=== PATIENT | male | born 1950 | race Caucasian/White ===

== ENCOUNTER 2021-02-13 00:28 | Day surgery (SDC) | payer MEDICARE, SELFPAY ==
[2021-02-02 14:05] VITALS: BMI 37.5
[2021-02-13 06:23] VITALS: BP 136/86; PULSE 76; RESP 18; TEMP 35.9; O2SAT 100; BMI 37.7
[2021-02-13] MEDS: LACTATED RINGERS 1,000 ML 150 ML IV CONT (06:55)
--- NOTE | 2021-02-13 07:14 | WPDANESEPPF ---
Anes - Initial Pre Proc Eval Procedure: Operation Date: 02/13/21 07:30 Proposed Procedures p Colonoscopy - Ramiro Tobias MD Date/Time: 02/13/21 07:14 Surgeon: Ramiro Tobias MD Pre Op Diagnosis: diarrhea, hx of colon polyps Patient Data Age: 70 Gender: M Height: 1.85 m Weight: 129.6 kg Last Vital Signs Temp 96.7 F L 02/13/21 06:23 Pulse 76 02/13/21 06:23 Resp 18 02/13/21 06:23 BP 136/86 02/13/21 06:23 Pulse Ox 100 02/13/21 06:23 Allergies Allergy/AdvReac Type Severity Reaction Status Date / Time atropine AdvReac Mild NAUSEA AND Verified 02/13/21 06:20 VOMITING diphenoxylate AdvReac Mild Fever Verified 02/13/21 06:20 meperidine AdvReac Mild SEVERE Verified 02/13/21 06:20 NAUSEA AND VOMITING Home Medications Medication Instructions Recorded Confirmed Type losartan 50 mg tablet 50 mg PO DAILY #90 tablet 05/31/20 02/02/21 Rx sertraline 100 mg tablet 100 mg PO DAILY #90 tablet 10/13/20 02/02/21 Rx cholestyramine (with sugar) 4 gram 4 g PO BID #378 g 01/18/21 02/02/21 Rx oral powder sodium,potassium,mag sulfates 17.5 See Rx Instructions PO .COMPLEX 01/19/21 02/13/21 Rx gram-3.13 gram-1.6 gram oral soln #354 ml aspirin [Adult Low Dose Aspirin] 81 mg PO DAILY 02/02/21 02/02/21 History Patient hx anesthesia problems: none Family hx anesthesia problems: none PMFSH Past Medical History Medical History DNR no code (do not resuscitate) Dysesthesia Mixed hyperlipidemia Obesity (BMI 30-39.9) Prediabetes Psychomotor agitation Surgical History Surgical History History of total bilateral knee replacement Family History Family History Father Hypertension Family history of cardiovascular disease Carcinoma of colon Mother Hypertension Family history of cardiovascular disease Carcinoma of colon Sibling Hypertension Family history of cardiovascular disease Social History Social History Smoking status: Never smoker Alcohol intake: never Substance use: never Substance use type: does not use Living arrangements: with family Spiritual care concerns: No Anes - Eval Final PreProcedure Day of Procedure 02/13/21 07:14 Patient weight: obese Heart: regular rate and rhythm Lungs: clear to auscultation Airway: Mallampati scale class III Neurological: alert and oriented Last oral intake: >/= 8 hours ASA classification: III Emergent: no Anesthetic plan: proceed Anesthesia type and monitoring: general GIVS and standard monitoring Informed Consent: The patient's anesthetic plan and its attendant risks and benefits were discussed with the patient/family/POA. Questions were solicited and answers provided to the satisfaction of the patient/family/POA.
--- NOTE | 2021-02-13 07:44 | WPDHPUPDATE1 ---
History and Physical Update Update Date/Time: 02/13/21 07:44 History and Physical has been reviewed, including an updated exam of the patient. There are NO changes in the patient's condition. Risks, benefits, and alternatives have been discussed and questions answered. Patient agrees to proceed with procedure.
[2021-02-13] MEDS: SIMETHICONE ORAL SUSPENSION 20 MG/0.3 ML 30 ML BOTTLE 0.6 ML IRRIGATION (07:55)
[2021-02-13 08:05] VITALS: BP 99/68; PULSE 68; RESP 25; O2SAT 97
[2021-02-13 08:15] VITALS: BP 104/73; PULSE 66; RESP 17; O2SAT 98
[2021-02-13 08:25] VITALS: BP 126/81; PULSE 64; RESP 20; O2SAT 99
== END 2021-02-13 08:31 | disposition home or self-care (01) ==
PROVIDERS: PCP Family Medicine; Visit Provider Internal Medicine Gastroenterology
PROC: 0DJD8ZZ Inspection of Lower Intestinal Tract, Via Natural or Artificial Opening Endoscopic (ICD-10-PCS; CPT 45378; principal; 2021-02-13 07:30)
DX: Z12.11 Encounter for screening for malignant neoplasm of colon (principal); Z80.0 Family history of malignant neoplasm of digestive organs; K64.8 Other hemorrhoids; R19.7 Diarrhea, unspecified; K52.832 Lymphocytic colitis; Z90.49 Acquired absence of other specified parts of digestive tract; E78.2 Mixed hyperlipidemia; R73.03 Prediabetes; M17.10 Unilateral primary osteoarthritis, unspecified knee; Z86.010 Personal history of colon polyps; K21.9 Gastro-esophageal reflux disease without esophagitis; R20.8 Other disturbances of skin sensation; E66.9 Obesity, unspecified; Z68.37 Body mass index [BMI] 37.0-37.9, adult
CPT/HCPCS: 45380; 88305; J2704; J7120

== ENCOUNTER 2021-05-03 11:51 | Outpatient (CLI) | payer MEDICARE, SELFPAY ==
[2021-05-03 13:35] LABS: Urine Cotinine NEGATIVE
== END 2021-05-03 11:52 | disposition home or self-care (01) ==
LOC: ANHSURGERY 11:58
PROVIDERS: PCP Family Medicine; Visit Provider Orthopaedic Surgery
DX: Z01.818 Encounter for other preprocedural examination (principal); M17.10 Unilateral primary osteoarthritis, unspecified knee
CPT/HCPCS: 80307; 87070

== ENCOUNTER 2021-05-24 16:29 | Observation (INO) | payer MEDICARE, SELFPAY ==
--- NOTE | 2021-05-03 12:03 | PC.NURSE ---
Report to the Outpatient Waiting Room, entrance under the green pavilion located off [facility], at time _1000_ on date _05/17/21__. OR Time: ___1200___. - You and your visitor will be asked a series of questions to screen for COVID 19 for your protection. - A mask is required within the hospital. - Only one visitor is allowed at this time. Patient visitors will be guided where to wait when not with patient. Preoperative COVID Testing Requirements: No COVID Test needed if: (proof is required; if not received patient will have Rapid Test prior to entry) - Patient has received COVID Vaccine at least 14 days prior to procedure date or - Patient has positive COVID test result within last 90 days of surgery date. COVID Test needed if above criteria is not met If not COVID vaccinated a COVID test must be conducted within 72 hours of surgery and patient is asked to isolate self from time of testing until procedure. You will go to the [facility] for your COVID testing. The [facility] is located at the corner of [address] [facility]. You will only be called if COVID results are positive and your surgeon may reschedule your elective surgery date. Patients may have clear liquids (water, carbonated beverages, clear teas, apple juice) until 3 hours prior to surgery (0900 AM) with a maximum of 20 ounces. - No food from midnight until time of surgery - Infants may have breast milk until 4 hours before surgery, formula 6 hours prior to surgery. - Children will be allowed to drink immediately following surgery. If applicable, please bring a bottle or sippy cup to assist with drinking. Juice, water, soda, and popsicles are readily available. For infants on formula, please bring formula the day of surgery. Pacifiers are allowed. Take the following medications with a SIP of water the morning of surgery: _DICYCLOMINE, SERTRALINE, SULFASALAZINE___ Medications to discontinue per physician ___ALEVE Date to take last dose___05/15/21 Please no make-up, nail [place], hairspray, perfume, deodorant, or body powder the day of surgery. No jewelry (including any body piercings) or valuables the day of surgery, leave them at home. Please take a shower or bath the night before, or the morning of, surgery with an antibacterial soap. Wear comfortable, loose fitting clothing. Children are encouraged to wear pajamas. - Jewelry must be removed prior to entering the operating room. Rings and piercings that are not removed may be cut off. - The hospital will not accept responsibility for valuables. - Please leave all valuables, including medications, at home the day of surgery. If you are going home after surgery, a licensed regional dedicated truck driver must drive you home. - NO public transportation without another adult. - We recommend that an adult stay with you for 24 hours following discharge. - We also recommend that you do not drive, make important decision, drink alcoholic beverages, or take any drugs that were not prescribed by your health care provider for at least 24 hours after your discharge time. For Pediatric surgeries, we recommend two adults accompany the child home (only one inside the building at this time). Follow any additional instructions given to you from your surgeon. TOTAL JOINT CLASS 05/16/21 @ 1000 AM, [facility] MAIN ENTRANCE, LOWER LEVEL Telephone instructions given to ____PT and asked if any additional questions and then verbalized understanding. Patient advised to call surgeon office or pre surgery nurse liaison [phone] if any additional questions.
[2021-05-03 12:05] VITALS: BP 130/82; PULSE 58; RESP 20; TEMP 36.3; O2SAT 97; BMI 37.0
[2021-05-23] VITALS (13 sets, daily range): BP systolic 117–145; BP diastolic 71–85; PULSE 72–92; RESP 12–20; TEMP 36.1–36.6; O2SAT 93–99
--- NOTE | 2021-05-23 08:42 | PM.IMHP ---
H&P: HPI History of Present Illness Date/Time: 05/23/21 [id number] male patient of Dr. Humphries who presents today for a right total knee arthroplasty. He is having progressively worsening symptoms in the right knee. He has undergone cortisone injection as well as Visco supplementation injections in the knee without improvement of symptoms. The last injection was over 3 months ago. He has been taking [id number] Aleve. He has moderately severe arthritis in medial compartment. Patient did have an arthroscopy done in August of this year for a flap tear of the medial meniscus. 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 Patient has reached a point where he is having significant symptoms on a daily basis. He feels he would rather proceed with total knee arthroplasty rather continue nonsurgical treatment at this point. Chief Complaint: Right knee DJD Review of Systems Review of Systems: All systems reviewed & are unremarkable except as noted in HPI and below PMFSH Past Medical History Medical History Burroughs palsy DNR no code (do not resuscitate) Dysesthesia Mixed hyperlipidemia Obesity (BMI 30-39.9) Prediabetes Psychomotor agitation Surgical History Surgical History History of total bilateral knee replacement Family History Family History Father Hypertension Family history of cardiovascular disease Carcinoma of colon Mother Hypertension Family history of cardiovascular disease Carcinoma of colon Sibling Hypertension Family history of cardiovascular disease Social History Social History Smoking status: Never smoker Second hand tobacco smoke exposure: No Additional smoking assessment comments: PT DENIES ALL FORMS OF TOBACCO USE Alcohol intake: never Substance use: never Substance use type: does not use Living arrangements: with family Gender identity (if verbalized by the patient): Male Sexual Orientation (if Verbalized by the Patient): Lesbian, Singleton, or Homosexual Spiritual care concerns: No Meds Home Medications and Allergies Home Medications Medication Instructions Recorded Confirmed Type dicyclomine 10 mg QAM 05/03/21 05/03/21 History losartan 50 mg PO QAM 05/03/21 05/03/21 History melatonin 10 mg PO HS 05/03/21 05/03/21 History naproxen sodium [Aleve] 220 mg PO BID 05/03/21 05/03/21 History potassium chloride 20 meq PO QAM 05/03/21 05/03/21 History psyllium husk [Metamucil] 1.6 g PO BID 05/03/21 05/03/21 History sertraline 50 mg PO QAM 05/03/21 05/03/21 History sulfasalazine 0.15 g PO BID 05/03/21 05/03/21 History Allergies Allergy/AdvReac Type Severity Reaction Status Date / Time atropine AdvReac Mild NAUSEA AND Verified 05/03/21 12:19 VOMITING diphenoxylate AdvReac Mild Fever & Verified 05/03/21 12:19 VOMITING meperidine AdvReac Mild SEVERE Verified 05/03/21 12:19 NAUSEA AND VOMITING Exam Narrative: 71-year-old male he is 6 ft 1 and 281 lb. Right knee he has no definite effusion. Range of motion is from 2-140 degrees. He has some mild patellofemoral crepitus with range motion. Hip range of motion is full without discomfort negative Stinchfield maneuver. Normal quad strength. 2+ dorsalis pedis and posterior tibial artery pulse palpable. No numbness to light touch in the right lower extremity. There is no edema in lower extremity. He walks with a slight limp. Resp: Auscultation: clear to auscultation bilaterally Cardio: Rate: regular rate Rhythm: regular rhythm Assessment and Plan Additional Plan 71-year-old male who has moderately severe medial compartment arthritis with continued significant symptoms. He has maximized nonsurgical treatment
[2021-05-23] MEDS: ACETAMINOPHEN 500 MG TABLET 1000 MG PO ×3 (10:04→23:36)
[2021-05-23] MEDS: LACTATED RINGERS 1,000 ML 30 ML IV CONT ×2 (10:25→16:07)
--- NOTE | 2021-05-23 10:59 | WPDANESEPPF ---
Anes - Initial Pre Proc Eval Procedure: Operation Date: 05/23/21 12:00 Proposed Procedures p Right Total Knee Arthroplasty - Nimesh Bernal MD Date/Time: 05/23/21 10:59 Surgeon: Nimesh Bernal MD Pre Op Diagnosis: OA right knee Patient Data Age: 71 Gender: M Height: 1.85 m Weight: 127.3 kg Last Vital Signs Temp 36.3 C L 05/03/21 12:05 Pulse 58 L 05/03/21 12:05 Resp 20 05/03/21 12:05 BP 130/82 05/03/21 12:05 Pulse Ox 97 05/03/21 12:05 Allergies Allergy/AdvReac Type Severity Reaction Status Date / Time atropine AdvReac Mild NAUSEA AND Verified 05/23/21 09:59 VOMITING diphenoxylate AdvReac Mild Fever & Verified 05/23/21 09:59 VOMITING meperidine AdvReac Mild SEVERE Verified 05/23/21 09:59 NAUSEA AND VOMITING Home Medications Medication Instructions Recorded Confirmed Type dicyclomine 10 mg QAM 05/03/21 05/23/21 History losartan 50 mg PO QAM 05/03/21 05/23/21 History melatonin 10 mg PO HS 05/03/21 05/23/21 History naproxen sodium [Aleve] 220 mg PO BID 05/03/21 05/23/21 History potassium chloride 20 meq PO QAM 05/03/21 05/23/21 History psyllium husk [Metamucil] 1.6 g PO BID 05/03/21 05/23/21 History sertraline 50 mg PO QAM 05/03/21 05/23/21 History sulfasalazine 0.15 g PO BID 05/03/21 05/23/21 History Patient hx anesthesia problems: other (slow to awaken) Family hx anesthesia problems: none and other (slow to awaken) Results Review: All pre-operative results and documents have been reviewed as part of the pre-operative evaluation. [facility] Past Medical History Medical History Burroughs palsy DNR no code (do not resuscitate) Dysesthesia Mixed hyperlipidemia Obesity (BMI 30-39.9) Prediabetes Psychomotor agitation Surgical History Surgical History History of total bilateral knee replacement Family History Family History Father Hypertension Family history of cardiovascular disease Carcinoma of colon Mother Hypertension Family history of cardiovascular disease Carcinoma of colon Sibling Hypertension Family history of cardiovascular disease Social History Social History Smoking status: Never smoker Second hand tobacco smoke exposure: No Additional smoking assessment comments: PT DENIES ALL FORMS OF TOBACCO USE Alcohol intake: never Substance use: never Substance use type: does not use Living arrangements: with family Gender identity (if verbalized by the patient): Male Sexual Orientation (if Verbalized by the Patient): Lesbian, Singleton, or Homosexual Spiritual care concerns: No Anes - Eval Final PreProcedure Day of Procedure 05/23/21 10:59 Patient weight: obese Heart: regular rate and rhythm Lungs: clear to auscultation Airway: Mallampati scale class II Neurological: alert and oriented Last oral intake: >/= 8 hours ASA classification: III Emergent: no Anesthetic plan: proceed Anesthesia type and monitoring: general LMA and standard monitoring Results Review: All pre-operative results and documents have been reviewed as part of the pre-operative evaluation. Informed Consent: The patient's anesthetic plan and its attendant risks and benefits were discussed with the patient/family/POA. Questions were solicited and answers provided to the satisfaction of the patient/family/POA.
[2021-05-23] MEDS: TRANEXAMIC ACID 1,000MG/ISO100 1,000 MG/100 ML BAG 200 MG IVPB (11:29)
--- NOTE | 2021-05-23 11:52 | WPDHPUPDATE1 ---
History and Physical Update Update Date/Time: 05/23/21 11:52 History and Physical has been reviewed, including an updated exam of the patient. There are NO changes in the patient's condition. Risks, benefits, and alternatives have been discussed and questions answered. Patient agrees to proceed with procedure.
--- NOTE | 2021-05-23 12:01 | WPDHPUPDATE1 ---
History and Physical Update Update Date/Time: 05/23/21 12:01 History and Physical has been reviewed, including an updated exam of the patient. There are NO changes in the patient's condition. Risks, benefits, and alternatives have been discussed and questions answered. Patient agrees to proceed with procedure.Pt has OA left knee also and would a cortisone shot left knee during surgery.
[2021-05-23] MEDS: ceFAZolin 3 GM/D5W 100 ML 100 ML IVPB (12:11)
[2021-05-23] MEDS: methylPREDNISolone ACETATE 80 MG/ML VIAL IM (12:30)
[2021-05-23] MEDS: ceFAZolin SODIUM 1 GM VIAL 3 GM IRRIGATION (12:51)
[2021-05-23] MEDS: LIDOCAINE HCL 1% PF 30 ML VIAL INFILTRATE (12:53)
[2021-05-23] MEDS: TRANEXAMIC ACID 1,000 MG/10 ML AMPUL 1000 MG IV PUSH (14:52)
[2021-05-23] MEDS: ceFAZolin SODIUM 1 GM VIAL 2 GM IV PUSH (14:53)
--- NOTE | 2021-05-23 15:47 | W.PM.PROC2 ---
Procedure Note - Detailed Date of Procedure 05/23/21 Pre-op Diagnosis OA right knee, OA left knee Post-op Diagnosis same Procedure Performed Cortisone injection left knee, right total knee arthroplasty Surgeon Nimesh Bernal MD Senior [employer] Developer Humberto Anesthesia general Description of Procedure Patient was brought to the operating room and general anesthesia was administered. He received 3 ends of Ancef weight based vancomycin 1 g tranexamic acid preoperatively. The left knee was prepped with ChloraPrep and 80 mg of Depo-Medrol and 3 cc 1% lidocaine were injected into left knee joint without difficulty. The right knee was prepped draped in a sterile fashion. Limb was exsanguinated tourniquet elevated to 275 mmHg. A 7 in longitudinal midline incision was used and a standard parapatellar arthrotomy was utilized. Infrapatellar and suprapatellar fat pads were excised and quadriceps synovectomy carried out. The minimal marginal osteophytes the patella with central chondromalacia that resulted in no the deformity and I felt that this patella would be treated optimally with non resurfacing. A very minimal lateral facetectomy was performed. A guide katey was inserted on femoral canal after aspiration of canal contents using the 5 degree valgus cutting bushing 10 mm of bone removed the distal femur. Next the tibia was hip making a skim cut off the low point of the posterior aspect of the medial tibial plateau this removed about 10 mm laterally. This was made perpendicular to the axis of the tibia meniscal remnants were excised and the PCL recessed. At 90? of flexion the medial flexion gap was 8 mm the lateral side 12 mm. He did not have a varus deformity and therefore no medial capsular release was performed. The the femoral sizing guide was applied to the distal femur at 5? of external rotation which matched Whitesides line nicely. Posterior referencing pinholes were placed. The 72.5 cutting block was applied which was the proper size medial to lateral. However, it was going to notch. Approximately 2? of flexion just a minimal amount was applied the distal femur. We applied the 75 cutting block in the anterior cut was made. I could see that with the 72.5 cut we would still notch and therefore an additional 2 or 3 ? of slope were applied the distal femoral cut and the 72.5 cutting block impacted into place and the threaded pins used for additional stabilization of a block in the AP and chamfer cuts were made. The 72.5 component fit nicely. Bone quality was excellent. The tibia was sized to a 75. The 79 was going to overhang posteriorly by 3 mm at the proper rotation. A 75 fit line to line posterolaterally to anteromedial at proper rotation. This was punched and we trialed. The 10 insert and appropriate stability at 90? with 1 mm medial and lateral opening at 90? and gravity flexion all the way back. There was it lacked approximately 3 or 4? of extension were. It posterior capsule release was performed initially just centrally and a little bit of the posteromedial osteophyte from the tibia was removed taking care not to release any of the capsule attachments in that location since he did not have a varus deformity. We trialed again and had a positive bounce lacking about 2? of extension. We had 2 mm of mediolateral play in this position with a 10 insert therefore the more thorough posterior capsule release was performed from the distal femur from insertions of medial head of the gastrocs to lateral head of gastroc and we trialed again and this time the knee came out to full extension with a negative bounce. We had appropriate stability throughout range of motion at this time. Step drill was used to make lug holes in the distal femur the bony surfaces were prepared with the step drill in the dense bone of the tibial plateau and distal femur and 2 batches of methylmethacrylate 1 with gentamicin powder mixed was applied the tibial component 75 and the 72.5 femo
[2021-05-23] MEDS: fentaNYL CITRATE INJ (*CRX) 100 MCG/2 ML VIAL 25 MCG IV PUSH ×6 (16:30→17:09)
--- NOTE | 2021-05-23 17:50 | ADMGEN ---
This patient, Jesse Crook, was admitted to Medical Room 244-. Patient/family oriented to hospital policies and general routines including ID bracelet, bed and alarms, visiting hours, pain management, procedures, bathroom and other care routines, personal items, smoking policy, room service/diet, and visiting hours. Information on how to activate the Rapid Response Team has been discussed. Patient/Family are encouraged to report perceived risks to care and to ask questions if they do not understand what they are told or what they should do.
[2021-05-23] MEDS: SODIUM CHLORIDE 0.9% IV 1,000 ML 125 ML IV CONT (18:18)
[2021-05-23] MEDS: ONDANSETRON INJ 4 MG/2 ML VIAL IV PUSH (18:53)
[2021-05-23] MEDS: oxyCODONE HCL (*CRX) 5 MG TAB IR PO ×2 (20:56)
[2021-05-23] MEDS: ARTIFICIAL TEARS OPHTH SOLN 15 ML BOTTLE 1 DROP EACH EYE (20:57)
[2021-05-23] MEDS: MELATONIN 5 MG TABLET 10 MG PO (20:59)
[2021-05-23] MEDS: DOCUSATE SODIUM 100 MG CAPSULE PO (21:05)
[2021-05-23] MEDS: PROPARACAINE HCL 0.5% 15 ML OPHTH SOLN 1 DROP EACH EYE (21:42)
[2021-05-23] MEDS: MORPHINE SULFATE (*CRX) 2 MG/ML INJ IV PUSH (23:31)
[2021-05-23] MEDS: DICLOFENAC SODIUM 0.1% OPHTH SOLN 2.5 ML BOTTLE 1 DROP EACH EYE (23:36)
--- NOTE | ~2021-05-24 | XR_ITS ---
EXAMINATION: XR femur RT min 2V, XR knee RT 2V DATE: 05/25/2021 13:36 INDICATION: Severe right thigh pain post right total knee arthroplasty 2 days prior. TECHNIQUE: AP and lateral views of the right femur were obtained on separate overlapping proximal and distal kavya ges. 2. AP and crosstable lateral views of the right knee were obtained. COMPARISON: 05/23/2021 FINDINGS: Again seen is a cemented right total knee arthroplasty without patellar resurfacing which remains in near-anatomic alignment with no periprosthetic lucency to suggest loosening. No fracture. Small right knee joint effusion with resolution of the majority of the prior postoperative intra-articular gas. Persistent soft tissue gas in the soft tissues into the patella where there is increasing soft tissue swelling as well as extending proximally within the quadriceps musculature of the mid to distal thig h. The gas in the quadriceps musculature appears more diffuse in distribution to smaller foci that on the prior study at which time there were a few are larger collections of gas. IMPRESSION: 1. Expected postoperative changes of recent right total knee arthroplasty with small right knee joint effusion and expected small foci of postoperative gas in the soft tissues at the anterior knee and m id to distal thigh. Reviewed, dictated and finalized at location A. LINING PASTER IMPRESSION: 1. Expected postoperative changes of recent right total knee arthroplasty with small right knee joint effusion and expected small foci of postoperative gas in the soft tissues at the anterior knee and mid to distal thigh.
--- NOTE | ~2021-05-24 | XR_ITS ---
EXAMINATION: XR knee RT 2V DATE: 05/23/2021 16:18 INDICATION: Postoperative evaluation following right total knee arthroplasty. TECHNIQUE: Anteroposterior and lateral views of the right knee were obtained. COMPARISON: None. FINDINGS: Right total knee arthroplasty without patellar resurfacing appears well seated and in near anatomic a lignment. No fractures identified. Expected postoperative subcutaneous and intra-articular gas. IMPRESSION: 1. Right total knee arthroplasty, negative for postoperative purposes. Reviewed, dictated and finalized at location B. ER [employer]TER [employer]
--- NOTE | ~2021-05-24 | US_ITS ---
EXAMINATION: US venous doppler LE RT DATE: 05/25/2021 13:54 INDICATION: Right lower limb pain TECHNIQUE: Robles scale images without and with compression and Doppler images of the right lower extre mity veins were obtained. COMPARISON: None FINDINGS: The right common femoral vein, profunda femoral vein, femoral vein, popliteal vein, peronea l trunk, posterior tibial veins, and greater saphenous vein are patent. The peroneal and posterior ti bial veins are not well demonstrated but appear patent. A Nava's cyst is noted. IMPRESSION: 1. Patent right lower extremity veins. No evidence of deep venous thrombosis. Reviewed, dictated and finalized at location A. [employer] TEACHER
[2021-05-24] MEDS: oxyCODONE HCL (*CRX) 5 MG TAB IR PO ×4 (01:24→05:40)
[2021-05-24 03:45] VITALS: BP 101/70; PULSE 79; RESP 18; TEMP 36.9; O2SAT 97
[2021-05-24] MEDS: MORPHINE SULFATE (*CRX) 2 MG/ML INJ IV PUSH ×2 (04:10→06:58)
[2021-05-24] MEDS: DICLOFENAC SODIUM 0.1% OPHTH SOLN 2.5 ML BOTTLE 1 DROP EACH EYE ×3 (05:39→22:24)
[2021-05-24] MEDS: ACETAMINOPHEN 500 MG TABLET 1000 MG PO ×3 (05:40→18:06)
[2021-05-24 05:59] LABS: Basophils Percent Auto 0.2 % (0.2-1.2); Hematocrit 34.1 % (42.0-52.0); Hemoglobin 11.7 g/dL (14.0-18.0); Immature Granulocyte Absolute 0.02 K/mm3 (0.00-0.031); Immature Granulocyte Percent A 0.2 % (0-0.5); Immature Platelet Fraction Pct 4.1 % (0.9-11.2); Lymphocytes Absolute Auto 1.52 K/mm3 (0.9-3.2); Lymphocytes Percent Auto 16.1 % (18.3-44.2); Mean Corpuscular HGB Conc 34.3 g/dl (32-36); Mean Corpuscular Hemoglobin 29.3 pg (26-34); Mean Corpuscular Volume 85.3 fl (80-100); Mean Platelet Volume 10.3 fl (7.4-10.4); Monocytes Percent Auto 10.9 % (2.6-8.5); Neutrophils Absolute Auto 6.9 K/mm3 (1.3-6.7); Neutrophils Percent Auto 72.6 % (45.5-73.1); Platelet Count Result 136 k/mm3 (150-375); Red Cell Distribution Width 16.2 % (11.5-14.5); White Blood Count 9.5 K/mm3 (4.5-10.0)
[2021-05-24 06:13] LABS: Anion Gap 10 mmol/L (8-16); Blood Urea Nitrogen 12 mg/dL (9-20); Calcium 7.7 mg/dL (8.4-10.2); Carbon Dioxide 24 mmol/L (22-30); Chloride 105 mmol/L (98-107); Estimated CRCL calculation 103 ml/min; Estimated Glomerular Filt Rate > 60; Glucose 132 mg/dL (65-110); Potassium 2.9 mmol/L (3.4-5.0); Sodium 139 mmol/L (137-145)
--- NOTE | 2021-05-24 07:07 | PCRCNOTE ---
pt stated that he would be going home soon and does not want to wear CPAP
[2021-05-24 07:45] VITALS: BP 136/93; PULSE 80; RESP 20; TEMP 36.3; O2SAT 98
--- NOTE | 2021-05-24 07:54 | PM.PNORT ---
Progress Note: A&P Additional Plan patient is postop day 1 after right total knee arthroplasty. He has done well overnight except for having significant pain. I will make sure that the nurses are giving him the 2 oxycodone tablets every 4 hours on the scheduled basis and this is what he should do home. His wound is dry there is no significant swelling in the knee. He is neurologically intact in the right lower extremity. His hemoglobin is 11 consistent with acute blood loss anemia. His potassium is 2.9. He normally takes 20 mEq of potassium at 8:00 a.m. every morning he will receive this and in addition I will ask the hospitalist if anything extra needs to be done. He may be discharged this afternoon after his therapy. Subjective Subjective Date/Time Seen: 05/24/21 07:54 Objective Data Vital Signs Vital Signs: Vital Signs - 24 hr 05/23/21 09:55 05/23/21 16:07 05/23/21 16:20 Temperature 36.6 C 36.3 C L Pulse Rate 72 92 83 Respiratory Rate 20 18 14 Blood Pressure 127/85 132/79 123/77 Pulse Oximetry 99 98 97 05/23/21 16:35 05/23/21 16:50 05/23/21 17:05 Temperature Pulse Rate 81 75 76 Respiratory Rate 14 12 12 Blood Pressure 117/74 122/72 125/71 Pulse Oximetry 93 95 97 05/23/21 17:20 05/23/21 17:35 05/23/21 18:00 Temperature 36.2 C L Pulse Rate 80 80 83 Respiratory Rate 12 12 18 Blood Pressure 122/75 121/79 145/80 H Pulse Oximetry 97 96 96 05/23/21 18:15 05/23/21 18:45 05/23/21 19:45 Temperature 36.3 C L 36.6 C 36.1 C L Pulse Rate 83 77 78 Respiratory Rate 18 18 18 Blood Pressure 128/74 124/78 121/76 Pulse Oximetry 99 99 96 05/23/21 23:45 05/24/21 03:45 Temperature 36.1 C L 36.9 C Pulse Rate 78 79 Respiratory Rate 18 18 Blood Pressure 121/76 101/70 Pulse Oximetry 96 97 Intake/Output Intake/Output: Intake & Output 05/21/21 05/22/21 05/23/21 05/24/21 23:59 23:59 23:59 23:59 Intake Total 710 Balance 710 Meds/Results Medications: Active Medications Generic Name Dose Route Start Last Admin Trade Name Freq PRN Reason Stop Dose Admin Acetaminophen 1,000 mg 05/23/21 18:00 05/24/21 05:40 Acetaminophen 500 Mg Tablet PO 1,000 mg Q6H GINA Administration Apixaban 2.5 mg 05/24/21 09:00 Apixaban 2.5 Mg Tablet PO Q12HR GINA Artificial Tears 1 drop 05/23/21 17:39 05/23/21 20:57 Artificial Tears Ophth Soln 15 Ml Bottle EACH EYE 1 drop Q2H PRN Administration Dry Eye(s) Artificial Tears 1 drop 05/23/21 17:44 Artificial Tears Ophth Soln 15 Ml Bottle EACH EYE Q2H PRN Dry Eye(s) Celecoxib 200 mg 05/24/21 08:00 Celecoxib 200 Mg Capsule PO DAILY@0800 GINA Cephalexin HCl 500 mg 05/24/21 18:00 Cephalexin 500 Mg Capsule PO Q6HR GINA Diclofenac Sodium 1 drop 05/23/21 22:00 05/24/21 05:39 Diclofenac Sodium 0.1% Ophth Soln 2.5 Ml Bottle EACH EYE 05/27/21 21:59 1 drop Q8HR GINA Administration Dicyclomine HCl 10 mg 05/24/21 09:00 Dicyclomine Hcl 10 Mg Capsule PO QAM GINA Docusate Sodium 100 mg 05/23/21 21:00 05/23/21 21:05 Docusate Sodium 100 Mg Capsule PO 100 mg Q12HR GINA Administration Vancomycin HCl 1,000 mg in 250 mls @ 250 mls/hr 05/23/21 23:00 05/23/21 23:31 Vancomycin 1,000 Mg/D5w 250 Ml IVPB 05/24/21 11:59 250 mls/hr Q12H GINA Administration Cefazolin Sodium 1 gm in 50 mls @ 100 mls/hr 05/23/21 20:00 05/24/21 04:23 Ancef 1 Gm/D5w 50 Ml Pm IVPB 05/24/21 12:29 100 mls/hr Q8H GINA Administration Losartan Potassium 50 mg 05/24/21 09:00 Losartan Potassium 50 Mg Tablet PO QAM GINA Melatonin 10 mg 05/23/21 21:00 05/23/21 20:59 Melatonin 5 Mg Tablet PO 10 mg HS GINA Administration Miscellaneous Information 1 each 05/23/21 00:01 Metamucil 1.6gm Order. Significant Other To Bring Tomorrow Morning, Ok Per Dr. Bernal For XX 06/22/21 00:00 CLARIFY GINA Miscellaneous Information 1 each 05/23/21 00:01 Sulfasalazine 150mg Significa
--- NOTE | 2021-05-24 08:52 | PM.IMCN ---
Assessment and Plan Assessment and plan (1) Total knee replacement status: Code(s): Z96.659 - Presence of unspecified artificial knee joint Status: Acute Assessment and Plan: Status post right knee arthroplasty postop day 1 -patient has received vancomycin, Keflex and cefazolin for perioperative antibiotics -continue Celebrex and oxycodone for pain. Would recommend trying to maybe schedule Tylenol and do narcotics PRN for pain -PT/OT per ortho -continue eliquis 2.5 daily (2) Hypokalemia: Code(s): E87.6 - Hypokalemia Status: Acute Assessment and Plan: Potassium was 2.9 today and he has a hx of hypokalemia in the past -continue 20meq home dose and give 40meg IV x 1 -mag normal 1.7 -will need to repeat before discharge to ensure this has improved (3) Essential hypertension: Code(s): I10 - Essential (primary) hypertension Status: Acute Assessment and Plan: Last bp 136/93 -continue lostartan (4) Postoperative anemia: Code(s): D64.9 - Anemia, unspecified Status: Acute Assessment and Plan: Mild at 11.7/34.1 -outpt labs 03/2021 show hgb was 13.5 -no evidence of bleeding on exam, suspect this will improve with time Additional Plan Supervising physician for this consult H&P is Dr. Bo. Thank you for allowing us to consult in this patient's care. If you have any questions please feel free to reach out. HPI Data of Consult Consult date: 05/24/21 Requesting Physician: Nimesh Bernal MD Primary Care Provider: Jesse Humphries MD Consult Narrative Narrative: Jesse Crook is a 71 year old male with a past medical history of hypertension, chronic diarrhea, and arthritis who underwent a right total knee arthroplasty 05/23/21. Patient was having progressively worsening symptoms to the right knee over the last few years and underwent cortisone injections without improvement of his symptoms. He has been taking ikiz-nro-vhnqzal medications but continued to have pain. He has not had any recent CP, SOB, fevers, chills, nausea or vomiting. He has his normal chronic diarrhea that he sees Dr. Tobias for. [facility], [facility] Past Medical History Medical History (Updated 12/09/21 @ 09:55 by Inez Figueredo PA-C) Burroughs palsy Many years ago Dysesthesia Mixed hyperlipidemia Obesity (BMI 30-39.9) Prediabetes Psychomotor agitation Surgical History Surgical History (Updated 05/24/21 @ 09:55 by Inez Figueredo PA-C) History of bilateral mastectomy Benign History of cataract surgery History of cholecystectomy History of total bilateral knee replacement Family History Family History Father Hypertension Family history of cardiovascular disease Carcinoma of colon Mother Hypertension Family history of cardiovascular disease Carcinoma of colon Sibling Hypertension Family history of cardiovascular disease Social History Social History (Updated 05/24/21 @ 09:56 by Inez Figueredo PA-C) Social History: Patient does not drink, smoke or do drugs. 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 He would like to be a full code. His power of finance attorney is his partner, Bryan. Smoking status: Never smoker Second hand tobacco smoke exposure: No Alcohol intake: never Substance use: never Substance use type: does not use Living arrangements: with family Gender identity (if verbalized by the patient): Male Sexual Orientation (if Verbalized by the Patient): Lesbian, Singleton, or Homosexual Spiritual care concerns: No Meds Home Medications and Allergies Home Medications Medication Instructions Recorded Confirmed Type dicyclomine 10 mg QAM 05/03/21 05/23/21 History losartan 50 mg PO QAM 05/03/21 05/23/21 History melatonin 10 mg PO HS 05/03/21 05/23/21 History potassium chloride 20 meq PO QAM 05/03/21 05/23/21 History psyllium husk [Metamucil] 1.6 g PO BID 05/03/21
[2021-05-24 09:08] LABS: Magnesium 1.7 mg/dL (1.6-2.3)
[2021-05-24] MEDS: KCL 40 MEQ/WATER 100 ML 100 ML 25 ML IVPB (09:39)
[2021-05-24] MEDS: SERTRALINE HCL 50 MG TABLET PO (09:43)
[2021-05-24] MEDS: DOCUSATE SODIUM 100 MG CAPSULE PO ×2 (09:43→22:22)
[2021-05-24] MEDS: POTASSIUM CHLORIDE 20 MEQ TABLET.ER PO (09:44)
[2021-05-24] MEDS: CELECOXIB 200 MG CAPSULE PO (09:44)
[2021-05-24] MEDS: DICYCLOMINE HCL 10 MG CAPSULE PO (09:44)
[2021-05-24] MEDS: oxyCODONE HCL (*CRX) 5 MG TAB IR 10 MG PO ×4 (09:44→22:22)
[2021-05-24] MEDS: APIXABAN 2.5 MG TABLET PO ×2 (09:44→22:24)
[2021-05-24] MEDS: LOSARTAN POTASSIUM 50 MG TABLET PO (09:44)
[2021-05-24] MEDS: SODIUM CHLORIDE 0.9% IV 1,000 ML 100 ML IV CONT (10:24)
[2021-05-24 11:00] VITALS: BP 110/67; PULSE 77; RESP 16; TEMP 36.6; O2SAT 97
--- NOTE | 2021-05-24 11:02 | P.PNAN_ITS ---
Anes - Prog Note Post-Op Date/Time: 05/24/21 11:02 Cardiovascular status: normal Respiratory status: normal Airway patency: baseline Mental status: baseline Post-Op hydration status: normal Vital Signs: Last Vital Signs Temp 36.3 C L 05/24/21 07:45 Pulse 80 05/24/21 07:45 Resp 20 05/24/21 07:45 BP 136/93 H 05/24/21 07:45 Pulse Ox 98 05/24/21 07:45 Pain Score (VAS): 0 I/O: Intake & Output 05/23/21 05/24/21 05/24/21 23:59 07:59 15:59 Intake Total 50 1050 160 Output Total 1100 Balance 50 -50 160 Laboratory Tests 05/24/21 05:22 05/24/21 05:22 05/23/21 05/24/21 05/24/21 10:30 05:21 05:22 WBC 9.5 RBC 4.00 L Hgb 11.7 L Hct 34.1 L MCV 85.3 MCH 29.3 MCHC 34.3 RDW 16.2 H Plt Count 136 L MPV 10.3 Immature Gran % (Auto) 0.2 Neut % (Auto) 72.6 Lymph % (Auto) 16.[address] % (Auto) 10.9 H Eos % (Auto) 0.0 Baso % (Auto) 0.2 Lymph # (Auto) 1.52 [place] # (Auto) 1.0 H Eos # (Auto) 0.0 Baso # (Auto) 0.0 Abs Immat Gran (auto) 0.02 Absolute Neuts (auto) 6.9 H Absolute Nucleated RBC 0.0 Nucleated RBC % 0.0 % Immature Plt Fraction 4.1 Sodium Potassium Chloride Carbon Dioxide Anion Gap BUN Creatinine Estim Creat Clear Calc Estimated GFR Glucose Calcium Magnesium 1.7 Blood Type O Positive Antibody Screen Negative 05/24/21 05:22 WBC RBC Hgb Hct MCV MCH MCHC RDW Plt Count MPV Immature Gran % (Auto) Neut % (Auto) Lymph % (Auto) [place] % (Auto) Eos % (Auto) Baso % (Auto) Lymph # (Auto) [place] # (Auto) Eos # (Auto) Baso # (Auto) Abs Immat Gran (auto) Absolute Neuts (auto) Absolute Nucleated RBC Nucleated RBC % % Immature Plt Fraction Sodium 139 Potassium 2.9 L Chloride 105 Carbon Dioxide 24 Anion Gap 10 BUN 12 Creatinine 0.80 Estim Creat Clear Calc 103 Estimated GFR > 60 Glucose 132 H Calcium 7.7 L Magnesium Blood Type Antibody Screen Post-procedural complaints: none Patient Feedback: Patient satisfied with anesthetic care.
[2021-05-24] MEDS: POTASSIUM CHLORIDE 20 MEQ PACKET (FOR LIQUID) 40 MEQ PO (12:07)
[2021-05-24] MEDS: sulfaSALAzine 500 MG TABLET 1500 MG PO ×2 (12:53→18:07)
[2021-05-24 14:30] VITALS: BP 118/66; PULSE 82; RESP 16; TEMP 36.6; O2SAT 94
[2021-05-24 15:26] LABS: Anion Gap 9 mmol/L (8-16); Blood Urea Nitrogen 15 mg/dL (9-20); Calcium 7.9 mg/dL (8.4-10.2); Carbon Dioxide 23 mmol/L (22-30); Chloride 101 mmol/L (98-107); Estimated CRCL calculation 92 ml/min; Estimated Glomerular Filt Rate > 60; Glucose 138 mg/dL (65-110); Potassium 3.1 mmol/L (3.4-5.0); Sodium 133 mmol/L (137-145)
[2021-05-24] MEDS: PSYLLIUM POWDER PACKET 1 PACKET PO (18:07)
[2021-05-24] MEDS: CEPHALEXIN 500 MG CAPSULE PO (18:07)
[2021-05-24 19:37] VITALS: BP 116/63; PULSE 77; RESP 18; TEMP 36.6; O2SAT 99
[2021-05-24 21:00] VITALS: O2SAT 96
[2021-05-24] MEDS: oxyCODONE HCL (*CRX) 10 MG TAB SR 12HR PO (22:22)
[2021-05-24] MEDS: MELATONIN 5 MG TABLET 10 MG PO (22:24)
[2021-05-25] MEDS: ACETAMINOPHEN 500 MG TABLET 1000 MG PO ×5 (00:39→23:36)
[2021-05-25] MEDS: CEPHALEXIN 500 MG CAPSULE PO ×5 (00:39→23:36)
[2021-05-25] MEDS: oxyCODONE HCL (*CRX) 5 MG TAB IR 10 MG PO ×5 (02:08→20:42)
[2021-05-25 03:06] VITALS: BP 105/65; PULSE 78; RESP 16; TEMP 36.4; O2SAT 97
[2021-05-25 06:32] LABS: Anion Gap 8 mmol/L (8-16); Blood Urea Nitrogen 15 mg/dL (9-20); Calcium 7.7 mg/dL (8.4-10.2); Carbon Dioxide 25 mmol/L (22-30); Chloride 102 mmol/L (98-107); Estimated CRCL calculation 116 ml/min; Estimated Glomerular Filt Rate > 60; Glucose 111 mg/dL (65-110); Sodium 135 mmol/L (137-145)
[2021-05-25] MEDS: DICYCLOMINE HCL 10 MG CAPSULE PO (08:08)
[2021-05-25] MEDS: CELECOXIB 200 MG CAPSULE PO (08:08)
[2021-05-25] MEDS: DOCUSATE SODIUM 100 MG CAPSULE PO ×2 (08:08→20:38)
[2021-05-25] MEDS: oxyCODONE HCL (*CRX) 10 MG TAB SR 12HR PO ×2 (08:08→20:39)
[2021-05-25] MEDS: LOSARTAN POTASSIUM 50 MG TABLET PO (08:08)
[2021-05-25] MEDS: SERTRALINE HCL 50 MG TABLET PO (08:08)
[2021-05-25] MEDS: POTASSIUM CHLORIDE 20 MEQ TABLET.ER PO (08:08)
[2021-05-25] MEDS: sulfaSALAzine 500 MG TABLET 1500 MG PO ×2 (08:08→18:14)
[2021-05-25] MEDS: PSYLLIUM POWDER PACKET 1 PACKET PO ×2 (08:09→18:14)
[2021-05-25] MEDS: APIXABAN 2.5 MG TABLET PO ×2 (08:09→20:38)
[2021-05-25] MEDS: POTASSIUM CHLORIDE 20 MEQ PACKET (FOR LIQUID) 40 MEQ PO (09:20)
--- NOTE | 2021-05-25 10:25 | PM.IMPN ---
Progress Note: A&P Assessment and Plan (1) Total knee replacement status: Code(s): Z96.659 - Presence of unspecified artificial knee joint Status: Acute Assessment and Plan: Status post right knee arthroplasty postop day 2 -patient has received vancomycin, Keflex and cefazolin for perioperative antibiotics -continue Celebrex and oxycodone for pain. Would recommend trying to maybe schedule Tylenol and do narcotics PRN for pain -PT/OT per ortho -continue eliquis 2.5 daily -Pt has pain out of proportion to exam. Will check xray and doppler of the right leg. -may need SNF or acute rehab placement. (2) Hypokalemia: Code(s): E87.6 - Hypokalemia Status: Acute Assessment and Plan: Potassium was 2.9 yesterday and only 3.0 today -continue 20meq home dose and give an extra 40meq -pt unable to tolerate IV K -mag normal 1.7 yesterday but will add to daily regimen to help absorb potassium -will need a few days of potassium oupt and repeat labs outpt (3) Essential hypertension: Code(s): I10 - Essential (primary) hypertension Status: Acute Assessment and Plan: Last bp 105/65 -continue lostartan (4) Postoperative anemia: Code(s): D64.9 - Anemia, unspecified Status: Acute Assessment and Plan: Mild at 11.7/34.1 yesterday -outpt labs 03/2021 show hgb was 13.5 -no evidence of bleeding on exam, suspect this will improve with time Time Spent With Patient Time with patient: 25 - 35 minutes Subjective Date/time seen: 05/25/21 10:25 Interval history: Pt is a 71 y/o male here for elective right knee arthroplasty. Pt has significant pain in his right knee and thigh he cannot even lift it off the stool. He says he could barely stand and the pain is terrible. He says PT does help some but he still cannot do much. He denies CP or SOB. Review of Systems Review of Systems: All systems reviewed & are unremarkable except as noted in HPI and below Exam Narrative: General:Well developed well nourished patient HEENT: Normocephalic, atraumatic, PERRL, Sclerae anicteric, oral mucosa moist. Neck: Supple Resp: CTA Heart: RRR with no murmurs Abd: Soft, nontender. No pain to palpation. Positive bowel sounds Skin: Warm and dry Extremities: Right knee with bandage without bleeding or erythema. pulses and sensation intact Neuro: Alert and Oriented x4 . CN 2-12 intact. No focal neurological deficits. Objective Data Vital Signs Vital Signs: Vital Signs - 24 hr 05/24/21 11:00 05/24/21 14:30 05/24/21 19:37 Temperature 97.9 F 98 F 97.8 F Pulse Rate 77 82 77 Respiratory Rate 16 16 18 Blood Pressure 110/67 118/66 116/63 Pulse Oximetry 97 94 99 05/24/21 21:00 05/25/21 03:06 Temperature 97.6 F Pulse Rate 78 Respiratory Rate 16 Blood Pressure 105/65 Pulse Oximetry 96 97 Intake/Output Intake/Output: Intake & Output 05/22/21 05/23/21 05/24/21 05/25/21 23:59 23:59 23:59 23:59 Intake Total 710 3550 1440 Output Total 2800 400 Balance 648 268 7979 Meds/Results Medications: Active Medications Generic Name Dose Route Start Last Admin Trade Name Freq PRN Reason Stop Dose Admin Acetaminophen 1,000 mg 05/23/21 18:00 05/25/21 06:05 Acetaminophen 500 Mg Tablet PO 1,000 mg Q6H GINA Administration Apixaban 2.5 mg 05/24/21 09:00 05/25/21 08:09 Apixaban 2.5 Mg Tablet PO 2.5 mg Q12HR GINA Administration Artificial Tears 1 drop 05/23/21 17:39 05/23/21 20:57 Artificial Tears Ophth Soln 15 Ml Bottle EACH EYE 1 drop Q2H PRN Administration Dry Eye(s) Artificial Tears 1 drop 05/23/21 17:44 Artificial Tears Ophth Soln 15 Ml Bottle EACH EYE Q2H PRN Dry Eye(s) Celecoxib 200 mg 05/24/21 08:00 05/25/21 08:08 Celecoxib 200 Mg Capsule PO 200 mg DAILY@0800 GINA Administration Cephalexin HCl 500 mg 05/24/21 18:00 05/25/21 06:05 Cephalexin 500 Mg Capsule PO 500 mg Q6HR GINA Admi
[2021-05-25] MEDS: MAGNESIUM OXIDE 400 MG TABLET PO (11:00)
[2021-05-25] MEDS: DICLOFENAC SODIUM 0.1% OPHTH SOLN 2.5 ML BOTTLE 1 DROP EACH EYE ×2 (14:13→20:39)
--- NOTE | 2021-05-25 15:32 | PM.PNORT ---
Progress Note: A&P Time Spent With Patient Time: . Patient is postoperative day 2 after right total knee arthroplasty and injection right knee. I saw him yesterday morning at 7:00 a.m. and it had very little sleep all night but when he tried to get up he had severe pain in the anterior mid thigh and complained that he could not lift his leg due to pain in that area or bear weight because of anterior thigh pain I think this is related to the arthrotomy incision through the quadriceps tendon. He was also found to have low potassium 2.9. He thinks that he held his potassium the morning of surgery he normally takes 20 mEq daily. His potassium was 3.0 this morning up from 2.9 yesterday. He had severe pain in his arm with IV potassium supplementation so we are using oral medius tolerating that well. At 8:00 a.m. this morning he was still complaining of severe pain in the anterior thigh and 10 mg of Decadron IV was ordered. at 1:00 a.m. this afternoon when I saw him, he was sitting in the chair his partner in the room smiling in good spirits. His severe pain has subsided any just has mild pain now and earlier when he was having severe pain the hospitalist ordered x-ray of the knee and a venous duplex ultrasound which I thought was a very appropriate as his pain was quite out of the ordinary in severity. I also ordered an x-ray of the femur and the x-rays show total knee arthroplasty with no unexpected findings. Venous duplex ultrasound was negative for DVT. I then watched him independently get up from the chair and walk partial weight-bearing with a walker over to the [facility] and he was able to get on but did need assistance lifting his foot as he cannot do a straight leg raise yet. He tolerated this well. It would appear that yesterday and early this morning his pain was simply intolerable and severe and it seems that he has responded quite well to the Decadron. I plan to give him 1 more dose tomorrow morning and make sure that he is safe to be discharged tomorrow he does have a few steps at home he will have to negotiate. His left knee feels better since the cortisone shot 2 days ago. We will check a BMP tomorrow to make sure that his potassium has come up normally and if he is doing well we will plan discharge him home tomorrow. I am going to add a 5 mg daily prednisone to his regimen as well for the next 10 days to help with pain control. Subjective Subjective Date/Time Seen: 05/25/21 15:33 Objective Data Vital Signs Vital Signs: Vital Signs - 24 hr 05/24/21 19:37 05/24/21 21:00 05/25/21 03:06 Temperature 36.6 C 36.4 C Pulse Rate 77 78 Respiratory Rate 18 16 Blood Pressure 116/63 105/65 Pulse Oximetry 99 96 97 Intake/Output Intake/Output: Intake & Output 05/22/21 05/23/21 05/24/21 05/25/21 23:59 23:59 23:59 23:59 Intake Total 710 3550 1680 Output Total 2800 400 Balance 400 813 7708 Meds/Results Medications: Active Medications Generic Name Dose Route Start Last Admin Trade Name Freq PRN Reason Stop Dose Admin Acetaminophen 1,000 mg 05/23/21 18:00 05/25/21 11:00 Acetaminophen 500 Mg Tablet PO 1,000 mg Q6H GINA Administration Apixaban 2.5 mg 05/24/21 09:00 05/25/21 08:09 Apixaban 2.5 Mg Tablet PO 2.5 mg Q12HR GINA Administration Artificial Tears 1 drop 05/23/21 17:39 05/23/21 20:57 Artificial Tears Ophth Soln 15 Ml Bottle EACH EYE 1 drop Q2H PRN Administration Dry Eye(s) Artificial Tears 1 drop 05/23/21 17:44 Artificial Tears Ophth Soln 15 Ml Bottle EACH EYE Q2H PRN Dry Eye(s) Celecoxib 200 mg 05/24/21 08:00 05/25/21 08:08 Celecoxib 200 Mg Capsule PO 200 mg DAILY@0800 GINA Administration Cephalexin HCl 500 mg 05/24/21 18:00 05/25/21 11:00 Cephalexin 500 Mg Capsule PO 500 mg Q6HR GINA Administration Cyclobenzaprine HCl 10 mg 05/24/21 15:14 Cyclobenzaprine Hcl 10 Mg Tablet PO Q8H PRN Muscle Spasm Diclofenac Sodium 1
--- NOTE | 2021-05-25 16:17 | PCOTNOTE ---
On 05/25/21, the student, Kathi VÁZQUEZ, provided care and completed [facility] documentation on this patient. I have reviewed the student's documentation and agree with the findings.
[2021-05-25 17:05] LABS: Anion Gap 10 mmol/L (8-16); Blood Urea Nitrogen 17 mg/dL (9-20); Calcium 7.9 mg/dL (8.4-10.2); Carbon Dioxide 26 mmol/L (22-30); Chloride 103 mmol/L (98-107); Estimated CRCL calculation 92 ml/min; Estimated Glomerular Filt Rate > 60; Glucose 135 mg/dL (65-110); Potassium 3.4 mmol/L (3.4-5.0); Sodium 139 mmol/L (137-145)
[2021-05-25] MEDS: POTASSIUM CHLORIDE 20 MEQ PACKET (FOR LIQUID) PO (18:15)
[2021-05-25 19:25] VITALS: BP 105/64; PULSE 79; RESP 18; TEMP 36.6; O2SAT 99
[2021-05-25] MEDS: MELATONIN 5 MG TABLET 10 MG PO (20:38)
[2021-05-25] MEDS: CYCLOBENZAPRINE HCL 10 MG TABLET PO (20:42)
[2021-05-26] MEDS: oxyCODONE HCL (*CRX) 5 MG TAB IR 10 MG PO ×3 (02:05→09:42)
[2021-05-26 03:24] VITALS: BP 104/65; PULSE 72; RESP 16; TEMP 36.6; O2SAT 99
[2021-05-26] MEDS: DICLOFENAC SODIUM 0.1% OPHTH SOLN 2.5 ML BOTTLE 1 DROP EACH EYE (05:31)
[2021-05-26] MEDS: CEPHALEXIN 500 MG CAPSULE PO ×2 (05:31→12:20)
[2021-05-26] MEDS: ACETAMINOPHEN 500 MG TABLET 1000 MG PO ×2 (05:31→12:20)
[2021-05-26 05:50] LABS: Hematocrit 29.4 % (42.0-52.0); Hemoglobin 9.8 g/dL (14.0-18.0); Mean Corpuscular HGB Conc 33.3 g/dl (32-36); Mean Corpuscular Hemoglobin 28.2 pg (26-34); Mean Corpuscular Volume 84.5 fl (80-100); Mean Platelet Volume 10.6 fl (7.4-10.4); Platelet Count Result 115 k/mm3 (150-375); Red Blood Count 3.48 M/mm3 (4.6-6.20); Red Cell Distribution Width 17.1 % (11.5-14.5); White Blood Count 6.7 K/mm3 (4.5-10.0)
[2021-05-26 06:01] LABS: Alanine Aminotransferase 11 U/L (4-50); Albumin Level 3.5 g/dL (3.5-5.1); Alkaline Phosphatase 47 U/L (38-126); Anion Gap 8 mmol/L (8-16); Aspartate Amino Transferase 21 U/L (17-59); Bilirubin Direct 0.3 mg/dL (0-0.3); Bilirubin,Total 0.6 mg/dL (0.2-1.3); Blood Urea Nitrogen 15 mg/dL (9-20); Carbon Dioxide 25 mmol/L (22-30); Chloride 105 mmol/L (98-107); Estimated CRCL calculation 103 ml/min; Estimated Glomerular Filt Rate > 60; Glucose 107 mg/dL (65-110); Potassium 3.2 mmol/L (3.4-5.0); Sodium 138 mmol/L (137-145)
--- NOTE | 2021-05-26 08:48 | PM.IMPN ---
Progress Note: A&P Assessment and Plan (1) Total knee replacement status: Code(s): Z96.659 - Presence of unspecified artificial knee joint Status: Acute Assessment and Plan: Status post right knee arthroplasty postop day 3 -patient has received vancomycin, Keflex and cefazolin for perioperative antibiotics -continue Celebrex and oxycodone for pain. -PT/OT per ortho -continue eliquis 2.5 daily - no signs of pathology on x-ray or ultrasound. pain improved with steroids. - will likely go home later today (2) Hypokalemia: Code(s): E87.6 - Hypokalemia Status: Acute Assessment and Plan: improving, 3.2 today -continue 20meq home dose and give an extra 20meq x3 days outpt - recheck potassium outpatient and follow-up with primary for additional adjustments - magnesium normal - likely due to chronic diarrhea (3) Essential hypertension: Code(s): I10 - Essential (primary) hypertension Status: Acute Assessment and Plan: Last bp 104/65 and patient doing fine with no symptoms -continue lostartan (4) Postoperative anemia: Code(s): D64.9 - Anemia, unspecified Status: Acute Assessment and Plan: Mild at 9.8 -outpt labs 03/2021 show hgb was 13.5 -no evidence of bleeding on exam, suspect this will improve with time Additional Plan okay to discharge from medical standpoint Subjective Date/time seen: 05/26/21 08:48 Interval history: Pt is a 71 y/o male here for elective right knee arthroplasty. patient was seen today and states he feels a million times better . he still has some pain but it is not debilitating as it was. He has not worked with physical therapy. His diarrhea has lessened. No chest pain or shortness of breath. I spoke to him about his low potassium and that he needs a repeat blood draw in follow-up with his primary care physician. He agreed Exam Narrative: General:Well developed well nourished patient HEENT: Normocephalic, atraumatic, PERRL, Sclerae anicteric, oral mucosa moist. Neck: Supple Resp: CTA Heart: RRR with no murmurs Abd: Soft, nontender. No pain to palpation. Positive bowel sounds Skin: Warm and dry Extremities: Right knee with bandage without bleeding or erythema. pulses and sensation intact Neuro: Alert and Oriented x4 . CN 2-12 intact. No focal neurological deficits. Objective Data Vital Signs Vital Signs: Vital Signs - 24 hr 05/25/21 19:25 05/26/21 03:24 Temperature 97.8 F 97.8 F Pulse Rate 79 72 Respiratory Rate 18 16 Blood Pressure 105/64 104/65 Pulse Oximetry 99 99 Intake/Output Intake/Output: Intake & Output 05/23/21 05/24/21 05/25/21 05/26/21 23:59 23:59 23:59 23:59 Intake Total 710 3550 2250 800 Output Total 2800 700 1300 Balance 027 971 9911 -500 Meds/Results Medications: Active Medications Generic Name Dose Route Start Last Admin Trade Name Freq PRN Reason Stop Dose Admin Acetaminophen 1,000 mg 05/23/21 18:00 05/26/21 05:31 Acetaminophen 500 Mg Tablet PO 1,000 mg Q6H GINA Administration Apixaban 2.5 mg 05/24/21 09:00 05/25/21 20:38 Apixaban 2.5 Mg Tablet PO 2.5 mg Q12HR GINA Administration Artificial Tears 1 drop 05/23/21 17:39 05/23/21 20:57 Artificial Tears Ophth Soln 15 Ml Bottle EACH EYE 1 drop Q2H PRN Administration Dry Eye(s) Artificial Tears 1 drop 05/23/21 17:44 Artificial Tears Ophth Soln 15 Ml Bottle EACH EYE Q2H PRN Dry Eye(s) Celecoxib 200 mg 05/24/21 08:00 05/25/21 08:08 Celecoxib 200 Mg Capsule PO 200 mg DAILY@0800 GINA Administration Cephalexin HCl 500 mg 05/24/21 18:00 05/26/21 05:31 Cephalexin 500 Mg Capsule PO 500 mg Q6HR GINA Administration Cyclobenzaprine HCl 10 mg 05/24/21 15:14 05/25/21 20:42 Cyclobenzaprine Hcl 10 Mg Tablet PO 10 mg Q8H PRN Administration Muscle Spasm Diclofenac Sodium 1 drop 05/23/21 22:00 05/26/21 05:31 Diclofenac Sodi
[2021-05-26] MEDS: oxyCODONE HCL (*CRX) 10 MG TAB SR 12HR PO (09:42)
[2021-05-26] MEDS: APIXABAN 2.5 MG TABLET PO (09:43)
[2021-05-26] MEDS: CELECOXIB 200 MG CAPSULE PO (09:43)
[2021-05-26] MEDS: DICYCLOMINE HCL 10 MG CAPSULE PO (09:43)
[2021-05-26] MEDS: SERTRALINE HCL 50 MG TABLET PO (09:43)
[2021-05-26] MEDS: MAGNESIUM OXIDE 400 MG TABLET PO (09:43)
[2021-05-26] MEDS: LOSARTAN POTASSIUM 50 MG TABLET PO (09:44)
[2021-05-26] MEDS: PSYLLIUM POWDER PACKET 1 PACKET PO (09:44)
[2021-05-26] MEDS: POTASSIUM CHLORIDE 20 MEQ TABLET.ER PO (09:44)
[2021-05-26] MEDS: sulfaSALAzine 500 MG TABLET 1500 MG PO (09:44)
[2021-05-26] MEDS: POTASSIUM CHLORIDE 20 MEQ PACKET (FOR LIQUID) PO (09:45)
[2021-05-26] MEDS: DOCUSATE SODIUM 100 MG CAPSULE PO (09:55)
[2021-05-26 10:00] VITALS: BP 111/68; PULSE 81; RESP 18; TEMP 36.3; O2SAT 97
--- NOTE | 2021-05-26 12:31 | PM.PNORT ---
Progress Note: A&P Additional Plan Patient is postop day number 3 after total knee arthroplasty on the right cortisone shot left knee. Is doing much better today. Is able to get up without assistance and he feels confident that he will do well at home would like to be discharged this afternoon and his partner will pick him up at about 3:00 p.m. to bring him home. His x-rays right knee and femur yesterday showed no abnormality except for recent total knee arthroplasty. Venous duplex ultrasound the right leg was negative for DVT. He is in good spirits today. He is able to stand up for me move around without much difficulty. Hemoglobin is 9.8 acute blood loss anemia. He is not symptomatic from that. His potassium was up to 3.2 an additional potassium oral supplementation has been ordered for him for home. Patient would like to be discharged today and we will discharge him and will see me in the office in approximately 10 days Subjective Subjective Date/Time Seen: 05/26/21 12:31 Objective Data Vital Signs Vital Signs: Vital Signs - 24 hr 05/25/21 19:25 05/26/21 03:24 05/26/21 10:00 Temperature 36.6 C 36.6 C 36.3 C L Pulse Rate 79 72 81 Respiratory Rate 18 16 18 Blood Pressure 105/64 104/65 111/68 Pulse Oximetry 99 99 97 Intake/Output Intake/Output: Intake & Output 05/23/21 05/24/21 05/25/21 05/26/21 23:59 23:59 23:59 23:59 Intake Total 710 3550 2250 920 Output Total 2800 700 1300 Balance 474 223 7903 -380 Meds/Results Medications: Active Medications Generic Name Dose Route Start Last Admin Trade Name Freq PRN Reason Stop Dose Admin Acetaminophen 1,000 mg 05/23/21 18:00 05/26/21 12:20 Acetaminophen 500 Mg Tablet PO 1,000 mg Q6H GINA Administration Apixaban 2.5 mg 05/24/21 09:00 05/26/21 09:43 Apixaban 2.5 Mg Tablet PO 2.5 mg Q12HR GINA Administration Artificial Tears 1 drop 05/23/21 17:39 05/23/21 20:57 Artificial Tears Ophth Soln 15 Ml Bottle EACH EYE 1 drop Q2H PRN Administration Dry Eye(s) Artificial Tears 1 drop 05/23/21 17:44 Artificial Tears Ophth Soln 15 Ml Bottle EACH EYE Q2H PRN Dry Eye(s) Celecoxib 200 mg 05/24/21 08:00 05/26/21 09:43 Celecoxib 200 Mg Capsule PO 200 mg DAILY@0800 GINA Administration Cephalexin HCl 500 mg 05/24/21 18:00 05/26/21 12:20 Cephalexin 500 Mg Capsule PO 500 mg Q6HR GINA Administration Cyclobenzaprine HCl 10 mg 05/24/21 15:14 05/25/21 20:42 Cyclobenzaprine Hcl 10 Mg Tablet PO 10 mg Q8H PRN Administration Muscle Spasm Diclofenac Sodium 1 drop 05/23/21 22:00 05/26/21 05:31 Diclofenac Sodium 0.1% Ophth Soln 2.5 Ml Bottle EACH EYE 05/27/21 21:59 1 drop Q8HR GINA Administration Dicyclomine HCl 10 mg 05/24/21 09:00 05/26/21 09:43 Dicyclomine Hcl 10 Mg Capsule PO 10 mg QAM GINA Administration Docusate Sodium 100 mg 05/23/21 21:00 05/26/21 09:55 Docusate Sodium 100 Mg Capsule PO 100 mg Q12HR GINA Administration Losartan Potassium 50 mg 05/24/21 09:00 05/26/21 09:44 Losartan Potassium 50 Mg Tablet PO 50 mg QAM GINA Administration Magnesium Oxide 400 mg 05/25/21 09:00 05/26/21 09:43 Magnesium Oxide 400 Mg Tablet PO 400 mg DAILY GINA Administration Melatonin 10 mg 05/23/21 21:00 05/25/21 20:38 Melatonin 5 Mg Tablet PO 10 mg HS GINA Administration Morphine Sulfate 2 mg 05/23/21 17:42 05/24/21 06:58 Morphine Sulfate (*Crx) 2 Mg/Ml Inj IV PUSH 2 mg Q1H PRN Administration Pain Rated 7-10 Naloxone HCl 0.1 mg 05/23/21 17:42 Naloxone Hcl 0.4 Mg/Ml Vial IV PUSH Q2M PRN Opiate Reversal Ondansetron HCl 4 mg 05/23/21 18:30 05/23/21 18:53 Ondansetron Inj 4 Mg/2 Ml Vial IV PUSH 4 mg Q6H PRN Administration Nausea And Vomiting Oxycodone HCl 5 mg 05/23/21 17:42 05/24/21 05:40 Oxycodone Hcl (*Crx) 5 Mg Tab Ir PO 5 mg Q4H PRN Administration Pain Rated 4-10 Oxycodone HCl
--- NOTE | 2021-05-26 12:34 | PM.DS ---
DS: Admitting Diagnosis Discharge Date 05/26/2021 Admitting Diagnosis osteoarthritis both knees DS: Discharge Diagnosis Discharge Diagnosis (1) Postoperative anemia: Code(s): D64.9 - Anemia, unspecified Status: Acute Assessment and Plan: acute blood-loss anemia typical after knee replacement plan is observation (2) Hypokalemia: Code(s): E87.6 - Hypokalemia Status: Acute Assessment and Plan: oral supplementation at discharge and follow-up with primary care physician (3) Osteoarthritis of knees, bilateral: Code(s): M17.0 - Bilateral primary osteoarthritis of knee Status: Acute Assessment and Plan: patient underwent total knee replacement right knee and cortisone injection left knee and his pain is now well controlled. DS: Summary Hospital Course Hospital Course: Patient had intolerable pain the morning after surgery when he was mobilized. He could not tolerate putting any weight on the right leg or any active contraction of the quadriceps and could not be discharged. The following day his pain started improving. We did do additional x-rays of right knee and femur and did a venous duplex ultrasound to make sure there is no other more sinister cause for his uncontrolled pain and these were negative. He was maintained on oxycodone Celebrex and Tylenol on a scheduled basis and adding a dose of Decadron seemed to help quite a bit with respect to his pain. His wound is been fine he is neurologically intact to the right foot. He is able to bear weight and is safe using the walker and transferring independently now. The day after surgery his potassium dropped to 2.9. He did hold his oral potassium the morning of surgery which might have contributed to his drop of potassium. He does require chronic oral potassium utilization. Time Spent with Patient Time attestation: Total time spent providing and/or coordinating discharge services: DS: Data Data Completed and Pending Labs on day of discharge: Labs from last 24 hours 05/26/21 05/26/21 05/25/21 05:11 05:11 16:37 WBC 6.7 RBC 3.48 L Hgb 9.8 L Hct 29.4 L MCV 84.5 MCH 28.2 MCHC 33.3 RDW 17.1 H Plt Count 115 L MPV 10.6 H Sodium 138 139 Potassium 3.2 L 3.4 Chloride 105 103 Carbon Dioxide 25 26 Anion Gap 8 10 BUN 15 17 Creatinine 0.80 0.90 Estim Creat Clear Calc 103 92 Estimated GFR > 60 > 60 Glucose 107 135 H Calcium 8.0 L 7.9 L Magnesium 2.0 Total Bilirubin 0.6 Direct Bilirubin 0.3 AST 21 ALT 11 Alkaline Phosphatase 47 Total Protein 5.0 L Albumin 3.5 Discharge Plan Discharge Attending physician on discharge: Nimesh Bernal Consulting providers: Inez Figueredo ; Lona Bo Discharging Clinician: Nimesh Bernal Anticipated Discharge Date/Time: 05/26/21 15:00 Patient Disposition: Home, Self-Care Activity: may shower Diet: as tolerated Wound Care Instructions: other - see discharge instructions Discharge Instructions: NIMESH BERNAL M.D [facility], [address] [address] POST-OPERATIVE DISCHARGE INSTRUCTIONS TOTAL KNEE ARTHROPLASTY 1. When resting, lie on back with leg elevated above heart to minimize swelling. Significant swelling could indicate a blood clot and if this occurs call the office (or go to the ER) to have a venous ultrasound. Avoid sitting in the chair except for eating and using the restroom. 2. Do exercise 5 times a day. Emphasize stretching into full flexion and full extension. Start doing the flexion chair stretch with her 1st therapy appointment and work with physical therapy on that. 3. Do not sit with leg down except for meals And using the toilet. 4. Wound Care: change the Mepilex dressing next Friday. Make sure the nurse give shoe a replacement 12 in Mepilex dressing to ta
== END 2021-05-26 15:35 | disposition home or self-care (01) ==
LOC: ANHSURGERY 17:05 → ANH2MED 17:05
PROVIDERS: Physician Assistant; Admitting Provider Orthopaedic Surgery; PCP Family Medicine; Visit Provider Orthopaedic Surgery
PROC: (CPT 27447; principal; 2021-05-23 12:00)
DX: M17.0 Bilateral primary osteoarthritis of knee (principal); D62 Acute posthemorrhagic anemia; M79.661 Pain in right lower leg; E87.6 Hypokalemia; E78.5 Hyperlipidemia, unspecified; E66.9 Obesity, unspecified; G51.0 Bell's palsy; I10 Essential (primary) hypertension; R73.03 Prediabetes; Z66 Do not resuscitate; Z68.36 Body mass index [BMI] 36.0-36.9, adult
CPT/HCPCS: 27447; 36415; 73552; 73560; 80048; 80076; 83735; 85025; 85027; 85055; 86850; 86900; 86901; 93971; 97110; 97116; 97161; 97165; 97530; 97535; A9270; C1713; C1776; G0378; J0171; J0330; J0690; J1040; J1100; J1170; J2250; J2270; J2405; J2704; J2710; J2795; J3010; J3370; J3480; J7030; J7120

== ENCOUNTER 2021-06-04 15:48 | Outpatient (CLI) | payer MEDICARE, SELFPAY ==
--- NOTE | ~2021-06-04 | US_ITS ---
EXAMINATION: US venous doppler LE RT DATE: 06/04/2021 16:24 INDICATION: Right lower limb swelling TECHNIQUE: Grayscale ultrasound images without and with compression and Doppler ultrasound images of the right lower extremity veins were obtained. COMPARISON: 05/25/2021 FINDINGS: The visualized portions of right common femoral vein, profunda (deep) femoral vein, femoral vein, pop liteal vein, peroneal trunk, posterior tibial veins, peroneal veins, gastrocnemius vein and greater s aphenous vein outflow remain patent. IMPRESSION: 1. No deep venous thrombosis in the right lower limb. Reviewed, dictated and finalized at location H. ET MAKER
== END 2021-06-04 15:49 | disposition home or self-care (01) ==
LOC: ANHIMG 15:49
PROVIDERS: PCP Family Medicine; Visit Provider Orthopaedic Surgery
DX: R60.0 Localized edema (principal)
CPT/HCPCS: 93971

== ENCOUNTER 2022-10-16 00:35 | Day surgery (SDC) | payer MEDICARE, SELFPAY ==
[2022-10-08 09:10] VITALS: BMI 40.3
--- NOTE | 2022-10-08 09:18 | PC.NURSE ---
Report to the Outpatient Waiting Room, entrance under the green pavilion located off [facility], at time _0600 on date __10/16/22 . Planned Procedure Time: ___729 . Time changes happen often and if your time is changed the preop area will call you the afternoon before. - You and your visitor will be asked to self-screen and do not enter if you have any COVID symptoms. - A mask is optional within the hospital at this time. Patients may have clear liquids (water, carbonated beverages, clear teas, apple juice) until 3 hours prior to surgery (0430 AM) with a maximum of 20 ounces. - No food from midnight until time of surgery - Infants may have breast milk until 4 hours before surgery, infant formula 6 hours prior to surgery. - Children will be allowed to drink immediately following surgery. If applicable, please bring a bottle or sippy cup to assist with drinking. Juice, water, soda, and popsicles are readily available. For infants on formula, please bring formula the day of surgery. Pacifiers are allowed. Take the following medications with a SIP of water the morning of surgery: SERTRALINE DO NOT STOP ANY OF YOUR OTHER PRESCRIPTION MEDICATIONS PRIOR TO SURGERY ?EXCEPT THE FOLLOWING Medications to discontinue per physician Date to take last dose Please no make-up, nail kyrgyz, hairspray, perfume, deodorant, or body powder the day of surgery. No jewelry (including any body piercings) or valuables the day of surgery, leave them at home. Please take a shower or bath the night before, or the morning of, surgery with an antibacterial soap. Wear comfortable, loose fitting clothing. Children are encouraged to wear pajamas. - Jewelry must be removed prior to entering the operating room. Rings and piercings that are not removed may be cut off. - The hospital will not accept responsibility for valuables. - Please leave all valuables, including medications, at home the day of surgery. If you are going home after surgery, a licensed public transit bus driver must drive you home. - NO public transportation without another adult if you receive anesthesia. - We recommend that an adult stay with you for 24 hours following discharge. - We also recommend that you do not drive, make important decision, drink alcoholic beverages, or take any drugs that were not prescribed by your health care provider for at least 24 hours after your discharge time. For Pediatric surgeries, we recommend two adults accompany the child home. Follow any additional instructions given to you from your surgeon. If you or anyone in your household have experienced Covid symptoms in the past week, please notify your surgeon or the nurse liaison at the phone number below for possible testing. Telephone instructions given to _PT_and asked if any additional questions and then verbalized understanding. Patient advised to call surgeon office or pre surgery nurse liaison [phone] if any additional questions.
[2022-10-16 06:40] VITALS: BMI 40.1
--- NOTE | 2022-10-16 07:20 | WPDHPUPDATE1 ---
History and Physical Update Update Date/Time: 10/16/22 07:20 History and Physical has been reviewed, including an updated exam of the patient. There are NO changes in the patient's condition. Risks, benefits, and alternatives have been discussed and questions answered. Patient agrees to proceed with procedure.
[2022-10-16 07:35] VITALS: BP 133/74; PULSE 70; RESP 18; TEMP 36.3; O2SAT 100
[2022-10-16] MEDS: LACTATED RINGERS 1,000 ML 30 ML IV CONT ×2 (07:35→11:15)
--- NOTE | 2022-10-16 08:04 | WPDANESEPPF ---
Anes - Initial Pre Proc Eval Procedure: Operation Date: 10/16/22 09:00 Proposed Procedures p Excision Melanoma In Situ Right Posterior Ear with Possible Full Thickness Skin Graft - Jamarcus Miranda MD Date/Time: 10/16/22 08:04 Surgeon: Jamarcus Miranda MD Pre Op Diagnosis: Melanoma In Situ Right Posterior Ear Patient Data Age: 72 Gender: M Height: 1.85 m Weight: 138.63 kg Allergies Allergy/AdvReac Type Severity Reaction Status Date / Time atropine AdvReac Mild NAUSEA AND Verified 10/08/22 09:07 VOMITING diphenoxylate AdvReac Mild Fever & Verified 10/08/22 09:07 VOMITING meperidine AdvReac Mild SEVERE Verified 10/08/22 09:07 NAUSEA AND VOMITING Home Medications Medication Instructions Recorded Confirmed Type mecobalamin (vitamin B12) 1,000 1,000 mcg sublingual DAILY 10/01/21 10/08/22 History mcg disintegrating tablet,sublingual sulfasalazine 500 mg 1.5 g PO BID #180 tabs 01/16/22 10/08/22 Rx tablet,delayed release melatonin 10 mg capsule 10 mg PO QHS 02/06/22 10/08/22 History potassium chloride 20 mEq See Rx Instructions .Route 05/20/22 10/08/22 Rx tablet,extended release .COMPLEX #90 tabs calcium polycarbophil 625 mg 1,250 mg PO TID 10/08/22 10/08/22 History tablet (FiberCon) losartan 50 mg tablet 50 mg PO QAM #90 tabs 10/11/22 Rx sertraline 100 mg tablet See Rx Instructions .Route 10/11/22 Rx .COMPLEX #90 tabs Patient hx anesthesia problems: none Family hx anesthesia problems: none Results Review: All pre-operative results and documents have been reviewed as part of the pre-operative evaluation. [facility] Past Medical History Medical History Burroughs palsy Many years ago Dysesthesia Microscopic colitis Mixed hyperlipidemia Obesity (BMI 30-39.9) Prediabetes Psychomotor agitation Surgical History Surgical History History of bilateral mastectomy Benign History of cataract surgery History of cholecystectomy History of total bilateral knee replacement Family History Family History Father Hypertension Family history of cardiovascular disease Carcinoma of colon Mother Hypertension Family history of cardiovascular disease Carcinoma of colon Sibling Hypertension Family history of cardiovascular disease Social History Social History Social History: Patient does not drink, smoke or do drugs. 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 He would like to be a full code. His power of civil attorney is his partner, Bryan. Smoking status: Never smoker Second hand tobacco smoke exposure: No Alcohol intake: never Substance use: never Substance use type: does not use Current Housing: Decline to Answer Concerned About Future Housing: Decline to Answer Difficulty Paying Gas/Electric Bills: Decline to Answer Difficulty Paying for Meds: Decline to Answer Currently Unemployed: Decline to Answer Education: Decline to Answer Difficulty w/ Childcare or Family Care: Decline to Answer Living arrangements: with family Gender identity (if verbalized by the patient): Male Sexual Orientation (if Verbalized by the Patient): Lesbian, Singleton, or Homosexual Spiritual care concerns: No Anes - Eval Final PreProcedure Day of Procedure 10/16/22 08:04 Patient weight: morbidly obese Heart: regular rate and rhythm Lungs: clear to auscultation Neurological: alert and oriented Last oral intake: >/= 8 hours ASA classification: III Emergent: no Anesthetic plan: proceed Anesthesia type and monitoring: general (givs vs lma) GIVS and standard monitoring Results Review: All pre-operative results and documents have been reviewed as part of the pre-operative evaluation. Informed Consent: The patient's anesthetic plan and it
[2022-10-16] MEDS: LIDO 1%/EPINEPHRINE 1:100,000 50 ML VIAL 20 ML INFILTRATE (11:02)
[2022-10-16] MEDS: BACITRACIN OINTMENT 15 GM TUBE 1 APPLIC TOPICAL (11:03)
[2022-10-16] MEDS: ceFAZolin SODIUM 1 GM VIAL 3 GM IV PUSH (11:08)
[2022-10-16 11:15] VITALS: BP 114/66; PULSE 62; RESP 12; TEMP 36.3; O2SAT 95
--- NOTE | 2022-10-16 11:26 | W.PM.PROC2 ---
Procedure Note - Detailed Date of Procedure 10/16/22 Pre-op Diagnosis Melanoma In Situ Right Posterior Ear Post-op Diagnosis Same Procedure Performed Reexcision of melanoma in Situ of the right posterior ear for positive margins with 15 sq cm full-thickness skin graft reconstruction Surgeon Jamarcus Miranda MD Anesthesia MAC Description of Procedure The previously operated site behind the right ear was marked with the patient's consent in the holding area. He was taken to the operating room where he was placed supine on the operating table. He was given sedation anesthesia with an LMA. The face and right upper neck were prepped and draped in usual fashion. Approximately 1 cm margin was marked all the way around the existing scar. The area was widely infiltrated with 1% lidocaine with epinephrine. The skin excision was carried out to a depth of perichondrium. The specimen was marked at the superior and with a double tail suture and on its lateral aspect ( 3:00 O'clock) with the single tail suture. Specimen sent for permanent section. A full-thickness graft was harvested from the mid right lateral neck. The graft was extensively defatted. The donor site was undermined and closed with a running intradermal 3-0 Vicryl suture. The graft was tailored and inset with medium juliana and 5-0 and 3-0 chromic quilting sutures to compress the space. Glue was applied to the donor site. A Maria Esther ear cup was applied over the right ear. The patient was given 3 g of Ancef near the end of the case. Discharge prescriptions for him include hydrocodone 5/325 2 Limbrel 5 and cephalexin 500 mg t.i.d. 15. Estimated Blood Loss -15.0 Drains No Packing No Pathology Yes Complications No immediate complications Condition Stable Disposition Same day
[2022-10-16 11:45] VITALS: BP 110/64; PULSE 57
[2022-10-16 12:15] VITALS: BP 109/68; PULSE 56
== END 2022-10-16 12:38 | disposition home or self-care (01) ==
PROVIDERS: PCP Family Medicine; Visit Provider Plastic Surgery
PROC: (CPT 11646; principal; 2022-10-16 09:00)
DX: L98.9 Disorder of the skin and subcutaneous tissue, unspecified (principal); R73.03 Prediabetes; E78.2 Mixed hyperlipidemia; E66.01 Morbid (severe) obesity due to excess calories; Z68.41 Body mass index [BMI] 40.0-44.9, adult
CPT/HCPCS: 11646; 15260; 88305; 88342; A9270; J0690; J2405; J2704; J3010; J7120

== ENCOUNTER → 2022-11-01 07:54 | Outpatient (CLI) | payer MEDICARE, SELFPAY ==
--- NOTE | ~2022-11-01 | MR_ITS ---
EXAMINATION: MR lumbar spine wo con DATE: 11/01/2022 08:37 INDICATION: Low back pain. Numbness and pain in right lateral calf. TECHNIQUE: Magnetic resonance imaging (MRI) of the lumbar spine was performed without intravenous con trast. Sequences included sagittal T2-weighted FSE, sagittal T2-weighted FS FSE, sagittal T1-weighted FSE, and axial T2-weighted FSE. COMPARISON: Lumbar spine MRI 06/20/2004 FINDINGS: There are cysts in the kidneys measuring up to 5.5 cm on the left. There is 4 mm retrolisth esis of L5 on S1. Vertebral body heights are normal. There is moderately decreased disc height at L5- S1. The distal spinal cord signal intensity is normal. The conus medullaris is at L1-L2. The followin g disc levels are specifically discussed: L1-L2: There is a small central extrusion. There is mild bilateral facet joint osteoarthritis. There is no neural foraminal stenosis. There is mild central canal stenosis. L2-L3: The disc is mildly bulging. There is mild bilateral facet joint osteoarthritis. There is mild bilateral neural foraminal stenosis. There is mild central canal stenosis. L3-L4: The disc is mildly bulging. There is mild bilateral facet joint osteoarthritis. There is mild bilateral neural foraminal stenosis. There is no central canal stenosis. L4-L5: The disc is bulging and has an annular fissure. There is moderate bilateral facet joint osteoa rthritis. There is mild bilateral neural foraminal stenosis. There is mild central canal stenosis. L5-S1: The disc is bulging. There is severe bilateral facet joint osteoarthritis. There is mild bilat eral neural foraminal stenosis. There is mild central canal stenosis. IMPRESSION: 1. Moderate lower lumbar spondylosis. Reviewed, dictated and finalized at location A.
== END ==
PROVIDERS: PCP Family Medicine; Visit Provider Orthopaedic Surgery
DX: M79.661 Pain in right lower leg (principal); M47.896 Other spondylosis, lumbar region
CPT/HCPCS: 72148

== ENCOUNTER 2023-04-10 00:09 | Day surgery (SDC) | payer MEDICARE, SELFPAY ==
[2023-04-04 14:57] VITALS: BMI 39.7
--- NOTE | 2023-04-04 15:04 | PC.NURSE ---
Report to the Outpatient Waiting Room, entrance under the green pavilion located off [facility], at time ___0600____ on date __04/10/23 . Planned Procedure Time: __729 . Time changes happen often and if your time is changed the preop area will call you the afternoon before. - You and your visitor will be asked to self-screen and do not enter if you have any COVID symptoms. - A mask is optional within the hospital at this time. Patients may have clear liquids (water, carbonated beverages, clear teas, apple juice) until 3 hours prior to surgery with a maximum of 20 ounces. - No food from midnight until time of surgery - Infants may have breast milk until 4 hours before surgery, formula 6 hours prior to surgery. - Children will be allowed to drink immediately following surgery. If applicable, please bring a bottle or sippy cup to assist with drinking. Juice, water, soda, and popsicles are readily available. For infants on formula, please bring formula the day of surgery. Pacifiers are allowed. Take the following medications with a SIP of water the morning of surgery: ____SERTRALINE DO NOT STOP ANY OF YOUR OTHER PRESCRIPTION MEDICATIONS PRIOR TO SURGERY ?EXCEPT THE FOLLOWING Medications to discontinue per physician MELOXICAM PER DR. DOANHUE INSTRUCTIONS Date to take last dose Please no make-up, nail tamazight, hairspray, perfume, deodorant, or body powder the day of surgery. No jewelry (including any body piercings) or valuables the day of surgery, leave them at home. Please take a shower or bath the night before, or the morning of, surgery with an antibacterial soap. Wear comfortable, loose fitting clothing. Children are encouraged to wear pajamas. - Jewelry must be removed prior to entering the operating room. Rings and piercings that are not removed may be cut off. - The hospital will not accept responsibility for valuables. - Please leave all valuables, including medications, at home the day of surgery. If you are going home after surgery, a licensed milk wagon driver must drive you home. - NO public transportation without another adult if you receive anesthesia. - We recommend that an adult stay with you for 24 hours following discharge. - We also recommend that you do not drive, make important decision, drink alcoholic beverages, or take any drugs that were not prescribed by your health care provider for at least 24 hours after your discharge time. For Pediatric surgeries, we recommend two adults accompany the child home. Follow any additional instructions given to you from your surgeon. If you or anyone in your household have experienced Covid symptoms in the past week, please notify your surgeon or the nurse liaison at the phone number below for possible testing. Telephone instructions given to ___PT and asked if any additional questions and then verbalized understanding. Patient advised to call surgeon office or pre surgery nurse liaison [phone] if any additional questions.
--- NOTE | 2023-04-09 13:13 | WPDANESEPPF ---
Anes - Initial Pre Proc Eval Procedure: Operation Date: 04/10/23 07:30 Proposed Procedures p Excision Right Volar Wrist Ganglion Cyst - Jamarcus Miranda MD s Excision Ulcerated Nodule Left Nasal Sidewall with Frozen Section, Possible Local Tissue Transfer, Excision Neoplasm Right Upper Posterior Shoulder - Jamarcus Miranda MD Date/Time: 04/09/23 13:13 Surgeon: Jamarcus Miranda MD Pre Op Diagnosis: right volar wrist ganglion cyst,ulc nod left nasal Patient Data Age: 73 Gender: M Height: 1.85 m Weight: 136.81 kg Allergies Allergy/AdvReac Type Severity Reaction Status Date / Time atropine AdvReac Mild NAUSEA AND Verified 04/10/23 06:10 VOMITING diphenoxylate AdvReac Mild Fever & Verified 04/10/23 06:10 VOMITING meperidine AdvReac Mild SEVERE Verified 04/10/23 06:10 NAUSEA AND VOMITING Home Medications Medication Instructions Recorded Confirmed Type mecobalamin (vitamin B12) 1,000 1,000 mcg sublingual DAILY 10/01/21 04/04/23 History mcg disintegrating tablet,sublingual melatonin 10 mg capsule 10 mg PO QHS 02/06/22 04/04/23 History calcium polycarbophil 625 mg 1,250 mg PO TID 10/08/22 04/04/23 History tablet (FiberCon) losartan 50 mg tablet 50 mg PO QAM #90 tabs 10/11/22 04/04/23 Rx sertraline 100 mg tablet See Rx Instructions .Route 10/11/22 04/04/23 Rx .COMPLEX #90 tabs CPAP #1 ea 12/19/22 04/04/23 Rx CPAP #1 ea 12/19/22 04/04/23 Rx sulfasalazine 500 mg See Rx Instructions .Route 02/10/23 04/04/23 Rx tablet,delayed release .COMPLEX #180 tabs meloxicam 15 mg tablet 15 mg PO DAILY 02/13/23 04/04/23 History potassium chloride 20 mEq See Rx Instructions .Route 03/28/23 04/04/23 Rx tablet,extended release .COMPLEX #90 tabs tirzepatide 2.5 mg/0.5 mL 2.5 mg subcut WEEKLY 04/10/23 04/10/23 History subcutaneous pen injector Patient hx anesthesia problems: none Family hx anesthesia problems: none Results Review: All pre-operative results and documents have been reviewed as part of the pre-operative evaluation. [facility] Past Medical History Medical History (Updated 04/09/23 @ 13:14 by [place] DO) Burroughs palsy Many years ago Dysesthesia Essential hypertension Microscopic colitis Mixed hyperlipidemia Obesity (BMI 30-39.9) MARYANN (obstructive sleep apnea) Prediabetes Psychomotor agitation Surgical History Surgical History History of bilateral mastectomy Benign History of cataract surgery History of cholecystectomy History of total bilateral knee replacement Family History Family History Father Hypertension Family history of cardiovascular disease Carcinoma of colon Mother Hypertension Family history of cardiovascular disease Carcinoma of colon Sibling Hypertension Family history of cardiovascular disease Social History Social History Social History: Patient does not drink, smoke or do drugs. 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 He would like to be a full code. His power of claim attorney is his partner, Bryan. Smoking status: Never smoker Second hand tobacco smoke exposure: No Alcohol intake: never Substance use: never Substance use type: does not use Current Housing: Decline to Answer Concerned About Future Housing: Decline to Answer Difficulty Paying Gas/Electric Bills: Decline to Answer Difficulty Paying for Meds: Decline to Answer Currently Unemployed: Decline to Answer Education: Decline to Answer Difficulty w/ Childcare or Family Care: Decline to Answer Living arrangements: with family Gender identity (if verbalized by the patient): Male Sexual Orientation (if Verbalized by the Patient): Lesbian, Singleton, or Homosexual Spiritual care concerns: No Anes - Eval Final PreProcedure Day of Procedure 04/09/23 13:13 Patient weight: obese He
[2023-04-10 06:00] VITALS: BP 121/76; PULSE 70; RESP 18; TEMP 36.1; O2SAT 98
[2023-04-10] MEDS: LACTATED RINGERS 1,000 ML 30 ML IV CONT (06:22)
--- NOTE | 2023-04-10 07:12 | WPDHPUPDATE1 ---
History and Physical Update Update Date/Time: 04/10/23 07:12 History and Physical has been reviewed, including an updated exam of the patient. There are NO changes in the patient's condition. Risks, benefits, and alternatives have been discussed and questions answered. Patient agrees to proceed with procedure.
[2023-04-10] MEDS: LIDO 1%/EPINEPHRINE 1:100,000 50 ML VIAL 14 ML INFILTRATE (07:27)
[2023-04-10] MEDS: BACITRACIN OINTMENT 15 GM TUBE 1 APPLIC TOPICAL (08:09)
[2023-04-10 09:02] VITALS: BP 137/66; PULSE 66; RESP 16; O2SAT 100
--- NOTE | 2023-04-10 09:02 | W.PM.PROC2 ---
Procedure Note - Detailed Date of Procedure 04/10/23 Pre-op Diagnosis right volar wrist ganglion cyst,ulc nod left nasal Post-op Diagnosis Other (Right volar wrist ganglion cyst. 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 Prurigo nodularis left nasal sidewall) Procedure Performed 1. 1 cm excision of prurigo nodularis left nasal sidewall with intermediate repair 2 cm. 2. Excision of right volar wrist ganglion cyst. 3. 1 cm excision pigmented neoplasm right posterior shoulder intermediate repair 2 cm Surgeon Jamarcus Miranda MD Aircraft Instrument Repairer elisa Anesthesia General Description of Procedure Three 3 sites at the right posterior shoulder the right volar wrist and the left nasal sidewall were marked the patient is agreement in the holding area. Was then taken to the operating room where he was placed supine on the operating table. We elected to do the nose 1st as it required frozen section. The 2nd lesion to be removed was the right volar wrist ganglion cyst. When these were finished we would approach the right posterior shoulder that would require slight repositioning. The patient was given general anesthesia the face and right upper extremity was prepped and draped usual fashion. The nasal lesion was carefully marked for excision as was the right volar wrist site. Both were infiltrated with 1% lidocaine with epinephrine. Attention was turned to the nose for the site was marked for excision. It was excised into the subcutaneous tissue the most superior aspect of the marked with suture for 12:00 p.m. and the specimen sent for frozen section. While the tissue was in pathology we approached the right wrist were a dog leg incision was made after elevating the tourniquet to 250 mmHg. Dissection quickly revealed a large ganglion cyst plastered to the ulnar artery and venae comitantes. These were carefully . The ganglion was removed in its entirety near the radiocarpal joint. The site was irrigated and the tourniquet was released. Hemostasis was obtained. The wound was closed with intradermal 4-0 Monocryl suture. The pathologist reported a benign tumor from the nose this was Prurigo nodularis. The site was tailored with dog ear resection superiorly and inferiorly and closed with intradermal 4-0 Vicryl and a running 5 0 nylon. No undermining was required The patient was then repositioned slightly allowing access to the upper posterior right shoulder. Two pigmented lesions are noted there, both with slight by coloration. These were marked for excision as a single specimen. The area was infiltrated with 1% lidocaine with epinephrine. The full-thickness skin ellipse was taken on the specimen sent for permanent section. The wound was closed with intradermal 4-0 Vicryl suture and running 5 0 nylon tolerated well and was discharged from the operating room stable condition ointment was applied to the nose a volar wrist wrap applied to the wrist over Xeroform gauze and a small Tegaderm was applied to the right posterior shoulder. He is discharged with a prescription for hydrocodone 5/325 number 6. Estimated Blood Loss 5 Drains No Packing No Pathology Yes Complications No immediate complications Condition Stable Disposition PACU
[2023-04-10 09:30] VITALS: BP 133/78; PULSE 68
[2023-04-10 10:00] VITALS: BP 117/74; PULSE 57
== END 2023-04-10 10:25 | disposition home or self-care (01) ==
PROVIDERS: PCP Family Medicine; Visit Provider Plastic Surgery
PROC: (CPT 25111; principal; 2023-04-10 07:30)
PROC: (CPT 25111; 2023-04-10 07:30)
DX: M67.431 Ganglion, right wrist (principal); L90.5 Scar conditions and fibrosis of skin; I10 Essential (primary) hypertension; E78.2 Mixed hyperlipidemia; G47.33 Obstructive sleep apnea (adult) (pediatric); R73.03 Prediabetes; Z79.85 Long-term (current) use of injectable non-insulin antidiabetic drugs; E66.9 Obesity, unspecified; Z68.38 Body mass index [BMI] 38.0-38.9, adult
CPT/HCPCS: 25111; 11401; 12031; 11441; 12051; 88305; 88331; A9270; J2405; J2704; J3010; J7120

== ENCOUNTER 2023-10-01 12:31 | Outpatient (CLI) | payer MEDICARE, SELFPAY ==
--- NOTE | 2023-10-01 13:37 | ECG_ITS ---
SEE SCANNED COPY FOR CONFIRMED REPORT MTDD
[2023-10-01 14:03] LABS: Basophils Percent Auto 0.4 % (0.2-1.2); Eosinophils Absolute Auto 0.1 K/mm3 (0-0.3); Eosinophils Percent Auto 0.9 % (0-4.4); Hemoglobin 13.7 g/dL (14.0-18.0); Immature Granulocyte Absolute 0.02 K/mm3 (0.00-0.031); Immature Granulocyte Percent A 0.4 % (0-0.5); Lymphocytes Percent Auto 36.8 % (18.3-44.2); Mean Corpuscular HGB Conc 34.3 g/dl (32-36); Mean Corpuscular Hemoglobin 31.7 pg (26-34); Mean Corpuscular Volume 92.6 fl (80-100); Mean Platelet Volume 9.9 fl (7.4-10.4); Monocytes Absolute Auto 0.6 K/mm3 (0.1-0.6); Neutrophils Absolute Auto 2.8 K/mm3 (1.3-6.7); Neutrophils Percent Auto 50.5 % (45.5-73.1); Platelet Count Result 147 k/mm3 (150-375); Red Blood Count 4.32 M/mm3 (4.6-6.20); Red Cell Distribution Width 15.7 % (11.5-14.5); White Blood Count 5.4 K/mm3 (4.5-10.0)
[2023-10-01 14:15] LABS: Urine Cotinine NEGATIVE
[2023-10-01 14:16] LABS: Albumin Level 4.8 g/dL (3.5-5.1); Anion Gap 7 mmol/L (4-12); Blood Urea Nitrogen 21 mg/dL (9-20); Calcium 9.3 mg/dL (8.4-10.2); Carbon Dioxide 29 mmol/L (22-30); Chloride 107 mmol/L (98-107); Estimated Glomerular Filt Rate > 60; Glucose 111 mg/dL (65-110); Potassium 3.8 mmol/L (3.4-5.0); Sodium 143 mmol/L (137-145)
[2023-10-01 15:50] LABS: Hemoglobin A1C 4.3 % (<5.7)
== END 2023-10-01 12:32 | disposition home or self-care (01) ==
LOC: ANHSURGERY 12:36
PROVIDERS: PCP Family Medicine; Visit Provider Orthopaedic Surgery
DX: Z01.818 Encounter for other preprocedural examination (principal); M17.12 Unilateral primary osteoarthritis, left knee
CPT/HCPCS: 80048; 80307; 82040; 83036; 85025; 87081; 93005

== ENCOUNTER 2023-10-23 00:29 | Day surgery (SDC) | payer MEDICARE, SELFPAY ==
[2023-10-01 12:52] VITALS: BMI 33.3
--- NOTE | 2023-10-01 13:16 | PC.NURSE ---
Report to the Outpatient Waiting Room, entrance under the green pavilion located off [facility], at time 0600 on date _10/23/23 . Planned Procedure Time: __0730 . Time changes happen often and if your time is changed the preop area will call you the afternoon before. - You and your visitor will be asked to self-screen and do not enter if you have any COVID symptoms. - A mask is optional within the hospital at this time. Patients may have clear liquids (water, carbonated beverages, clear teas, apple juice) until 3 hours prior to surgery( 4:30 AM) with a maximum of 20 ounces. - No food from midnight until time of surgery - Infants may have breast milk until 4 hours before surgery, infant formula 6 hours prior to surgery. - Children will be allowed to drink immediately following surgery. If applicable, please bring a bottle or sippy cup to assist with drinking. Juice, water, soda, and popsicles are readily available. For infants on formula, please bring formula the day of surgery. Pacifiers are allowed. Take the following medications with a SIP of water the morning of surgery: ____SERTRALINE DO NOT STOP ANY OF YOUR OTHER PRESCRIPTION MEDICATIONS PRIOR TO SURGERY ?EXCEPT THE FOLLOWING Medications to discontinue per physician __HOLD TIRZEPATIDE 10 DAYS PRE OP PER ANESTHESIA .LAST DOSE10/12/23. HOLD ALL VITAMINS AND SUPPLEMENTS 3 DAYS PRE OP .LAST DOSE 10/19/23. HOLD MELOXICAM 7 DAYS PRE OP PER DR RODRIGUEZ LAST DOSE 10/15/23. MAY TAKEN TYLENOL IF NEEDED FOR PAIN Please no make-up, nail bulgarian, hairspray, perfume, deodorant, or body powder the day of surgery. No jewelry (including any body piercings) or valuables the day of surgery, leave them at home. Please take a shower or bath the night before, or the morning of, surgery with an antibacterial soap. Wear comfortable, loose fitting clothing. Children are encouraged to wear pajamas. - Jewelry must be removed prior to entering the operating room. Rings and piercings that are not removed may be cut off. - The hospital will not accept responsibility for valuables. - Please leave all valuables, including medications, at home the day of surgery. If you are going home after surgery, a licensed sweeper driver must drive you home. - NO public transportation without another adult if you receive anesthesia. - We recommend that an adult stay with you for 24 hours following discharge. - We also recommend that you do not drive, make important decision, drink alcoholic beverages, or take any drugs that were not prescribed by your health care provider for at least 24 hours after your discharge time. Follow any additional instructions given to you from your surgeon. If you or anyone in your household have experienced Covid symptoms in the past week, please notify your surgeon or the nurse liaison at the phone number below for possible testing. VERBAL AND WRITTEN instructions given to ___PATIENT and asked if any additional questions and then verbalized understanding. Patient advised to call surgeon office or pre surgery nurse liaison [phone] if any additional questions.
[2023-10-01 13:36] VITALS: BP 120/74; PULSE 82; RESP 18; TEMP 36.7; O2SAT 98
--- NOTE | 2023-10-21 20:48 | PM.IMHP ---
H&P: HPI History of Present Illness Date/Time: 10/21/23 20:48 Chief Complaint: left knee pain due to Osteoarthritis left knee Narrative: patient is a 73-year-old gentleman who presents for left total knee arthroplasty to address the [id number] medial compartment osteoarthritis. We have been seeing him for several years for this problem. He has had numerous cortisone injections and takes meloxicam 15 mg daily and he has lost weight. He has also tried neural lysis of sensory nerves around the left knee which did not help. He is a patient of Dr. Humphries. Patient has history of bilateral lower extremity numbness in his feet and has chronic weakness at the left ankle grade 4/5 dorsiflexion of the ankle and grade 3 of 5 dorsiflexion of EHL on the left. Etiology of his left ankle weakness is unclear. He has had evaluation including MRI scan of the lumbar spine and evaluation by neuro surgical service who did not feel there was a lumbar lesion the correlated with his bilateral lower extremity numbness in his feet or weakness. He has had prior EMG testing as well. 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 He underwent right total knee arthroplasty at [facility] approximately 3 years ago and has done well. [facility] Past Medical History Medical History (Updated 10/21/23 @ 20:58 by Nimesh Bernal MD) Burroughs palsy Many years ago Dysesthesia Essential hypertension History of colon polyps Melanoma Microscopic colitis Mixed hyperlipidemia Obesity (BMI 30-39.9) MARYANN (obstructive sleep apnea) Osteoarthritis of knees, bilateral Postoperative anemia Prediabetes Primary osteoarthritis of left knee Psychomotor agitation Surgical History Surgical History (Updated 09/24/23 @ 08:30 by Jesse Humphries MD) History of bilateral mastectomy Benign History of cataract surgery History of cholecystectomy History of right knee joint replacement 2020- Dr Bernal Total knee replacement status Family History Family History Father Hypertension Family history of cardiovascular disease Carcinoma of colon Mother Hypertension Family history of cardiovascular disease Carcinoma of colon Sibling Hypertension Family history of cardiovascular disease Social History Social History (Updated 09/24/23 @ 07:37 by Melinda Heath CMA) Social History: Patient does not drink, smoke or do drugs. 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 He would like to be a full code. His power of senior trial attorney is his partner, Bryan. Smoking status: Never smoker Second hand tobacco smoke exposure: No Additional smoking assessment comments: DENIES ANY FORM OF TOBACCO USE Alcohol intake: never Substance use: never Substance use type: does not use Do You Feel Safe in your Home?: Yes Lack of Transportation: No Lack of Food: Never True Current Housing: I Have Housing Concerned About Future Housing: No Difficulty Paying Gas/Electric Bills: No Difficulty Paying for Meds: No Currently Unemployed: No Education: High School Diploma/GED Difficulty w/ Childcare or Family Care: No Living arrangements: with family Occupation/Education: retired Gender identity (if verbalized by the patient): Male Sexual Orientation (if Verbalized by the Patient): Lesbian, Singleton, or Homosexual Spiritual care concerns: No Meds Home Medications and Allergies Home Medications Medication Instructions Recorded Confirmed Type mecobalamin (vitamin B12) 1,000 1,000 mcg sublingual DAILY 10/01/21 10/01/23 History mcg disintegrating tablet,sublingual melatonin 10 mg capsule 10 mg PO QHS 02/06/22 10/01/23 History CPAP #1 ea 12/19/22 05/28/23 Rx meloxicam 15 mg tablet 15 mg PO DAILY 02/13/23 10/01/23 History tirzepatide 2.5 mg/0.5 mL 2.5 mg subcut WEEKLY WEIGHT LOSS 04/10/23 10/01/23 History subcutaneous pen injector losartan 50 mg tablet 50 mg PO QAM #90 t
[2023-10-23] VITALS (11 sets, daily range): BP systolic 106–124; BP diastolic 66–76; PULSE 63–99; RESP 12–19; TEMP 36.2–37.2; O2SAT 94–100
--- NOTE | ~2023-10-23 | XR_ITS ---
EXAMINATION: [id number] DATE: 10/23/2023 12:18 INDICATION: Left knee arthroplasty. Postop. TECHNIQUE: 2 views of left knee were obtained. COMPARISON: None. FINDINGS: There is a total left knee arthroplasty without patellar resurfacing in near-anatomic align ment. No fracture. There is an osteophyte of the patella. There is gas in the knee joint and soft tis sues, consistent with recent surgery. IMPRESSION: 1. Total left knee arthroplasty in near-anatomic alignment. Reviewed, dictated and finalized at location A.
[2023-10-23] MEDS: ACETAMINOPHEN 500 MG TABLET 1000 MG PO ×3 (06:17→21:04)
[2023-10-23] MEDS: LACTATED RINGERS 1,000 ML 30 ML IV CONT ×2 (06:33→12:00)
[2023-10-23] MEDS: VANCOMYCIN 1,750 MG/NS 500 ML BAG 250 MG IVPB (06:33)
--- NOTE | 2023-10-23 07:12 | WPDANESEPPF ---
Anes - Initial Pre Proc Eval Procedure: Operation Date: 10/23/23 07:30 Proposed Procedures p Left Total Knee Arthroplasty - Nimesh Bernal MD Date/Time: 10/23/23 07:12 Surgeon: Nimesh Bernal MD Pre Op Diagnosis: OA left knee Patient Data Age: 73 Gender: M Height: 1.88 m Weight: 114.2 kg Last Vital Signs Temp 97.1 F L 10/23/23 06:33 Pulse 63 10/23/23 06:33 Resp 16 10/23/23 06:33 BP 115/70 10/23/23 06:33 Pulse Ox 94 10/23/23 06:33 O2 Del Method Room Air 10/23/23 06:33 Allergies Allergy/AdvReac Type Severity Reaction Status Date / Time atropine AdvReac Mild NAUSEA AND Verified 10/23/23 06:09 VOMITING diphenoxylate AdvReac Mild Fever & Verified 10/23/23 06:09 VOMITING meperidine AdvReac Mild SEVERE Verified 10/23/23 06:09 NAUSEA AND VOMITING Home Medications Medication Instructions Recorded Confirmed Type mecobalamin (vitamin B12) 1,000 1,000 mcg sublingual DAILY 10/01/21 10/23/23 History mcg disintegrating tablet,sublingual melatonin 10 mg capsule 10 mg PO QHS 02/06/22 10/23/23 History CPAP #1 ea 12/19/22 05/28/23 Rx meloxicam 15 mg tablet 15 mg PO DAILY 02/13/23 10/23/23 History tirzepatide 2.5 mg/0.5 mL 2.5 mg subcut WEEKLY WEIGHT LOSS 04/10/23 10/23/23 History subcutaneous pen injector losartan 50 mg tablet 50 mg PO QAM #90 tabs 05/09/23 10/23/23 Rx potassium chloride 20 mEq See Rx Instructions .Route 08/04/23 10/23/23 Rx tablet,extended release .COMPLEX #90 tabs sertraline 50 mg tablet 50 mg PO DAILY 09/24/23 10/23/23 History CPAP #1 ea 10/15/23 Rx Laboratory Tests 10/23/23 06:15 Blood Type O Positive Antibody Screen Pending Patient hx anesthesia problems: none Family hx anesthesia problems: none Results Review: All pre-operative results and documents have been reviewed as part of the pre-operative evaluation. [facility] Past Medical History Medical History (Updated 10/21/23 @ 20:58 by Nimesh Bernal MD) Burroughs palsy Many years ago Dysesthesia Essential hypertension History of colon polyps Melanoma Microscopic colitis Mixed hyperlipidemia Obesity (BMI 30-39.9) MARYANN (obstructive sleep apnea) Osteoarthritis of knees, bilateral Postoperative anemia Prediabetes Primary osteoarthritis of left knee Psychomotor agitation Surgical History Surgical History (Updated 09/24/23 @ 08:30 by Jesse Humphries MD) History of bilateral mastectomy Benign History of cataract surgery History of cholecystectomy History of right knee joint replacement 2020- Dr Bernal Total knee replacement status Family History Family History Father Hypertension Family history of cardiovascular disease Carcinoma of colon Mother Hypertension Family history of cardiovascular disease Carcinoma of colon Sibling Hypertension Family history of cardiovascular disease Social History Social History (Updated 09/24/23 @ 07:37 by Melinda Heath CMA) Social History: Patient does not drink, smoke or do drugs. 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 He would like to be a full code. His power of director recreation center is his partner, Bryan. Smoking status: Never smoker Second hand tobacco smoke exposure: No Additional smoking assessment comments: DENIES ANY FORM OF TOBACCO USE Alcohol intake: never Substance use: never Substance use type: does not use Do You Feel Safe in your Home?: Yes Lack of Transportation: No Lack of Food: Never True Current Housing: I Have Housing Concerned About Future Housing: No Difficulty Paying Gas/Electric Bills: No Difficulty Paying for Meds: No Currently Unemployed: No Education: High School Diploma/GED Difficulty w/ Childcare or Family Care: No Living arrangements: with family Occupation/Education: retired Gender identity (if verbalized by the patient): Male Sexual Orientation (if Verbalized by the
--- NOTE | 2023-10-23 07:14 | WPDHPUPDATE1 ---
History and Physical Update Update Date/Time: 10/23/23 07:14 History and Physical has been reviewed, including an updated exam of the patient. There are NO changes in the patient's condition. Risks, benefits, and alternatives have been discussed and questions answered. Patient agrees to proceed with procedure.
[2023-10-23] MEDS: TRANEXAMIC ACID 1,000MG/ISO100 1,000 MG/100 ML BAG 200 MG IVPB (07:15)
--- NOTE | 2023-10-23 07:15 | WPDHPUPDATE1 ---
History and Physical Update Update Date/Time: 10/23/23 07:15 History and Physical has been reviewed, including an updated exam of the patient. There are NO changes in the patient's condition. Risks, benefits, and alternatives have been discussed and questions answered. Patient agrees to proceed with procedure.
[2023-10-23] MEDS: ceFAZolin 2 GM/D5W 50 ML 2 GM/50 ML BAG IVPB ×2 (07:30→17:20)
[2023-10-23] MEDS: ceFAZolin SODIUM 1 GM VIAL 3 GM (08:27)
[2023-10-23] MEDS: SODIUM CHLORIDE 0.9% IV 37.7 ML, MORPHINE SULFATE INJ (*CRX) 2 MG, ROPivacaine HCL 1% 2... INFILTRATE (08:27)
[2023-10-23] MEDS: KETOROLAC 15 MG/ML VIAL (*BKC) IV PUSH ×3 (11:00→22:37)
[2023-10-23] MEDS: TRANEXAMIC ACID 1,000 MG/10 ML AMPUL 1000 MG IV PUSH (11:00)
[2023-10-23] MEDS: ceFAZolin SODIUM 1 GM VIAL 2 GM IV PUSH (11:07)
--- NOTE | 2023-10-23 12:03 | W.PM.PROC2 ---
Procedure Note - Detailed Date of Procedure 10/23/23 Pre-op Diagnosis OA left knee Post-op Diagnosis Same Procedure Performed Left total knee arthroplasty Surgeon Nimesh Bernal MD Anesthesia General Description of Procedure Patient was brought to the operating room and general anesthesia was administered. He received 2 g of Ancef weight based vancomycin 1 g of tranexamic acid preoperatively. The left knee was prepped draped usual fashion. Tourniquet was elevated to 275 mmHg eventually the 300 with there was bleeding through tourniquet. A 7 in longitudinal midline incision was used and a standard parapatellar arthrotomy utilized. Infrapatellar and suprapatellar fat pads were excised a quadriceps synovectomy carried out. The patella had moderate central chondromalacia otherwise no deformity and was felt to be suitable for non resurfacing. Minimal lateral facetectomy was performed. A guide katye was inserted down the femoral canal after aspiration of canal contents using the 5 degree valgus cutting bushing 9 mm of bone removed the distal femur. Next the tibial plateau was cut. We made a cut about 2 mm on the low point of medial tibial plateau which removed about 7 mm laterally. This was made perpendicular to the axis of the tibia. Meniscal remnants were excised the PCL was recessed and a central posterior capsular release from the distal femur carried out. He did have a 10 degree flexion contracture under anesthesia. In flexion the medial side measured a tight 8 mm medially and 12 mm laterally. The distal femoral sizing guide was applied at 5? of external rotation and posterior referencing pinholes were placed. The size 72.5 was going to notch. We made initial cut with a 75 cutting block and this showed that we would have notched. We flexed the distal femoral cut about 3?. We applied 72.5 cutting block AP and chamfer cuts were made and the 72.5 fit nicely line to line medial to lateral. At 90? of flexion we inserted the 10 CR insert which was a bit snug and I felt that additional 2 mm of bone should be removed from the tibial plateau which was performed. The tibia was sized to a 75. Mediolateral with appeared to accept a 79 but this would not allow proper rotation relative to the tibial tubercle and the foot. A 75 fit line to line anteromedial to posterolateral. This was punched. Bone quality was excellent. We trialed with the 10 which was a little bit loose at 90? of flexion the 11 seemed just right. However in extension this lacked about 7 or 8?. There was less than 1 mm of play medially and 3 mm laterally. He did not have a varus deformity so we did not release medial capsule from tibia but we did remove medial tibial osteophyte. With the femoral trial in place we removed the residual posterior femoral bone proximal to the posterior condyles and a thorough posterior capsule release was completed this time. With this done, with the 11 insert the knee came out to about 2? from full extension with 3 mm of lateral play and no medial play. His clinical appearance of the knee was in very slight valgus. Therefore I elected to remove an additional 1 mm bone from the medial femoral condyle distal surface and convert the distal femoral cut to 4? of anatomic axis valgus. Chamfer cuts revised. On read trialing with the 11 insert knee came out to full extension easily with negative bounce and 1/2 mm of medial opening and 3 mm lateral opening. Excellent stability throughout range of motion. Lug holes were drilled for the femur. We had put the tourniquet down at 90 minutes and at this point we re-exsanguinated the limb and elevated the tourniquet again to 300 mmHg. Step drill was used to make multiple perforations in his distal femur and tibial plateau as the bone was quite dense. Bony surfaces were thoroughly irrigated and dried. Using 2 batches of methylmethacrylate 1 the gentamicin powder cement was immediately applied the 75 vanguard tibial tray
[2023-10-23] MEDS: fentaNYL CITRATE INJ (*CRX) 100 MCG/2 ML VIAL 25 MCG IV PUSH ×2 (13:04→13:07)
[2023-10-23] MEDS: oxyCODONE HCL (*CRX) 5 MG TAB IR PO ×3 (14:05→21:04)
[2023-10-23] MEDS: SODIUM CHLORIDE 0.9% IV 1,000 ML 125 ML IV CONT (14:05)
--- NOTE | 2023-10-23 14:05 | ADMGEN ---
This patient, Jesse Crook, was admitted to Medical Room 257-01. Patient/family oriented to hospital policies and general routines including ID bracelet, bed and alarms, visiting hours, pain management, procedures, bathroom and other care routines, personal items, smoking policy, room service/diet, and visiting hours. Information on how to activate the Rapid Response Team has been discussed. Patient/Family are encouraged to report perceived risks to care and to ask questions if they do not understand what they are told or what they should do.
--- NOTE | 2023-10-23 14:40 | PM.IMCN ---
Assessment and Plan Assessment and plan (1) Primary osteoarthritis of left knee: Code(s): M17.12 - Unilateral primary osteoarthritis, left knee Status: Acute Assessment and Plan: Patient underwent a left total knee arthroplasty with Gabe AN on 10/22. Reports he is feeling well and pain is already reduced, no postoperative nausea or vomiting. - ambulate with assistance and up to chair - use IS - neurovasc checks - see order for intervals - SCDs - resume diet - pain management - antiemetic PRN - monitor labs in AM - CBC and BMP - bowel regimen: docusate/senna, polyethylene glycol - maintenance fluids: NS 125 mL/hr x8 hrs - prophylactic atb - Ancef - PT/OT (2) Essential hypertension: Code(s): I10 - Essential (primary) hypertension Status: Acute Assessment and Plan: - chronic, currently 123/71 - continue home medications: Losartan - monitor (3) MARYANN (obstructive sleep apnea): Code(s): G47.33 - Obstructive sleep apnea (adult) (pediatric) Status: Acute Assessment and Plan: - continue home CPAP Plan patient underwent total left knee arthroplasty on 10/22. RD has reduction in knee pain, no postoperative nausea or vomiting. Home medications reviewed and all resumed. Reports he did well with PT/OT today. Diet: regular GI Prophylaxis: not currently indicated DVT Prophylaxis: SCDs Lines: peripheral Code Status: full code HPI Date of Consult Consult date: 10/23/23 Requesting Physician: Nimesh Bernal MD Primary Care Provider: Jesse Humphries MD Consult Narrative Reason for consult: Medical Managment Narrative: 73 y/o M presented here for surgical management of [id number] medial compartment osteoarthritis.? Patient has been following with ortho for a few years for left knee pain. Patient has been treated previously with cortisone injections, neuro lysis of the sensory nerves around the left knee, and meloxicam 50 mg daily. Patient also lost weight to try and help with pain management. Has previously underwent a right total knee arthroplasty 3 years ago and did well postoperatively. Patient reports the pain was becoming so severe that it was interferring with ambulation and the activities he normally likes to do (i.e. gardening). Would now like to proceed with surgical management of his left knee pain with a left total knee arthroplasty done on 10/22. pre-op workup (09/30): No leukocytosis, hemoglobin 13.7, creatinine 0.9 and GFR >60. initial VS: 98.0? F, HR 82, R 18, 120/74, and 98% on RA. Review of Systems Review of Systems: All systems reviewed & are unremarkable except as noted in HPI and below PMFSH Past Medical History Medical History Anxiety Burroughs palsy Many years ago Dysesthesia Essential hypertension History of colon polyps Melanoma Microscopic colitis Mixed hyperlipidemia Obesity (BMI 30-39.9) MARYANN (obstructive sleep apnea) Osteoarthritis of knees, bilateral Postoperative anemia Prediabetes Primary osteoarthritis of left knee Psychomotor agitation Surgical History Surgical History History of bilateral mastectomy Benign History of cataract surgery History of cholecystectomy History of right knee joint replacement 2020- Dr Bernal History of total left knee replacement 2023 Gabe Family History Family History Father Hypertension Family history of cardiovascular disease Carcinoma of colon Mother Hypertension Family history of cardiovascular disease Carcinoma of colon Sibling Hypertension Family history of cardiovascular disease Social History Social History Social History: Patient does not drink, smoke or do drugs. 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
[2023-10-23] MEDS: VANCOMYCIN 1,000 MG/NS 250 ML 1,000 MG/250 ML BAG 250 MG IVPB (18:08)
[2023-10-23] MEDS: WATER FOR IRRIGATION, STERILE 1,000 ML BOTTLE 1000 ML (18:11)
[2023-10-23] MEDS: MELATONIN 5 MG TABLET 10 MG PO (21:04)
[2023-10-24] MEDS: ACETAMINOPHEN 500 MG TABLET 1000 MG PO ×2 (01:02→09:15)
[2023-10-24] MEDS: ceFAZolin 2 GM/D5W 50 ML 2 GM/50 ML BAG IVPB ×2 (01:02→09:45)
[2023-10-24] MEDS: oxyCODONE HCL (*CRX) 5 MG TAB IR PO ×4 (01:03→10:31)
[2023-10-24 01:04] VITALS: BP 100/58; PULSE 69; RESP 16; TEMP 36.6; O2SAT 100
[2023-10-24 04:58] LABS: Basophils Percent Auto 0.4 % (0.2-1.2); Eosinophils Percent Auto 0.5 % (0-4.4); Hematocrit 28.7 % (42.0-52.0); Hemoglobin 9.9 g/dL (14.0-18.0); Immature Granulocyte Absolute 0.04 K/mm3 (0.00-0.031); Immature Granulocyte Percent A 0.5 % (0-0.5); Lymphocytes Absolute Auto 2.06 K/mm3 (0.9-3.2); Lymphocytes Percent Auto 25.5 % (18.3-44.2); Mean Corpuscular HGB Conc 34.5 g/dl (32-36); Mean Corpuscular Hemoglobin 32.4 pg (26-34); Mean Corpuscular Volume 93.8 fl (80-100); Mean Platelet Volume 10.1 fl (7.4-10.4); Monocytes Absolute Auto 0.8 K/mm3 (0.1-0.6); Monocytes Percent Auto 9.8 % (2.6-8.5); Neutrophils Absolute Auto 5.1 K/mm3 (1.3-6.7); Neutrophils Percent Auto 63.3 % (45.5-73.1); Platelet Count Result 121 k/mm3 (150-375); Red Blood Count 3.06 M/mm3 (4.6-6.20); Red Cell Distribution Width 15.5 % (11.5-14.5); White Blood Count 8.1 K/mm3 (4.5-10.0)
[2023-10-24 05:11] LABS: Anion Gap 5 mmol/L (4-12); Blood Urea Nitrogen 19 mg/dL (9-20); Calcium 7.9 mg/dL (8.4-10.2); Carbon Dioxide 22 mmol/L (22-30); Chloride 111 mmol/L (98-107); Estimated CRCL calculation 86 ml/min; Estimated Glomerular Filt Rate > 60; Glucose 104 mg/dL (65-110); Sodium 138 mmol/L (137-145)
[2023-10-24] MEDS: VANCOMYCIN 1,000 MG/NS 250 ML 1,000 MG/250 ML BAG 250 MG IVPB (05:52)
[2023-10-24 06:00] VITALS: BP 109/64; PULSE 83; RESP 16; TEMP 36.5; O2SAT 96
[2023-10-24 07:11] VITALS: BP 112/62; PULSE 80; RESP 17; TEMP 36.4; O2SAT 95
[2023-10-24] MEDS: POTASSIUM CHLORIDE 20 MEQ ER TABLET 40 MEQ PO (09:14)
[2023-10-24] MEDS: POTASSIUM CHLORIDE 20 MEQ ER TABLET PO (09:14)
[2023-10-24] MEDS: APIXABAN 2.5 MG TABLET PO (09:16)
[2023-10-24] MEDS: CELECOXIB 200 MG CAPSULE PO (09:16)
[2023-10-24] MEDS: CEFDINIR 300 MG CAPSULE PO (09:16)
[2023-10-24] MEDS: CYANOCOBALAMIN 1,000 MCG TABLET 1000 MCG PO (09:17)
[2023-10-24] MEDS: SENNA/DOCUSATE SODIUM TABLET 2 TAB PO (09:17)
[2023-10-24] MEDS: LOSARTAN POTASSIUM 50 MG TABLET PO (09:17)
[2023-10-24] MEDS: SERTRALINE HCL 50 MG TABLET PO (09:17)
[2023-10-24 11:11] VITALS: BP 110/60; PULSE 78; RESP 17; TEMP 36.4; O2SAT 95
--- NOTE | 2023-10-24 12:14 | PM.DS ---
DS: Admitting Diagnosis Discharge Date 10/24/2023 Admitting Diagnosis osteoarthritis left knee DS: Discharge Diagnosis Discharge Diagnosis (1) Status post total left knee replacement: Code(s): Z96.652 - Presence of left artificial knee joint Status: Acute DS: Summary Hospital Course Hospital Course: patient was admitted for left total knee arthroplasty diagnosis osteoarthritis left knee. He has done well postoperatively. His wound shows no sign of bleeding on the dressing he has mild swelling about the knee he has intact sensation and motor function left leg he has been up walking around with physical therapy and is eager to leave. His laboratory studies today show hemoglobin 9.9 indicating mild acute blood loss anemia. Platelets [id number]. This is unchanged over the last 3 years worse platelets run between 110 and 147,000. his potassium is little bit low. He will continue on his oral potassium supplementation. Renal function is normal. Time Spent with Patient Time attestation: Total time spent providing and/or coordinating discharge services: DS: Data Data Completed and Pending Labs on day of discharge: Labs from last 24 hours 10/24/23 04:35 WBC 8.1 RBC 3.06 L Hgb 9.9 L D Hct 28.7 L MCV 93.8 MCH 32.4 MCHC 34.5 RDW 15.5 H Plt Count 121 L MPV 10.1 Immature Gran % (Auto) 0.5 Neut % (Auto) 63.3 Lymph % (Auto) 25.5 [place] % (Auto) 9.8 H Eos % (Auto) 0.5 Baso % (Auto) 0.4 Lymph # (Auto) 2.06 [place] # (Auto) 0.8 H Eos # (Auto) 0.0 Baso # (Auto) 0.0 Abs Immat Gran (auto) 0.04 H Absolute Neuts (auto) 5.1 Absolute Nucleated RBC 0.000 Nucleated RBC % 0.0 Sodium 138 Potassium 3.0 L Chloride 111 H Carbon Dioxide 22 Anion Gap 5 BUN 19 Creatinine 0.90 Estim Creat Clear Calc 86 Estimated GFR > 60 Glucose 104 Calcium 7.9 L Discharge Plan Discharge Patient Disposition: Home, Self-Care Discharge Instructions: JEANNE RODRIGUEZ M.D [facility] [address] [address] [address] [place] [address] POST-OPERATIVE DISCHARGE INSTRUCTIONS TOTAL KNEE ARTHROPLASTY 1. When resting, do not rest in the chair.When resting, lie on your back, with back flat on the couch or bed, with leg elevated above heart to minimize swelling. You may put a pillow under your head. . Significant swelling could indicate a blood clot and if this occurs call the office (or go to the ER) to have a venous ultrasound. Therefore, do not rest in a chair. 2. At least five times a day spend several minutes stretching your knee into flexion while sitting in the chair and also stretching your knee out straight The abilities to bend your knee fully and straighten your knee fully are two most important knee functions to focus on during your recovery. 3. It is ok to sit in chair to eat, use the toilet and receive a guest and to do your stretching exercises, but, sitting in a chair will cause your leg to swell. Therefore, avoid additional time sitting in the chair. and don't rest in the chair. 4. Wound Care: Nursing will give you an additional Mepilex dressing at the time of discharge. Patient to remove the dressing and apply a new Mepilex dressing at home 7 days after surgery and leave the dressing on until seen in office. It is normal to see a small amount of blood on the silver pad of the Mepilex dressing. Its designed to hold small spots of blood. However, if the blood reaches the edge of the pad up to the boarder of the clear membrane that surrounds the pad, the pad is saturated and the Mepilex dressing should be removed and a new Mepilex dressing should be applied. 5. May shower with a Mepilex dressing in place.The water will run off the dressing. 6. Unless you are told otherwise, you may put full weight on your operated leg. Use a walker for balance and practice walking as normally as you can, ideally for a few minutes every hour while you are awake. 7. I wou
--- NOTE | 2023-10-24 13:30 | PM.IMPN ---
Progress Note: A&P Assessment and Plan (1) Primary osteoarthritis of left knee: Code(s): M17.12 - Unilateral primary osteoarthritis, left knee Status: Acute Assessment and Plan: Patient underwent a left total knee arthroplasty with Gabe AN on 10/22. Reports he is feeling well and pain is already reduced, no postoperative nausea or vomiting. - ambulate with assistance and up to chair - use IS - neurovasc checks - see order for intervals - SCDs - pain management - antiemetic PRN - bowel regimen: docusate/senna, polyethylene glycol - maintenance fluids: NS 125 mL/hr x8 hrs - prophylactic atb - Ancef - PT/OT (2) Essential hypertension: Code(s): I10 - Essential (primary) hypertension Status: Acute Assessment and Plan: - chronic, currently 123/71 - continue home medications: Losartan - monitor (3) MARYANN (obstructive sleep apnea): Code(s): G47.33 - Obstructive sleep apnea (adult) (pediatric) Status: Acute Assessment and Plan: - continue home CPAP Subjective Date/time seen: 10/24/23 13:30 Interval history: patient doing well today. Pain is well controlled. Okay to discharge per hospitalist standpoint. Exam Narrative: GENERAL: Comfortable, no acute distress HENMT: moist mucous membranes EYES: EOM intact b/l NECK: no lymphadenopathy RESPIRATORY: clear to auscultation, no increased respiratory effort CARDIO: Regular rate and rhythm GI: soft, nontender, bowel sounds present SKIN/EXTREMITIES: Left knee Tegaderm dry and intact, left knee swelling and NEURO: PROM intact, answers questions appropriately, A&O x4 Objective Data Vital Signs Vital Signs: Vital Signs - 24 hr 10/23/23 13:51 10/23/23 14:29 10/23/23 15:33 Temperature 98.1 F 97.2 F L Pulse Rate 85 80 Respiratory Rate 16 18 Blood Pressure 123/71 123/71 Pulse Oximetry 99 99 Oxygen Delivery Room Air 10/23/23 20:32 10/24/23 01:04 10/23/23 23:40 Temperature 97.8 F 97.8 F Pulse Rate 76 69 76 Respiratory Rate 16 16 Blood Pressure 107/66 100/58 L Pulse Oximetry 99 100 99 Oxygen Delivery 10/24/23 06:00 10/24/23 09:11 10/24/23 07:11 Temperature 97.7 F 97.6 F Pulse Rate 83 80 Respiratory Rate 16 17 Blood Pressure 109/64 112/62 Pulse Oximetry 96 95 Oxygen Delivery Room Air 10/24/23 11:11 Temperature 97.6 F Pulse Rate 78 Respiratory Rate 17 Blood Pressure 110/60 Pulse Oximetry 95 Oxygen Delivery Intake/Output Intake/Output: Intake & Output 10/21/23 10/22/23 10/23/23 10/24/23 23:59 23:59 23:59 23:59 Intake Total 1090 642 Output Total 75 Balance 1015 642 Meds/Results Medications: Active Medications Generic Name Dose Route Start Last Admin Trade Name Freq PRN Reason Stop Dose Admin Acetaminophen 1,000 mg 10/23/23 14:00 10/24/23 09:15 Acetaminophen 500 Mg Tablet PO 1,000 mg Q6H GINA Administration Apixaban 2.5 mg 10/24/23 09:00 10/24/23 09:16 Apixaban 2.5 Mg Tablet PO 2.5 mg Q12HR GINA Administration Cefdinir 300 mg 10/24/23 09:00 10/24/23 09:16 Cefdinir 300 Mg Capsule PO 300 mg Q12HR GINA Administration Celecoxib 200 mg 10/24/23 08:00 10/24/23 09:16 Celecoxib 200 Mg Capsule PO 200 mg DAILY@0800 GINA Administration Cyanocobalamin 1,000 mcg 10/24/23 09:00 10/24/23 09:17 Cyanocobalamin 1,000 Mcg Tablet PO 11/23/23 08:59 1,000 mcg DAILY GINA Administration Losartan Potassium 50 mg 10/24/23 09:00 10/24/23 09:17 Losartan Potassium 50 Mg Tablet PO 50 mg QAM GINA Administration Melatonin 10 mg 10/23/23 21:00 10/23/23 21:04 Melatonin 5 Mg Tablet PO 10 mg QHS GINA Administration Miscellaneous Information 0 each 10/23/23 00:01 10/23/23 22:39 Tirzepatide = Non Formulary XX 11/22/23 00:00 Not Given CLARIFY GINA Morphine Sulfate 2 mg 10/23/23 13:26 Morphine Sulfate (*Crx) 2 Mg/Ml Inj IV PUSH Q1H PRN Pain Rated 7-10 Naloxo
== END 2023-10-24 12:45 | disposition home or self-care (01) ==
LOC: ANHSURGERY 12:21 → ANH2MED 13:33
PROVIDERS: PCP Family Medicine; Visit Provider Orthopaedic Surgery
PROC: (CPT 27447; principal; 2023-10-23 07:30)
DX: M17.12 Unilateral primary osteoarthritis, left knee (principal); E78.2 Mixed hyperlipidemia; R73.03 Prediabetes; I10 Essential (primary) hypertension; G47.33 Obstructive sleep apnea (adult) (pediatric); E66.9 Obesity, unspecified; Z68.32 Body mass index [BMI] 32.0-32.9, adult; Z79.85 Long-term (current) use of injectable non-insulin antidiabetic drugs
CPT/HCPCS: 27447; 36415; 73560; 80048; 85025; 86850; 86900; 86901; 97110; 97116; 97161; 97165; 97530; A9270; C1713; C1776; J0171; J0690; J1100; J1170; J1885; J2250; J2270; J2405; J2795; J3010; J3370; J7030; J7120

== ENCOUNTER 2023-11-04 08:29 | Outpatient (CLI) | payer MEDICARE, SELFPAY ==
--- NOTE | ~2023-11-04 | US_ITS ---
EXAMINATION: US venous doppler [facility] DATE: 11/04/2023 09:08 INDICATION: Left lower limb swelling. Other specified soft tissue disorders. TECHNIQUE: Grayscale ultrasound images without and with compression and Doppler ultrasound images of the left lower extremity veins were obtained. COMPARISON: None. FINDINGS: The visualized portions of left common femoral vein, profunda (deep) femoral vein, femoral vein, popl iteal vein, peroneal veins, posterior tibial veins, and greater saphenous vein outflow are patent. IMPRESSION: 1. No deep venous thrombosis. Reviewed, dictated and finalized at location A.
== END 2023-11-04 08:30 | disposition home or self-care (01) ==
PROVIDERS: PCP Family Medicine; Visit Provider Orthopaedic Surgery
DX: M79.89 Other specified soft tissue disorders (principal)
CPT/HCPCS: 93971

== ENCOUNTER 2024-07-16 03:08 | Day surgery (SDC) | payer MEDICARE, SELFPAY ==
[2024-07-13 15:03] VITALS: BMI 30.8
--- NOTE | 2024-07-13 15:17 | PC.NURSE ---
Report to the Outpatient Waiting Room, entrance under the green pavilion located off [facility], at time __08:30am on date _07/16/24 . Planned Procedure Time: __10:30am .? Time changes happen often and if your time is changed the preop area will call you the afternoon before. - You and your visitor will be asked to self-screen and do not enter if you have any COVID symptoms. Please call surgeon if you need to reschedule. - A mask is optional within the hospital at this time. Patients may have clear liquids (water, carbonated beverages, clear teas, apple juice) until 3 hours prior to surgery with a maximum of 20 ounces. - This includes no chewing gum, candy or mints. Dr Mccauley instructions with Bowel Prep and PO intake day before. Take only the following medications with a SIP of water on the morning of surgery: ___Sertaline and Tylenol if needed DO NOT STOP ANY OF YOUR OTHER PRESCRIPTION MEDICATIONS PRIOR TO SURGERY EXCEPT THE FOLLOWING Medications to discontinue per physician Hold Tirzepatide until further notice per Dr Mccauley Date to take last dose_06/27/24 Please no make-up, nail uzbek, hairspray, perfume, deodorant, or body powder the day of surgery.? No jewelry (including any body piercings) or valuables the day of surgery, leave them at home.? Please take a shower or bath the night before, or the morning of, surgery with an antibacterial soap.? Wear comfortable, loose fitting clothing.? - Jewelry must be removed prior to entering the operating room.? Rings and piercings that are not removed may be cut off. - The hospital will not accept responsibility for valuables.? - Please leave all valuables, including medications, at home the day of surgery. If you are going home after surgery, a licensed food service driver must drive you home.? - NO public transportation without another adult if you receive anesthesia. - We recommend that an adult stay with you for 24 hours following discharge. - We also recommend that you do not drive, make important decision, drink alcoholic beverages, or take any drugs that were not prescribed by your health care provider for at least 24 hours after your discharge time. Hold all vitamins and supplements for 3 days per anesthesiologist - date take last dose is 07/12/24 Follow any additional instructions given to you from your surgeon. Telephone instructions given to ___patIent and asked if any additional questions and then verbalized understanding. Patient advised to call surgeon office or pre surgery nurse liaison [phone] if any additional questions.
[2024-07-16] VITALS (8 sets, daily range): BP systolic 106–136; BP diastolic 66–98; PULSE 70–98; RESP 12–17; TEMP 36.4–36.6; O2SAT 98–100
--- OUTSIDE RECORDS SUMMARY | 2024-07-16 03:12 | XMS_ITS | Patient Health Summary ---
Author Organization [facility] Address [address] [place] [address] Care Team Providers Care Smokehouse Worker Name Role Phone Jesse Humphries MD Primary Care Provider [phone] Kirby Pablo MD Unavailable Unavailable Note from [facility] [place]non-owned Affiliates and Associated Physician Practices is amultiple site organization consisting of ambulatory clinics and hospital sitesin [place], [place], [place] and [place]. This disclosure is being madepursuant to the Care Everywhere program and may not contain all information available regarding this patient. Last updated 18.[facility] Allergies * Meperidine(Nausea and/or Vomiting,Fever) * Lomotil(Nausea and/or Vomiting,Fever) Medications * Be aware that medications may not be up to date on this document. Alwaysverify current medications with the patient. * FLUoxetine (PROZAC) 20 MG capsule once daily. * naproxen (NAPROSYN) 500 MG tablet * omeprazole (PRILOSEC) 20 MG capsule(Started 07/11/2011) Take 1 Cap by mouth 2 times daily before meals. 5 refills left * folic acid-vit B6-vit B12 (FOLTX) tablet(Started 08/01/2011) Take 1 Tab by mouth once daily. 5 refills left * aspirin 81 MG tablet Take 81 mg by mouth once daily. * lovastatin (MEVACOR) 20 MG tablet Take 20 mg by mouth at bedtime. * losartan (COZAAR) 50 MG tablet Take 50 mg by mouth once daily. * hydrochlorothiazide (MICROZIDE) 12.5 MG capsule(Started 12/11/2011) Take 1 Cap by mouth once daily. 1 refill left * O-Rwzyiklegaae-V2-B12 (FOLTX) 1.13-25-2 MG TABS(Started 03/18/2014) TAKE ONE TABLET BY MOUTH ONCE DAILY 2 refills left Active Problems Problem Noted Date Diagnosed Date Elevated triglycerides with high cholesterol 09/2011 Other chest pain 12/09/2011 Other dyspnea and respiratory abnormality 2011 Mitral stenosis with insufficiency 12/09/2011 Obesity 09/09/2011 MARYANN (obstructive sleep apnea) 09/09/2011 HTN (hypertension) 05/17/2011 Peripheral neuropathy 05/17/2011 Immunizations * INFLUENZA VACCINE, TRIV. (AFLURIA, FLUZONE TRIVALENT; 6MO+) (IIV3)(Given 05/22/2011) * Influenza Pf Intradermal (ADULT)(Given 03/24/2013) Social History Tobacco Use Types Packs/Day Years Used Date Smoking Tobacco: Never Alcohol Use Standard Drinks/Week Comments No 0 (1 standard drink = 0.6 oz pur e alcohol) Sex and Gender Information Value Date Recorded Sex Assigned at Not on file Gender Identity Not on file Sexual Orientation Not on file Last Filed Vital Signs Vital Sign Reading Time Taken Comments Blood Pressure 130/80 03/24/2013 2:14 PM CDT Pulse 80 03/24/2013 2:14 PM CDT Temperature 36.9 ??C (98.4 ??F) 03/24/2013 2:14 PM CD T Respiratory Rate 20 03/24/2013 2:14 PM CDT Oxygen Saturation 96% 03/24/2013 2:14 PM CDT Inhaled Oxygen Concentration - - Weight 136.5 kg (301 lb) 03/24/2013 2:14 PM CDT Height 190.5 cm (6' 3 ) 03/24/2013 2:14 PM CDT Body Mass Index 37.62 03/24/2013 2:14 PM CDT Procedures * PULMONARY/RESPIRATORY REPORT ORDER(Performed 03/23/2013) * PFT-LAB(Performed 07/15/2011) Performed for Chronic cough * BRONCHIAL CHALLENGE(Performed 07/15/2011) Performed for Chronic cough * POLYSOMNOGRAPHY 4 OR MORE PARAMETERS(Performed 07/14/2011) * CULTURE FUNGUS SKIN HAIR NAILS(Performed 07/11/2011) Performed for Onychomycosis * NERVE CONDUCTION TEST(Performed 07/11/2011) Performed for Numbness and tingling of foot, Foot pain * EMG(Performed 07/11/2011) Performed for Numbness and tingling of foot, Foot pain * PROSTATE SPECIFIC ANTIGEN SCREEN(Performed 05/18/2011) Performed for Routine general medical examination at a health care facility * TSH HI LOW REFLEX T4(Performed 05/18/2011) Performed for Routine general medical examination at a health care facility * LIPID PROFILE(Performed 05/18/2011) Performed for Routine general medical examination at a health care facility * COMPREHENSIVE METABOLIC PANEL(Performed 05/18/2011) Performed for Routine general medical examination at a health care facility * HEMOGLOBIN A1C(Performed 05/18/2011) Performed for Routine general medical examination at a health care facility * XR CHEST 2VW(Performed 05/17/2011) Performed for Lesion of lung Results * PULMONARY/RESPIRATORY REPORT ORDER (03/23/2013) Yesi Charles MD RESPIRATORY THERAPY ORDERABLES * BRONCHIAL CHALLENGE WITH METHACHOLINE (07/15/2011) 07/15/2011 Narrative Transcriptions Yesi Charles MD - 07/16/2011 10:25 AM CST [facility] Pulmonary Function Test [facility] PULMONARY FUNCTION TEST REPORT PATIENT: JESSE FISCHER [facility]#: [id number] ADMIT DATE: 07/15/2011CCT#: [id number] DATE OF PROCEDURE: 07/15/2011DOB: 1950 PHYSICIAN: Yesi Charles MD INDICATION FOR TEST: Exertional dyspnea. FINDINGS: This is a methacholine challenge test. Despite inhalingincreasing numbers of breaths of increasing concentrations of methacholinethere is no significant decrease in FEV1 to suggest the presence of airwayhyperactivity. This is a negative test. FEV1 is 4.43 L prior to testing,following testing is 4.36 L and following inhaled bronchodilators is 4.45L. Yesi Charles MD MOP/MedQ #:[id number] Yesi Charles MD - 07/16/2011 10:30 AM CST [facility] Pulmonary Function Test [facility] PULMONARY FUNCTION TEST REPORT PATIENT: JESSE FISCHER EMR#: [id number] ADMIT DATE: 07/15/2011CCT#: [id number] DATE OF PROCEDURE: 07/15/2011DOB: 1950 PHYSICIAN: Yesi Charles MD INDICATION FOR TEST: Evaluation of exertional dyspnea. FINDINGS: 1.Spirometry shows an FEV-1 of 4.43 liters, which is 100% of predicted,FVC of 5.10 liters, which is 92% of predicted, and an FEV-1/FVC of 87%.2.Lung volumes by nitrogen dilution show a total lung capacity is 7.44liters, residual volume of 2.32 liters, which is 85% of predicted, and anFRC of 2.79 liters, which is 79% of predicted. Total lung capacity is 95%of predicted. These findings are consistent with normal lung volumes.3.Diffusing capacity is 40.5 mL per millimeter of mercury per minute or120% of predicted, which is normal. IMPRESSION: Normal pulmonary function test. Yesi Charles MD MOP/MedQ #:[id number] cc:Yesi Charles MD Yesi Charles MD PFT ORDERABLES [facility] * POLYSOMNOGRAPHY (07/14/2011) Yesi Charles MD [facility] ORDERAB LES * CULTURE FUNGUS SKIN HAIR NAILS (07/11/2011 9:54 AM NURSING SERVICE DIRECTOR) Culture Dermatophyte Only [facility] INSURANCE BILL Comment:No yeast or mold iso lated after 4 weeks. Miscellaneous samples (specimen) NAIL SPECIMEN / Unknown 07/11/2011 9:54 AM NURSING SERVICE DIRECTOR 07/12/2011 10:05 PM NURSING SERVICE DIRECTOR Narrative Resulting Agency Comment [facility] [address] ??[facility]ly [facility] [phone] Catherine Moreno DPPapa LAB - MICROBIOLOGY O RDERABLES Performing Organization Address [facility] de Phone Number [facility] INSURANCE BILL * NERVE CONDUCTION TEST (07/11/2011) Catherine Moreno DPM NEUROLOGY ORDERABLES Performing Organization Address [facility] de Phone Number [facility] RESULT SCAN * EMG (07/11/2011) Catherine Moreno DPM NEUROLOGY ORDERABLES Performing Organization Address [facility] de Phone Number [facility] RESULT SCAN * TSH HI LOW REFLEX T4 (PO REF LAB) (05/18/2011 8:02 AM NURSING SERVICE DIRECTOR) TSH 3.700 0.450 - 4.500 uIU/mL [facility] INSURANCE BILL BLOOD SPECIMEN / Unknown 05/18/2011 8:02 AM NURSING SERVICE DIRECTOR 05/18/2011 1:14 PM NURSING SERVICE DIRECTOR Narrative Resulting Agency Comment [facility] [phone] [facility] ??[facility]ly [facility] [phone] Darien Contreras MD LAB - CHEMISTRY RICARDO CANO Performing Organization Address [facility] de Phone Number [facility] INSURANCE BILL * HEMOGLOBIN A1C (05/18/2011 8:02 AM NURSING SERVICE DIRECTOR) Hemoglobin A1c 5.1 4.8 - 5.6 % [facility] INSURANCE BILL Comment: ? . ? Increased risk for diabetes: 5.7 - 6.4 ? Diabetes: >6.4 ? Glycemic control for adults with diabetes: <7.0 Blood specimen (specimen) BLOOD SPECIMEN / Unknown 05/18/2011 8:02 AM NURSING SERVICE DIRECTOR 05/18/2011 1:14 PM NURSING SERVICE DIRECTOR Narrative Resulting Agency Comment [facility] [address] ??[facility]ly [facility] [phone] Darien Contreras MD LAB - CHEMISTRY RICARDO CANO [facility] INSURANCE BILL * (ABNORMAL) COMPREHENSIVE METABOLIC PANEL (05/18/2011 8:02 AM NURSING SERVICE DIRECTOR) Glucose 115(H) 65 - 99 mg/dL [facility] INSURANCE BILL BUN 15 8 - 27 mg/dL [facility] INSURANCE BILL Creatinine 0.95 0.76 - 1.27 mg/dL [facility] INSURANCE BILL eGFR by MDRD 86 >59 mL/min/1.7 3 [facility] INSURANCE BILL eGFR by MDRD 99 >59 mL/min/1.7 3 [facility] INSURANCE BILL Comment: Note: A persistent eGFR <60 mL/min/1.73 m2 (3 months or more) may indicate chronic kidney disease. An eGFR >59 mL/min/1.73 m2 with an elevated urine protein also may indicate chronic kidney disease. Calculated using CKD-EPI formula. BUN/Creatinine Ratio 16 10 - 22 [facility] INSURANCE BILL Sodium 140 135 - 145 mmol/L [facility] INSURANCE BILL Potassium 3.8 3.5 - 5.2 mmol/L [facility] INSURANCE BILL Chloride 104 97 - 108 mmol/L [facility] INSURANCE BILL CO2 21 20 - 32 mmol/L [facility] INSURANCE BILL Calcium 9.3 8.6 - 10.2 mg/dL [facility] INSURANCE BILL Protein Total 7.0 6.0 - 8.5 g/dL [facility] INSURANCE BILL Albumin 4.8 3.6 - 4.8 g/dL [facility] INSURANCE BILL Globulin Total 2.2 1.5 - 4.5 g/dL [facility] INSURANCE BILL Albumin/Globulin Ratio 2.2 1.1 - 2.5 [facility] INSURANCE BILL Bilirubin Total 1.1 0.0 - 1.2 mg/dL [facility] INSURANCE BILL Alkaline Phosphatase 99 25 - 160 IU/L [facility] INSURANCE BILL AST 58(H) 0 - 40 IU/L [facility] INSURANCE BILL ALT 86(H) 0 - 55 IU/L [facility] INSURANCE BILL Blood specimen (specimen) BLOOD SPECIMEN / Unknown 05/18/2011 8:02 AM NURSING SERVICE DIRECTOR 05/18/2011 1:14 PM NURSING SERVICE DIRECTOR Narrative Resulting Agency Comment [facility] [address] [facility] [address] ??[facility]ly [facility] [phone] Darien Contreras MD LAB - CHEMISTRY RICARDO CANO Performing Organization Address [facility] de Phone Number [facility] INSURANCE BILL * PROSTATE SPECIFIC ANTIGEN SCREEN (05/18/2011 8:02 AM NURSING SERVICE DIRECTOR) PSA 0.4 0.0 - 4.0 ng/mL [facility] INSURANCE BILL Comment: Stanislav ECLIA methodology. ? . According to the [place] [employer], Serum PSA should decrease and remain at undetectable levels after radical prostatectomy. The AUA defines biochemical recurrence as an initial PSA value 0.2 ng/mL or greater followed by a subsequent confirmatory PSA value 0.2 ng/mL or greater. Values obtained with different assay methods or kits cannot be used interchangeably. Results cannot be interpreted as absolute evidence of the presence or absence of malignant disease. Blood specimen (specimen) BLOOD SPECIMEN / Unknown 05/18/2011 8:02 AM NURSING SERVICE DIRECTOR 05/18/2011 1:14 PM NURSING SERVICE DIRECTOR Narrative Resulting Agency Comment [facility] [address] [facility] [address] [address] [facility] ??[facility]ly [facility] [phone] Darien Contreras MD LAB - CHEMISTRY RICARDO CANO Performing Organization Address [facility] de Phone Number [facility] INSURANCE BILL * (ABNORMAL) LIPID PROFILE (05/18/2011 8:02 AM NURSING SERVICE DIRECTOR) Cholesterol 188 100 - 199 mg/dL [facility] INSURANCE BILL Triglycerides 258(H) 0 - 149 mg/dL [facility] INSURANCE BILL HDL Cholesterol 41 >39 mg/dL [facility] INSURANCE BILL Comment: According to ATP-III Guidelines, HDL-C >59 mg/dL is considered a negative risk factor for CHD. VLDL Calculated 52(H) 5 - 40 mg/dL [facility] INSURANCE BILL LDL Calculated 95 0 - 99 mg/dL [facility] INSURANCE BILL Blood specimen (specimen) BLOOD SPECIMEN / Unknown 05/18/2011 8:02 AM NURSING SERVICE DIRECTOR 05/18/2011 1:14 PM NURSING SERVICE DIRECTOR Narrative Resulting Agency Comment [facility] [address] ??[facility]ly [facility] [phone] Darien Contreras MD LAB - CHEMISTRY RICARDO CANO [facility] Organization Address City/State/ZIP Co de Phone Number [facility] INSURANCE BILL * XR CHEST PA AND LATERAL (05/17/2011 11:23 AM NURSING SERVICE DIRECTOR) Anatomical Region Laterality Modality Chest Radiographic Joyce ging 05/17/2011 11:4 1 AM NURSING SERVICE DIRECTOR Impressions 05/17/2011 11:41 AM NURSING SERVICE DIRECTOR No acute cardiopulmonary disease. Narrative 05/17/2011 11:41 AM NURSING SERVICE DIRECTOR Two views chest Indication: Shortness of breath and chest pain Comparison: None Findings: The lungs are clear. Heart size normal. No evidence of pneumothorax or pleural effusion. Procedure Note Stephanie Martines MD - 05/17/2011 Two views chest Indication: Shortness of breath and chest pain Comparison: None Findings: The lungs are clear. Heart size normal. No evidence of pneumothorax or pleural effusion. IMPRESSION No acute cardiopulmonary disease. Darien Contreras MD DIAGNOSTIC IMAGING O RDERABLES Care Teams Smokehouse Worker Relationship Specialty Start Date End Date Jesse Humphries MD [facility] [place] [address] PCP - General 11/28/11 Kirby Pablo MD [facility] [place] [address] Cardiovascular Disease 12/09/11
--- OUTSIDE RECORDS SUMMARY | 2024-07-16 03:12 | XMS_ITS | Data Portability ---
Author Organization [place] [facility], Main Office Address [address] [place] [address] Care Team Providers Care [employer] Supervisor Name Role Phone JESSE HUMPHRIES Primary Care Provider JESSE HUMPHRIES Referring Provider Assessment Encounter Date Assessment Date Assessment LastModified by Organization Details LastModified Time 10/30/2022 10/30/2022 HPI: Patient returns. He is here 2 complaints 1st complaint is that he is here for his 3 month injection in the left knee. He has severe medial compartment osteoarthritis. We have done a right knee replacement on him in the past. At this point he has gained weight and is not a surgical candidate. Shots continue to give him some benefit he wishes to continue with these today. Patient's 2nd complaint is that he has been having pain in the right knee. He has been having symptoms for well over 6 months. His knee replacement was done in 2020 on the right side. He states by the end the day has rather severe symptoms in the right leg. He has also been having numbness in both of his feet for several years. Patient was advised years ago that he had significant degenerative disc disease his Back. Patient's symptoms in the right leg will start at the lateral aspect of the right knee and then by the end of day the symptoms are radiating down into the lateral calf for exam. Does not radiate into the foot. Again he does have numbness in both feet. No history of diabetes. He states that he did have an EMG study done several years ago and was told that the numbness he was having in his feet was most likely coming from his back not peripheral neuropathy. Patient has had no surgery on his back in the past. Patient takes meloxicam 15 mg daily. Patient recently just went through physical therapy for his low back. He went through over 6 weeks did not feel made any difference his symptoms. His symptoms in his right lateral knee radiating into his calf seem to be getting worse and more frequent for him. Physical exam: 72-year-old male very alert pleasant. He walks without limp. He is 6 ft 2 and 303 lb, his BMI is 38.9. His left knee has mild effusion, range of motion is from 5-130 degrees. Moderate tenderness over the medial joint line to palpation. Hip range of motion is full without discomfort bilaterally. His right knee he has definite effusion. Incisions well healed. Range of motion is from 0-135 degrees. He has excellent stability both flexion extension right knee. There is no tenderness to the right knee, there is no tenderness over the pes bursa or the distal ITB band. When I palpated his lateral knee he states that the pain starts at approximately the tib-fib joint and then again as the day progresses it radiate down to the calf. There is no tenderness in this area today. He does complain of numbness feet, not in the ankles or calf. No edema in either lower extremity. He has normal muscle function to dorsiflexion, eversion / inversion, quad all 5 out. 2+ posterior artery pulse. ChloraPrep used on skin 20 mg Kenalog and 3 cc 0.5% ropivacaine was injected into the left knee. Risk factors discussed. Impression: 72-year-old male has severe medial compartment osteoarthritis. He continues get some relief from injections. We will continue with these per his request. Patient has right total knee arthroplasty appears to be functioning well. His symptoms seem to correlate to an L5 radicular symptoms. He has no neurological deficit. He does have numbness in the feet and I think this may be coming from the back as well. If he just got done with physical therapy without improvement of his symptoms. He has been on anti-inflammatori es chronically again without improvement. I have recommended obtaining an MRI scan of his back to assess it more thoroughly. I discussed with the patient that if there is no severe pathology we will refer him to Pain Management options. If there is significant pathology MRI scan you referred him to a back surgeon for options that. I am going to give Medrol Dosepak see if this will help some his symptoms. He will stop his meloxicam taking at to avoid any gastritis issues. Patient will call several days after the MRI scan that I can review it and determine treatment option that point. 30 minutes was spent in treatment patient more than half of this duer-rp-kxby conversation [email or web address] Not available 10/30/2022 11:43:10 06/04/2023 06/04/2023 Impression: 1. 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 Patient wants to proceed with left total knee replacement. He has episodes of severe pain when he feels his knee lubna and pain is in his knee. X-rays do show ohcq-gl-irau medial compartment osteoarthritis. 2. Patient shows evidence of L5 motor radiculopathy. This is on the left. I reviewed the note from [facility] from 10/30/2022 and it was thought that he had L5 radicular symptoms without neurologic deficit of the right leg at that time and that was the reason for obtaining the MRI scan Of his lumbar spine. He had 5 5 muscle strengtj on neurologic examination but I believe that was only done on the right side. Therefore it is impossible for me to determine whether the weakness cc today is new or old however the patient has noted that he is unable to dorsiflex the great toe that has been present for fairly long time. Again that weakness is on the left side to The MRI report of the lumbar spine showed mild central canal stenosis L4-5 severe bilateral facet joint arthritis L5-S1 mild bilateral neural foraminal stenosis mild central canal stenosis at L5-S1. There is no lesion that clearly correlates with left-sided L5 radiculopathy on the report. I have not received follow-up note from the neurosurgeon to whom we referred this patient and we will request that so I can understand what the clinical impression was at that evaluation. Would like to know there interpretation of the MRI scan as well. Patient has a stocking distribution numbness in both feet lindsey the toes dorsum plantar forefoot to the level of midfoot which sounds more like a peripheral neuropathy. 3. MRI scan of the lumbar spine did show multiple renal cysts largest one 5.5 cm on the left. We are going to refer this patient to Dr. Humphries for preoperative medical evaluation and will ask Dr. Humphries to address this and determine whether this patient would need a urologic evaluation given the size of the renal cysts. Patient would like to schedule knee replacement surgery. It would appear clinically that patient has severe pain with his knee and his knee lubna and he does not have evidence of quadriceps or hip weakness so I think it is appropriate to believe that the buckling is due to the severe pain that is coming from his left knee due to the severe medial compartment osteoarthritis present. I reviewed risks of surgery with him in detail. I reviewed with him that he will have numbness lateral to the incision that patients have difficulty kneeling for long time after knee replacement surgery in some patients have chronic anterior knee sensitivity. Risk of complications such as infection, blood clots, component loosening instability or where necessitating revision surgery was discussed. Risk of fracture stiffness bleeding transfusion nerve injury was reviewed and risk of medical complications such as heart attack stroke pulmonary embolism and were discussed. Patient like to proceed. Again, I would like to review the neurosurgeon's note from that visit earlier this year after his MRI scan. 60 minutes of total time was spent in the care of this patient with more than half of this time spent in gcbf-ea-dwgl care. Not available 06/09/2023 17:05:10 Plan of Treatment Reminders Order Date Submit Date Provider Last Modified By Organization Details Last Modified Time Details Appointments None recorded. Lab None recorded. Referral None recorded. Procedures injection/a spiration joint/bursa (PROC) - in office procedure, administere d by provider 2022 023 [email or web address] In-Office Order, Internal Use Only DO Not Attach Compendium DO Not Attach Compendium, Do Not Delete/merge, [id number] 09:13:17 Surgeries None recorded. Imaging XR, lumbar spine 2022 023 [facility] [place], [address] [address], [place], [address], 3 10:30:52 XR, pelvis, 1 or 2 view 2022 023 [facility] [place], [address], [place], [address], 3 10:30:52 XR, knee 2022 023 [email or web address] [facility] [place], [address], [place], [address], 3 15:20:42 Medication Orders Medrol (Bakari) 4 mg tablets in a dose pack 2022 [address]23 [address] [address] [place], [address], 3 08:39:01 Kenalog 10 mg/mL suspension for injection 2022 023 [address], [address] [place], [address], 3 08:38:58 ropivacaine (PF) 5 mg/mL (0.5 %) injection solution 2022 023 [address] [place], [address], 3 08:39:07 meloxicam 15 mg tablet 2022 023 [facility] [address] [place], [address], 3 13:06:36 Patient TargetsNo targets recorded. Patient InstructionsNo instructions recorded. Reason for Referral None Reported. Results Created Date Observation Date Name Description Value Unit Range Abnormal Flag Note LastModifiedBy Organization Detail LastModifiedTime 05/24/20 22 05/24/2022 XR, knee No observ ation record ed. [id number] [facility] [place] [address], [place], [address], 08/14/2022 20:56:07 10/31/19 23 XR, lumba r spine No observ ation record ed. [email or web address] [facility] [place] [address], [place], [address], 10/30/2022 11:36:10 10/31/19 23 XR, pelvi s, 1 or 2 view No observ ation record ed. [email or web address] [facility] [place] [address], [place], [address], 10/30/2022 11:35:38 11/02/19 23 11/01/2022 MRI, lumba r spine , w/o contr ast No observ ation record ed. [email or web address] [facility] [address], [place], [address], 11/01/2022 13:43:43 06/04/20 XR, knee No observ ation record ed. [facility] [place] [address], [place], [address], 06/09/2023 16:45:42 Result Notes None recorded. Problems Name Problem SNOMED Code Status Onset Date Resolution Date Notes Provider Name and Address Organization Details Recorded Time Knee joint effusion 824974784 Active Not Available [facility] 3 13:05:20 Current knee cartilage tear Active Not Available [facility] 3 13:05:20 Knee pain Active Not Available [facility] 3 13:05:20 Osteoarthr itis 547319562 Active Not Available [facility] 3 13:05:20 Osteoarthr itis of left knee joint 5514951972691 09 Active 2022 Not Available [facility] 3 13:05:20 Low back pain 568639220 Active 2022 Not Available [facility] 3 13:05:20 Lumbar spondylosi s 037710104 Active 2022 Not Available [facility] 3 13:05:20 Problem Notes None recorded. Procedures Surgical History Date Name Laterality Status Provider Name and Address Organization Details Recorded Time Knee Surgery completed Not Available [facility] 08/14/2022 20:54:46 Imaging Results Imaging Date Name Status LastModified by Organiz ation Details LastModified Time 05/24/2022 XR, knee completed [id number] 026 [facility] [place] [address], [place], [address], 08/14/2022 20:56:07 10/30/2022 XR, lumbar spine completed [email or web address] [facility] [place] [address], [place], [address], 10/30/2022 11:36:10 10/30/2022 XR, pelvis, 1 or 2 view completed [email or web address] [facility] [place] [address], [place], [address], 10/30/2022 11:35:38 11/01/2022 MRI, lumbar spine, w/o contrast completed [address], [place], [address], 11/01/2022 13:43:43 06/04/2023 XR, knee completed [facility] [place] [address], [place], [address], 06/09/2023 16:45:42 Procedure Notes None recorded. Medical Equipment None Reported. Allergies Allergen ID Allergen Name Allergen Category Reaction Reaction Severity Criticality Documentation Date Start Date Code Code System Note Provider Name and Address Organization Details Recorded Time 26449 Lamictal medicatio n Not available Not available Not available 08/14/2022 52330 2 RxNorm Not Available [facility] 3 20:56:05 33559 Demerol medicatio n Not available Not available Not available 08/14/2022 33418 1 RxNorm Not Available [facility] 3 20:56:05 Medications Name Sig Start Date Stop Date Status Note LastModified by Organization Details LastModified Time losartan 50 mg tablet TAKE 1 TABLET BY MOUTH EVERY DAY IN THE MORNING active Not Available Not Available No t Available celecoxib 200 mg capsule Take 1 capsule every day by oral route. 10/26 completed Not Available Not Available Not Available penicilli n V potassium 250 mg tablet 04/07 completed Not Available Not Available Not Available amoxicill in 500 mg capsule TAKE 4 CAPSULES BY MOUTH 1 HOUR PRIOR TO APPOINTM ENT 10/30 completed Not Available Not Available Not Available prednison e 10 mg tablet 04/07 completed Not Available Not Available Not Available gabapenti n 600 mg tablet TAKE 1 TABLET BY MOUTH TWICE A DAY 06/04 completed Not Available Not Available Not Available sulfasala zine 500 mg tablet 06/04 completed Not Available Not Available Not Available oxybutyni n chloride ER 10 mg tablet,ex tended release 24 hr 09/11 completed Not Available Not Available Not Available hydrocodo ne 5 mg-acetam inophen 325 mg tablet TAKE 1 TABLET BY MOUTH EVERY 6 HOURS NEEDED active Not Available Not Available No t Available meloxicam 15 mg tablet active Not Available Not Available Not Available sertralin e 100 mg tablet TAKE 1 TABLET BY MOUTH EVERY DAY active Not Available Not Available No t Available prednison e 5 mg tablet 06/20 completed Not Available Not Available Not Available sulfasala zine 500 mg tablet,de layed release TAKE 3 TABLETS BY MOUTH TWICE A DAY 06/04 completed Not Available Not Available Not Available alclometa sone 0.05 % topical cream active Not Available Not Available Not Available penicilli n V potassium 500 mg tablet TAKE 1 TABLET BY MOUTH 4 TIMES A DAY active Not Available Not Available No t Available aspirin 81 mg tablet,de layed release TAKE 1 TABLET BY MOUTH TWICE A DAY 10/04 completed Not Available Not Available Not Available acetamino phen 500 mg tablet 07/04 completed Not Available Not Available Not Available amoxicill in 500 mg tablet take 2gm (4tablet s) 1hr prior to dental visit 10/26 completed Not Available Not Available Not Available potassium chloride 20 mEq oral packet 10/26 completed Not Available Not Available Not Available Kenalog 10 mg/mL suspensio n for injection in office 06/04 completed ND: [id number] 4-20 Not Available Not Available Not Available hydrocodo ne 7.5 mg-acetam inophen 325 mg tablet TAKE 1 TABLET BY MOUTH EVERY 6 HOURS NEEDED FOR PAIN 06/04 completed Not Available Not Available Not Available cephalexi n 500 mg capsule TAKE 1 CAPSULE BY MOUTH EVERY 8 HOURS 06/04 completed Not Available Not Available Not Available pantopraz ole 40 mg tablet,de layed release TAKE 1 TABLET BY MOUTH TWICE A DAY active Not Available Not Available No t Available neomycin- polymyxin -dexameth 3.5 mg/mL-10, 000 unit/mL-0 .1% eye drops 09/11 completed Not Available Not Available Not Available clotrimaz ole-betam ethasone 1 %-0.05 % topical cream APPLY TO AFFECTED AREA OF SOLES OF FEET TWICE A DAY FOR 3 WEEKS active Not Available Not Available No t Available docusate sodium 100 mg capsule 10/26 completed Not Available Not Available Not Available gabapenti n 300 mg capsule TAKE 1 CAPSULE BY MOUTH TWICE A DAY 02/01 completed Not Available Not Available Not Available aspirin 81 mg chewable tablet TAKE 1 TABLET BY MOUTH TWICE A DAY active Not Available Not Available No t Available budesonid e DR - ER 3 mg capsule,d elayed,ex tended release 04/04 completed Not Available Not Available Not Available methylpre dnisolone 4 mg tablets in a dose pack TAKE 6 TABLETS ON DAY 1 DIRECTED ON PACKAGE AND DECREASE BY 1 TAB EACH DAY FOR A TOTAL OF 6 DAYS 06/04 completed Not Available Not Available Not Available sertralin e 50 mg tablet 06/20 completed Not Available Not Available Not Available dicyclomi ne 10 mg capsule 10/26 completed Not Available Not Available Not Available clindamyc in phosphate 1 % topical solution APPLY TWO DROPS TO PROCEDUR E SITE EVERY DAY active Not Available Not Available No t Available tobramyci n 0.3 %-dexamet hasone 0.1 % eye drops,michael pension 01/04 completed Not Available Not Available Not Available oxycodone 5 mg tablet Take 1 tab PO Q 4hr prn pain active Not Available Not Available No t Available moxifloxa cristel 0.5 % eye drops 04/05 completed Not Available Not Available Not Available cholestyr amine (with sugar) 4 gram oral powder TAKE 4G BY MOUTH TWICE A DAY ADMINIST ER WITH MEAL, AVOID OTHER MEDS W/IN 1 HOUR BEFORE 04/04 completed Not Available Not Available Not Available Tums 10/26 completed Not Available Not Available Not Available Metamucil 10/26 completed Not Available Not Available Not Available lidocaine (PF) 10 mg/mL (1 %) injection solution In office injectio n administ ered by the provider 04/04 completed NDC: 0409-427 11-30 Not Available Not Available Not Available lidocaine (PF) 5 mg/mL (0.5 %) injection solution In office injectio n administ ered by the provider 05/03 completed Not Available Not Available Not Available melatonin 5 mg tablet completed Not Available Not Available Not Available GaviLyte- N 420 gram oral solution 04/07 completed Not Available Not Available Not Available Suprep Bowel Prep Kit 17.5 gram-3.13 gram-1.6 gram oral solution TAKE DIRECTED 04/04 completed Not Available Not Available Not Available ropivacai ne (PF) 5 mg/mL (0.5 %) injection solution in office 06/04 completed Not Available Not Available Not Available Myrbetriq 50 mg tablet,ex tended release 04/05 completed Not Available Not Available Not Available Ilevro 0.3 % eye drops,micheal pension USE 1 DROP 4 TIMES A DAY IN THE RIGHT EYE active Not Available Not Available No t Available Eliquis 2.5 mg tablet 06/20 completed Not Available Not Available Not Available potassium chloride ER 20 mEq tablet,ex tended release TAKE 1 TABLET BY MOUTH EVERY DAY IN THE MORNING active Not Available Not Available No t Available Monovisc 88 mg/4 mL intra-art icular syringe Injectio ns given in the office by the doctor 04/04 completed NDC: [id number] 001 Not Available Not Available Not Available Fluzone High-Dose (PF) 180 mcg/0.5 mL intramusc ular syringe TO BE ADMINIST ERED BY PHARMACI ST FOR IMMUNIZA TION 09/11 completed Not Available Not Available Not Available Fluzone High-Dose Quad (PF) 240 mcg/0.7 mL IM syringe PHARMACY ADMINIST ERED 09/11 completed Not Available Not Available Not Available Vitals Date Recorded Body mass index (BMI) Provider Name and Address Organization Details Last Updated DateTime 08/14/2022 40.1 kg/m2 Not Available [facility] 20:54:48 Date Recorded Body height Body height Body height Body weight Provider Name and Address Organization Details Last Updated DateTime 08/14/2022 185.42 cm 185.42 cm 185.42 cm 977927.08 g Not Available [facility] 08/14/2022 20:54:50 Date Recorded Body height Provider Name an d Address Organization Details Last Updated DateTime 10/30/2022 187.96 cm Ryann Rayo [facility] 10/30/2022 09:16:07 Date Recorded Body mass index (BMI) Body weight Provider Name and Address Organization Details Last Updated DateTime 10/30/2022 38.9 kg/m2 877972.49 g Ryann Rayo [facility] 10/30/2022 09:16:10 Date Recorded Body height Provider Name an d Address Organization Details Last Updated DateTime 06/04/2023 187.96 cm Ryann Rayo [facility] 06/04/2023 08:38:30 Date Recorded Body mass index (BMI) Body weight Provider Name and Address Organization Details Last Updated DateTime 06/04/2023 35.7 kg/m2 188653.68 g Ryann Rayo [facility] 06/04/2023 08:55:03 Social History Question Answer Notes LastModified by Organizat ion Details LastModified Time Tobacco Smoking Status Never Smoker Not Available [facility] 08/14/2022 20:54:35 What Is Your Level Of Alcohol Consumption? None [id number] Information not available 08/14/2022 What Was The Date Of Your Most Recent Tobacco Screening? 10/04/2020 [id number] Information not available 08/14/2022 Sex: Unknown Functional Status None recorded. Mental Status None recorded. Family History Relationship Description Onset Age of this Age Resolved Age Notes LastModified by Organization Details LastModified Time Father Heart disease [id number] Not available 08/14/2022 20:54:46 Mother Heart disease [id number] Not available 08/14/2022 20:54:46 Mother Family history of malignant neoplasm [id number] Not available 08/14/2022 20:54:46 Mother Hypertensive disorder [id number] Not available 08/14/2022 20:54:46 Father Diabetes mellitus Not available 2022 09:11:04 Medical History Condition Response BLINDNESS N KIDNEY STONES N MRSA N CARPAL TUNNEL SYNDROME N LUNG DISEASE/DISORDER N HISTORY OF DRUG ABUSE N RADIATION / CHEMOTHERAPY N COPD N SPORTS INJURY N ANKLE PAIN N BLOOD DISEASES N SCHIZOPHRENIA N SHINGLES N SHOULDER PAIN N BOWEL PROBLEMS N DEPRESSION (INCLUDING POST ) N STROKE/TIA N ULCERS N KNEE PAIN N BENIGN PROSTATIC HYPERPLASIA N OBESITY N GERD/NAUSEA N ANEURYSM N URINARY/BLADDER/KIDNEY PROBLEMS N CORONARY ARTERY DISEASE (CAD) N ADDICTION CONCERNS N USE OF BLOOD THINNERS N SKIN PROBLEMS N EMPHYSEMA N MUSCLE,JOINT OR BONE PROBLEMS N DVT N STOMACH ULCERS N BLOOD CLOTS N USE OF NSAIDS N CONCUSSION OR SPINAL TRAUMA N NEUROPATHY N AIDS/HIV N FRACTURES N HYPERTENSION Y ELBOW PAIN N TOURETTE'S N Metal allergy N ANXIETY DISORDER N BLOOD TRANSFUSION N ANEMIA/BLOOD DISORDER N BIPOLAR DISORDER N BRONCHITIS N OSTEOARTHRITIS N TUBERCULOSIS N FOOT PROBLEM N HEART VALVE DISORDERS N ALLERGIES/HAYFEVER N SOFT TISSUE INJURY N INFECTIOUS DISEASE N HEART ARRHYTHMIA N INSOMNIA N HIGH CHOLESTEROL / HYPERLIPIDEMIA N RHEUMATOID ARTHRITIS N EDEMA N CHRONIC PAIN SYNDROME N CAROTID BLOCKAGE N BACK / NECK PROBLEMS N HAVE YOU BEEN HOSPITALIZED OR SEEN IN [facility] ER IN THE PAST YEAR ? N BURSITIS N HERNIATED DISC N DIALYSIS N FIBROMYALGIA N OSTEOPOROSIS N ARTHRITIS Y NO SIGNIFICANT PAST MEDICAL HISTORY N PERIPHERAL NEUROPATHY N DIABETES, TYPE N HEARTBURN / REFLUX N HEPATITIS / LIVER DISEASE N GOUT N ALZHEIMER'S DISEASE N SLEEP DISORDER N HERPES N HEADACHES/MIGRAINES N SEIZURES/EPILEPSY N VASCULAR DISEASE N Blood Disorder N HIP PAIN N DIZZINESS N HEAD TRAUMA OR INJURY N HEART DISEASE/HEART PROBLEMS N MULTIPLE SCLEROSIS N CANCER: SPECIFY N CARDIAC ARRHYTHMIA N ANESTHESIA COMPLICATIONS N ATRIAL FIBRILLATION N AUTOIMMUNE DISEASE N Past Encounters Encounter ID Performer Location Encounter Start Date Encounter Closed Date Diagnosis/Indication Diagnosis SNOMED-CT Code Diagnosis ICD10 Code Diagnosis Note [id number] [facility] [place] [address] [place] [address] 09/11/2020 00:00:00 09/11/2020 17:58:27 [id number] [facility] [place] [address] [place] [address] 10/04/2020 00:00:00 10/04/2020 08:56:43 [id number] [facility] [place] [address] [place] [address] 01/03/2021 00:00:00 01/03/2021 09:30:03 [id number] [facility] [place] [address] [place] [address] 02/21/2021 00:00:00 02/21/2021 10:39:42 [id number] [facility] [place] [address] [place] [address] 04/04/2021 00:00:00 04/15/2021 18:16:25 [id number] [facility] [place] [address] [place] [address] 06/04/2021 00:00:00 06/04/2021 16:30:56 [id number] [facility] [place] [address] [place] [address] 06/20/2021 00:00:00 06/20/2021 14:36:09 [id number] [facility] [address] [place] [address] 07/04/2021 00:00:00 07/04/2021 09:42:54 [id number] [facility] [address] [place] [address] 10/26/2021 00:00:00 10/26/2021 09:30:16 [id number] [facility] [address] [place] [address] 02/01/2022 00:00:00 02/01/2022 09:18:24 [id number] [facility] [address] [place] [address] 05/03/2022 00:00:00 05/03/2022 09:13:59 [id number] [facility] [address] [place] [address] 05/24/2022 00:00:00 06/02/2022 19:23:35 [id number] [facility] [address] [place] [address] 08/02/2022 00:00:00 08/02/2022 09:09:00 [id number] ANEESH Ty [facility] [address] [place] [address] 10/30/2022 08:43:29 10/30/2022 11:46:12 Osteoarthritis of left knee joint [id number] M17.12 Low back pain [id number] M54.50 [id number] Nimesh Bernal MD [facility] [address] [facility] [address] [place] [address] 06/04/2023 08:34:38 06/11/2023 15:20:42 Osteoarthritis of left knee joint [id number] M17.12 Health Concerns Section Related Observation LastModified by Organization Detai ls LastModified Time None Recorded Concern Status LastModified by Organization Details LastModified Time None Recorded Advance Directives Directive None Recorded Payers Encounter Date Sequence Insurance Name Policy Number Policy Velasquez Covered Member ID Velasquez Member ID Guarantor Name 10/30/2022 1 [place] Jesse Crook [id number] Jesse Crook 10/30/2022 2 [employer] (MEDICARE SUPPLEMENT) Jesse Crook [id number] Jesse Crook 06/04/2023 1 [place] Jesse Crook [id number] Jesse Crook 06/04/2023 2 [employer] (MEDICARE SUPPLEMENT) Jesse Crook [id number] Jesse Crook Notes Date Note Type Note Provider Name and Address Organization Details Recorded Time 06/04/2023 text/html patient returns. He would like to discuss proceeding with total knee arthroplasty left knee. He tried the meloxicam. That 1 month ago because he did think it was helping. He does take hydrocodone for pain but not every day. He has been miserable for the past 6 weeks. He has been going to pain management for his back pain and he did undergo a radiofrequency ablation of the geniculate nerves on April 23, 2023 and he estimates that this reduced his pain approximately 40% for about 2 weeks and the pain came back. It was done at interventional pain consults. The he did have an MRI scan of his lumbar spine approximately 7 months ago and then he saw Suad the nurse practitioner at Dr. Caitlyn moreno and was advised that he did not his neurosurgical intervention and he was referred to pain management at that time. The MRI report of lumbar spine from 11/01/2022 is reviewed. It showed mild central canal stenosis at L4-5, severe bilateral facet joint arthritis at L5-S1 with mild central canal stenosis mild bilateral neural foraminal stenosis. Cysts in the kidneys measuring up to 5.5 cm on the left noted. 4 mm retrolisthesis of L5 on S1 noted. X-rays today of the left knee demonstrate [id number] medial compartment osteoarthritis On the PA flexion [place]. He has lost weight. His weight was 303 lb in October of 2022 and today he is 278 lb a decrease of 25 lb. He is 6 ft 2 his BMI is 35.7. The last cortisone shot we gave him in his left knee was in October of 2022. He had epidural injection his lower back April 23 and that was helpful. I reviewed the pain management note it was thought that he had severe right-sided L 4 5 neural foraminal stenosis by the physicians review. He underwent right total knee replacement 2 years ago and feels this has worked well for him. Nimesh Bernal MD [address] [place] [address], [facility] [address], [place], [address], [place] - [facility] [employer] 06/09/2023 17:05:25
--- OUTSIDE RECORDS SUMMARY | 2024-07-16 03:12 | XMS_ITS | Referral Summary ---
Author Organization [facility] [address] Address [address] [place] [address] Care Team Providers Care Cena Name Role Phone Jesse Humphries MD Primary Care Provider [phone] [phone] Allergies Active Allergy Reactions Criticality Noted Date Comments Diphenoxylate-Atropine Fever,Nausea And Vomiting Medium 05/17/2011 Meperidine Fever,Nausea And Vomiting Medium 05/17/2011 Medications sertraline (ZOLOFT) 100 mg tablet 07/10/[address] (PROTONIX) 40 mg EC tablet Take 40 mg by mouth 2 (two) times a day 06/06/2020 Active losartan (COZAAR) 50 mg tablet Take 50 mg by mouth daily 05/31/2020 Active Active Problems Problem Noted Date Diagnosed Date Chest tightness 07/18/2020 Abnormal EKG 07/18/2020 Preoperative cardiovascular examination 07/18/19 21 Essential hypertension 07/18/2020 H/O mitral valve disease 07/18/2020 Social History Tobacco Use Types Packs/Day Years Used Date Smoking Tobacco: Never Smokeless Tobacco: Never Alcohol Use Standard Drinks/Week Comments Never 0 (1 standard drink = 0.6 oz pur e alcohol) AUDIT-C Answer Date Recorded Q1: How often do you have a drink containing alc ohol? Never 07/18/2020 Average Number of Drinks Not on file 021 Frequency of Binge Drinking Not on file 07/2020 Personal Safety Answer Date Recorded Getting School Help Needed Not on file 08/29 Sex and Gender Information Value Date Recorded Sex Assigned at Not on file Legal Sex Male 12:01 PM PATIENT SAFETY COORDINATOR Gender Identity Not on file Sexual Orientation Not on file Last Filed Vital Signs Vital Sign Reading Time Taken Comments Blood Pressure 118/74 07/18/2020 12:05 PM PATIENT SAFETY COORDINATOR Pulse 78 07/18/2020 12:05 PM PATIENT SAFETY COORDINATOR Temperature - - Respiratory Rate - - Oxygen Saturation 95% 07/18/2020 12:05 PM PATIENT SAFETY COORDINATOR Inhaled Oxygen Concentration - - Weight 137 kg (302 lb) 07/18/2020 12:05 PM PATIENT SAFETY COORDINATOR Height 190.5 cm (6' 3 ) 07/18/2020 12:05 PM PATIENT SAFETY COORDINATOR Body Mass Index 37.75 07/18/2020 12:05 PM PATIENT SAFETY COORDINATOR Plan of Treatment Not [place] [phone] AET SENIOR SUPPLEMENT Care Teams Cena Relationship Specialty Start Date End Date Jesse Humphries MD PCP - General Family Medicine 07/12/20
--- OUTSIDE RECORDS SUMMARY | 2024-07-16 03:12 | XMS_ITS | Clinical Summary ---
Author Organization [facility] [address] Address [address] [place] [address] Care Team Providers Care Cancellation Clerk Name Role Phone Jesse Humphries MD Primary Care Provider [phone] [phone] Allergies Active Allergy Reactions Criticality Noted Date [...] hypertension 07/18/2020 H/O mitral valve disease 07/18/2020 Surgical History Surgery Date Site/Laterality Comments GALLBLADDER SURGERY TUMOR REMOVAL Medical History Medical History Date Comments Hypertension Over weight Cardiac rhythm disturbance Cataract Anxiety and depression Sleep apnea Family History Medical History Relation Name Comments Heart disease Father Cause of , age 86 Heart disease Mother Cause of , age 72 Heart attack Sister Relation Name Status Comments Father (Age 86) Mother (Age 72) Sister Alive Social History Tobacco Use Types Packs/Day Years [...] on file Legal Sex Male 12:01 PM REHABILITATION TECH Gender Identity Not on file Sexual Orientation Not on file Obstetrics History Last Filed Vital Signs Vital Sign Reading Time Taken Comments Blood Pressure 118/74 07/18/2020 12:05 PM REHABILITATION TECH Pulse 78 07/18/2020 12:05 PM REHABILITATION TECH Temperature - - Respiratory Rate - - Oxygen Saturation 95% 07/18/2020 12:05 PM REHABILITATION TECH Inhaled Oxygen Concentration - - Weight 137 kg (302 lb) 07/18/2020 12:05 PM REHABILITATION TECH Height 190.5 cm (6' 3 ) 07/18/2020 12:05 PM REHABILITATION TECH Body Mass Index 37.75 07/18/2020 12:05 PM REHABILITATION TECH Plan of Treatment Not on file Insurance MEDICARE AET SENIOR SUPPLEMENT Care Teams Cancellation Clerk Relationship Specialty Start Date End Date Jesse Humphries MD PCP - General Family Medicine 07/12/20
--- OUTSIDE RECORDS SUMMARY | 2024-07-16 03:12 | XMS_ITS | CONTINUITY OF CARE DOCUMENT ---
Author Name helen cervantes Address Unknown Organization [facility] Address [address] [facility] [address] [facility] [address] [place] [address] Phone [phone] Care Team Providers Care Wharf Tender Helper Name Role Phone helen cervantes Unavailable Unavailable
--- OUTSIDE RECORDS SUMMARY | 2024-07-16 03:12 | XMS_ITS | Referral Summary ---
Author Organization [facility] Address [address] [facility] [place] [address] Care Team Providers Care Wax Machine Operator Name Role Phone Jesse Humphries MD Primary Care Provider [phone] Kirby Pablo MD Unavailable Unavailable Source Comments [facility],non-owned Affiliates and Associated Physician Practices is amultiple site organization consisting of ambulatory clinics and hospital sitesin [place], [place], [place] and [place]. This disclosure is being madepursuant to the Care Everywhere program and may not contain all information available regarding this patient. Last updated 18.[facility] Allergies Active Allergy Reactions Criticality Noted Date Comments Meperidine Nausea and/or Vomiting,Fever 011 Lomotil Nausea and/or Vomiting,Fever 011 Medications * Be aware that medications may not be up to date on this document. Alwaysverify current medications with the patient. Medication Sig Dispensed Refills Start Date End Date Status FLUoxetine (PROZAC) 20 MG capsule once daily. Active naproxen (NAPROSYN) 500 MG tablet Active omeprazole (PRILOSEC) 20 MG capsule Take 1 Cap by mouth 2 times daily before meals. 60 Cap 5 07/11/2011 Active folic acid-vit B6-vit B12 (FOLTX) tablet Take 1 Tab by mouth once daily. 30 Tab 5 08/01/2011 Active aspirin 81 MG tablet Take 81 mg by mouth once daily. Active lovastatin (MEVACOR) 20 MG tablet Take 20 mg by mouth at bedtime. Active losartan (COZAAR) 50 MG tablet Take 50 mg by mouth once daily. Active hydrochlorothiazide (MICROZIDE) 12.5 MG capsule Take 1 Cap by mouth once daily. 30 Cap 1 12/11/2011 Active L-Ajtcwqaymhbr-A9-B12 (FOLTX) 1.13-25-2 MG TABS TAKE ONE TABLET BY MOUTH ONCE DAILY 90 Tab 2 03/18/2014 Active Active Problems Problem Noted Date Diagnosed Date Elevated triglycerides with high cholesterol 09/2011 Other chest pain 12/09/2011 Other dyspnea and respiratory abnormality 2011 Mitral stenosis with insufficiency 12/09/2011 Obesity 09/09/2011 MARYANN (obstructive sleep apnea) 09/09/2011 HTN (hypertension) 05/17/2011 Peripheral neuropathy 05/17/2011 Immunizations Name Administration Dates Next Due INFLUENZA VACCINE, TRIV. (AF LURIA, FLUZONE TRIVALENT; 6MO+) (IIV3) 05/22/2011 Influenza Pf Intradermal (ADULT) 03/24/2013 Social History Tobacco Use Types Packs/Day Years [...] Mass Index 37.62 03/24/2013 2:14 PM CDT Plan of Treatment Not on file Care Teams Wax Machine Operator Relationship Specialty Start Date End Date Jesse Humphries MD [address] [place] [phone] PCP - General 11/28/11 Kirby Pablo MD [address] [place] [phone] Cardiovascular Disease 12/09/11
--- OUTSIDE RECORDS SUMMARY | 2024-07-16 03:12 | XMS_ITS | Clinical Summary ---
Author Organization [facility] Address [address] [place] [address] Care Team Providers Care Assisted Living Manager Name Role Phone Jesse Humphries MD Primary Care Provider [phone]- [phone] Kirby Pablo MD Unavailable Unavailable Source Comments [facility],non-owned Affiliates and Associated Physician Practices is amultiple site organization consisting of ambulatory clinics and hospital sitesin [place], [place], [place] and [place]. This disclosure is being madepursuant to the Care Everywhere program and may not contain all information available regarding this patient. Last updated 18.[facility] Allergies Active Allergy Reactions Criticality Noted Date [...] once daily. 30 Cap 1 12/11/2011 Active E-Oinangxaorzp-R6-B12 (FOLTX) 1.13-25-2 MG TABS TAKE ONE TABLET [...] (IIV3) 05/22/2011 Influenza Pf Intradermal (ADULT) 03/24/2013 Family History Medical History Relation Name Comments Diabetes Father Hypercholesterolemia Father Hypertension Father Stroke Father Hypercholesterolemia Mother Hypertension Mother Relation Name Status Comments Father Mother Social History Tobacco Use Types Packs/Day Years [...] 03/24/2013 2:14 PM CDT Plan of Treatment Health Maintenance Due Date Last Done Comments COLOGUARD (AGES 45-75) - COL ON CA SCREENING 1950 COLON MONITORING 1950 COLONOSCOPY - COLON CA SCREENING 1950 CT COLONOGRAPHY - COLON CA SCREENING 1950 Colorectal Cancer Screening 1950 FIT - COLON CA SCREENING 1950 FLEX SIG - COLON CA SCREENING 1950 MEDICARE AWV ? 12 MONTHS 1950 HEPATITIS C SCREENING 02/27/1968 DTAP/TDAP/TD VACCINES (1 - Tdap) 1969 PNEUMOCOCCAL VACCINE 50+ (1 of 1 - PCV) 2000 ZOSTER VACCINE (1 of 2) 2000 COVID-19 VACCINE (1 - 2023-2 5 season) 2024 INFLUENZA VACCINE (#1) 2024 3, 05/22/2011 DEPRESSION SCREENING 06/16/2024 Respiratory Syncytial Virus (RSV) Vaccine Pt: or over 60 yrs (1 - 1-dose 75+ series) 2025 HEPATITIS B VACCINE Aged Out No longe r eligible based on patient's age to complete this topic HIB VACCINE Aged Out No longer eligi ble based on patient's age to complete this topic HPV VACCINE Aged Out No longer eligi ble based on patient's age to complete this topic MENINGOCOCCAL (Group B) VACCINE Aged Out No longer eligible b ased on patient's age to complete this topic MENINGOCOCCAL VACCINE Aged Out No lidia yeni eligible based on patient's age to complete this topic Care Teams Assisted Living Manager Relationship Specialty Start Date End Date Jesse Humphries MD [address] [place] [phone] PCP - General 11/28/11 Kirby Pablo MD [address] [place] [phone] Cardiovascular Disease 12/09/11
--- OUTSIDE RECORDS SUMMARY | 2024-07-16 03:12 | XMS_ITS | Clinical Summary ---
Author Organization [facility] Address [address] [place] [address]. [place], [place] [address] [place] [address] Care Team Providers Care Director Financial Planning Name Role Phone Jesse Humphries MD Primary Care Provider [phone]- [phone] Allergies Active Allergy Reactions Criticality Noted Date Comments Meperidine Nausea and Vomiting 01/27/2019 Diphenoxylate Other (see comment) 01/27/2019 Stated has fever with lomotil Medications losartan 50 MG tablet Take 1 tablet (50 mg total) by mouth daily. Active pantoprazole EC 40 MG tablet Take 1 tablet (40 mg total) by mouth daily. Active trazodone 50 MG tablet Take 1 tablet (50 mg total) by mouth nightly at bedtime. Active sertraline 100 MG tablet Take 1 tablet (100 mg total) by mouth daily. Active Immunizations Name Administration Dates Next Due MODERNA COVID-19 (12+) MRNA, LNP-S, PF, 100 MCG/ 0.5 ML DOSE 08/18/2020,07/21/2020 Family History Medical History Relation Comments Cancer Father Diabetes Father Cancer Mother Heart Disease Mother Relation Status Comments Father Mother Social History Tobacco Use Types Packs/Day Years Used Date Smoking Tobacco: Never Smokeless Tobacco: Never Alcohol Use Standard Drinks/Week Comments No 0 (1 standard drink = 0.6 oz pur e alcohol) AUDIT-C Answer Date Recorded Frequency of Alcohol Consumption Never 01/27/2019 Average Number of Drinks Not on file 019 Frequency of Binge Drinking Not on file 01/14 Sex and Gender Information Value Date Recorded Sex Assigned at Not on file Legal Sex Male 4:19 PM CDT Gender Identity Not on file Sexual Orientation Not on file Last Filed Vital Signs Vital Sign Reading Time Taken Comments Blood Pressure 135/83 11/21/2022 7:06 PM CDT Pulse 71 11/21/2022 7:06 PM CDT Temperature 36.3 ??C (97.3 ??F) 11/21/2022 7:06 PM CD T Respiratory Rate 18 11/21/2022 7:06 PM CDT Oxygen Saturation 95% 11/21/2022 8:10 PM CDT Inhaled Oxygen Concentration - - Weight 136.1 kg (300 lb) 11/21/2022 7:06 PM CDT Height 188 cm (6' 2 ) 11/21/2022 7:06 PM CDT Body Mass Index 38.52 11/21/2022 7:06 PM CDT Plan of Treatment Health Maintenance Due Date Last Done Comments Colorectal Cancer Screening Colonoscopy (10 Years) 1950 Hepatitis C 1968 DTaP, Tdap and Td Vaccines ( 1 - Tdap) 1969 Zoster Vaccines (1 of 2) 2000 Annual Medicare Wellness Visit 2015 Pneumococcal Vaccine: 65+ Years (1 of 1 - PCV) 2015 COVID-19 Vaccine (3 - 2023-2 5 season) 2024 08/18/2020, 07/21/2020 Influenza Adult (#1) 2024 05/22/2011 RSV Immunization or 60+ Years (1 - 1-dose 75+ series) 2025 Meningococcal B Vaccine Aged Out No l onger eligible based on patient's age to complete this topic Meningococcal Vaccine Aged Out No lidia yeni eligible based on patient's age to complete this topic RSV Immunizations Under 20 Months Aged Out No longer eligible b ased on patient's age to complete this topic Medical Devices Implanted Type Area Chart Changer Device Identifier Shelf Expiration Date Model / Serial / Lot Iol Cristian [id number] - [id number] Implanted:Qty: 1 on 02/01/2019 by Jesse Bower MD at [facility] [employer] 07/16/2021 [id number] / [id number] / Iol Cristian [id number] - [id number] Implanted:Qty: 1 on 03/01/2019 by Jesse Bower MD at [facility] [employer] 09/13/2021 [id number] / [id number] / Insurance MEDICARE [employer] [address] Care Teams Director Financial Planning Relationship Specialty Start Date End Date Jesse Humphries MD PCP - General FAMILY PRACTICE 02/01/19
[2024-07-16] MEDS: LACTATED RINGERS 1,000 ML 30 ML IV CONT (09:00)
--- NOTE | 2024-07-16 09:22 | WPDANESEPPF ---
Anes - Initial Pre Proc Eval Procedure: Operation Date: 07/16/24 10:30 Proposed Procedures p Anorectal Examination under Anesthesia, Excision Hemorrhoidectomy - Hugo Mccauley MD Date/Time: 07/16/24 09:22 Surgeon: Hugo Mccauley MD Pre Op Diagnosis: symptomatic grade 3 internal hemorrhoids Patient Data Age: 74 Gender: M Height: 1.85 m Weight: 106 kg Allergies Allergy/AdvReac Type Severity Reaction Status Date / Time atropine AdvReac Mild NAUSEA AND Verified 07/13/24 15:24 VOMITING diphenoxylate AdvReac Mild Fever & Verified 07/13/24 15:24 VOMITING meperidine AdvReac Mild SEVERE Verified 07/13/24 15:24 NAUSEA AND VOMITING Home Medications ?Medication ?Instructions ?Recorded ?Confirmed ?Type mecobalamin (vitamin B12) 1,000 1,000 mcg sublingual DAILY 10/01/21 07/13/24 History mcg disintegrating tablet,sublingual melatonin 10 mg capsule 10 mg PO QHS 02/06/22 07/13/24 History CPAP #1 ea 12/19/22 07/13/24 Rx tirzepatide 2.5 mg/0.5 mL 2.5 mg subcut WEEKLY WEIGHT LOSS 04/10/23 07/13/24 History subcutaneous pen injector CPAP #1 ea 10/15/23 07/13/24 Rx acetaminophen 500 mg tablet 1,000 mg (2 x 500 mg) PO Q6H #120 10/24/23 07/13/24 Rx tabs losartan 50 mg tablet 50 mg PO QAM #90 tabs 11/24/23 07/13/24 Rx budesonide 3 mg See Rx Instructions .Route 02/26/24 07/13/24 Rx capsule,delayed,extended release .COMPLEX #270 caps potassium chloride 20 mEq See Rx Instructions .Route 02/27/24 07/13/24 Rx tablet,extended release .COMPLEX #90 tabs sertraline 100 mg tablet 150 mg (1.5 x 100 mg) PO DAILY 02/27/24 07/13/24 Rx #135 tabs Patient hx anesthesia problems: none Family hx anesthesia problems: none Results Review: All pre-operative results and documents have been reviewed as part of the pre-operative evaluation. [facility] Past Medical History Medical History Anxiety Primary osteoarthritis of left knee Melanoma MARYANN (obstructive sleep apnea) Microscopic colitis Osteoarthritis of knees, bilateral Postoperative anemia Essential hypertension Burroughs palsy Many years ago History of colon polyps Mixed hyperlipidemia Prediabetes Obesity (BMI 30-39.9) Psychomotor agitation Dysesthesia Surgical History Surgical History History of total left knee replacement 2023 Gabe History of right knee joint replacement 2020- Dr Bernal History of bilateral mastectomy Benign History of cataract surgery History of cholecystectomy Family History Family History Father Hypertension Family history of cardiovascular disease Carcinoma of colon Mother Hypertension Family history of cardiovascular disease Carcinoma of colon Sibling Hypertension Family history of cardiovascular disease Social History Social History Social History: Patient does not drink, smoke or do drugs. 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 He would like to be a full code. His power of banking attorney is his partner, Bryan. Smoking status: Never smoker Second hand tobacco smoke exposure: No Additional smoking assessment comments: DENIES ANY FORM OF TOBACCO USE Alcohol intake: never Substance use: never Substance use type: does not use Do You Feel Safe in your Home?: Yes Lack of Transportation: No Lack of Food: Never True Current Housing: I Have Housing Concerned About Future Housing: No Difficulty Paying Gas/Electric Bills: No Difficulty Paying for Meds: No Currently Unemployed: No Education: High School Diploma/GED Difficulty w/ Childcare or Family Care: No Living arrangements: with family Additional living arrangements comments: partner Bryan Occupation/Education: retired Gender identity (if verbalized by the patient): Male Sexual Orientation (if Verbalized by the Patient): Lesbian, Singleton, or Homosexual Spiritual care concerns: No Anes - Eval Final PreProcedure Day of Procedure 07/16/24 09:22 Patient weight: overweight Heart: regular rate and rhythm Lungs: clear to auscultation Airway: Mallampati scale class II Neurological: alert and oriented Last oral intake: >/= 8 hours ASA classification: III Emergent: no Anesthetic plan: proceed Anesthesia type and monitoring: general and standard monitoring Results Review: All pre-operative results and documents have been reviewed as part of the pre-operative evaluation. Informed Consent: The patient's anesthetic plan and its attendant risks and benefits were discussed with the patient/family/POA. Questions were solicited and answers provided to the satisfaction of the patient/family/POA.
[2024-07-16] MEDS: ACETAMINOPHEN 500 MG TABLET 1000 MG PO (09:23)
[2024-07-16] MEDS: KETOROLAC 15 MG/ML VIAL (*BKC) IV PUSH (09:23)
--- NOTE | 2024-07-16 10:47 | WPDHPUPDATE1 ---
History and Physical Update Update Date/Time: 07/16/24 10:47 History and Physical has been reviewed, including an updated exam of the patient. There are NO changes in the patient's condition. Risks, benefits, and alternatives have been discussed and questions answered. Patient agrees to proceed with procedure.
[2024-07-16] MEDS: ceFAZolin 2 GM/D5W 50 ML 2 GM/50 ML BAG IVPB (10:59)
[2024-07-16] MEDS: BUPivacaine HCL 0.5% PF 30 ML VIAL 15 ML INFILTRATE (11:29)
[2024-07-16] MEDS: LIDO 1%/EPINEPHRINE 1:100,000 50 ML VIAL 15 ML INFILTRATE (11:31)
--- NOTE | 2024-07-16 16:55 | W.PM.PROC2 ---
Procedure Note - Detailed Date of Procedure 07/16/24 Pre-op Diagnosis symptomatic grade 3 internal hemorrhoids Post-op Diagnosis Other (Symptomatic grade 3 combined internal and external hemorrhoids, distal rectal polyp.) Procedure Performed Excisional hemorrhoidectomy x3 Banding of internal hemorrhoid x1 Transanal excisional distal rectal polypectomy. Surgeon Hugo Mccauley MD Human Resources Safety Manager Silvana Ambrocio, FIRE ALARM INSPECTOR Anesthesia General Indications Patient is a 74-year-old done has had increasingly worsening symptoms of pain and drainage from his internal and external hemorrhoids. He wishes to proceed with surgical management of the hemorrhoids. Findings The patient had combined internal-external hemorrhoids located at the 6 o'clock and 12 o'clock positions with the patient prone. He had appear internal hemorrhoid at the 3 o'clock position the right lateral side and a external hemorrhoid at the 9 o'clock. position on the left lateral side. He also had a distal rectal polyp in the anterior midline at 6 o'clock above the dentate line which was removed via transanal excision. Description of Procedure After informed consent was obtained patient brought to the operating was placed under general endotracheal anesthesia on the gurney and then turned onto the prone sharon-knife position on the operating table. Care was taken make sure all the pressure points were well padded. The buttocks were then taped apart and the buttocks and the perianal region was then prepped and draped usual sterile fashion. A time-out was then performed correctly identifying the patient as well as the procedure to be performed. He was given perioperative IV antibiotics. I 1st started by gently dilating the anal sphincter muscles with a lubricated anal speculum. A circumferential evaluation of the anal canal and distal rectum was then performed. There was a polyp at the anterior midline at 6:00 a.m. with the patient prone. This was about 5 to 6 cm proximal to the anal verge and above the dentate line. I then proceeded to inject 1% lidocaine mixed with 0.5% Marcaine with epinephrine just underneath the base of the polyp in the mucosa. I then placed a 2-0 chromic suture just above the polyp and then performed a transanal excisional polypectomy utilized electrocautery. The polyp was sent to pathology for examination. I then closed the mucosal defect by placing the 2-0 chromic suture prior placed previously in a figure-eight fashion. There was also no associated combined internal and external hemorrhoid little more distal to the polyp. A 2-0 chromic suture was placed at the apex of this hemorrhoid tissue and then a scalpel was used to incise tissue and on either side of the hemorrhoid tissue all the way out onto the perianal skin. Electrocautery was used to dissect through the dermis of the perianal skin and then Metzenbaum scissors was used to spread in the plane just superficial to the internal sphincter muscle fibers and deep to the combined internal-external hemorrhoid with perianal skin was excised off electrocautery. He was then sent to pathology labeled as hemorrhoid 6 o'clock. The hemorrhoidectomy incision was then closed by placement of the 2-0 chromic suture run in a locking fashion out to the anal verge. I then transition to using a 3-0 Vicryl suture to approximate the skin perianal skin edges which was placed in a running locking fashion. I then addressed excising a 2nd hemorrhoid at the 12 o'clock position and the posterior midline. Again the same local anesthetic mixture was injected underneath the hemorrhoid tissue. A 2-0 chromic suture was then placed at the apex of the hemorrhoid then a scalp was used to incise tissue on either side of the hemorrhoid in a marc configuration out onto the perianal skin. Dissection was carried through the dermis skin electrocautery and then superficial to the internal sphincter muscle fibers I spread with a hemostat and then completely excised off the hemorrhoid tissue without damaging the internal sphincter muscles. This hemorrhoid was sent to pathology labeled as 12:00 p.m. hemorrhoid. Again this incision was then closed in a similar fashion as to the other hemorrhoid by running locking 2-0 chromic suture until I reached anal verge. I then transition to using a 3-0 Vicryl suture and a running and locking fashion to approximate the skin edges of the perianal skin. I then identified a pure external hemorrhoid at the 9 o'clock position the right lateral side. I incised the redundant skin at the anal verge in a marc configuration extending out onto the perianal skin and then with electrocautery excised off this external hemorrhoid tissue and redundant perianal skin. The specimen sent to pathology labeled as hemorrhoid 9 o'clock position. This incision was then closed with a running and locking 3-0 Vicryl suture since was mostly an external hemorrhoid. There was appear internal hemorrhoid located at 3:00 a.m. position the right lateral side. Because I was afraid that removing another hemorrhoid in excisional fashion wound start to stenose the anal opening I decided to treat this hemorrhoid with rubber-band ligation. Local anesthetic mixture was then injected underneath the hemorrhoid tissue to raise it up. An Allis clamp was used to hold up the hemorrhoid tissue and then the rubber-band ligate her was advanced over the Allis clamp and a double rubber-band ligation was performed of the hemorrhoid tissue. I then irrigated out the anal canal sterile saline solution. Hemostasis was good. I then placed a lidocaine jelly soaked Gelfoam packing into the anal canal. I then anesthetized the area around the anal opening with a perianal block utilizing the 0.5% Marcaine mixed with 1% lidocaine mixture with some epinephrine. One bilateral pudendal nerve blocks. The areas then cleaned then fluffed 4x4 gauze, ABD pads, and disposable underwear was used for final dressing. The patient tolerated the procedure well no complications. All sponges, needles, and instrument counts were correct at the end procedure. EBL was _50__cc. The patient was awakened and taken to recovery in stable and satisfactory condition. Implants None Estimated Blood Loss 50 Drains No Packing Yes (Gelfoam packing anal canal) Pathology Yes (Hemorrhoids and distal rectal polyp sent to pathology) Complications No immediate complications Condition Stable Disposition PACU [facility] Billing Surgery - Charge Forward: Surgery Billing
== END 2024-07-16 14:20 | disposition home or self-care (01) ==
PROVIDERS: PCP Family Medicine; Visit Provider Surgery
PROC: (CPT 46260; principal; 2024-07-16 10:30)
DX: K64.2 Third degree hemorrhoids (principal); K64.8 Other hemorrhoids; K62.89 Other specified diseases of anus and rectum; I10 Essential (primary) hypertension; E78.2 Mixed hyperlipidemia; R73.03 Prediabetes; F41.9 Anxiety disorder, unspecified; M17.0 Bilateral primary osteoarthritis of knee; G47.33 Obstructive sleep apnea (adult) (pediatric); R45.1 Restlessness and agitation; Z79.85 Long-term (current) use of injectable non-insulin antidiabetic drugs; Z99.89 Dependence on other enabling machines and devices; Z98.890 Other specified postprocedural states; Z90.49 Acquired absence of other specified parts of digestive tract; Z85.820 Personal history of malignant melanoma of skin; Z86.0100 Personal history of colon polyps, unspecified; Z80.0 Family history of malignant neoplasm of digestive organs; Z82.49 Family history of ischemic heart disease and other diseases of the circulatory system
CPT/HCPCS: 46260; 88304; 88305; A9270; J0330; J0690; J1100; J1885; J2003; J2004; J2405; J2704; J3010; J7120

== ENCOUNTER 2024-08-10 09:12 | Outpatient (CLI) | payer MEDICARE, SELFPAY ==
--- NOTE | ~2024-08-10 | CT_ITS ---
CT of the Abdomen and Pelvis: Indication: Fecal abnormality Technique: 2.5 mm axial scans were obtained through the abdomen and pelvis following intravenous adm inistration of 100 cc of Omnipaque 350. Dose reduction technique was used on this scan by utilizing a utomated exposure control and iterative reconstruction technique. The dose-length product (DLP) was 1 079.34 mGy-cm. Findings: Scans through the lung bases are unremarkable. Hepatic cysts are present. Cholecystectomy clips are present. The pancreas and adrenal glands are wit hin normal limits. Bilateral renal cysts are present. Small nonobstructing renal stones measure up to 2 mm in diameter. Spleen is enlarged, measuring 17 cm in length. No evidence of aortic aneurysm. No lymphadenopathy. No bowel obstruction or bowel wall thickening. There is no evidence to suggest acute appendicitis. Images through the pelvis were performed. Urinary bladder unremarkable. No pelvic mass seen. No ascit es. Impression: Small nonobstructing right renal stones, as above. Splenomegaly, of uncertain etiology. Reviewed, dictated and finalized at [facility]. ING MACHINE OPERATOR Impression: Small nonobstructing right renal stones, as above. Splenomegaly, of uncertain etiology.
[2024-08-10 09:30] LABS: Estimated Glomerular Filt Rate > 60
--- OUTSIDE RECORDS SUMMARY | 2024-08-10 09:58 | XMS_ITS | Clinical Summary ---
Author Organization [facility] [address] Address [address] [place] [address] Care Team Providers Care Glue Reel Operator Name Role Phone Jesse Humphries MD Primary Care Provider [phone] Allergies Active Allergy Reactions Criticality Noted Date [...] on file Legal Sex Male 12:01 PM CORPORATE DIRECTOR OF HUMAN RESOURCES Gender Identity Not on file Sexual Orientation Not on file Obstetrics History Last Filed Vital Signs Vital Sign Reading Time Taken Comments Blood Pressure 118/74 07/18/2020 12:05 PM CORPORATE DIRECTOR OF HUMAN RESOURCES Pulse 78 07/18/2020 12:05 PM CORPORATE DIRECTOR OF HUMAN RESOURCES Temperature - - Respiratory Rate - - Oxygen Saturation 95% 07/18/2020 12:05 PM CORPORATE DIRECTOR OF HUMAN RESOURCES Inhaled Oxygen Concentration - - Weight 137 kg (302 lb) 07/18/2020 12:05 PM CORPORATE DIRECTOR OF HUMAN RESOURCES Height 190.5 cm (6' 3 ) 07/18/2020 12:05 PM CORPORATE DIRECTOR OF HUMAN RESOURCES Body Mass Index 37.75 07/18/2020 12:05 PM CORPORATE DIRECTOR OF HUMAN RESOURCES Plan of Treatment Not on file Insurance MEDICARE AET SENIOR SUPPLEMENT Care Teams Glue Reel Operator Relationship Specialty Start Date End Date Jesse Humphries MD PCP - General Family Medicine 07/12/20
--- OUTSIDE RECORDS SUMMARY | 2024-08-10 09:59 | XMS_ITS | Patient Health Record ---
Author Organization [facility] Address [address] [place] [address] Care Team Providers Care Category Development Analyst Name Role Phone Jesse Humphries M.D. Primary Care Provider Dr. Jesse Klein Unavailable [phone] Mitchell Reyes Unavailable [phone] [employer], Provider Unavailable Unavailab le Allergies Allergen (clinical drug ingredient) Drug/Non Drug Allergy documented on EMR Reaction Allergy Type Onset Date Status meperidine Demerol vomiting Drug Allergy Active atropine / diphenoxylate Lomotil vomiting Drug Allergy Active Reason For Referral No Information Medications Medication SIG (Take, Route, Frequency, Duration) Notes Start Date End Date Status POTASSIUM CHLORIDE ([id number] M20) 20 MEQ 1 TAB(S) ORALLY 2 TIMES A DAY for 30 DAY(S) *Please review for potential replacement for e-prescription and drug interaction check* Active Sertraline HCl 50 MG 1 tab(s) orally once a day for 30 day(s) Active Losartan Potassium 50 MG 1 tab(s) orally once a day for 30 day(s) Active Fiber Choice 1.5 GM 2 tab(s) chewed 3 times a day for 30 day(s) Active sulfaSALAzine 500 MG 2 tab(s) orally 2 times a day for 30 day(s) Active Social History Tobacco Use: Social History Observation Description Date Details (start date - stop date) Never Smoker NA - NA Smoking Smart Form: Question Answer Notes Are you a: never smoker Section Notes: No smoking. No heavy alcohol use. No smoking. No heavy alcohol use. No smoking. No heavy alcohol use. Problems Problem Type SNOMED Code ICD Code Onset Dates Problem Status W/U Status Risk Notes Problem Morbid obesity (disorder) (278099703) Morbid (severe) obesity due to excess calories (E66.01) Active confirmed Problem Chronic migraine without aura, non-refractory (disorder) (505175371061310) Migraine without aura, not intractable, without status migrainosus (G43.009) Active confirmed Problem Migraine with aura (6714732) Migraine with aura, not intractable, without status migrainosus (G43.109) Active confirmed Problem Chronic migraine without aura, non-intractable (879945951438077) Chronic migraine without aura, not intractable, without status migrainosus (G43.709) Active confirmed Problem Polyneuropathy (45882828) Polyneuropathy, unspecified (G62.9) Active confirmed Problem Degeneration of lumbar intervertebral disc (95690372) Other intervertebral disc degeneration, lumbar region (M51.36) Active confirmed Problem Lumbosacral radiculopathy (6077162) Radiculopathy, lumbosacral region (M54.17) Active confirmed Vital Signs Height 73 in 07/13/2024 Weight 234.8 lbs 07/13/2024 BMI 30.97 kg/m2 07/13/2024 Encounters Encounter Location Date Provider Diagnosis [facility] ([address]) [address] [place] [phone] 09/22/2023 Mitchell Reyes Morbid (severe) obesity due to excess calories E66.01 [facility] [place] ([address]) [address] [place] [phone] 10/06/2023 Mitchelldomniique Reyes Morbid (severe) obesity due to excess calories E66.01 [facility] [place] ([address]) [address] [place] [phone] 10/17/2023 Mitchelldominique Reyes Morbid (severe) obesity due to excess calories E66.01 [facility] [place] ([address]) [address] [place] [address] 11/03/2023 Mitchell Reyes Morbid (severe) obesity due to excess calories E66.01 [facility] [place] ([address]) [address] [place] [address] 11/17/2023 Mitchell Win Morbid (severe) obesity due to excess calories E66.01 [place] [address] [place] [address] 11/29/2023 Provider Madelyn [facility] [place] ([address]) [address] [place] [address] 12/01/2023 Mitchell Win Morbid (severe) obesity due to excess calories E66.01 [facility] [place] ([address]) [address] [place] [address] 12/15/2023 Mitchell Win Morbid (severe) obesity due to excess calories E66.01 [facility] [place] ([address]) [address] [place] [address] 01/12/2024 Mitchell Win Morbid (severe) obesity due to excess calories E66.01 [facility] [place] ([address]) [address] [place] [address] 01/26/2024 Mitchell Win Morbid (severe) obesity due to excess calories E66.01 [facility] [place] ([address]) [address] [place] [address] 02/09/2024 Mitchell Win Morbid (severe) obesity due to excess calories E66.01 [facility] [place] ([address]) [address] [place] [address] 03/01/2024 Mitchell Win Morbid (severe) obesity due to excess calories E66.01 [facility] [place] ([address]) [address] [place] [address] 03/22/2024 Mitchell Win Morbid (severe) obesity due to excess calories E66.01 [facility] [place] ([address]) [address] [place] [address] 03/22/2024 Mitchell Win [facility] [place] ([address]) [address] [place] [address] 03/23/2024 Mitchell Win Morbid (severe) obesity due to excess calories E66.01 [facility] [place] ([address]) [address] [place] [address] 04/13/2024 Mitchell Win Morbid (severe) obesity due to excess calories E66.01 [facility] [place] ([address]) [address] [place] [address] 04/27/2024 Mitchell Win Morbid (severe) obesity due to excess calories E66.01 [facility] [place] ([address]) [address] [place] [address] 05/26/2024 Mitchell Win Morbid (severe) obesity due to excess calories E66.01 [facility] [place] ([address]) [address] [place] [address] 06/07/2024 Mitchell Win Morbid (severe) obesity due to excess calories E66.01 [facility] [place] ([address]) [address] [place] [address] 06/24/2024 Mitchell Win [facility] [place] ([address]) [address] [place] [address] 06/24/2024 Mitchell Win Morbid (severe) obesity due to excess calories E66.01 [facility] [place] ([address]) [address] [place] [address] 07/13/2024 Mitchell Win Morbid (severe) obesity due to excess calories E66.01 [facility] [place] ([address]) [address] [place] [address] 08/11/2023 Mitchell Win Morbid (severe) obesity due to excess calories E66.01 [facility] [place] ([address]) [address] [place] [address] 08/25/2023 Mitchell Win Morbid (severe) obesity due to excess calories E66.01 [facility] ([address]) [address] [place] [address] 09/08/2023 Mitchell Reyes Morbid (severe) obesity due to excess calories E66.01 [facility] ([address]) [address] [place] [address] 12/29/2023 Mitchell Reyes Morbid (severe) obesity due to excess calories E66.01 [facility] ([address]) [address] [place] [address] 05/12/2024 Mitchell Reyes Morbid (severe) obesity due to excess calories E66.01 [facility] [address] [address] 08/12/2023 Jesse Olson Assessments Encounter Date Diagnosis (ICD Code) Assessment Notes Treatment Notes Treatment Clinical Notes Section Notes 08/11/2023 Morbid (severe) obesity due to excess calories (ICD-10 - E66.01) 08/25/2023 Morbid (severe) obesity due to excess calories (ICD-10 - E66.01) 09/08/2023 Morbid (severe) obesity due to excess calories (ICD-10 - E66.01) 09/22/2023 Morbid (severe) obesity due to excess calories (ICD-10 - E66.01) 10/06/2023 Morbid (severe) obesity due to excess calories (ICD-10 - E66.01) 10/17/2023 Morbid (severe) obesity due to excess calories (ICD-10 - E66.01) 11/03/2023 Morbid (severe) obesity due to excess calories (ICD-10 - E66.01) 11/17/2023 Morbid (severe) obesity due to excess calories (ICD-10 - E66.01) 12/01/2023 Morbid (severe) obesity due to excess calories (ICD-10 - E66.01) 12/15/2023 Morbid (severe) obesity due to excess calories (ICD-10 - E66.01) 12/29/2023 Morbid (severe) obesity due to excess calories (ICD-10 - E66.01) 01/12/2024 Morbid (severe) obesity due to excess calories (ICD-10 - E66.01) 01/26/2024 Morbid (severe) obesity due to excess calories (ICD-10 - E66.01) 02/09/2024 Morbid (severe) obesity due to excess calories (ICD-10 - E66.01) 03/01/2024 Morbid (severe) obesity due to excess calories (ICD-10 - E66.01) 03/22/2024 Morbid (severe) obesity due to excess calories (ICD-10 - E66.01) 03/23/2024 Morbid (severe) obesity due to excess calories (ICD-10 - E66.01) 04/13/2024 Morbid (severe) obesity due to excess calories (ICD-10 - E66.01) 04/27/2024 Morbid (severe) obesity due to excess calories (ICD-10 - E66.01) 05/12/2024 Morbid (severe) obesity due to excess calories (ICD-10 - E66.01) 05/26/2024 Morbid (severe) obesity due to excess calories (ICD-10 - E66.01) 06/07/2024 Morbid (severe) obesity due to excess calories (ICD-10 - E66.01) 06/24/2024 Morbid (severe) obesity due to excess calories (ICD-10 - E66.01) 07/13/2024 Morbid (severe) obesity due to excess calories (ICD-10 - E66.01) Plan Of Treatment Pending Test Test Name Order Date -Glucose, Two-Hour Postprandial 01/23/20 23 -Immunofixation, Urine 01/22/2023 EMG (Electromyography) - 2 (two) Extremi ties 01/22/2023 Insurance Providers Payer Name Payer Address Payer Phone Subscriber Number Group Number Insured Name Patient Relationship to Insured Coverage Start Date Coverage End Date [employer] (Medicare) Attention Claims [address] [place] [address] [id number] Jesse Crook Self - patient is the insured [employer] [address] [address] [place] [address] [id number] Jesse Crook Self - patient is the insured Medical (General) History Medical History History ICD Code Depression Hypertension 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
--- OUTSIDE RECORDS SUMMARY | 2024-08-10 09:59 | XMS_ITS | Patient Health Summary ---
Author Organization [facility] Address [address] [place] [address] Care Team Providers Care Lime Kiln Operator Name Role Phone Jesse Humphries MD Primary Care Provider [phone] Kirby Pablo MD Unavailable Unavailable Note from [facility],non-owned Affiliates and Associated Physician Practices is amultiple site organization consisting of ambulatory clinics and hospital sitesin [place], [place], [place] and [place]. This disclosure is being madepursuant to the Care Everywhere program and may not contain all information available regarding this patient. Last updated 18.[facility] Allergies * Meperidine(Nausea and/or Vomiting,Fever) * [...] mouth once daily. 1 refill left * R-Ssgibbubbvjx-H2-B12 (FOLTX) 1.13-25-2 MG TABS(Started 03/18/2014) TAKE ONE [...] 80 03/24/2013 2:14 PM CDT Temperature 36.9 C (98.4 F) 03/24/2013 2:14 PM CDT Respiratory Rate 20 03/24/2013 2:14 PM CDT [...] MD - 07/16/2011 10:25 AM CST [facility] Pulmonary Function Test [facility] PULMONARY FUNCTION TEST REPORT PATIENT: JESSE FISCHER EMR#: [id number] ADMIT DATE: 07/15/2011CCT#: [id number] DATE OF PROCEDURE: 07/15/2011DOB: 1950 PHYSICIAN: Yesi [...] bronchodilators is 4.45L. Yesi Charles MD MOP/MedQ #:[id number] Yesi Charles MD - 07/16/2011 10:30 AM CST [facility] Pulmonary Function Test [facility] PULMONARY FUNCTION TEST REPORT PATIENT: JESSE FISCHER EMR#: [id number] ADMIT DATE: 07/15/2011CCT#: [id number] DATE OF PROCEDURE: 07/15/2011DOB: 1950 PHYSICIAN: Yesi [...] pulmonary function test. Yesi Charles MD MOP/MedQ #:[id number] cc:Yesi Charles MD Yesi Charles MD PFT ORDERABLES [facility] MEDQUIST * POLYSOMNOGRAPHY (07/14/2011) Yesi Charles MD [facility] ORDERAB LES * CULTURE FUNGUS SKIN HAIR NAILS (07/11/2011 9:54 AM HEAD PACKAGER) Culture Dermatophyte Only [facility] INSURANCE BILL Comment:No yeast or mold iso lated after 4 weeks. Miscellaneous samples (specimen) NAIL SPECIMEN / Unknown 07/11/2011 9:54 AM HEAD PACKAGER 07/12/2011 10:05 PM HEAD PACKAGER Narrative Resulting Agency Comment [facility] [phone] Catherine Moreno DPM LAB - MICROBIOLOGY O RDERABLES Performing Organization Address City/[facility] Co de Phone Number [facility] INSURANCE BILL * NERVE CONDUCTION TEST (07/11/2011) Catherine Moreno DPM NEUROLOGY ORDERABLES Performing Organization Address [facility] Co de Phone Number [facility] RESULT SCAN * EMG (07/11/2011) Catherine Moreno DPM NEUROLOGY ORDERABLES Performing Organization Address [facility] Co de Phone Number [facility] RESULT SCAN * TSH HI LOW REFLEX T4 (PO REF LAB) (05/18/2011 8:02 AM HEAD PACKAGER) TSH 3.700 0.450 - 4.500 uIU/mL [facility] INSURANCE BILL BLOOD SPECIMEN / Unknown 05/18/2011 8:02 AM HEAD PACKAGER 05/18/2011 1:14 PM HEAD PACKAGER Narrative Resulting Agency Comment [place] [id number] [facility] [phone] Darien Contreras MD LAB - CHEMISTRY RICARDO CANO Performing Organization Address [facility] de Phone Number [facility] INSURANCE BILL * HEMOGLOBIN A1C (05/18/2011 8:02 AM HEAD PACKAGER) Hemoglobin A1c 5.1 4.8 - 5.6 % [facility] INSURANCE BILL Comment: . Increased risk for diabetes: 5.7 - 6.4 Diabetes: >6.4 Glycemic control for adults with diabetes: <7.0 Blood specimen (specimen) BLOOD SPECIMEN / Unknown 05/18/2011 8:02 AM HEAD PACKAGER 05/18/2011 1:14 PM HEAD PACKAGER Narrative Resulting Agency Comment [place] [id number] [facility] [phone] Darien Contreras MD LAB - CHEMISTRY RICARDO CANO Performing Organization Address [facility] Co de Phone Number [facility] INSURANCE BILL * (ABNORMAL) COMPREHENSIVE METABOLIC PANEL (05/18/2011 8:02 AM HEAD PACKAGER) Glucose 115(H) 65 - 99 mg/dL [facility] [...] BLOOD SPECIMEN / Unknown 05/18/2011 8:02 AM HEAD PACKAGER 05/18/2011 1:14 PM HEAD PACKAGER Narrative Resulting Agency Comment [facility] [place] [id number] [facility] [phone] Darien Contreras MD LAB - CHEMISTRY RICARDO CANO [facility] INSURANCE BILL * PROSTATE SPECIFIC ANTIGEN SCREEN (05/18/2011 8:02 AM HEAD PACKAGER) PSA 0.4 0.0 - 4.0 ng/mL [facility] INSURANCE BILL Comment: Stanislav ECLIA methodology. . According to the [employer], Serum PSA should decrease and [...] BLOOD SPECIMEN / Unknown 05/18/2011 8:02 AM HEAD PACKAGER 05/18/2011 1:14 PM HEAD PACKAGER Narrative Resulting Agency Comment [place] [id number] [facility] [phone] Darien Contreras MD LAB - CHEMISTRY RICARDO CANO Performing Organization Address [facility] de Phone Number [facility] INSURANCE BILL * (ABNORMAL) LIPID PROFILE (05/18/2011 8:02 AM HEAD PACKAGER) Cholesterol 188 100 - 199 mg/dL [facility] [...] BLOOD SPECIMEN / Unknown 05/18/2011 8:02 AM HEAD PACKAGER 05/18/2011 1:14 PM HEAD PACKAGER Narrative Resulting Agency Comment [facility] [address] [facility] [phone] Darien Contreras MD LAB - CHEMISTRY RICARDO CANO Performing Organization Address [facility] de Phone Number [facility] INSURANCE BILL * XR CHEST PA AND LATERAL (05/17/2011 11:23 AM HEAD PACKAGER) Anatomical Region Laterality Modality Chest Radiographic Joyce ging 05/17/2011 11:4 1 AM HEAD PACKAGER Impressions 05/17/2011 11:41 AM HEAD PACKAGER No acute cardiopulmonary disease. Narrative 05/17/2011 11:41 AM HEAD PACKAGER Two views chest Indication: Shortness of breath [...] disease. Darien Contreras MD DIAGNOSTIC IMAGING O [facility] Care Teams Lime Kiln Operator Relationship Specialty Start Date End Date Jesse Humphries MD [address] [place] [phone] PCP - General 11/28/11 Kirby Pablo MD [address] [place] [phone] Cardiovascular Disease 12/09/11
--- OUTSIDE RECORDS SUMMARY | 2024-08-10 09:59 | XMS_ITS | CONTINUITY OF CARE DOCUMENT ---
Author Name helen cervantes Address Unknown Organization [facility] Address [address] [place] [address] Phone [phone] Care Team Providers Care Grinding Wheel Operator Name Role Phone helen cervantes Unavailable Unavailable
--- OUTSIDE RECORDS SUMMARY | 2024-08-10 09:59 | XMS_ITS ---
Author Organization [facility] Address [address] [place] [address] Care Team Providers Care Cook Cashier Food Prep Name Role Phone Jesse Humphries M.D. Primary Care Provider Dr. Jesse Klein Unavailable [phone] Mitchell Reyes [phone] REASON FOR VISIT [facility] Weight Loss, on tirzepatide, appetite suppression - meeting protein and water requirements. 2 week maintenance dosing, appetite suppression lasting 1.5 weeks, Desired weight loss 80 lbs: +0.2 lbs change since last visit and -74.2 lbs in total, Concerned about joint and joint-replacement - left knee surgery on 10/23/23, No history of MTC or MEN 2 Encounters Encounter Location Date Provider Diagnosis [facility] ([address]) [address] [place] [address] 08/10/2024 Mitchell Reyes Morbid (severe) obesity due to excess calories E66.01 Assessments Encounter Date Diagnosis (ICD Code) Assessment Notes Treatment Notes Treatment Clinical Notes Section Notes 08/10/2024 Morbid (severe) obesity due to excess calories (ICD-10 - E66.01) Plan Of Treatment Next Appt Details Follow Up: 2 Weeks, Reason: GLP-1 Analogue Administration Procedure Notes * Category Sub-Category Detail Notes [facility]: Weight Management tirzepatide Indication: main tenance (keep weight off) Concentration: 10 mg/mL Volume Administered: 0.65 mL Dose Administered: 6.5 mg Route: SQ Location: Right abdomen Frequency: weekly Lot Number/Expiration: Medication Source: Nutraceutical Comp ounding Adverse Reaction: None Progress Notes * Jesse CROOK SrDOB:1949 (74 yo M)Acc No.[id number]:08/10/2024 Weight Loss Patient: Jesse ORTIZ Sr Provider: Aruna Reyes MD :1950 A ge:74 Y S ex:Male Date:08/10/2024 Address:[address] [place], [place] [phone] Pcp:Jesse Humphries M.D. Subjective: * Chief Complaints: * 1 . [facility] Weight [facility], on tirzepatide, appetite suppression - meeting protein and water requirements. 2 week maintenance dosing, appetite suppression lasting 1.5 weeks. 2. Desired weight loss 80 lbs: +0.2 lbs change since last visit and -74.2 lbs in total. 3. Concerned about joint and joint-replacement - left knee surgery on 10/23/23. 4. No history of MTC or MEN 2. * Medical History: Objective: * Vitals: Assessment: * Assessment: 1. M orbid (severe) obesity due to excess calories - E66.01 (Primary) Plan: * Treatment: * Procedures: [facility]: Weight Management: tirzepatide I ndication m aintenance (keep weight off) C oncentration 1 0 mg/mL V olume Administered 0 .65 mL D ose Administered 6 .5 mg R oute S Q L ocation R ight abdomen F requency w eekly L ot Number/Expiration 0 M edication Source A H Nutraceutical Compounding A dverse Reaction N one * Follow Up: 2 Weeks (Reason: GLP-1 Analogue Administration) * Billing Information: * Visit Code: * Procedure Codes: 25290 [facility] - Weekly (tirzepatide) Tier 2. * Electronic signature of Julissa Reyes MD, FAAAAI on 08/10/2024 at 09:59 AM DIET ATTENDANT Sign off status: Pending * Provider: Aruna Reyes MD Date: 0 08/10/2024 Generated for Javieri irving/Justin/eTransmitting on: 0 08/10/2024 09:59 AM DIET ATTENDANT
--- OUTSIDE RECORDS SUMMARY | 2024-08-10 09:59 | XMS_ITS | Data Portability ---
Author Organization [email or web address], Main Office Address [address] [place] [address] Care Team Providers Care Paper Tube Cutter Name Role Phone JESSE HUMPHRIES Primary Care [...] treatment patient more than half of this zrka-zy-eblx conversation tiffanie Not available 10/30/2022 11:43:10 06/04/2023 06/04/2023 Impression: 1. 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 Patient wants to proceed with left total knee replacement. He has episodes of severe pain when he feels his knee lubna and pain is in his knee. X-rays do show zxkt-cd-fhjn medial compartment osteoarthritis. 2. Patient shows evidence [...] than half of this time spent in kost-to-jvpv care. Not available 06/09/2023 17:05:10 Plan of Treatment Reminders Order Date Submit Date Provider Last Modified By Organization Details Last Modified Time Details Appointments None recorded. Lab None recorded. Referral None recorded. Procedures injection/a spiration joint/bursa (PROC) - in office procedure, administere d by provider 2022 023 In-Office Order, Internal Use Only DO Not Attach Compendium DO Not Attach Compendium, Do Not Delete/merge, [id number] 3 09:13:17 Surgeries None recorded. Imaging XR, knee 2022 023 [email or web address] [facility] [place], [address], [place], [address], 3 15:20:42 XR, lumbar spine 2022 023 [facility] [place], [address], [place], [address], 3 10:30:52 XR, pelvis, 1 or 2 view 2022 023 [facility] [place], [address], [place], [address], 3 10:30:52 Medication Orders meloxicam 15 mg tablet 2022 023 [facility], [address] [place], [address], 3 13:06:36 Medrol (Bakari) 4 mg tablets in a dose pack [address]/[facility], [address] [place], [address], 3 08:39:01 Kenalog 10 mg/mL suspension for injection 2022 [address] [place], [address], 3 08:38:58 ropivacaine (PF) 5 mg/mL (0.5 %) injection solution 2022 [address] [place], [address], 3 08:39:07 Patient TargetsNo targets recorded. Patient InstructionsNo instructions recorded. Reason for Referral None Reported. Results Created Date Observation Date Name Description Value Unit Range Abnormal Flag Note LastModifiedBy Organization Detail LastModifiedTime 05/24/20 22 05/24/2022 XR, knee No observ ation record ed. [id number] [facility] [place] [address], [place], [address], 08/14/2022 20:56:07 10/31/19 23 XR, lumba r spine No observ ation record ed. [email or web address] [facility] [place] [address], [place], [address], 10/30/2022 11:36:10 10/31/19 23 XR, pelvi s, 1 or 2 view No observ ation record ed. [email or web address] [facility] [place] [address], [place], [address], 10/30/2022 11:35:38 11/02/19 23 11/01/2022 MRI, lumba r spine , w/o contr ast No observ ation record ed. [email or web address] [facility] [address], [place], [address], 11/01/2022 13:43:43 06/04/20 XR, knee No observ ation record ed. [facility] [place] [address], [place], [address], 06/09/2023 16:45:42 Result Notes None recorded. Problems Name Problem SNOMED Code Status Onset Date Resolution Date Notes Provider Name and Address Organization Details Recorded Time Knee joint effusion 289603033 Active Not Available [facility] 3 13:05:20 Current knee cartilage tear Active Not Available [facility] 3 13:05:20 Knee pain Active Not Available [facility] 3 13:05:20 Osteoarthr itis 141233675 Active Not Available [facility] 3 13:05:20 Osteoarthr itis of left knee joint 7120819175652 09 Active 2022 Not Available [facility] 3 13:05:20 Low back pain 973410235 Active 2022 Not Available [facility] 3 13:05:20 Lumbar spondylosi s 809289097 Active 2022 Not Available [facility] 3 13:05:20 Problem Notes None recorded. Procedures Surgical History Date Name Laterality Status Provider Name and Address Organization Details Recorded Time Knee Surgery completed Not Available [facility] 08/14/2022 20:54:46 Imaging Results Imaging Date Name Status LastModified by Organiz ation Details LastModified Time 05/24/2022 XR, knee completed [id number] [facility] [place] [address], [place], [address], 08/14/2022 20:56:07 10/30/2022 XR, lumbar spine completed [email or web address] [facility] [place] [address], [place], [address], 10/30/2022 11:36:10 10/30/2022 XR, pelvis, 1 or 2 view completed [email or web address] [facility] [place] [address], [place], [address], 10/30/2022 11:35:38 11/01/2022 MRI, lumbar spine, w/o contrast completed [address], [place], [address], 11/01/2022 13:43:43 06/04/2023 XR, knee completed [facility] [place] [address], [place], [address], 06/09/2023 16:45:42 Procedure Notes None recorded. Medical Equipment None Reported. Allergies Allergen ID Allergen Name Allergen Category Reaction Reaction Severity Criticality Documentation Date Start Date Code Code System Note Provider Name and Address Organization Details Recorded Time 97994 Lamictal medicatio n Not available Not available Not available 08/14/2022 72059 2 RxNorm Not Available [facility] 3 20:56:05 62820 Demerol medicatio n Not available Not available Not available 08/14/2022 73726 1 RxNorm Not Available [facility] 3 20:56:05 Medications Name Sig Start Date [...] n 0.3 %-dexamet hasone 0.1 % eye drops,micheal pension 01/04 completed Not Available Not Available [...] office by the doctor 04/04 completed NDC: [id number] 001 Not Available Not Available Not Available Fluzone High-Dose (PF) 180 mcg/0.5 mL intramusc ular syringe TO BE ADMINIST ERED BY PHARMACI ST FOR IMMUNIZA TION 09/11 completed Not Available Not Available Not Available Fluzone High-Dose Quad (PF) 240 mcg/0.7 mL IM syringe PHARMACY ADMINIST ERED 09/11 completed Not Available Not Available Not Available Vitals Date Recorded Body mass index (BMI) Body height Body weight Provider Name and Address Organization Details Last Updated DateTime 05/03/2022 40.1 kg/m2 185.42 cm 888594.08 g Not Available [facility] 08/14/2022 20:54:50 Date Recorded Body height Provider Name an d Address Organization Details Last Updated DateTime 05/24/2022 185.42 cm Not Available [facility] 20:54:50 Date Recorded Body height Provider Name an d Address Organization Details Last Updated DateTime 08/02/2022 185.42 cm Not Available [facility] 20:54:50 Date Recorded Body height Body mass index (BMI) Body weight Provider Name and Address Organization Details Last Updated DateTime 10/30/2022 187.96 cm 38.9 kg/m2 296847.49 g Ryann Rayo [facility] 10/30/2022 09:16:10 Date Recorded Body height Body mass index (BMI) Body weight Provider Name and Address Organization Details Last Updated DateTime 06/04/2023 187.96 cm 35.7 kg/m2 831537.68 g Ryann Rayo [facility] 06/04/2023 08:55:03 Social History Question Answer Notes LastModified by Organizat ion Details LastModified Time Tobacco Smoking Status Never Smoker Not Available [facility] 08/14/2022 20:54:35 What Is Your Level Of Alcohol Consumption? None [id number] 26 Information not available 08/14/2022 What Was The Date Of Your Most Recent Tobacco Screening? 10/04/2020 [id number] 26 Information not available 08/14/2022 Sex: Unknown Functional Status None recorded. Mental Status None recorded. Family History Relationship Description Onset Age of this Age Resolved Age Notes LastModified by Organization Details LastModified Time Father Heart disease [id number] [id number] Not available 08/14/2022 20:54:46 Mother Heart disease [id number].437 [id number] Not available 08/14/2022 20:54:46 Mother Family history of malignant neoplasm MIGRATION.017 [id number] Not available 08/14/2022 20:54:46 Mother Hypertensive disorder [id number].510 [id number] Not available 08/14/2022 20:54:46 Father Diabetes mellitus [email or web address] Not available 2022 09:11:04 Medical History Condition [...] HAVE YOU BEEN HOSPITALIZED OR SEEN IN [facility] ER IN THE PAST YEAR ? N [...] SNOMED-CT Code Diagnosis ICD10 Code Diagnosis Note [id number] [facility] [place] [address] [place] [address] 09/11/2020 00:00:00 09/11/2020 17:58:27 [id number] [facility] [place] [address] [place] [address] 10/04/2020 00:00:00 10/04/2020 08:56:43 [id number] [facility] [place] [address] [place] [address] 01/03/2021 00:00:00 01/03/2021 09:30:03 [id number] [facility] [place] [address] [place] [address] 02/21/2021 00:00:00 02/21/2021 10:39:42 [id number] [facility] [place] [address] [place] [address] 04/04/2021 00:00:00 04/15/2021 18:16:25 [id number] [facility] [place] [address] [place] [address] 06/04/2021 00:00:00 06/04/2021 16:30:56 [id number] [facility] [place] [address] [place] [address] 06/20/2021 00:00:00 06/20/2021 14:36:09 [id number] [facility] [place] [address] [place] [address] 07/04/2021 00:00:00 07/04/2021 09:42:54 [id number] [facility] [place] [address] [place] [address] 10/26/2021 00:00:00 10/26/2021 09:30:16 [id number] [facility] [place] [address] [place] [address] 02/01/2022 00:00:00 02/01/2022 09:18:24 [id number] [facility] [place] [address] [place] [address] 05/03/2022 00:00:00 05/03/2022 09:13:59 [id number] [facility] [place] [address] [place] [address] 05/24/2022 00:00:00 06/02/2022 19:23:35 [id number] [facility] [place] [address] [place] [address] 08/02/2022 00:00:00 08/02/2022 09:09:00 [id number] ANEESH Ty [facility] [place] [address] [place] [address] 10/30/2022 08:43:29 10/30/2022 11:46:12 Osteoarthritis of left knee joint 4399079640 04626 M17.12 Low back pain 566236526 M54.50 [id number] Nimesh Bernal MD [facility] [place] [address] [place] [address] 06/04/2023 08:34:38 06/11/2023 15:20:42 Osteoarthritis of left knee joint 5098994516 35853 M17.12 Health Concerns Section Related Observation LastModified by Organization Detai ls LastModified Time None Recorded Concern Status LastModified by Organization Details LastModified Time None Recorded Advance Directives Directive None Recorded Payers Encounter Date Sequence Insurance Name Policy Number Policy Velasquez Covered Member ID Velasquez Member ID Guarantor Name 10/30/2022 1 [place] Jesse Crook [id number] Jesse Crook 10/30/2022 2 [employer] (MEDICARE SUPPLEMENT) Jesse Crook [id number] Jesse Crook 06/04/2023 1 [place] Jesse Crook [id number] Jesse Crook 06/04/2023 2 [employer] (MEDICARE SUPPLEMENT) Jesse Crook [id number] Jesse Crook Notes Date Note Type Note [...] X-rays today of the left knee demonstrate iurn-pf-suce medial compartment osteoarthritis On the PA flexion [...] worked well for him. Nimesh Bernal MD [address] [place] [address], [address], [place], [address], [place] [facility] [employer] [facility] 06/09/2023 17:05:25
--- OUTSIDE RECORDS SUMMARY | 2024-08-10 09:59 | XMS_ITS | Referral Summary ---
Author Organization [facility] Address [address] [place] [address] Care Team Providers Care Acid Purifier Name Role Phone Jesse Humphries MD Primary Care Provider [phone] Kirby Pablo MD Unavailable Unavailable Source Comments [facility],non-owned Affiliates and Associated Physician Practices is amultiple site organization consisting of ambulatory clinics and hospital sitesin [place], [place], [place] and [place]. This disclosure is being madepursuant to the Care Everywhere program and may not contain all information available regarding this patient. Last updated 18.[facility] Allergies Active Allergy Reactions Criticality Noted Date [...] once daily. 30 Cap 1 12/11/2011 Active K-Grdzmhpbpjwr-D2-B12 (FOLTX) 1.13-25-2 MG TABS TAKE ONE TABLET [...] of Treatment Not on file Care Teams Acid Purifier Relationship Specialty Start Date End Date Jesse Humphries MD [facility] [place] [address] PCP - General 11/28/11 Kirby Pablo MD [facility] [place] [address] Cardiovascular Disease 12/09/11
--- OUTSIDE RECORDS SUMMARY | 2024-08-10 09:59 | XMS_ITS ---
Author Organization [facility] Address [address] [place] [address] Care Team Providers Care Terrazzo Tile Maker Name Role Phone Jesse Humphries M.D. Primary Care Provider Dr. Jesse Klein Unavailable [phone] Mitchell Reyes Unavailable [phone] REASON FOR VISIT [facility], on tirzepatide, appetite suppression - meeting protein and water requirements. 2 week maintenance dosing, appetite suppression lasting 1.5 weeks, Desired weight loss 80 lbs: +0.2 lbs change since last visit and -74.2 lbs in total, Concerned about joint and joint-replacement - left knee surgery on 10/23/23, No history of MTC or MEN 2 Medications Medication SIG (Take, Route, Frequency, Duration) Notes Start Date End Date Status POTASSIUM CHLORIDE (YFX-VITZ-XSZ M20) 20 MEQ 1 TAB(S) ORALLY 2 [...] times a day for 30 day(s) Active Vital Signs Height 73 in 07/13/2024 Weight 234.8 lbs 07/13/2024 BMI 30.97 kg/m2 07/13/2024 Encounters Encounter Location Date Provider Diagnosis [facility] [place] ([address]) [address] [place] [address] 07/13/2024 Mitchell Reyes Morbid (severe) obesity due to excess calories E66.01 Assessments Encounter Date Diagnosis (ICD Code) Assessment Notes Treatment Notes Treatment Clinical Notes Section Notes 07/13/2024 Morbid (severe) obesity due to excess [...] ounding Adverse Reaction: None Progress Notes * CROOKJesse CARRENO SrDOB:1949 (74 yo M)Acc No.[id number]:07/13/2024 Weight Loss Patient: Jesse ORTIZ Sr Provider: Aruna Reyes MD :1950 A ge:74 Y S ex:Male Date:07/13/2024 Address:[address] [place], [place] [id number] Pcp:Jesse Humphries M.D. Subjective: * Chief Complaints: [...] MTC or MEN 2. * Medical History: * Medications: T aking Fiber Choice 1.5 GM Tablet Chewable 2 tab(s) chewed 3 times a day , Taking sulfaSALAzine 500 MG Tablet Delayed Release 2 tab(s) orally 2 times a day , Taking POTASSIUM CHLORIDE (NTG-WSGT-CHB M20) 20 MEQ TABLET, EXTENDED RELEASE 1 TAB(S) ORALLY 2 TIMES A DAY , Notes to Pharmacist: *Please review for potential replacement for e-prescription and drug interaction check*, Taking Sertraline HCl 50 MG Tablet 1 tab(s) orally once a day , Taking Losartan Potassium 50 MG Tablet 1 tab(s) orally once a day Objective: * Vitals: H t: 73 in, Wt: 234.8 lbs, BMI:30.97Index. Assessment: * Assessment: 1. M orbid (severe) [...] requency w eekly L ot Number/Expiration 0 -2024 M edication Source A H Nutraceutical Compounding A dverse Reaction N one * Follow Up: 2 Weeks (Reason: GLP-1 Analogue Administration) * Billing Information: * Visit Code: * Procedure Codes: 93104 [facility] - Weekly (tirzepatide) Tier 2. * Electronic signature of Patmehul Reyes MD, FAAAAI on 08/10/2024 at 09:58 AM SUPERINTENDENT CEMETERY Sign off status: Pending * Provider: Aruna Reyes MD Date: 0 07/13/2024 Generated for Javieri irving/Justin/Lynnitting on: 0 08/10/2024 09:58 AM SUPERINTENDENT CEMETERY
--- OUTSIDE RECORDS SUMMARY | 2024-08-10 09:59 | XMS_ITS | Clinical Summary ---
Author Organization [facility] Address [address] [facility] [place] [address] Care Team Providers Care Cloud Developer Name Role Phone Jesse Humphries MD Primary Care Provider +1- [phone] Kirby Pablo MD Unavailable Unavailable Source Comments [facility],non-owned Affiliates and Associated Physician Practices is amultiple site organization consisting of ambulatory clinics and hospital sitesin [place], [place], [place] and [place]. This disclosure is being madepursuant to the Care Everywhere program and may not contain all information available regarding this patient. Last updated 18.[facility] [employer] Allergies Active Allergy Reactions Criticality Noted Date [...] once daily. 30 Cap 1 12/11/2011 Active L-Zycntskkfxao-U5-B12 (FOLTX) 1.13-25-2 MG TABS TAKE ONE TABLET [...] - COLON CA SCREENING 1950 MEDICARE AWV 12 MONTHS 1950 HEPATITIS C SCREENING 02/27/1968 [...] age to complete this topic Care Teams Cloud Developer Relationship Specialty Start Date End Date Jesse Humphries MD [address] [place] [id number] PCP - General 11/28/11 Kirby Pablo MD [address] [place] [phone] Cardiovascular Disease 12/09/11
--- OUTSIDE RECORDS SUMMARY | 2024-08-10 09:59 | XMS_ITS ---
Author Organization [facility] Address [address] [place] [address] Care Team Providers Care Delinquent Account Clerk Name Role Phone Jesse Humphries M.D. Primary Care Provider Dr. Jesse Klein Unavailable [phone] Mitchell Reyes Unavailable [phone] REASON FOR VISIT [facility], on tirzepatide, appetite suppression - meeting protein and water requirements. 2 week maintenance dosing, appetite suppression lasting 1.5 weeks, Desired weight loss 80 lbs: -0.4 lbs change since last visit and -74.4 lbs in total, Concerned about joint and joint-replacement - left knee surgery on 10/23/23, No history of MTC or MEN 2 Medications Medication SIG (Take, Route, Frequency, Duration) Notes Start Date End Date Status Fiber Choice 1.5 GM 2 tab(s) chewed 3 times a day for 30 day(s) Active POTASSIUM CHLORIDE (XEY-ALCM-QKK M20) 20 MEQ 1 TAB(S) ORALLY 2 TIMES A DAY for 30 DAY(S) *Please review for potential replacement for e-prescription and drug interaction check* Active sulfaSALAzine 500 MG 2 tab(s) orally 2 times a day for 30 day(s) Active Losartan Potassium 50 MG 1 tab(s) orally once a day for 30 day(s) Active Sertraline HCl 50 MG 1 tab(s) orally once a day for 30 day(s) Active Vital Signs Height 73 in 06/24/2024 Weight 234.6 lbs 06/24/2024 BMI 30.95 kg/m2 06/24/2024 Encounters Encounter Location Date Provider Diagnosis [facility] [place] ([address]) [address] [place] [address] 06/24/2024 Mitchell Reyes Morbid (severe) obesity due to excess calories E66.01 Assessments Encounter Date Diagnosis (ICD Code) Assessment Notes Treatment Notes Treatment Clinical Notes Section Notes 06/24/2024 Morbid (severe) obesity due to excess calories (ICD-10 - E66.01) Plan Of Treatment Next Appt Details Follow Up: 2 Weeks, Reason: GLP-1 Analogue Administration Procedure Notes * Category Sub-Category Detail Notes [facility] Management tirzepatide Indication: main tenance (keep weight off) Concentration: 10mg/5mg/500mcg (tirzepat nelson, glycine, B12) free upgrade Volume Administered: 0.65 mL Dose Administered: 6.5 mg Route: SQ Location: Left abdomen Frequency: weekly Lot Number/Expiration: Medication Source: Nutraceutical Comp ounding Adverse Reaction: None Progress Notes * Jesse CROOK SrDOB:1949 (74 yo M)Acc No.[id number]:06/24/2024 Weight Loss Patient: Chu THOMPSON Jesse Sr Provider: Aruna Reyes MD :1950 A ge:74 Y S ex:Male Date:06/24/2024 Address:[address] [place], [place] [id number] Pcp:Jesse Humphries M.D. Subjective: * Chief Complaints: * 1 . [facility], on tirzepatide, appetite suppression - meeting protein and water requirements. 2 week maintenance dosing, appetite suppression lasting 1.5 weeks. 2. Desired weight loss 80 lbs: -0.4 lbs change since last visit and -74.4 lbs in total. 3. Concerned about joint and joint-replacement - left knee surgery on 10/23/23. 4. No history of MTC or MEN 2. * Medical History: * Medications: T aking Fiber Choice 1.5 GM Tablet Chewable 2 tab(s) chewed 3 times a day , Taking sulfaSALAzine 500 MG Tablet Delayed Release 2 tab(s) orally 2 times a day , Taking POTASSIUM CHLORIDE (CKL-RRBE-DPT M20) 20 MEQ TABLET, EXTENDED RELEASE 1 TAB(S) ORALLY 2 TIMES A DAY , Notes to Pharmacist: *Please review for potential replacement for e-prescription and drug interaction check*, Taking Sertraline HCl 50 MG Tablet 1 tab(s) orally once a day , Taking Losartan Potassium 50 MG Tablet 1 tab(s) orally once a day Objective: * Vitals: H t: 73 in, Wt: 234.6 lbs, BMI:30.95Index. Assessment: * Assessment: 1. M orbid (severe) obesity due to excess calories - E66.01 (Primary) Plan: * Treatment: * Procedures: [facility]: Weight Management: tirzepatide I ndication m aintenance (keep weight off) C oncentration 1 0mg/5mg/500mcg (tirzepatide, glycine, B12) free upgrade V olume Administered 0 .65 mL D ose Administered 6 .5 mg R oute S Q L ocation L eft abdomen F requency w eekly L ot Number/Expiration 0 -2024 M edication Source A H Nutraceutical Compounding A dverse Reaction N one * Follow Up: 2 Weeks (Reason: GLP-1 Analogue Administration) * Billing Information: * Visit Code: * Procedure Codes: 81041 [facility] - Weekly (tirzepatide) Tier 2. * Electronic signature of Julissa Reyes MD, FAAAAI on 08/10/2024 at 09:59 AM BEEF RIBBER Sign off status: Pending * Provider: Aruna Reyes MD Date: 0 06/24/2024 Generated for Philly villatoro/Justin/eTvangiesmitting on: 0 08/10/2024 09:59 AM BEEF RIBBER
--- OUTSIDE RECORDS SUMMARY | 2024-08-10 09:59 | XMS_ITS | Referral Summary ---
Author Organization [facility] [address] Address [address] [place] [address] Care Team Providers Care Business Performance Analyst Name Role Phone Jesse Humphries MD Primary Care Provider +1 -[phone] Allergies Active Allergy Reactions Criticality Noted Date [...] on file Legal Sex Male 12:01 PM SENIOR FIELD ENGINEER Gender Identity Not on file Sexual Orientation Not on file Last Filed Vital Signs Vital Sign Reading Time Taken Comments Blood Pressure 118/74 07/18/2020 12:05 PM SENIOR FIELD ENGINEER Pulse 78 07/18/2020 12:05 PM SENIOR FIELD ENGINEER Temperature - - Respiratory Rate - - Oxygen Saturation 95% 07/18/2020 12:05 PM SENIOR FIELD ENGINEER Inhaled Oxygen Concentration - - Weight 137 kg (302 lb) 07/18/2020 12:05 PM SENIOR FIELD ENGINEER Height 190.5 cm (6' 3 ) 07/18/2020 12:05 PM SENIOR FIELD ENGINEER Body Mass Index 37.75 07/18/2020 12:05 PM SENIOR FIELD ENGINEER Plan of Treatment Not on file Insurance MEDICARE AET SENIOR SUPPLEMENT Care Teams Business Performance Analyst Relationship Specialty Start Date End Date Jesse Humphries MD PCP - General Family Medicine 07/12/20
== END 2024-08-10 09:13 | disposition home or self-care (01) ==
LOC: ANHIMG 09:14
PROVIDERS: PCP Family Medicine; Visit Provider Nurse Practitioner Family
DX: R19.5 Other fecal abnormalities (principal); R10.30 Lower abdominal pain, unspecified
CPT/HCPCS: 74177; Q9967

== ENCOUNTER 2024-08-19 10:22 | Outpatient (CLI) | payer MEDICARE, SELFPAY ==
--- OUTSIDE RECORDS SUMMARY | 2024-08-19 11:55 | XMS_ITS | Clinical Summary ---
Author Organization [facility] Address [address] [place] [address] Care Team Providers Care Fitter Machinist Name Role Phone Jesse Humphries MD Primary Care Provider +1- [phone] Allergies Active Allergy Reactions Criticality Noted Date [...] 71 11/21/2022 7:06 PM CDT Temperature 36.3 C (97.3 F) 11/21/2022 7:06 PM CDT Respiratory Rate 18 11/21/2022 7:06 PM CDT [...] this topic Medical Devices Implanted Type Area Parts Remover Device Identifier Shelf Expiration Date Model / Serial / Lot Iol Cristian [id number] - [id number] Implanted:Qty: 1 on 02/01/2019 by Jesse Bower MD at [facility] [employer] 07/16/2021 [id number] / [id number] / Iol Cristian Au00t0 - [id number] Implanted:Qty: 1 on 03/01/2019 by Jesse Bower MD at [facility] [employer] 09/13/2021 [id number] / [id number] / Insurance MEDICARE [facility] [address] Care Teams Fitter Machinist Relationship Specialty Start Date End Date Jesse Humphries MD PCP - General FAMILY PRACTICE 02/01/19
--- OUTSIDE RECORDS SUMMARY | 2024-08-19 11:55 | XMS_ITS | Clinical Summary ---
Author Organization [facility] [address] Address [address] [place] [address] Care Team Providers Care Surgical Elastic Knitter Name Role Phone Jesse Humphries MD Primary Care Provider +1 -[phone] Allergies Active Allergy Reactions Criticality Noted Date [...] on file Legal Sex Male 12:01 PM SQL ARCHITECT Gender Identity Not on file Sexual Orientation Not on file Obstetrics History Last Filed Vital Signs Vital Sign Reading Time Taken Comments Blood Pressure 118/74 07/18/2020 12:05 PM SQL ARCHITECT Pulse 78 07/18/2020 12:05 PM SQL ARCHITECT Temperature - - Respiratory Rate - - Oxygen Saturation 95% 07/18/2020 12:05 PM SQL ARCHITECT Inhaled Oxygen Concentration - - Weight 137 kg (302 lb) 07/18/2020 12:05 PM SQL ARCHITECT Height 190.5 cm (6' 3 ) 07/18/2020 12:05 PM SQL ARCHITECT Body Mass Index 37.75 07/18/2020 12:05 PM SQL ARCHITECT Plan of Treatment Not on file Insurance MEDICARE AET SENIOR SUPPLEMENT Care Teams Surgical Elastic Knitter Relationship Specialty Start Date End Date Jesse Humphries MD PCP - General Family Medicine 07/12/20
--- OUTSIDE RECORDS SUMMARY | 2024-08-19 11:55 | XMS_ITS | Referral Summary ---
Author Organization [facility] [place] [address] Address [address] [place] [address] Care Team Providers Care Filler Mixer Name Role Phone Jesse Humphries MD Primary Care Provider +1 -[phone] Allergies Active Allergy Reactions Criticality Noted Date [...] on file Legal Sex Male 12:01 PM TELEPHONE INSTALLER Gender Identity Not on file Sexual Orientation Not on file Last Filed Vital Signs Vital Sign Reading Time Taken Comments Blood Pressure 118/74 07/18/2020 12:05 PM TELEPHONE INSTALLER Pulse 78 07/18/2020 12:05 PM TELEPHONE INSTALLER Temperature - - Respiratory Rate - - Oxygen Saturation 95% 07/18/2020 12:05 PM TELEPHONE INSTALLER Inhaled Oxygen Concentration - - Weight 137 kg (302 lb) 07/18/2020 12:05 PM TELEPHONE INSTALLER Height 190.5 cm (6' 3 ) 07/18/2020 12:05 PM TELEPHONE INSTALLER Body Mass Index 37.75 07/18/2020 12:05 PM TELEPHONE INSTALLER Plan of Treatment Not on file Insurance MEDICARE AET SENIOR SUPPLEMENT Care Teams Filler Mixer Relationship Specialty Start Date End Date Jesse Humphries MD PCP - General Family Medicine 07/12/20
--- OUTSIDE RECORDS SUMMARY | 2024-08-19 11:55 | XMS_ITS | Clinical Summary ---
Author Organization [facility] Address [address] [facility] [place] [address] Care Team Providers Care Dairy Equipment Installer Name Role Phone Jesse Humphries MD Primary Care Provider +1- [phone] Kirby Pablo MD Unavailable Unavailable Source Comments [facility],non-owned Affiliates and Associated Physician Practices is amultiple site organization consisting of ambulatory clinics and hospital sitesin [place], [place], [place] and [place]. This disclosure is being madepursuant to the Care Everywhere program and may not contain all information available regarding this patient. Last updated 18.[facility] [employer] Allergies Active Allergy Reactions Criticality Noted Date [...] once daily. 30 Cap 1 12/11/2011 Active G-Nlaiztwobpai-X2-B12 (FOLTX) 1.13-25-2 MG TABS TAKE ONE TABLET [...] age to complete this topic Care Teams Dairy Equipment Installer Relationship Specialty Start Date End Date Jesse Humphries MD [address] [place] [phone] PCP - General 11/28/11 Kirby Pablo MD [address] [place] [phone] Cardiovascular Disease 12/09/11
--- OUTSIDE RECORDS SUMMARY | 2024-08-19 11:55 | XMS_ITS ---
Author Organization [facility] Address [address] [place] [address] Care Team Providers Care Asphalt Spreader Name Role Phone Jesse Humphries M.D. Primary Care Provider Dr. Jesse Klein Unavailable [phone] Mitchell Reyes Unavailable [phone] REASON FOR VISIT [facility], [...] Start Date End Date Status POTASSIUM CHLORIDE (EUN-DZHB-YJE M20) 20 MEQ 1 TAB(S) ORALLY 2 [...] Provider Diagnosis [facility] [place] ([address]) [address] [place] [address] 07/13/2024 Mitchell Reyes Morbid (severe) obesity due [...] * CROOKJesse CARRENO SrDOB:1949 (74 yo M)Acc No.[id number]:07/13/2024 Weight Loss Patient: Jesse ORTIZ Sr Provider: Aruna Reyes MD :1950 A ge:74 Y S ex:Male Date:07/13/2024 Address:[address] [place], [place] [id number] Pcp:Jesse Humphries M.D. Subjective: * Chief Complaints: [...] times a day , Taking POTASSIUM CHLORIDE (XAV-KCKB-EQC M20) 20 MEQ TABLET, EXTENDED RELEASE 1 [...] Information: * Visit Code: * Procedure Codes: 83913 [facility] - Weekly (tirzepatide) Tier 2. * Electronic signature of Patmehul Reyes MD, FAAAAI on 08/19/2024 at 11:55 AM BRAIDING OPERATOR Sign off status: Pending * Provider: Aruna Reyes MD Date: 0 07/13/2024 Generated for Javieri irving/Justin/Lynnitting on: 0 08/19/2024 11:55 AM BRAIDING OPERATOR
--- OUTSIDE RECORDS SUMMARY | 2024-08-19 11:55 | XMS_ITS | Patient Health Summary ---
Author Organization [facility] Address [address] [place] [address] Care Team Providers Care Dietary Tech Name Role Phone Jesse Humphries MD Primary Care Provider +1- [phone] Kirby Pablo MD Unavailable Unavailable Note from [facility],non-owned Affiliates and Associated Physician Practices is amultiple site organization consisting of ambulatory clinics and hospital sitesin [place], [place], [place] and [place]. This disclosure is being madepursuant to the Care Everywhere program and may not contain all information available regarding this patient. Last updated 18.[facility] Allergies * Meperidine(Nausea and/or Vomiting,Fever) * [...] mouth once daily. 1 refill left * Z-Iugtavmmlmgm-V0-B12 (FOLTX) 1.13-25-2 MG TABS(Started 03/18/2014) TAKE ONE [...] MD - 07/16/2011 10:25 AM CST [facility] Pulmonary Function Test [facility] PULMONARY FUNCTION TEST REPORT PATIENT: JESSE FISCHER EMR#: [id number] ADMIT DATE: 07/15/2011CCT#: [id number] DATE OF PROCEDURE: 07/15/2011DOB: 1950 PHYSICIAN: Yesi [...] bronchodilators is 4.45L. Yesi Charles MD MOP/MedQ #:[id number] Yesi Charles MD - 07/16/2011 10:30 AM CST [facility] Pulmonary Function Test [facility] PULMONARY FUNCTION TEST REPORT PATIENT: JESSE FISCHER EMR#: [id number] ADMIT DATE: 07/15/2011CCT#: [id number] DATE OF PROCEDURE: 07/15/2011DOB: 1950 PHYSICIAN: Yesi [...] pulmonary function test. Yesi Charles MD MOP/MedQ #:[id number] cc:Yesi Charles MD Yesi Charles MD PFT ORDERABLES [facility] MEDQUIST * POLYSOMNOGRAPHY (07/14/2011) Yesi Charles MD [facility] ORDERAB LES * CULTURE FUNGUS SKIN HAIR NAILS (07/11/2011 9:54 AM MOUNTAIN SERVICES MANAGER) Culture Dermatophyte Only [facility] INSURANCE BILL Comment:No yeast or mold iso lated after 4 weeks. Miscellaneous samples (specimen) NAIL SPECIMEN / Unknown 07/11/2011 9:54 AM MOUNTAIN SERVICES MANAGER 07/12/2011 10:05 PM MOUNTAIN SERVICES MANAGER Narrative Resulting Agency Comment [facility] [phone] Catherine Moreno DPM LAB - MICROBIOLOGY O RDERABLES Performing Organization Address City/[facility] [address]/[facility] Co de Phone Number [facility] INSURANCE BILL * NERVE CONDUCTION TEST (07/11/2011) Catherine Moreno DPM NEUROLOGY ORDERABLES Performing Organization Address [facility] [address]/[facility] Co de Phone Number [facility] RESULT SCAN * EMG (07/11/2011) Catherine Moreno DPM NEUROLOGY ORDERABLES Performing Organization Address [facility] [address]/[facility] Co de Phone Number [facility] RESULT SCAN * TSH HI LOW REFLEX T4 (PO REF LAB) (05/18/2011 8:02 AM MOUNTAIN SERVICES MANAGER) TSH 3.700 0.450 - 4.500 uIU/mL [facility] INSURANCE BILL BLOOD SPECIMEN / Unknown 05/18/2011 8:02 AM MOUNTAIN SERVICES MANAGER 05/18/2011 1:14 PM MOUNTAIN SERVICES MANAGER Narrative Resulting Agency Comment [place] [id number] [facility] [phone] Darien Contreras MD LAB - CHEMISTRY RICARDO CANO Performing Organization Address [facility] [address]/[facility] de Phone Number [facility] INSURANCE BILL * HEMOGLOBIN A1C (05/18/2011 8:02 AM MOUNTAIN SERVICES MANAGER) Hemoglobin A1c 5.1 4.8 - 5.6 % [facility] INSURANCE BILL Comment: . Increased risk for diabetes: 5.7 - 6.4 Diabetes: >6.4 Glycemic control for adults with diabetes: <7.0 Blood specimen (specimen) BLOOD SPECIMEN / Unknown 05/18/2011 8:02 AM MOUNTAIN SERVICES MANAGER 05/18/2011 1:14 PM MOUNTAIN SERVICES MANAGER Narrative Resulting Agency Comment [place] [id number] [facility] [phone] Darien Contreras MD LAB - CHEMISTRY RICARDO CANO Performing Organization Address [facility] [address]/[facility] Co de Phone Number [facility] INSURANCE BILL * (ABNORMAL) COMPREHENSIVE METABOLIC PANEL (05/18/2011 8:02 AM MOUNTAIN SERVICES MANAGER) Glucose 115(H) 65 - 99 mg/dL [facility] [...] BLOOD SPECIMEN / Unknown 05/18/2011 8:02 AM MOUNTAIN SERVICES MANAGER 05/18/2011 1:14 PM MOUNTAIN SERVICES MANAGER Narrative Resulting Agency Comment [facility] [place] [id number] [facility] [phone] Darien Contreras MD LAB - CHEMISTRY RICARDO CANO [facility] INSURANCE BILL * PROSTATE SPECIFIC ANTIGEN SCREEN (05/18/2011 8:02 AM MOUNTAIN SERVICES MANAGER) PSA 0.4 0.0 - 4.0 ng/mL [facility] INSURANCE BILL Comment: Stanislav ECLIA methodology. . According to the [employer], Serum PSA should decrease and [...] BLOOD SPECIMEN / Unknown 05/18/2011 8:02 AM MOUNTAIN SERVICES MANAGER 05/18/2011 1:14 PM MOUNTAIN SERVICES MANAGER Narrative Resulting Agency Comment [place] [phone] [facility] [phone] Darien Contreras MD LAB - CHEMISTRY RICARDO CANO Performing Organization Address [facility] de Phone Number [facility] INSURANCE BILL * (ABNORMAL) LIPID PROFILE (05/18/2011 8:02 AM MOUNTAIN SERVICES MANAGER) Cholesterol 188 100 - 199 mg/dL [facility] [...] BLOOD SPECIMEN / Unknown 05/18/2011 8:02 AM MOUNTAIN SERVICES MANAGER 05/18/2011 1:14 PM MOUNTAIN SERVICES MANAGER Narrative Resulting Agency Comment [facility] [address] [facility] [phone] Darien Contreras MD LAB - CHEMISTRY RICARDO CANO Performing Organization Address [facility] de Phone Number [facility] INSURANCE BILL * XR CHEST PA AND LATERAL (05/17/2011 11:23 AM MOUNTAIN SERVICES MANAGER) Anatomical Region Laterality Modality Chest Radiographic Joyce ging 05/17/2011 11:4 1 AM MOUNTAIN SERVICES MANAGER Impressions 05/17/2011 11:41 AM MOUNTAIN SERVICES MANAGER No acute cardiopulmonary disease. Narrative 05/17/2011 11:41 AM MOUNTAIN SERVICES MANAGER Two views chest Indication: Shortness of breath [...] disease. Darien Contreras MD DIAGNOSTIC IMAGING O [facility] Care Teams Dietary Tech Relationship Specialty Start Date End Date Jesse Humphries MD [address] [place] [phone] PCP - General 11/28/11 Kirby Pablo MD [address] [place] [phone] Cardiovascular Disease 12/09/11
--- OUTSIDE RECORDS SUMMARY | 2024-08-19 11:55 | XMS_ITS ---
Author Organization [facility] Address [address] [place] [address] Care Team Providers Care Snowsport Instructor Name Role Phone Jesse Humphries M.D. Primary Care Provider Dr. Jesse Klein Unavailable [phone] Mitchell Reyes [phone] REASON FOR VISIT [facility], [...] Provider Diagnosis [facility] [place] ([address]) [address] [place] [address] 08/10/2024 Mitchell Reyes Morbid (severe) obesity due [...] * Jesse CROOK SrDOB:1949 (74 yo M)Acc No.[id number]:08/10/2024 Weight Loss Patient: Jesse ORTIZ Sr Provider: Aruna Reyes MD :1950 A ge:74 Y S ex:Male Date:08/10/2024 Address:[address] [place], [place] [id number] Pcp:Jesse Humphries M.D. Subjective: * Chief Complaints: [...] Information: * Visit Code: * Procedure Codes: 52345 [facility] - Weekly (tirzepatide) Tier 2. * Electronic signature of Julissa Reyes MD, FAAAAI on 08/19/2024 at 11:54 AM ENVELOPE MACHINE ADJUSTER Sign off status: Pending * Provider: Aruna Reyes MD Date: 0 08/10/2024 Generated for Javieri irving/Justin/eTransmitting on: 0 08/19/2024 11:54 AM ENVELOPE MACHINE ADJUSTER
--- OUTSIDE RECORDS SUMMARY | 2024-08-19 11:55 | XMS_ITS | CONTINUITY OF CARE DOCUMENT ---
Author Name helen cervantes Address Unknown Organization [facility] Address [address] [place] [address] Phone [phone] Care Team Providers Care Investigator Name Role Phone helen cervantes Unavailable Unavailable
--- OUTSIDE RECORDS SUMMARY | 2024-08-19 11:55 | XMS_ITS ---
Author Organization [facility] Address [address] [place] [address] Care Team Providers Care Company Truck Driver Name Role Phone Jesse Humphries M.D. Primary Care Provider Dr. Jesse Klein Unavailable [phone] Mitchell Reyes Unavailable [phone] REASON FOR VISIT [facility], [...] day for 30 day(s) Active POTASSIUM CHLORIDE (OJH-DBUT-BHL M20) 20 MEQ 1 TAB(S) ORALLY 2 [...] Provider Diagnosis [facility] [place] ([address]) [address] [place] [address] 06/24/2024 Mitchell Reyes Morbid (severe) obesity due [...] * Jesse CROOK SrDOB:1949 (74 yo M)Acc No.[id number]:06/24/2024 Weight Loss Patient: Chu THOMPSON Jesse Sr Provider: Aruna Reyes MD :1950 A ge:74 Y S ex:Male Date:06/24/2024 Address:[address] [place], [place] [id number] Pcp:Jesse Humphries M.D. Subjective: * Chief Complaints: [...] times a day , Taking POTASSIUM CHLORIDE (HAA-ULSG-MHM M20) 20 MEQ TABLET, EXTENDED RELEASE 1 [...] Information: * Visit Code: * Procedure Codes: 84182 [facility] - Weekly (tirzepatide) Tier 2. * Electronic signature of Julissa Reyes MD, FAAAAI on 08/19/2024 at 11:55 AM RADAR SCIENTIST Sign off status: Pending * Provider: Aruna Reyes MD Date: 0 06/24/2024 Generated for Philly villatoro/Jusitn/eTvangiesmitting on: 0 08/19/2024 11:55 AM RADAR SCIENTIST
--- OUTSIDE RECORDS SUMMARY | 2024-08-19 11:55 | XMS_ITS | Referral Summary ---
Author Organization [facility] Address [address] [place] [address] Care Team Providers Care Glazier Supervisor Name Role Phone Jesse Humphries MD Primary Care Provider +1- [phone] Kirby Pablo MD Unavailable Unavailable Source Comments [facility],non-owned Affiliates and Associated Physician Practices is amultiple site organization consisting of ambulatory clinics and hospital sitesin [place], [place], [place] and [place]. This disclosure is being madepursuant to the Care Everywhere program and may not contain all information available regarding this patient. Last updated 18.[facility] Allergies Active Allergy Reactions Criticality Noted Date [...] once daily. 30 Cap 1 12/11/2011 Active E-Cgxezquvnzyn-L3-B12 (FOLTX) 1.13-25-2 MG TABS TAKE ONE TABLET [...] of Treatment Not on file Care Teams Glazier Supervisor Relationship Specialty Start Date End Date Jesse Humphries MD [facility] [place] [address] PCP - General 11/28/11 Kirby Pablo MD [facility] [place] [address] Cardiovascular Disease 12/09/11
[2024-08-19 12:40] LABS: Basophils Percent Auto 0.4 % (0.2-1.2); Eosinophils Absolute Auto 0.1 K/mm3 (0-0.3); Eosinophils Percent Auto 1.3 % (0-4.4); Hematocrit 39.5 % (42.0-52.0); Hemoglobin 12.8 g/dL (14.0-18.0); Immature Granulocyte Absolute 0.05 K/mm3 (0.00-0.031); Immature Granulocyte Percent A 0.7 % (0-0.5); Lymphocytes Absolute Auto 3.07 K/mm3 (0.9-3.2); Lymphocytes Percent Auto 40.9 % (18.3-44.2); Mean Corpuscular HGB Conc 32.4 g/dl (32-36); Mean Corpuscular Hemoglobin 31.1 pg (26-34); Mean Corpuscular Volume 96.1 fl (80-100); Mean Platelet Volume 10.1 fl (7.4-10.4); Monocytes Absolute Auto 0.6 K/mm3 (0.1-0.6); Monocytes Percent Auto 8.4 % (2.6-8.5); Neutrophils Absolute Auto 3.6 K/mm3 (1.3-6.7); Neutrophils Percent Auto 48.3 % (45.5-73.1); Platelet Count Result 171 k/mm3 (150-375); Red Blood Count 4.11 M/mm3 (4.6-6.20); Red Cell Distribution Width 16.3 % (11.5-14.5); White Blood Count 7.5 K/mm3 (4.5-10.0)
[2024-08-19 13:46] LABS: Alanine Aminotransferase 21 U/L (6-50); Albumin Level 4.6 g/dL (3.5-5.1); Alkaline Phosphatase 67 U/L (38-126); Anion Gap 10 mmol/L (4-12); Aspartate Amino Transferase 44 U/L (17-59); Bilirubin,Total 1.2 mg/dL (0.2-1.3); Blood Urea Nitrogen 25 mg/dL (9-20); Calcium 9.2 mg/dL (8.4-10.2); Carbon Dioxide 27 mmol/L (22-30); Chloride 104 mmol/L (98-107); Cholesterol 135 mg/dL (0-200); Estimated Glomerular Filt Rate > 60; Glucose 95 mg/dL (65-110); HDL Direct 36 mg/dL; Potassium 3.5 mmol/L (3.4-5.0); Sodium 141 mmol/L (137-145); Triglycerides 234 mg/dL (<150)
[2024-08-19 13:57] LABS: LDL Cholesterol Direct 62 mg/dL
[2024-08-19 14:24] LABS: Prostate Specific Antigen 0.5 ng/mL (< OR = 4.0)
== END 2024-08-19 10:23 | disposition home or self-care (01) ==
PROVIDERS: Nurse Practitioner Family; PCP Family Medicine; Visit Provider Nurse Practitioner Family
DX: K21.9 Gastro-esophageal reflux disease without esophagitis (principal); D69.6 Thrombocytopenia, unspecified; R45.1 Restlessness and agitation; R73.03 Prediabetes; E78.2 Mixed hyperlipidemia; I10 Essential (primary) hypertension; R19.7 Diarrhea, unspecified; Z12.5 Encounter for screening for malignant neoplasm of prostate
CPT/HCPCS: 36415; 80053; 80061; 82784; 84153; 84443; 85025; 86364; G0103

== ENCOUNTER 2024-10-04 00:22 | Day surgery (SDC) | payer MEDICARE, SELFPAY ==
[2024-09-27 15:54] VITALS: BMI 29.7
--- OUTSIDE RECORDS SUMMARY | 2024-10-04 00:27 | XMS_ITS | Clinical Summary ---
Author Organization [facility] [address] Address [address] [place] [address] Care Team Providers Care Project Facilitator Name Role Phone Jesse Humphries MD Primary Care Provider [phone] -[phone] Allergies Active Allergy Reactions Criticality Noted Date [...] on file Legal Sex Male 12:01 PM OFFICER LIEUTENANT Gender Identity Not on file Sexual Orientation Not on file Obstetrics History Last Filed Vital Signs Vital Sign Reading Time Taken Comments Blood Pressure 118/74 07/18/2020 12:05 PM OFFICER LIEUTENANT Pulse 78 07/18/2020 12:05 PM OFFICER LIEUTENANT Temperature - - Respiratory Rate - - Oxygen Saturation 95% 07/18/2020 12:05 PM OFFICER LIEUTENANT Inhaled Oxygen Concentration - - Weight 137 kg (302 lb) 07/18/2020 12:05 PM OFFICER LIEUTENANT Height 190.5 cm (6' 3 ) 07/18/2020 12:05 PM OFFICER LIEUTENANT Body Mass Index 37.75 07/18/2020 12:05 PM OFFICER LIEUTENANT Plan of Treatment Not on file Insurance MEDICARE AET SENIOR SUPPLEMENT Care Teams Project Facilitator Relationship Specialty Start Date End Date Jesse Humphries MD PCP - General Family Medicine 07/12/20
--- OUTSIDE RECORDS SUMMARY | 2024-10-04 00:27 | XMS_ITS | Clinical Summary ---
Author Organization [facility] Address [address] [place] [address] Care Team Providers Care Fish And Wildlife Warden Name Role Phone Jesse Humphries MD Primary Care Provider +1- [phone] Allergies Active Allergy Reactions Criticality Noted Date [...] mg total) by mouth daily. Active Immunizations Immunization Administration Dates Next Due MODERNA COVID-19 (12+) [...] Td Vaccines ( 1 - Tdap) 1969 Pneumococcal Vaccine: 50+ Years (1 of 1 - PCV) 2000 Zoster Vaccines (1 of 2) 2000 Annual Medicare Wellness Visit 2015 COVID-19 Vaccine (3 - 2023-2 5 season) 2024 08/18/2020, 07/21/2020 RSV Immunization or 60+ Years (1 - [...] this topic Medical Devices Implanted Type Area Veneer Taping Machine Operator Device Identifier Shelf Expiration Date Model / Serial / Lot Iol Cristian [id number] - [id number] Implanted:Qty: 1 on 02/01/2019 by Jesse Bower MD at [facility] [employer] 07/16/2021 [id number] / [id number] / Iol Cristian Au00t0 - [id number] Implanted:Qty: 1 on 03/01/2019 by Jesse Bower MD at [facility] [employer] 09/13/2021 [id number] / [id number] / Insurance MEDICARE AETNA [address] Care Teams Fish And Wildlife Warden Relationship Specialty Start Date End Date Jesse Humphries MD PCP - General FAMILY PRACTICE 02/01/19
--- OUTSIDE RECORDS SUMMARY | 2024-10-04 00:27 | XMS_ITS | Data Portability ---
Author Organization [place] [facility] [place] [employer], Main Office Address [address] [place] [address] Care Team Providers Care Key Cutter Name Role Phone JESSE HUMPHRIES Primary Care Provider JESSE HUMPHRIES Referring Provider [phone] Assessment Encounter Date Assessment Date Assessment LastModified [...] treatment patient more than half of this ayvi-vz-xagm conversation tiffanie Not available 10/30/2022 11:43:10 06/04/2023 06/04/2023 Impression: 1. 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 Patient wants to proceed with left total knee replacement. He has episodes of severe pain when he feels his knee lubna and pain is in his knee. X-rays do show sycd-ls-oydy medial compartment osteoarthritis. 2. Patient shows evidence [...] than half of this time spent in sggb-le-dkcs care. Not available 06/09/2023 17:05:10 Plan of Treatment Reminders Order Date Submit Date Provider Last Modified By Organization Details Last Modified Time Details Appointments None recorded. Lab None recorded. Referral None recorded. Procedures injection/a spiration joint/bursa (PROC) - in office procedure, administere d by provider 2022 023 [email or web address] In-Office Order, Internal Use Only DO Not Attach Compendium DO Not Attach Compendium, Do Not Delete/merge, [address] 3 09:13:17 Surgeries None recorded. Imaging XR, knee 2022 023 [email or web address] [facility] [place], [address], [place], [address], 3 15:20:42 XR, lumbar spine 2022 023 [facility] [place], [address], [place], [address], 3 10:30:52 XR, pelvis, 1 or 2 view 2022 023 [facility] [place], [address], [place], [address], 3 10:30:52 Medication Orders meloxicam 15 mg tablet 2022 023 [facility]armacy #6930, [address] [place], [address], 3 13:06:36 Medrol (Bakari) 4 mg tablets in a dose pack [address]/Pharmacy #6930, [address] [place], [address], 3 08:39:01 Kenalog 10 mg/mL suspension for injection 2022 023 [address] [place], [address], 3 08:38:58 ropivacaine (PF) 5 mg/mL (0.5 %) injection solution 2022 023 [address] [place], [address], 3 08:39:07 Patient TargetsNo targets recorded. Patient InstructionsNo instructions recorded. Reason for Referral None Reported. Results Created Date Observation Date Name Description Value Unit Range Abnormal Flag Note LastModifiedBy Organization Detail LastModifiedTime 05/24/20 22 05/24/2022 XR, knee No observ ation record ed. [id number] [facility] [place] [address], [place], [address], 08/14/2022 20:56:07 10/31/19 23 XR, lumba r spine No observ ation record ed. [email or web address] [facility] [place] [address], [place], [address], 10/30/2022 11:36:10 10/31/19 23 XR, pelvi s, 1 or 2 view No observ ation record ed. [email or web address] [facility] [place] [address], [place], [address], 10/30/2022 11:35:38 11/02/19 23 11/01/2022 MRI, lumba r spine , w/o contr ast No observ ation record ed. [email or web address] [facility] [address], [place], [address], 11/01/2022 13:43:43 06/04/20 XR, knee No observ ation record ed. [facility] [place] [address], [place], [address], 06/09/2023 16:45:42 Result Notes None recorded. Problems Name Problem SNOMED Code Status Onset Date Resolution Date Notes Provider Name and Address Organization Details Recorded Time Knee joint effusion 159083685 Active Not Available [facility] 3 13:05:20 Current knee cartilage tear Active Not Available [facility] 3 13:05:20 Knee pain Active Not Available [facility] 3 13:05:20 Osteoarthr itis 797077851 Active Not Available [facility] 3 13:05:20 Osteoarthr itis of left knee joint 9506602158929 09 Active 2022 Not Available [facility] 3 13:05:20 Low back pain 675463271 Active 2022 Not Available [facility] 3 13:05:20 Lumbar spondylosi s 582249346 Active 2022 Not Available [facility] 3 13:05:20 Problem Notes None recorded. Procedures Surgical History Date Name Laterality Status Provider Name and Address Organization Details Recorded Time Knee Surgery completed Not Available [facility] 08/14/2022 20:54:46 Imaging Results Imaging Date Name Status LastModified by Organiz ation Details LastModified Time 05/24/2022 XR, knee completed [id number] 30 026 [facility] [place] [address], [place], [address], 08/14/2022 20:56:07 10/30/2022 XR, lumbar spine completed [email or web address] [facility] [place] [address], [place], [address], 10/30/2022 11:36:10 10/30/2022 XR, pelvis, 1 or 2 view completed [email or web address] [facility] [place] [address], [place], [address], 10/30/2022 11:35:38 11/01/2022 MRI, lumbar spine, w/o contrast completed [address], [place], [address], 11/01/2022 13:43:43 06/04/2023 XR, knee completed [facility] [place] [address], [place], [address], 06/09/2023 16:45:42 Procedure Notes None recorded. Medical Equipment None Reported. Allergies Allergen ID Allergen Name Allergen Category Reaction Reaction Severity Criticality Documentation Date Start Date Code Code System Note Provider Name and Address Organization Details Recorded Time 73565 Lamictal medicatio n Not available Not available Not available 08/14/2022 70203 2 RxNorm Not Available [facility] 3 20:56:05 36625 Demerol medicatio n Not available Not available Not available 08/14/2022 60104 1 RxNorm Not Available [facility] 3 20:56:05 Medications Name Sig Start Date [...] office by the doctor 04/04 completed NDC: [id number] 001 Not Available Not Available Not Available [...] Updated DateTime 05/03/2022 40.1 kg/m2 185.42 cm 225571.08 g Not Available [facility] 08/14/2022 20:54:50 Date Recorded Body height Provider Name an d Address Organization Details Last Updated DateTime 05/24/2022 185.42 cm Not Available [facility] 20:54:50 Date Recorded Body height Provider Name an d Address Organization Details Last Updated DateTime 08/02/2022 185.42 cm Not Available [facility] 20:54:50 Date Recorded Body height Body mass index (BMI) Body weight Provider Name and Address Organization Details Last Updated DateTime 10/30/2022 187.96 cm 38.9 kg/m2 393775.49 g Ryann Rayo [facility] 10/30/2022 09:16:10 Date Recorded Body height Body mass index (BMI) Body weight Provider Name and Address Organization Details Last Updated DateTime 06/04/2023 187.96 cm 35.7 kg/m2 533289.68 g Ryann Rayo [facility] 06/04/2023 08:55:03 Social History Question Answer Notes LastModified by Organizat ion Details LastModified Time Tobacco Smoking Status Never Smoker Not Available [facility] 08/14/2022 20:54:35 What Is Your Level Of Alcohol Consumption? None [id number] 26 Information not available 08/14/2022 What Was The Date Of Your Most Recent Tobacco Screening? 10/04/2020 MIGRATION.[id number] 26 Information not available 08/14/2022 Sex: Unknown Functional Status None recorded. Mental Status None recorded. Family History Relationship Description Onset Age of this Age Resolved Age Notes LastModified by Organization Details LastModified Time Father Heart disease MIGRATION.710 [id number] Not available 08/14/2022 20:54:46 Mother Heart disease MIGRATION.105 [id number] Not available 08/14/2022 20:54:46 Mother Family history of malignant neoplasm MIGRATION.127 [id number] Not available 08/14/2022 20:54:46 Mother Hypertensive disorder MIGRATION.879 [id number] Not available 08/14/2022 20:54:46 Father Diabetes mellitus [...] HAVE YOU BEEN HOSPITALIZED OR SEEN IN [facility] IN THE PAST YEAR ? [...] SNOMED-CT Code Diagnosis ICD10 Code Diagnosis Note [id number] [facility] [place] [address] [place] [address] 09/11/2020 00:00:00 09/11/2020 17:58:27 [id number] [facility] [place] [address] [place] [address] 10/04/2020 00:00:00 10/04/2020 08:56:43 [id number] [facility] [place] [address] [place] [address] 01/03/2021 00:00:00 01/03/2021 09:30:03 [id number] [facility] [place] [address] [place] [address] 02/21/2021 00:00:00 02/21/2021 10:39:42 [id number] [facility] [place] [address] [place] [address] 04/04/2021 00:00:00 04/15/2021 18:16:25 [id number] [facility] [place] [address] [place] [address] 06/04/2021 00:00:00 06/04/2021 16:30:56 [id number] [facility] [place] [address] [place] [address] 06/20/2021 00:00:00 06/20/2021 14:36:09 [id number] [facility] [place] [address] [place] [address] 07/04/2021 00:00:00 07/04/2021 09:42:54 [id number] [facility] [place] [address] [place] [address] 10/26/2021 00:00:00 10/26/2021 09:30:16 [id number] [facility] [place] [address] [place] [address] 02/01/2022 00:00:00 02/01/2022 09:18:24 [id number] [facility] [place] [address] [place] [address] 05/03/2022 00:00:00 05/03/2022 09:13:59 [id number] [facility] [place] [address] [place] [address] 05/24/2022 00:00:00 06/02/2022 19:23:35 [id number] [facility] [place] [address] [place] [address] 08/02/2022 00:00:00 08/02/2022 09:09:00 [id number] ANEESH Ty [facility] [place] [address] [place] [address] 10/30/2022 08:43:29 10/30/2022 11:46:12 Osteoarthritis of left knee joint 7432922917 29578 M17.12 Low back pain 406413900 M54.50 [id number] Nimesh Bernal MD [facility] [place] [address] [place] [address] 06/04/2023 08:34:38 06/11/2023 15:20:42 Osteoarthritis of left knee joint 7660918864 83821 M17.12 Health Concerns Section Related Observation LastModified by Organization Detai ls LastModified Time None Recorded Concern Status LastModified by Organization Details LastModified Time None Recorded Advance Directives Directive None Recorded Payers Encounter Date Sequence Insurance Name Policy Number Policy Velasquez Covered Member ID Velasquez Member ID Guarantor Name 10/30/2022 1 [place] Jesse Crook [id number] Jesse Crook 10/30/2022 2 [employer] (MEDICARE SUPPLEMENT) Jesse Crook [id number] Jesse Crook 06/04/2023 1 [place] Jesse Crook [id number] Jesse Crook 06/04/2023 2 [employer] (MEDICARE SUPPLEMENT) Jesse Crook [id number] Jesse Crook Notes Date Note Type Note [...] X-rays today of the left knee demonstrate tuwy-qb-ynzx medial compartment osteoarthritis On the PA flexion [...] worked well for him. Nimesh Bernal MD [address] [place] [address], [facility] [address], [place], [address], [place] [facility] 06/09/2023 17:05:25
--- OUTSIDE RECORDS SUMMARY | 2024-10-04 00:27 | XMS_ITS | Clinical Summary ---
Author Organization [facility] Address [address] [facility] [place] [address] Care Team Providers Care Car Top Bolter Name Role Phone Jesse Humphries MD Primary Care Provider [phone] Kirby Pablo MD Unavailable Unavailable Source Comments [facility],non-owned Affiliates and Associated Physician Practices is amultiple site organization consisting of ambulatory clinics and hospital sitesin [place], [place], [place] and [place]. This disclosure is being madepursuant to the Care Everywhere program and may not contain all information available regarding this patient. Last updated 18.[facility] Allergies Active Allergy Reactions Criticality Noted Date Comments Meperidine Nausea and/or Vomiting,Fever 011 Lomotil Nausea and/or Vomiting,Fever 011 Medications * Be aware that medications may not be up to date on this document. Alwaysverify current medications with the patient. FLUoxetine (PROZAC) 20 MG capsule once daily. [...] 50 mg by mouth once daily. Active hydrochlorothiaz nelson (MICROZIDE) 12.5 MG capsule Take 1 Cap by mouth once daily. 30 Cap 1 12/11/2011 Active F-Fsnbiiierbxe-C 6-B12 (FOLTX) 1.13-25-2 MG TABS TAKE ONE TABLET BY MOUTH ONCE DAILY 90 Tab 2 03/18/2014 Active Active Problems Problem Noted Date Diagnosed Date Elevated triglycerides with high cholesterol 09/2011 Other chest pain 12/09/2011 Other dyspnea and respiratory abnormality 2011 Mitral stenosis with insufficiency 12/09/2011 Obesity 09/09/2011 MARYANN (obstructive sleep apnea) 09/09/2011 HTN (hypertension) 05/17/2011 Peripheral neuropathy 05/17/2011 Immunizations Immunization Administration Dates Next Due INFLUENZA VACCINE, TRIV. 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 Gender Identity Not on file Sexual Orientation [...] VACCINE (1 - 2023-2 5 season) 2024 DEPRESSION SCREENING 06/16/2024 INFLUENZA VACCINE (Season Ended) 2025 03/24/2013, 05/22/2011 Respiratory Syncytial Virus (RSV) Vaccine Pt: or [...] complete this topic MENINGOCOCCAL (Group B) VACCINE SHARED DECISION-MAKING Aged Out No longer eligible based on patient's age to complete this topic MENINGOCOCCAL GROUPS A/C/Y/W VACCINE Aged Out No longer eligible b ased on patient's age to complete this topic Insurance MEDICARE AETNA [facility] MEDICARE MEDICARE Care Teams Car Top Bolter Relationship Specialty Start Date End Date Jesse Humphries MD [address] [place] [address] PCP - General 11/28/11 Kirby Pablo MD [address] [place] [address] Cardiovascular Disease 12/09/11
--- OUTSIDE RECORDS SUMMARY | 2024-10-04 00:27 | XMS_ITS | Referral Summary ---
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 Gender Identity Not on file Sexual Orientation Not on file Last Filed Vital Signs Vital Sign Reading Time Taken Comments Blood Pressure 118/74 07/18/2020 12:05 PM CABLE INSPECTOR Pulse 78 07/18/2020 12:05 PM CABLE INSPECTOR Temperature - - Respiratory Rate - - Oxygen Saturation 95% 07/18/2020 12:05 PM CABLE INSPECTOR Inhaled Oxygen Concentration - - Weight 137 kg (302 lb) 07/18/2020 12:05 PM CABLE INSPECTOR Height 190.5 cm (6' 3 ) 07/18/2020 12:05 PM CABLE INSPECTOR Body Mass Index 37.75 07/18/2020 12:05 PM CABLE INSPECTOR Plan of Treatment Not on file Insurance MEDICARE AET SENIOR SUPPLEMENT Care Teams Market Research Manager Relationship Specialty Start Date End Date Jesse Humphries MD PCP - General Family Medicine 07/12/20
--- OUTSIDE RECORDS SUMMARY | 2024-10-04 00:27 | XMS_ITS | CONTINUITY OF CARE DOCUMENT ---
Author Name helen cervantes Address Unknown Organization [facility] Address [address] [place] [address] Phone [phone] Care Team Providers Care Binder Stripper Machine Name Role Phone helen cervantes Unavailable Unavailable
[2024-10-04 09:55] VITALS: BP 120/73; PULSE 72; RESP 16; TEMP 35.8; O2SAT 97; BMI 29.4
[2024-10-04] MEDS: LACTATED RINGERS 1,000 ML 150 ML IV CONT (10:23)
--- NOTE | 2024-10-04 10:40 | WPDANESEPPF ---
Anes - Initial Pre Proc Eval Procedure: Operation Date: 10/04/24 11:15 Proposed Procedures p Esophagogastroduodenoscopy & Colonoscopy - Ramiro Mathews MD Date/Time: 10/04/24 10:40 Surgeon: Ramiro Mathews MD Pre Op Diagnosis: Gastro-esophageal reflux disease without esophagit Patient Data Age: 74 Gender: M Height: 1.88 m Weight: 103.9 kg Last Vital Signs Temp 35.8 C L 10/04/24 09:55 Pulse 72 10/04/24 09:55 Resp 16 10/04/24 09:55 BP 120/73 10/04/24 09:55 Pulse Ox 97 10/04/24 09:55 O2 Del Method Room Air 10/04/24 09:55 Allergies Allergy/AdvReac Type Severity Reaction Status Date / Time atropine AdvReac Mild NAUSEA AND Verified 10/04/24 10:07 VOMITING diphenoxylate AdvReac Mild Fever & Verified 10/04/24 10:07 VOMITING meperidine AdvReac Mild SEVERE Verified 10/04/24 10:07 NAUSEA AND VOMITING Home Medications ?Medication ?Instructions ?Recorded ?Confirmed ?Type melatonin 10 mg capsule 10 mg PO QHS 02/06/22 10/04/24 History CPAP #1 ea 12/19/22 09/10/24 Rx CPAP #1 ea 10/15/23 09/10/24 Rx losartan 50 mg tablet 50 mg PO QAM #90 tabs 11/24/23 10/04/24 Rx msppbv-tiyrwxow-beqleej 2 cap PO .ac #300 caps 08/06/24 10/04/24 Rx 36,000-114,000-180,000 unit capsule,delay rel (Creon) sertraline 100 mg tablet See Rx Instructions .Route 08/23/24 10/04/24 Rx .COMPLEX #135 tabs cyanocobalamin (vitamin B-12) 1,000 mcg PO DAILY 08/25/24 10/04/24 History 1,000 mcg capsule budesonide 3 mg See Rx Instructions .Route 09/02/24 10/04/24 Rx capsule,delayed,extended release .COMPLEX #270 caps hydrocortisone 2.5 % topical cream 1 applic RECTAL BID PRN 09/07/24 10/04/24 Rx with perineal applicator hemorrhoids #30 grams (Anusol-HC) potassium chloride 20 mEq See Rx Instructions .Route 09/13/24 10/04/24 Rx tablet,extended release .COMPLEX #90 tabs acetaminophen 500 mg tablet 1,000 mg PO Q6H PRN pain 09/27/24 10/04/24 History Patient hx anesthesia problems: none Family hx anesthesia problems: none Results Review: All pre-operative results and documents have been reviewed as part of the pre-operative evaluation. [facility] Past Medical History Medical History Anxiety Primary osteoarthritis of left knee Melanoma MARYANN (obstructive sleep apnea) Microscopic colitis Osteoarthritis of knees, bilateral Postoperative anemia Essential hypertension Burroughs palsy Many years ago History of colon polyps Mixed hyperlipidemia Prediabetes Obesity (BMI 30-39.9) Psychomotor agitation Dysesthesia Surgical History Surgical History H/O hemorrhoidectomy 07/16/24 Excisional hemorrhoidectomy x3 Banding of internal hemorrhoid x1 Transanal excisional distal rectal polypectomy. Dr. Mccauley History of total left knee replacement 2023 Gabe History of right knee joint replacement 2020- Dr Bernal History of bilateral mastectomy Benign History of cataract surgery History of cholecystectomy Family History Family History Father Hypertension Family history of cardiovascular disease Carcinoma of colon Mother Hypertension Family history of cardiovascular disease Carcinoma of colon Sibling Hypertension Family history of cardiovascular disease Social History Social History Social History: Patient does not drink, smoke or do drugs. 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 He would like to be a full code. His power of clinical informatics educator is his partner, Bryan. Smoking status: Never smoker Second hand tobacco smoke exposure: No Additional smoking assessment comments: DENIES ANY FORM OF TOBACCO USE Alcohol intake: never Substance use: never Substance use type: does not use Do You Feel Safe in your Home?: Yes Lack of Transportation: No Lack of Food: Never True Current Housing: I Have Housing Concerned About Future Housing: No Difficulty Paying Gas/Electric Bills: No Difficulty Paying for Meds: No Currently Unemployed: No Education: High School Diploma/GED Difficulty w/ Childcare or Family Care: No Living arrangements: with family Additional living arrangements comments: partner Brayn Occupation/Education: retired Gender identity (if verbalized by the patient): Male Sexual Orientation (if Verbalized by the Patient): Lesbian, Singleton, or Homosexual Spiritual care concerns: No Anes - Eval Final PreProcedure Day of Procedure 10/04/24 10:40 Patient weight: overweight Heart: regular rate and rhythm Lungs: clear to auscultation Airway: Mallampati scale class II Neurological: alert and oriented Last oral intake: >/= 8 hours ASA classification: III Emergent: no Anesthetic plan: proceed Anesthesia type and monitoring: general GIVS and standard monitoring Results Review: All pre-operative results and documents have been reviewed as part of the pre-operative evaluation. Informed Consent: The patient's anesthetic plan and its attendant risks and benefits were discussed with the patient/family/POA. Questions were solicited and answers provided to the satisfaction of the patient/family/POA.
--- NOTE | 2024-10-04 11:26 | SUR.OPER ---
EGD ended at 1124, colon began at 1128.
[2024-10-04 11:52] VITALS: BP 102/73; PULSE 66; RESP 19; O2SAT 100
--- NOTE | 2024-10-04 11:54 | WPDHPUPDATE1 ---
History and Physical Update Update Date/Time: 10/04/24 11:54 History and Physical has been reviewed, including an updated exam of the patient. There are NO changes in the patient's condition. Risks, benefits, and alternatives have been discussed and questions answered. Patient agrees to proceed with procedure.
[2024-10-04 12:02] VITALS: BP 120/76; PULSE 63; RESP 20; O2SAT 100
[2024-10-04 12:12] VITALS: BP 123/71; PULSE 60; RESP 17; O2SAT 100
--- NOTE | 2024-10-04 13:25 | SUR.PHASEII ---
educated patient's family member at bedside about patients diagnosis following procedure, patient was asleep at this time. Before going over discharge instructions with patient, family member stated knows how he is and doesn't want to tell him while he's here and wants to tell him at home. Offered to family member to get to come address diagnosis and recommendations with the patient and family member continued to decline. Educated patient and family member on discharge instructions and given the physicians number to reach for any concerns or questions. Charge nurse was made aware and will be made sure to educate patient during follow up call.
== END 2024-10-04 12:34 | disposition home or self-care (01) ==
PROVIDERS: PCP Family Medicine; Visit Provider Internal Medicine Gastroenterology
PROC: 0DJ08ZZ Inspection of Upper Intestinal Tract, Via Natural or Artificial Opening Endoscopic (ICD-10-PCS; CPT 45378; principal; 2024-10-04 11:15)
DX: R19.7 Diarrhea, unspecified (principal); K57.10 Diverticulosis of small intestine without perforation or abscess without bleeding; K62.89 Other specified diseases of anus and rectum; D17.5 Benign lipomatous neoplasm of intra-abdominal organs; D12.4 Benign neoplasm of descending colon; D12.2 Benign neoplasm of ascending colon; D12.0 Benign neoplasm of cecum; D12.3 Benign neoplasm of transverse colon; K21.9 Gastro-esophageal reflux disease without esophagitis; I10 Essential (primary) hypertension; E78.2 Mixed hyperlipidemia; R73.03 Prediabetes; F41.9 Anxiety disorder, unspecified; R15.9 Full incontinence of feces; M17.0 Bilateral primary osteoarthritis of knee; G47.33 Obstructive sleep apnea (adult) (pediatric); D64.89 Other specified anemias; R45.1 Restlessness and agitation; R20.8 Other disturbances of skin sensation; Z99.89 Dependence on other enabling machines and devices; Z98.890 Other specified postprocedural states; Z90.49 Acquired absence of other specified parts of digestive tract; Z86.0100 Personal history of colon polyps, unspecified; Z85.820 Personal history of malignant melanoma of skin; Z80.0 Family history of malignant neoplasm of digestive organs; Z82.49 Family history of ischemic heart disease and other diseases of the circulatory system
CPT/HCPCS: 45380; 45385; 43239; 88305; J2003; J2704; J7120

== ENCOUNTER 2024-10-28 11:40 | Outpatient (CLI) | payer MEDICARE, SELFPAY ==
--- OUTSIDE RECORDS SUMMARY | 2024-10-28 11:48 | XMS_ITS ---
Author Organization [facility] [place] ([address]) Address [address] [place] [address] Care Team Providers Care Environmental Auditor Name Role Phone Jesse Humphries M.D. Primary Care Provider Yazmin Dr. Jesse Bardales Unavailable [phone] Mitchell Reyes [phone] REASON FOR VISIT [facility], [...] 2 Encounters Encounter Location Date Provider Diagnosis [facility] [place] ([address]) [address] [place] [phone] 08/10/2024 Mitchell Reyes Morbid (severe) obesity due [...] * Jesse CROOK SrDOB:1949 (74 yo M)Acc No.[id number]:08/10/2024 Weight Loss Patient: Jesse ORTIZ Sr Provider: Aruna Reyes MD :1950 A ge:74 Y S ex:Male Date:08/10/2024 Address:[address] [place], [place] [id number] Pcp:Jesse Humphries M.D. Subjective: * Chief Complaints: [...] Information: * Visit Code: * Procedure Codes: 27375 [facility] - Weekly (tirzepatide) Tier 2. * Electronic signature of Julissa Reyes MD, FAAAAI on 10/28/2024 at 11:48 AM CDT Sign off status: Pending * Provider: Aruna Reyes MD Date: 0 08/10/2024 Generated for Printi ng/Faelizabetg/eTransmitting on: 0 10/28/2024 11:48 AM CDT
--- OUTSIDE RECORDS SUMMARY | 2024-10-28 11:48 | XMS_ITS | Data Portability ---
Author Organization [place] [facility] [employer] Main Office Address [address] [place] [address] Care Team Providers Care Potato Chip Processing Supervisor Name Role Phone NAI HUMPHRIES Primary Care Provider NAI HUMPHRIES Referring Provider Assessment Encounter Date Assessment [...] treatment patient more than half of this dzir-lq-caqg conversation tiffanie Not available 10/30/2022 11:43:10 06/04/2023 06/04/2023 Impression: 1. 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 Patient wants to proceed with left total knee replacement. He has episodes of severe pain when he feels his knee lubna and pain is in his knee. X-rays do show cmwc-rb-zmhq medial compartment osteoarthritis. 2. Patient shows evidence [...] than half of this time spent in xdsl-xx-kzyu care. Not available 06/09/2023 17:05:10 Plan of Treatment Reminders Order Date Submit Date Provider Last Modified By Organization Details Last Modified Time Details Appointments None recorded. Lab None recorded. Referral None recorded. Procedures injection/a spiration joint/bursa (PROC) - in office procedure, administere d by provider 2022 023 [email or web address] In-Office Order, Internal Use Only DO Not Attach Compendium DO Not Attach Compendium, Do Not Delete/merge, [id number] 3 09:13:17 Surgeries None recorded. Imaging XR, knee 2022 023 [facility] [place], [address], [place], [address], 3 15:20:42 XR, lumbar spine 2022 023 [facility] [place], [address], [place], [address], 3 10:30:52 XR, pelvis, 1 or 2 view 2022 023 [facility] [place], [address], [place], [address], 3 10:30:52 Medication Orders meloxicam 15 mg tablet 2022 023 [facility]6930, [address] [place], [address], 3 13:06:36 Medrol (Bakari) 4 mg tablets in a dose pack [address]/Pharmacy #6930, [address] [place], [address], 3 08:39:01 Kenalog 10 mg/mL suspension for injection 2022 023 [address] [place], [address], 3 08:38:58 ropivacaine (PF) 5 mg/mL (0.5 %) injection solution 2022 023 [address], [address] [place], [address], 3 08:39:07 Patient TargetsNo targets recorded. Patient InstructionsNo instructions recorded. Reason for Referral None Reported. Results Created Date Observation Date Name Description Value Unit Range Abnormal Flag Note LastModifiedBy Organization Detail LastModifiedTime 05/24/20 22 05/24/2022 XR, knee No observ ation record ed. [id number] [facility] [place] [address], [place], [address], 08/14/2022 20:56:07 10/31/19 23 XR, lumba r spine No observ ation record ed. [email or web address] [facility] [place] [address], [place], [address], 10/30/2022 11:36:10 10/31/19 23 XR, pelvi s, 1 or 2 view No observ ation record ed. [email or web address] [facility] [place] [address], [place], [address], 10/30/2022 11:35:38 11/02/19 23 11/01/2022 MRI, lumba r spine , w/o contr ast No observ ation record ed. [email or web address] [facility] [address], [place], [address], 11/01/2022 13:43:43 06/04/20 XR, knee No observ ation record ed. [facility] [place] [address], [place], [address], 06/09/2023 16:45:42 Result Notes None recorded. Problems Name Problem SNOMED Code Status Onset Date Resolution Date Notes Provider Name and Address Organization Details Recorded Time Knee joint effusion 697718797 Active Not Available [facility] 3 13:05:20 Current knee cartilage tear Active Not Available [facility] 3 13:05:20 Knee pain Active Not Available [facility] 3 13:05:20 Osteoarthr itis 346397035 Active Not Available [facility] 3 13:05:20 Osteoarthr itis of left knee joint 6547477253399 09 Active 2022 Not Available [facility] 3 13:05:20 Low back pain 353766210 Active 2022 Not Available [facility] 3 13:05:20 Lumbar spondylosi s 712937582 Active 2022 Not Available [facility] 3 13:05:20 Problem Notes None recorded. Procedures Surgical History Date Name Laterality Status Provider Name and Address Organization Details Recorded Time Knee Surgery completed Not Available [facility] 08/14/2022 20:54:46 Imaging Results Imaging Date Name Status LastModified by Organiz ation Details LastModified Time 05/24/2022 XR, knee completed [id number] 026 [facility] [place] [address], [place], [address], 08/14/2022 20:56:07 10/30/2022 XR, lumbar spine completed [email or web address] [facility] [place] [address], [place], [address], 10/30/2022 11:36:10 10/30/2022 XR, pelvis, 1 or 2 view completed [email or web address] [facility] [place] [address], [place], [address], 10/30/2022 11:35:38 11/01/2022 MRI, lumbar spine, w/o contrast completed [address], [place], [address], 11/01/2022 13:43:43 06/04/2023 XR, knee completed [facility] [place] [address], [place], [address], 06/09/2023 16:45:42 Procedure Notes None recorded. Medical Equipment None Reported. Allergies Allergen ID Allergen Name Allergen Category Reaction Reaction Severity Criticality Documentation Date Start Date Code Code System Note Provider Name and Address Organization Details Recorded Time 36031 Lamictal medicatio n Not available Not available Not available 08/14/2022 61260 2 RxNorm Not Available [facility] 3 20:56:05 80388 Demerol medicatio n Not available Not available Not available 08/14/2022 63665 1 RxNorm Not Available [facility] 3 20:56:05 Medications Name Sig Start Date [...] office by the doctor 04/04 completed NDC: [id number] 001 Not Available Not Available Not Available [...] Updated DateTime 05/03/2022 40.1 kg/m2 185.42 cm 166825.08 g Not Available [facility] 08/14/2022 20:54:50 Date Recorded Body height Provider Name an d Address Organization Details Last Updated DateTime 05/24/2022 185.42 cm Not Available [facility] 20:54:50 Date Recorded Body height Provider Name an d Address Organization Details Last Updated DateTime 08/02/2022 185.42 cm Not Available [facility] 20:54:50 Date Recorded Body height Body mass index (BMI) Body weight Provider Name and Address Organization Details Last Updated DateTime 10/30/2022 187.96 cm 38.9 kg/m2 597199.49 g Ryann Rayo [facility] 10/30/2022 09:16:10 Date Recorded Body height Body mass index (BMI) Body weight Provider Name and Address Organization Details Last Updated DateTime 06/04/2023 187.96 cm 35.7 kg/m2 058466.68 g Ryann Rayo [facility] 06/04/2023 08:55:03 Social History Question Answer Notes LastModified by Sabre Details LastModified Time Tobacco Smoking Status Never Smoker Not Available [facility] 08/14/2022 20:54:35 What Was The Date Of Your Most Recent Tobacco Screening? 10/04/2020 [id number] Information not available 08/14/2022 Sex: Unknown Functional Status Question Answer Note LastModified by Sabre Details LastModified Time What is your level of alcohol consumption? None [id number] Information not available 08/14/2022 Mental Status None recorded. Family History Relationship Description Onset Age of this Age Resolved Age Notes LastModified by Organization Details LastModified Time Father Heart disease [id number] [id number] Not available 08/14/2022 20:54:46 Mother Heart disease [id number].453 [id number] Not available 08/14/2022 20:54:46 Mother Family history of malignant neoplasm [id number].373 [id number] Not available 08/14/2022 20:54:46 Mother Hypertensive disorder MIGRATION.026 [id number] Not available 08/14/2022 20:54:46 Father Diabetes mellitus [email or web address] Not available 2022 09:11:04 Medical History Condition Response BLINDNESS N KIDNEY STONES N CARPAL TUNNEL SYNDROME N MRSA N LUNG DISEASE/DISORDER N HISTORY OF DRUG ABUSE N RADIATION / CHEMOTHERAPY N COPD N SPORTS INJURY N ANKLE PAIN N BLOOD DISEASES N SCHIZOPHRENIA N SHINGLES N BOWEL PROBLEMS N SHOULDER PAIN N DEPRESSION (INCLUDING POST ) N STROKE/TIA N KNEE PAIN N ULCERS N BENIGN PROSTATIC HYPERPLASIA N OBESITY N GERD/NAUSEA N ANEURYSM N URINARY/BLADDER/KIDNEY PROBLEMS N CORONARY ARTERY DISEASE (CAD) N ADDICTION CONCERNS N USE OF BLOOD THINNERS N SKIN PROBLEMS N EMPHYSEMA N MUSCLE,JOINT OR BONE PROBLEMS N DVT N STOMACH ULCERS N BLOOD CLOTS N USE OF NSAIDS N CONCUSSION OR SPINAL TRAUMA N NEUROPATHY N AIDS/HIV N FRACTURES N ELBOW PAIN N HYPERTENSION Y TOURETTE'S N ANXIETY DISORDER N Metal allergy N BLOOD TRANSFUSION N ANEMIA/BLOOD DISORDER N BIPOLAR DISORDER N BRONCHITIS N OSTEOARTHRITIS N TUBERCULOSIS N FOOT PROBLEM N HEART VALVE DISORDERS N ALLERGIES/HAYFEVER N SOFT TISSUE INJURY N INFECTIOUS DISEASE N HEART ARRHYTHMIA N INSOMNIA N RHEUMATOID ARTHRITIS N HIGH CHOLESTEROL / HYPERLIPIDEMIA N EDEMA N CHRONIC PAIN SYNDROME N CAROTID BLOCKAGE N BACK / NECK PROBLEMS N HAVE YOU BEEN HOSPITALIZED OR SEEN IN [facility] IN THE PAST YEAR ? N BURSITIS N HERNIATED DISC N DIALYSIS N FIBROMYALGIA N OSTEOPOROSIS N ARTHRITIS Y NO SIGNIFICANT PAST MEDICAL HISTORY N PERIPHERAL NEUROPATHY N DIABETES, TYPE N HEARTBURN / REFLUX N HEPATITIS / LIVER DISEASE N GOUT N SLEEP DISORDER N ALZHEIMER'S DISEASE N HERPES N SEIZURES/EPILEPSY N HEADACHES/MIGRAINES N VASCULAR DISEASE N HIP PAIN N Blood Disorder N DIZZINESS N HEAD TRAUMA OR INJURY N HEART DISEASE/HEART PROBLEMS N MULTIPLE SCLEROSIS N CARDIAC ARRHYTHMIA N CANCER: SPECIFY N ANESTHESIA COMPLICATIONS N ATRIAL FIBRILLATION N AUTOIMMUNE DISEASE N Past Encounters Encounter ID Performer Location Encounter Start Date Encounter Closed Date Diagnosis/Indication Diagnosis SNOMED-CT Code Diagnosis ICD10 Code Diagnosis Note [id number] Nimesh Bernal MD [facility] [place] [place] [facility] [place] [address] [place] [address] 09/11/2020 00:00:00 09/11/2020 17:58:27 [id number] ANEESH Ty [facility] [place] [place] [facility] [place] [address] [place] [address] 10/04/2020 00:00:00 10/04/2020 08:56:43 [id number] Nimesh Bernal MD [facility] [place] [address] [place] [address] 01/03/2021 00:00:00 01/03/2021 09:30:03 [id number] MD XIAO [facility] [place] [address] [place] [address] 02/21/2021 00:00:00 02/21/2021 10:39:42 [id number] MD [facility]IA[facility] [place] [address] [place] [address] 04/04/2021 00:00:00 04/15/2021 18:16:25 [id number] MD [facility]IAO [facility] [place] [address] [place] [address] 06/04/2021 00:00:00 06/04/2021 16:30:56 [id number] MD XIAO [facility] [place] [address] [place] [address] 06/20/2021 00:00:00 06/20/2021 14:36:09 [id number] MD MARLEN [facility] [place] [address] [place] [address] 07/04/2021 00:00:00 07/04/2021 09:42:54 [id number] Nimesh Bernal MD [facility] [place] [address] [place] [address] 10/26/2021 00:00:00 10/26/2021 09:30:16 [id number] MD [facility]IA[facility] [place] [address] [place] [address] 02/01/2022 00:00:00 02/01/2022 09:18:24 [id number] MD [facility]IA[facility] [place] [address] [place] [address] 05/03/2022 00:00:00 05/03/2022 09:13:59 [id number] Nimesh Bernal MD [facility] [place] [address] [place], [place] [address] 05/24/2022 00:00:00 06/02/2022 19:23:35 [id number] Nimesh Bernal MD [facility] [place] [address] [place], [place] [address] 08/02/2022 00:00:00 08/02/2022 09:09:00 [id number] Nimesh Bernal MD [facility] [place] [facility] [place] [address] [place], [place] [address] 10/30/2022 08:43:29 10/30/2022 11:46:12 Osteoarthritis of left knee joint 9644371952 02615 M17.12 Low back pain 938780007 M54.50 [id number] Nimesh Bernal MD [facility] [place] [place] [facility] [place] [address] [place], [place] [address] 06/04/2023 08:34:38 06/11/2023 15:20:42 Osteoarthritis of left knee joint 0460831805 26120 M17.12 Health Concerns Section Related Observation LastModified by Organization Detai ls LastModified Time None Recorded Concern Status LastModified by Organization Details LastModified Time None Recorded Advance Directives Directive None Recorded Payers Encounter Date Sequence Insurance Name Policy Number Policy Velasquez Covered Member ID Velasquez Member ID Guarantor Name 10/30/2022 1 [place] Nai Crook [id number] Nai Crook 10/30/2022 2 [employer] INSURANCE SHADOW (MEDICARE SUPPLEMENT) Nai Crook [id number] Nai Crook 06/04/2023 1 [place] Nai Crook [id number] Nai Crook 06/04/2023 2 [employer] [facility] [employer] INSURANCE SHADOW (MEDICARE SUPPLEMENT) Nai Crook [id number] Nai Crook Notes Date Note Type Note Provider [...] X-rays today of the left knee demonstrate bxwd-hm-vsnt medial compartment osteoarthritis On the PA flexion [...] worked well for him. Nimesh Bernal MD [address] [place] [address], [place] [address], [place], [address], [facility] [employer] 06/09/2023 17:05:25
--- OUTSIDE RECORDS SUMMARY | 2024-10-28 11:49 | XMS_ITS | Patient Health Record ---
Author Organization [facility] [employer] [place] ([address]) Address [address] [place] [address] Care Team Providers Care Police Academy Program Coordinator Name Role Phone Jesse Humphries M.D. Primary Care Provider Yazmin Dr. Jesse Bardales Unavailable [phone] Mitchell Reyes Unavailable [phone] [employer], Provider Unavailable Unavailab le Allergies Allergen (clinical drug ingredient) Drug/Non Drug Allergy documented on EMR Reaction Allergy Type Onset Date Status meperidine Demerol vomiting Drug Allergy Active atropine / diphenoxylate Lomotil vomiting Drug Allergy Active Reason For Referral No Information Medications Medication SIG (Take, Route, Frequency, Duration) Notes Start Date End Date Status POTASSIUM CHLORIDE (FRF-HPEZ-HOP M20) 20 MEQ 1 TAB(S) ORALLY 2 [...] Status Risk Notes Problem Morbid obesity (disorder) (235231820) Morbid (severe) obesity due to excess calories (E66.01) Active confirmed Problem Chronic migraine without aura, non-refractory (disorder) (494277771955303) Migraine without aura, not intractable, without status migrainosus (G43.009) Active confirmed Problem Migraine with aura (6209946) Migraine with aura, not intractable, without status migrainosus (G43.109) Active confirmed Problem Chronic migraine without aura, non-intractable (165307440971367) Chronic migraine without aura, not intractable, without status migrainosus (G43.709) Active confirmed Problem Polyneuropathy (58086968) Polyneuropathy, unspecified (G62.9) Active confirmed Problem Degeneration of lumbar intervertebral disc (80368994) Other intervertebral disc degeneration, lumbar region (M51.36) Active confirmed Problem Lumbosacral radiculopathy (9474222) Radiculopathy, lumbosacral region (M54.17) Active confirmed Vital Signs Height 73 in 07/13/2024 Weight 234.8 lbs 07/13/2024 BMI 30.97 kg/m2 07/13/2024 Encounters Encounter Location Date Provider Diagnosis [facility] [place] ([address]) [address] [place] [address] 11/03/2023 Mitchell Reyes Morbid (severe) obesity due to excess calories E66.01 [facility] [place] ([address]) [address] [place] [address] 11/17/2023 Mitchell Reyes Morbid (severe) obesity due to excess calories E66.[address] [facility] [address] 11/29/2023 Provider [facility] [place] ([address]) [address] [place] [address] 12/01/2023 Mitchell Reyes Morbid (severe) obesity due to excess calories E66.01 [facility] [place] ([address]) [address] [place] [address] 12/15/2023 Mitchell Win Morbid (severe) obesity due to excess calories E66.01 [facility] [place] ([address]) [address] [place] [address] 01/12/2024 Mitchell Win Morbid (severe) obesity due to excess calories E66.01 [facility] [place] ([address]) [address] [place] [address] 01/26/2024 Mitchell Win Morbid (severe) obesity due to excess calories E66.01 [facility] [place] ([address]) [address] [place] [address] 02/09/2024 Mitchell Win Morbid (severe) obesity due to excess calories E66.01 [facility] [place] ([address]) [address] [place] [address] 03/01/2024 Mitchell Win Morbid (severe) obesity due to excess calories E66.01 [facility] [place] ([address]) [address] [place] [address] 03/22/2024 Mitchell Win Morbid (severe) obesity due to excess calories E66.01 [facility] [place] ([address]) [address] [place] [address] 03/22/2024 Mitchell Win [facility] [place] ([address]) [address] [place] [address] 03/23/2024 Mitchell Win Morbid (severe) obesity due to excess calories E66.01 [facility] [place] ([address]) [address] [place] [address] 04/13/2024 Mitchell Win Morbid (severe) obesity due to excess calories E66.01 [facility] [place] ([address]) [address] [place] [address] 04/27/2024 Mitchell Win Morbid (severe) obesity due to excess calories E66.01 [facility] [place] ([address]) [address] [place] [address] 05/26/2024 Mitchell Win Morbid (severe) obesity due to excess calories E66.01 [facility] ([address]) [address] [place] [address] 06/07/2024 Mitchell Win Morbid (severe) obesity due to excess calories E66.01 [facility] [place] ([address]) [address] [place] [address] 06/24/2024 Mitchell Win [facility] ([address]) [address] [place] [address] 06/24/2024 Mitcehll Win Morbid (severe) obesity due to excess calories E66.01 [facility] ([address]) [address] [place] [address] 07/13/2024 Mitchell Win Morbid (severe) obesity due to excess calories E66.01 [facility] ([address]) [address] [place] [address] 12/29/2023 Mitchell Win Morbid (severe) obesity due to excess calories E66.01 [facility] ([address]) [address] [place] [address] 05/12/2024 Mitchell Win Morbid (severe) obesity due to excess calories E66.01 Assessments Encounter Date Diagnosis (ICD Code) Assessment Notes Treatment Notes Treatment Clinical Notes Section Notes 11/03/2023 Morbid (severe) obesity due to excess [...] Insured Coverage Start Date Coverage End Date [employer] (Medicare) Attention Claims [address] [place] [address] [phone] [id number] Jesse Crook Self - patient is the insured [employer] [address] [address] [place] [address] [phone] [id number] Jesse Crook Self - patient is the insured Medical (General) History Medical History History ICD Code Depression Hypertension 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
--- OUTSIDE RECORDS SUMMARY | 2024-10-28 11:49 | XMS_ITS | Clinical Summary ---
Author Organization [facility] Address [address] [place] [address] Care Team Providers Care Anodizer Name Role Phone Jesse Humphries MD Primary Care Provider [phone] Kirby Pablo MD Unavailable Unavailable Source Comments [facility],non-owned Affiliates and Associated Physician Practices is amultiple site organization consisting of ambulatory clinics and hospital sitesin [place], [place], [place] and [place]. This disclosure is being madepursuant to the Care Everywhere program and may not contain all information available regarding this patient. Last updated 18.[facility] [employer] Allergies Active Allergy Reactions Criticality Noted Date [...] once daily. 30 Cap 1 12/11/2011 Active V-Dofvdoswmkmm-Y 6-B12 (FOLTX) 1.13-25-2 MG TABS TAKE ONE [...] on file Legal Sex Male 12:50 PM INSTRUCTOR PHYSICAL Gender Identity Not on file Sexual Orientation [...] age to complete this topic [place] [address] [employer] MEDICARE ANTH SELF PAY NO INSURANCE Member Subscriber Plan / Payer (Ef fective for All Dates) Name:Jesse Fischer Member ID:Not on file Relation to Subscriber:Not on file Name:JESSE FISCHER Subscriber ID:Not on file (Home) Address: [address] [place] [address] Payer ID:Not on file Group ID:Not on file Type:Self Pay Address: [place], [place] MEDICARE Care Teams Anodizer Relationship Specialty Start Date End Date Jesse Humphries MD [address] [place] [address] PCP - General 11/28/11 Kirby Pablo MD [address] [place] [address] Cardiovascular Disease 12/09/11
--- OUTSIDE RECORDS SUMMARY | 2024-10-28 11:50 | XMS_ITS | Clinical Summary ---
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 Gender Identity Not on file Sexual Orientation Not on file Obstetrics History Last Filed Vital Signs Vital Sign Reading Time Taken Comments Blood Pressure 118/74 07/18/2020 12:05 PM BICYCLE COURIER Pulse 78 07/18/2020 12:05 PM BICYCLE COURIER Temperature - - Respiratory Rate - - Oxygen Saturation 95% 07/18/2020 12:05 PM BICYCLE COURIER Inhaled Oxygen Concentration - - Weight 137 kg (302 lb) 07/18/2020 12:05 PM BICYCLE COURIER Height 190.5 cm (6' 3 ) 07/18/2020 12:05 PM BICYCLE COURIER Body Mass Index 37.75 07/18/2020 12:05 PM BICYCLE COURIER Plan of Treatment Not on file Insurance MEDICARE AET SENIOR SUPPLEMENT Care Teams Printer Helper Relationship Specialty Start Date End Date Jesse Humphries MD PCP - General Family Medicine 07/12/20
--- OUTSIDE RECORDS SUMMARY | 2024-10-28 11:50 | XMS_ITS ---
Author Organization [facility] [place] ([address]) Address [address] [place] [address] Care Team Providers Care Log Roller Name Role Phone Jesse Humphries M.D. Primary Care Provider Dr. Jesse Klein Unavailable [phone] Mitchell Reyes Unavailable [phone] REASON FOR VISIT [facility], on tirzepatide, appetite suppression [...] Start Date End Date Status POTASSIUM CHLORIDE (VNE-OHVV-ITC M20) 20 MEQ 1 TAB(S) ORALLY 2 [...] Provider Diagnosis [facility] [place] ([address]) [address] [place] [address] 07/13/2024 Mitchell Reyes Morbid (severe) obesity due [...] * Jesse CROOK SrDOB:1949 (74 yo M)Acc No.[id number]:07/13/2024 Weight Loss Patient: Chu THOMPSONJesse Sr Provider: Aruna Reyes MD :1950 A ge:74 Y S ex:Male Date:07/13/2024 Address:[address] [place], [place] [id number] Pcp:Jesse Humphries M.D. Subjective: * Chief Complaints: [...] times a day , Taking POTASSIUM CHLORIDE (USH-DCAP-NHK M20) 20 MEQ TABLET, EXTENDED RELEASE 1 [...] Information: * Visit Code: * Procedure Codes: 77908 [facility] - Weekly (tirzepatide) Tier 2. * Electronic signature of Julissa Reyes MD, FAAAAI on 10/28/2024 at 11:49 AM CDT Sign off status: Pending * Provider: Aruna Reyes MD Date: 0 07/13/2024 Generated for Javieri irving/Justin/Lasha on: 0 10/28/2024 11:49 AM CDT
--- OUTSIDE RECORDS SUMMARY | 2024-10-28 11:50 | XMS_ITS | Referral Summary ---
Author Organization [facility] [address] Address [address] [place] [address] Care Team Providers Care Ground School Instructor Name Role Phone Jesse Humphries MD Primary Care Provider +1 -[phone] Allergies Active Allergy Reactions Criticality Noted Date [...] on file Legal Sex Male 12:01 PM MANAGER MATH Gender Identity Not on file Sexual Orientation Not on file Last Filed Vital Signs Vital Sign Reading Time Taken Comments Blood Pressure 118/74 07/18/2020 12:05 PM MANAGER MATH Pulse 78 07/18/2020 12:05 PM MANAGER MATH Temperature - - Respiratory Rate - - Oxygen Saturation 95% 07/18/2020 12:05 PM MANAGER MATH Inhaled Oxygen Concentration - - Weight 137 kg (302 lb) 07/18/2020 12:05 PM MANAGER MATH Height 190.5 cm (6' 3 ) 07/18/2020 12:05 PM MANAGER MATH Body Mass Index 37.75 07/18/2020 12:05 PM MANAGER MATH Plan of Treatment Not on file Insurance MEDICARE AET SENIOR SUPPLEMENT Care Teams Ground School Instructor Relationship Specialty Start Date End Date Jesse Humphries MD PCP - General Family Medicine 07/12/20
--- OUTSIDE RECORDS SUMMARY | 2024-10-28 11:50 | XMS_ITS | Clinical Summary ---
Author Organization [facility] Address [address] [place] [address] Care Team Providers Care Infant Lead Teacher Name Role Phone Jesse Humphries MD Primary Care Provider +1- [phone] Allergies Active Allergy Reactions Criticality Noted Date [...] this topic Medical Devices Implanted Type Area Green Marketing Specialist Device Identifier Shelf Expiration Date Model / Serial / Lot Iol Cristian Au00t0 - [id number] Implanted:Qty: 1 on 02/01/2019 by Jesse Bower MD at [facility] [employer] 07/16/2021 AU00T0 / [id number] / Iol Cristian Au00t0 - [id number] Implanted:Qty: 1 on 03/01/2019 by Jesse Bower MD at [facility] [employer] 09/13/2021 AU00T0 / [id number] / Insurance MEDICARE AETNA [address] Care Teams Infant Lead Teacher Relationship Specialty Start Date End Date Jesse Humphries MD PCP - General FAMILY PRACTICE 02/01/19
--- OUTSIDE RECORDS SUMMARY | 2024-10-28 11:50 | XMS_ITS ---
Author Organization [facility] [place] ([address]) Address [address] [place] [address] Care Team Providers Care Steel Die Printer Name Role Phone Jesse Humphries M.D. Primary Care Provider Dr. Jesse Klein Unavailable [phone] Mitchell Reyes Unavailable [phone] REASON FOR VISIT [facility], [...] day for 30 day(s) Active POTASSIUM CHLORIDE (RFU-XWCH-POG M20) 20 MEQ 1 TAB(S) ORALLY 2 [...] Provider Diagnosis [facility] [place] ([address]) [address] [place] [address] 06/24/2024 Mitchell Reyes Morbid (severe) obesity due [...] * Jesse CROOK SrDOB:1949 (74 yo M)Acc No.[id number]:06/24/2024 Weight Loss Patient: Chu CHAVEZJesse CARRENO Sr Provider: Aruna Reyes MD :1950 A ge:74 Y S ex:Male Date:06/24/2024 Address:[address] [place], [place] [id number] Pcp:Jesse Humphries M.D. Subjective: * Chief Complaints: [...] times a day , Taking POTASSIUM CHLORIDE (QDX-MZFQ-TUG M20) 20 MEQ TABLET, EXTENDED RELEASE 1 [...] Information: * Visit Code: * Procedure Codes: 32659 Quell - Weekly (tirzepatide) Tier 2. * Electronic signature of Julissa Reyes MD, FAAAAI on 10/28/2024 at 11:49 AM CDT Sign off status: Pending * Provider: Aruna Reyes MD Date: 0 06/24/2024 Generated for Philly villatoro/Justin/Lynnitting on: 0 10/28/2024 11:49 AM CDT
--- NOTE | 2024-10-28 12:52 | ECG_ITS ---
Test Date: 2024-10-28 13:13:05 Measurements Intervals [place] Rate: 71 P: 37 GA: 184 QRS: 15 QRSD: 115 T: 49 QT: 386 QTc: 421 Interpretive Statements SINUS RHYTHM MODERATE INTRAVENTRICULAR CONDUCTION DELAY [110+ ms QRS DURATION] ABNORMAL ECG No previous ECG available for comparison Electronically Signed On 10-29-2024 09:42:19 CDT by Venu Jasso M.D.
[2024-10-28 13:34] LABS: Hematocrit 36.7 % (42.0-52.0); Hemoglobin 12.1 g/dL (14.0-18.0)
== END 2024-10-28 11:41 | disposition home or self-care (01) ==
LOC: ANHSURGERY 11:47
PROVIDERS: Anesthesiology; PCP Family Medicine; Visit Provider Surgery
DX: Z01.818 Encounter for other preprocedural examination (principal); D12.6 Benign neoplasm of colon, unspecified; I10 Essential (primary) hypertension; R94.31 Abnormal electrocardiogram [ECG] [EKG]
CPT/HCPCS: 36415; 82784; 85014; 85018; 86703; 86850; 86900; 86901; 93005; G0432

== ENCOUNTER 2024-10-28 13:31 | Outpatient (CLI) | payer MEDICARE, SELFPAY ==
--- OUTSIDE RECORDS SUMMARY | 2024-10-28 13:34 | XMS_ITS | Clinical Summary ---
Author Organization [facility] Address [address] [place] [address] Care Team Providers Care Leasing Specialist Name Role Phone Jesse Humphries MD Primary Care Provider +1- [phone] Allergies Active Allergy Reactions Criticality Noted Date [...] this topic Medical Devices Implanted Type Area Roller Varnisher Device Identifier Shelf Expiration Date Model / Serial / Lot Iol Critsian Au00t0 - [id number] Implanted:Qty: 1 on 02/01/2019 by Jesse Bower MD at [facility] [employer] 07/16/2021 AU00T0 / [id number] / Iol Cristian Au00t0 - [id number] Implanted:Qty: 1 on 03/01/2019 by Jesse Bower MD at [facility] [employer] 09/13/2021 AU00T0 / [id number] / Insurance MEDICARE AETNA [address] Care Teams Leasing Specialist Relationship Specialty Start Date End Date Jesse Humphries MD PCP - General FAMILY PRACTICE 02/01/19
--- OUTSIDE RECORDS SUMMARY | 2024-10-28 13:34 | XMS_ITS | Clinical Summary ---
Author Organization [facility] Address [address] [place] [address] Care Team Providers Care Online Program Coordinator Name Role Phone Jesse Humphries MD Primary Care Provider +1- [phone] Kirby Pablo MD Unavailable Unavailable Source Comments [facility],non-owned Affiliates and Associated Physician Practices is amultiple site organization consisting of ambulatory clinics and hospital sitesin [place], [place], [place] and [place]. This disclosure is being madepursuant to the Care Everywhere program and may not contain all information available regarding this patient. Last updated 18.[facility] [place] Allergies Active Allergy Reactions Criticality Noted Date [...] once daily. 30 Cap 1 12/11/2011 Active S-Yirhgbzgwprf-E 6-B12 (FOLTX) 1.13-25-2 MG TABS TAKE ONE [...] on file Legal Sex Male 12:50 PM GIS APPLICATION DEVELOPER Gender Identity Not on file Sexual Orientation [...] age to complete this [place] [address] AETNA C[employer] MEDICARE ANTH SELF PAY NO INSURANCE Member Subscriber Plan / Payer (Ef fective for All Dates) Name:Jesse Fischer Member ID:Not on file Relation to Subscriber:Not on file Name:JESSE FISCHER Subscriber ID:Not on file (Home) Address: [address] [place] [address] Payer ID:Not on file Group ID:Not on file Type:Self Pay Address: [place], [place] MEDICARE Care Teams Online Program Coordinator Relationship Specialty Start Date End Date Jesse Humphries MD [address] [place] [address] PCP - General 11/28/11 Kirby Pablo MD [address] [place] [address] Cardiovascular Disease 12/09/11
--- OUTSIDE RECORDS SUMMARY | 2024-10-28 13:34 | XMS_ITS | Clinical Summary ---
Author Organization [facility] [address] Address [address] [place] [address] Care Team Providers Care Marketing Analytics Analyst Name Role Phone Jesse Humphries MD Primary Care Provider +1 -[phone] Allergies Active Allergy Reactions Criticality Noted Date [...] on file Legal Sex Male 12:01 PM ADMITTED ATTORNEYS Gender Identity Not on file Sexual Orientation Not on file Obstetrics History Last Filed Vital Signs Vital Sign Reading Time Taken Comments Blood Pressure 118/74 07/18/2020 12:05 PM ADMITTED ATTORNEYS Pulse 78 07/18/2020 12:05 PM ADMITTED ATTORNEYS Temperature - - Respiratory Rate - - Oxygen Saturation 95% 07/18/2020 12:05 PM ADMITTED ATTORNEYS Inhaled Oxygen Concentration - - Weight 137 kg (302 lb) 07/18/2020 12:05 PM ADMITTED ATTORNEYS Height 190.5 cm (6' 3 ) 07/18/2020 12:05 PM ADMITTED ATTORNEYS Body Mass Index 37.75 07/18/2020 12:05 PM ADMITTED ATTORNEYS Plan of Treatment Not on file Insurance MEDICARE AET SENIOR SUPPLEMENT Care Teams Marketing Analytics Analyst Relationship Specialty Start Date End Date Jesse Humphries MD PCP - General Family Medicine 07/12/20
--- OUTSIDE RECORDS SUMMARY | 2024-10-28 13:34 | XMS_ITS | Referral Summary ---
Author Organization [facility] [address] Address [address] [place] [address] Care Team Providers Care Warranty Manager Name Role Phone Jesse Humphries MD Primary Care Provider +1 -[phone] Allergies Active Allergy Reactions Criticality Noted Date [...] on file Legal Sex Male 12:01 PM HUMAN RESOURCES PROJECT COORDINATOR Gender Identity Not on file Sexual Orientation Not on file Last Filed Vital Signs Vital Sign Reading Time Taken Comments Blood Pressure 118/74 07/18/2020 12:05 PM HUMAN RESOURCES PROJECT COORDINATOR Pulse 78 07/18/2020 12:05 PM HUMAN RESOURCES PROJECT COORDINATOR Temperature - - Respiratory Rate - - Oxygen Saturation 95% 07/18/2020 12:05 PM HUMAN RESOURCES PROJECT COORDINATOR Inhaled Oxygen Concentration - - Weight 137 kg (302 lb) 07/18/2020 12:05 PM HUMAN RESOURCES PROJECT COORDINATOR Height 190.5 cm (6' 3 ) 07/18/2020 12:05 PM HUMAN RESOURCES PROJECT COORDINATOR Body Mass Index 37.75 07/18/2020 12:05 PM HUMAN RESOURCES PROJECT COORDINATOR Plan of Treatment Not on [place] [address] AET SENIOR SUPPLEMENT Care Teams Warranty Manager Relationship Specialty Start Date End Date Jesse Humphries MD PCP - General Family Medicine 07/12/20
[2024-10-28 15:28] LABS: Immunoglobulin G 445 mg/dL (700-1600)
[2024-10-28 16:00] LABS: HIV 1/2 Ab P24 Ag Result Negative (Negative)
[2024-10-28 16:27] LABS: Immunoglobulin A < 40 mg/dL (70-400); Immunoglobulin M < 25 mg/dL (40-230)
== END 2024-10-28 13:32 | disposition home or self-care (01) ==
LOC: ANHLAB 13:32
PROVIDERS: PCP Family Medicine; Visit Provider Internal Medicine Gastroenterology
DX: R19.7 Diarrhea, unspecified (principal)
CPT/HCPCS: 36415; 82784; 86703; G0432

== ENCOUNTER 2024-11-05 09:45 | Inpatient (IN) | payer MEDICARE, SELFPAY ==
[2024-10-28 12:03] VITALS: BP 117/63; PULSE 71; RESP 16; TEMP 36.8; O2SAT 100; BMI 30.4
--- NOTE | 2024-10-28 12:25 | PC.NURSE ---
Report to the Outpatient Waiting Room, entrance under the green pavilion located off [facility], at time ___7:30AM____ on date ___11/05/24____. Planned Procedure Time: ___9:30AM .? Time changes happen often and if your time is changed the preop area will call you the afternoon before. - You and your visitor will be asked to self-screen and do not enter if you have any COVID symptoms. Please call surgeon if you need to reschedule. - A mask is optional within the hospital at this time. Patients may have clear liquids (water, carbonated beverages, clear teas, apple juice) until 3 hours prior to surgery (6:30AM) with a maximum of 20 ounces. - No food from midnight until time of surgery and no smoking, or chewing tobacco (or any form of nicotine). No chewing gum, candy or mints. Take only the following medications with a SIP of water on the morning of surgery: __BUDESONIDE, SERTRALINE DO NOT STOP ANY OF YOUR OTHER PRESCRIPTION MEDICATIONS PRIOR TO SURGERY EXCEPT THE FOLLOWING Hold all vitamins and supplements for 3 days per anesthesiologist.- LAST DOSE 11/01/24 Please no make-up, nail faroese, hairspray, perfume, deodorant, or body powder the day of surgery.? No jewelry (including any body piercings) or valuables the day of surgery, leave them at home.? Please take a shower or bath the night before, or the morning of, surgery with an antibacterial soap.? Wear comfortable, loose fitting clothing.? - Jewelry must be removed prior to entering the operating room.? Rings and piercings that are not removed may be cut off. - The hospital will not accept responsibility for valuables.? - Please leave all valuables, including medications, at home the day of surgery. If you are going home after surgery, a licensed winch driver must drive you home.? - NO public transportation without another adult if you receive anesthesia. - We recommend that an adult stay with you for 24 hours following discharge. - We also recommend that you do not drive, make important decision, drink alcoholic beverages, or take any drugs that were not prescribed by your health care provider for at least 24 hours after your discharge time. Follow any additional instructions given to you from your surgeon. Telephone instructions given to ___PATIENT & PARTNER and asked if any additional questions and then verbalized understanding. Patient advised to call surgeon office or pre surgery nurse liaison [phone] if any additional questions.
--- NOTE | 2024-10-28 12:58 | PC.NURSE ---
Report to the Outpatient Waiting Room, entrance under the green pavilion located off [facility], at time __7:30AM on date ___11/05/24____. Planned Procedure Time: ____9:30AM____.? Time changes happen often and if your time is changed the preop area will call you the afternoon before. - You and your visitor will be asked to self-screen and do not enter if you have any COVID symptoms. Please call surgeon if you need to reschedule. - A mask is optional within the hospital at this time. BOWEL PREP ON DAY BEFORE SURGERY PER DR SUMMERS. Patients may have clear liquids (water, carbonated beverages, clear teas, apple juice) until 3 hours prior to surgery (6:30AM) with a maximum of 20 ounces. - No food from midnight until time of surgery and no smoking, or chewing tobacco (or any form of nicotine). No chewing gum, candy or mints. Take only the following medications with a SIP of water on the morning of surgery: ___BUDESONIDE AND SERTRALINE DO NOT STOP ANY OF YOUR OTHER PRESCRIPTION MEDICATIONS PRIOR TO SURGERY EXCEPT THE FOLLOWING Hold all vitamins and supplements for 3 days per anesthesiologist- LAST DOSE 11/01/24.. Please no make-up, nail hungarian, hairspray, perfume, deodorant, or body powder the day of surgery.? No jewelry (including any body piercings) or valuables the day of surgery, leave them at home.? Please take a shower or bath the night before, or the morning of, surgery with an antibacterial soap.? Wear comfortable, loose fitting clothing.? - Jewelry must be removed prior to entering the operating room.? Rings and piercings that are not removed may be cut off. - The hospital will not accept responsibility for valuables.? - Please leave all valuables, including medications, at home the day of surgery. If you are going home after surgery, a licensed lyft driver must drive you home.? - NO public transportation without another adult if you receive anesthesia. - We recommend that an adult stay with you for 24 hours following discharge. - We also recommend that you do not drive, make important decision, drink alcoholic beverages, or take any drugs that were not prescribed by your health care provider for at least 24 hours after your discharge time. Follow any additional instructions given to you from your surgeon. BOWEL PREP PER DR SUMMERS. ENSURE BUNDLE ANTIBIOTICS ON DAY BEFORE SURGERY HIBICLENS SHOWER DAY BEFORE AND MORNING OF SURGERY. Telephone instructions given to ___PATIENT & PARTNER and asked if any additional questions and then verbalized understanding. Patient advised to call surgeon office or pre surgery nurse liaison [phone] if any additional questions.
[2024-11-05] VITALS (15 sets, daily range): BP systolic 105–122; BP diastolic 62–73; PULSE 66–82; RESP 12–18; TEMP 35.9–36.6; O2SAT 93–100
--- OUTSIDE RECORDS SUMMARY | 2024-11-05 00:15 | XMS_ITS | Clinical Summary ---
Author Organization [facility] [address] Address [address] [place] [address] Care Team Providers Care Drafting Instructor Name Role Phone Jesse Humphries MD Primary Care Provider +1 -[phone] Allergies Active Allergy Reactions Criticality Noted Date [...] on file Legal Sex Male 12:01 PM SUPERVISOR DRYING Gender Identity Not on file Sexual Orientation Not on file Obstetrics History Last Filed Vital Signs Vital Sign Reading Time Taken Comments Blood Pressure 118/74 07/18/2020 12:05 PM SUPERVISOR DRYING Pulse 78 07/18/2020 12:05 PM SUPERVISOR DRYING Temperature - - Respiratory Rate - - Oxygen Saturation 95% 07/18/2020 12:05 PM SUPERVISOR DRYING Inhaled Oxygen Concentration - - Weight 137 kg (302 lb) 07/18/2020 12:05 PM SUPERVISOR DRYING Height 190.5 cm (6' 3 ) 07/18/2020 12:05 PM SUPERVISOR DRYING Body Mass Index 37.75 07/18/2020 12:05 PM SUPERVISOR DRYING Plan of Treatment Not on file Insurance MEDICARE AET SENIOR SUPPLEMENT Care Teams Drafting Instructor Relationship Specialty Start Date End Date Jesse Humphries MD PCP - General Family Medicine 07/12/20
--- OUTSIDE RECORDS SUMMARY | 2024-11-05 00:16 | XMS_ITS | Referral Summary ---
Author Organization [facility] [address] Address [address] [place] [address] Care Team Providers Care Soft Work Cigar Machine Operator Name Role Phone Jesse Humphries MD Primary Care Provider +1 -[phone] Allergies Active Allergy Reactions Criticality Noted Date [...] on file Legal Sex Male 12:01 PM HIGH SCHOOL COMPUTER SCIENCE TEACHER Gender Identity Not on file Sexual Orientation Not on file Last Filed Vital Signs Vital Sign Reading Time Taken Comments Blood Pressure 118/74 07/18/2020 12:05 PM HIGH SCHOOL COMPUTER SCIENCE TEACHER Pulse 78 07/18/2020 12:05 PM HIGH SCHOOL COMPUTER SCIENCE TEACHER Temperature - - Respiratory Rate - - Oxygen Saturation 95% 07/18/2020 12:05 PM HIGH SCHOOL COMPUTER SCIENCE TEACHER Inhaled Oxygen Concentration - - Weight 137 kg (302 lb) 07/18/2020 12:05 PM HIGH SCHOOL COMPUTER SCIENCE TEACHER Height 190.5 cm (6' 3 ) 07/18/2020 12:05 PM HIGH SCHOOL COMPUTER SCIENCE TEACHER Body Mass Index 37.75 07/18/2020 12:05 PM HIGH SCHOOL COMPUTER SCIENCE TEACHER Plan of Treatment Not on file Insurance MEDICARE AET SENIOR SUPPLEMENT Care Teams Soft Work Cigar Machine Operator Relationship Specialty Start Date End Date Jesse Humphries MD PCP - General Family Medicine 07/12/20
--- OUTSIDE RECORDS SUMMARY | 2024-11-05 00:16 | XMS_ITS | Data Portability ---
Author Organization [place] [facility] [place] [facility], Main Office Address [address] [place] [address] Care Team Providers Care Express Manager Name Role Phone NAI HUMPHRIES Primary Care Provider NAI HUMPHRIES Referring Provider [phone] Assessment Encounter Date Assessment Date Assessment LastModified [...] treatment patient more than half of this zsqx-dk-eprm conversation tiffanie Not available 10/30/2022 11:43:10 06/04/2023 06/04/2023 Impression: 1. 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 Patient wants to proceed with left total knee replacement. He has episodes of severe pain when he feels his knee lubna and pain is in his knee. X-rays do show qdqk-ed-nohf medial compartment osteoarthritis. 2. Patient shows evidence [...] than half of this time spent in cias-ka-bbtr care. Not available 06/09/2023 17:05:10 Plan of Treatment Reminders Order Date Submit Date Provider Last Modified By Organization Details Last Modified Time Details Appointments None recorded. Lab None recorded. Referral None recorded. Procedures injection/a spiration joint/bursa (PROC) - in office procedure, administere d by provider 2022 023 [email or web address] In-Office Order, Internal Use Only DO Not Attach Compendium DO Not Attach Compendium, Do Not Delete/merge, [id number] 3 09:13:17 Surgeries None recorded. Imaging XR, knee 2022 023 [email or web address] [facility] [place], [address], [place], [address], 3 15:20:42 XR, lumbar spine 2022 023 [facility] [place], [address], [place], [address], 3 10:30:52 XR, pelvis, 1 or 2 view 2022 023 [facility] [place], [address], [place], [address], 3 10:30:52 Medication Orders meloxicam 15 mg tablet 2022 023 [facility]/Pharmacy #6930, [address] [place], [address], 3 13:06:36 Medrol (Bakari) 4 mg tablets in a dose pack [address]/Pharmacy #6930, [address] [place], [address], 3 08:39:01 Kenalog 10 mg/mL suspension for injection 2022 023 [address] [place], [address], 3 08:38:58 ropivacaine (PF) 5 mg/mL (0.5 %) injection solution 2022 023 [address] [place], [address], 3 08:39:07 Patient TargetsNo targets recorded. Patient InstructionsNo instructions recorded. Reason for Referral None Reported. Results Created Date Observation Date Name Description Value Unit Range Abnormal Flag Note LastModifiedBy Organization Detail LastModifiedTime 05/24/20 22 05/24/2022 XR, knee No observ ation record ed. [id number] [facility] [place] [address], [place], [address], 08/14/2022 20:56:07 10/31/19 23 XR, lumba r spine No observ ation record ed. [email or web address] [facility] [place] [address], [place], [address], 10/30/2022 11:36:10 10/31/19 23 XR, pelvi s, 1 or 2 view No observ ation record ed. [email or web address] [facility] [place] [address], [place], [address], 10/30/2022 11:35:38 11/02/19 23 11/01/2022 MRI, lumba r spine , w/o contr ast No observ ation record ed. [email or web address] [facility] [address], [place], [address], 11/01/2022 13:43:43 06/04/20 XR, knee No observ ation record ed. [facility] [place] [address], [place], [address], 06/09/2023 16:45:42 Result Notes None recorded. Problems Name Problem SNOMED Code Status Onset Date Resolution Date Notes Provider Name and Address Organization Details Recorded Time Knee joint effusion 329689240 Active Not Available [facility] 3 13:05:20 Current knee cartilage tear Active Not Available [facility] 3 13:05:20 Knee pain Active Not Available [facility] 3 13:05:20 Osteoarthr itis 961308964 Active Not Available [facility] 3 13:05:20 Osteoarthr itis of left knee joint 1994562797973 09 Active 2022 Not Available [facility] 3 13:05:20 Low back pain 609756374 Active 2022 Not Available [facility] 3 13:05:20 Lumbar spondylosi s 524403436 Active 2022 Not Available [facility] 3 13:05:20 Problem Notes None recorded. Procedures Surgical History Date Name Laterality Status Provider Name and Address Organization Details Recorded Time Knee Surgery completed Not Available [facility] 08/14/2022 20:54:46 Imaging Results Imaging Date Name Status LastModified by Organiz ation Details LastModified Time 05/24/2022 XR, knee completed [id number] 30 026 [facility] [place] [address], [place], [address], 08/14/2022 20:56:07 10/30/2022 XR, lumbar spine completed [email or web address] [facility] [place] [address], [place], [address], 10/30/2022 11:36:10 10/30/2022 XR, pelvis, 1 or 2 view completed [email or web address] [facility] [place] [address], [place], [address], 10/30/2022 11:35:38 11/01/2022 MRI, lumbar spine, w/o contrast completed [address], [place], [address], 11/01/2022 13:43:43 06/04/2023 XR, knee completed [facility] [place] [address], [place], [address], 06/09/2023 16:45:42 Procedure Notes None recorded. Medical Equipment None Reported. Allergies Allergen ID Allergen Name Allergen Category Reaction Reaction Severity Criticality Documentation Date Start Date Code Code System Note Provider Name and Address Organization Details Recorded Time 88047 Lamictal medicatio n Not available Not available Not available 08/14/2022 05655 2 RxNorm Not Available [facility] 3 20:56:05 42565 Demerol medicatio n Not available Not available Not available 08/14/2022 63134 1 RxNorm Not Available [facility] 3 20:56:05 Medications Name Sig Start Date [...] office by the doctor 04/04 completed NDC: [id number] 001 Not Available Not Available Not Available [...] Updated DateTime 05/03/2022 40.1 kg/m2 185.42 cm 723189.08 g Not Available [facility] 08/14/2022 20:54:50 Date Recorded Body height Provider Name an d Address Organization Details Last Updated DateTime 05/24/2022 185.42 cm Not Available [facility] 20:54:50 Date Recorded Body height Provider Name an d Address Organization Details Last Updated DateTime 08/02/2022 185.42 cm Not Available [facility] 20:54:50 Date Recorded Body height Body mass index (BMI) Body weight Provider Name and Address Organization Details Last Updated DateTime 10/30/2022 187.96 cm 38.9 kg/m2 349411.49 g Ryann Rayo [employer] 10/30/2022 09:16:10 Date Recorded Body height Body mass index (BMI) Body weight Provider Name and Address Organization Details Last Updated DateTime 06/04/2023 187.96 cm 35.7 kg/m2 377485.68 g Ryann Rayo [employer] 06/04/2023 08:55:03 Social History Question Answer Notes LastModified by [employer] Details LastModified Time Tobacco Smoking Status Never Smoker Not Available [facility] 08/14/2022 20:54:35 What Was The Date Of Your Most Recent Tobacco Screening? 10/04/2020 [id number] 26 Information not available 08/14/2022 Sex: Unknown Functional Status Question Answer Note LastModified by [employer] Details LastModified Time What is your level of alcohol consumption? None MIGRATION.[id number] Information not available 08/14/2022 Mental Status None recorded. Family History Relationship Description Onset Age of this Age Resolved Age Notes LastModified by Organization Details LastModified Time Father Heart disease MIGRATION.940 [id number] Not available 08/14/2022 20:54:46 Mother Heart disease MIGRATION.868 [id number] Not available 08/14/2022 20:54:46 Mother Family history of malignant neoplasm MIGRATION.487 [id number] Not available 08/14/2022 20:54:46 Mother Hypertensive disorder MIGRATION.371 [id number] Not available 08/14/2022 20:54:46 Father Diabetes mellitus Not available 2022 09:11:04 Medical History Condition Response BLINDNESS N KIDNEY STONES N MRSA N CARPAL TUNNEL SYNDROME N LUNG DISEASE/DISORDER N HISTORY OF DRUG ABUSE N RADIATION / CHEMOTHERAPY N COPD N SPORTS INJURY N ANKLE PAIN N BLOOD DISEASES N SCHIZOPHRENIA N SHINGLES N SHOULDER PAIN N DEPRESSION (INCLUDING POST ) N BOWEL PROBLEMS N STROKE/TIA N ULCERS N KNEE PAIN [...] HAVE YOU BEEN HOSPITALIZED OR SEEN IN [facility] ER IN THE PAST YEAR ? N [...] SNOMED-CT Code Diagnosis ICD10 Code Diagnosis Note [id number] Nimesh Bernal MD [facility] [place] [address] [place] [address] 09/11/2020 00:00:00 09/11/2020 17:58:27 [id number] ANEESH Ty [facility] [place] [address] [place] [address] 10/04/2020 00:00:00 10/04/2020 08:56:43 [id number] Nimesh Bernal MD [facility] [place] [address] [place] [address] 01/03/2021 00:00:00 01/03/2021 09:30:03 [id number] MD XIAO [facility] [place] [address] [place] [address] 02/21/2021 00:00:00 02/21/2021 10:39:42 [id number] MD [facility]IA[facility] [place] [address] [place] [address] 04/04/2021 00:00:00 04/15/2021 18:16:25 [id number] MD [facility]IAO [facility] [place] [address] [place] [address] 06/04/2021 00:00:00 06/04/2021 16:30:56 [id number] MD XIAO [facility] [place] [address] [place] [address] 06/20/2021 00:00:00 06/20/2021 14:36:09 [id number] MD MARLEN [facility] [place] [address] [place] [address] 07/04/2021 00:00:00 07/04/2021 09:42:54 [id number] Nimesh Bernal MD [facility] [place] [address] [place] [address] 10/26/2021 00:00:00 10/26/2021 09:30:16 [id number] MD XIAO [facility] [place] [address] [place] [address] 02/01/2022 00:00:00 02/01/2022 09:18:24 [id number] MD XIAO [facility] [place] [address] [place] [address] 05/03/2022 00:00:00 05/03/2022 09:13:59 [id number] Nimesh Bernal MD [facility] [place] [address] [place], [place] [address] 05/24/2022 00:00:00 06/02/2022 19:23:35 [id number] Nimesh Bernal MD [facility] [place] [address] [place], [place] [address] 08/02/2022 00:00:00 08/02/2022 09:09:00 [id number] Nimesh Bernal MD [facility] [place] [address] [place], [place] [address] 10/30/2022 08:43:29 10/30/2022 11:46:12 Osteoarthritis of left knee joint 5436447108 12385 M17.12 Low back pain 770640592 M54.50 [id number] Nimesh Bernal MD [facility] [place] [address] [place], [place] [address] 06/04/2023 08:34:38 06/11/2023 15:20:42 Osteoarthritis of left knee joint 2409056127 14639 M17.12 Health Concerns Section Related Observation LastModified by Organization Detai ls LastModified Time None Recorded Concern Status LastModified by Organization Details LastModified Time None Recorded Advance Directives Directive None Recorded Payers Encounter Date Sequence Insurance Name Policy Number Policy Velasquez Covered Member ID Velasquez Member ID Guarantor Name 10/30/2022 1 [place] Nai Crook [id number] Nai Crook 10/30/2022 2 [employer] (MEDICARE SUPPLEMENT) Nai Crook [id number] Nai Crook 06/04/2023 1 [place] Nai Crook [id number] Nai Crook 06/04/2023 2 [employer] (MEDICARE SUPPLEMENT) Nai Crook [id number] Nai Crook Notes Date Note Type Note [...] X-rays today of the left knee demonstrate ntyo-do-ncpq medial compartment osteoarthritis On the PA flexion [...] worked well for him. Nimesh Bernal MD [address] [place] [address], [place] [address], [place], [address], [facility] [employer] 06/09/2023 17:05:25
--- OUTSIDE RECORDS SUMMARY | 2024-11-05 00:16 | XMS_ITS ---
Author Organization [facility] [place] ([address]) Address [address] [place] [address] Care Team Providers Care Decorative Cutting Machine Tender Name Role Phone Jesse Humphries M.D. Primary Care Provider Dr. Jesse Klein Unavailable [phone] Mitchell Reyes Unavailable [phone] REASON FOR VISIT [facility], [...] Start Date End Date Status POTASSIUM CHLORIDE (GEU-OECJ-HIU M20) 20 MEQ 1 TAB(S) ORALLY 2 [...] Provider Diagnosis [facility] [place] ([address]) [address] [place] [address] 07/13/2024 Mitchell Reyes Morbid (severe) obesity due [...] * Jesse CROOK SrDOB:1949 (74 yo M)Acc No.[id number]:07/13/2024 Weight Loss Patient: Chu THOMPSONJesse Sr Provider: Aruna Reyes MD :1950 A ge:74 Y S ex:Male Date:07/13/2024 Address:[address] [place], [place] [address] Pcp:Jesse Humphries M.D. Subjective: * Chief Complaints: [...] times a day , Taking POTASSIUM CHLORIDE (VDS-FUQT-DWY M20) 20 MEQ TABLET, EXTENDED RELEASE 1 [...] Information: * Visit Code: * Procedure Codes: 04481 [facility] - Weekly (tirzepatide) Tier 2. * Electronic signature of Julissa Reyes MD, FAAAAI on 11/05/2024 at 12:16 AM CDT Sign off status: Pending * Provider: Aruna Reyes MD Date: 0 07/13/2024 Generated for Philly villatoro/Justin/Lasha on: 0 11/05/2024 12:16 AM CDT
--- OUTSIDE RECORDS SUMMARY | 2024-11-05 00:17 | XMS_ITS | Patient Health Record ---
Author Organization [facility] [employer] [place] ([address]) Address [address] [place] [address] Care Team Providers Care Guitar Teacher Name Role Phone Jesse Humphries M.D. Primary Care Provider Yazmin Dr. Jesse Bardales Unavailable [phone] Mitchell Reyes Unavailable [phone] [employer], Provider Unavailable Unavailab le Allergies Allergen (clinical drug ingredient) Drug/Non Drug Allergy documented on EMR Reaction Allergy Type Onset Date Status meperidine Demerol vomiting Drug Allergy Active atropine / diphenoxylate Lomotil vomiting Drug Allergy Active Reason For Referral No Information Medications Medication SIG (Take, Route, Frequency, Duration) Notes Start Date End Date Status POTASSIUM CHLORIDE (IBK-KUQB-LWJ M20) 20 MEQ 1 TAB(S) ORALLY 2 [...] Status Risk Notes Problem Morbid obesity (disorder) (135407720) Morbid (severe) obesity due to excess calories (E66.01) Active confirmed Problem Chronic migraine without aura, non-refractory (disorder) (709948984640961) Migraine without aura, not intractable, without status migrainosus (G43.009) Active confirmed Problem Migraine with aura, not intractable, without status migrainosus (G43.109) Active confirmed Problem Chronic migraine without aura, non-intractable (142926745687062) Chronic migraine without aura, not intractable, without status migrainosus (G43.709) Active confirmed Problem Polyneuropathy (60373787) Polyneuropathy, unspecified (G62.9) Active confirmed Problem Degeneration of lumbar intervertebral disc (51441539) Other intervertebral disc degeneration, lumbar region (M51.36) Active confirmed Problem Lumbosacral radiculopathy (2519102) Radiculopathy, lumbosacral region (M54.17) Active confirmed Vital Signs Height 73 in 07/13/2024 Weight 234.8 lbs 07/13/2024 BMI 30.97 kg/m2 07/13/2024 Encounters Encounter Location Date Provider Diagnosis [facility] [place] [address] [place] [place] [address] 11/17/2023 Mitchell Reyes Morbid (severe) obesity due to excess calories E66.[address] [address] 11/29/2023 Provider [employer] [facility] [place] ([address]) [address] [place] [address] 12/01/2023 Mitchell Reyes Morbid (severe) obesity due to excess calories E66.01 [facility] [place] ([address]) [address] [place] [address] 12/15/2023 Mitchell Reyes Morbid (severe) obesity due to excess calories E66.01 [facility] [place] ([address]) [address] [place] [address] 01/12/2024 Mitchell Win Morbid (severe) obesity due to excess calories E66.01 [facility] [place] [address]) [address] [place] [address] 01/26/2024 Mitchell Win Morbid (severe) obesity due to excess calories E66.01 [facility] [place] [address]) [address] [place] [address] 02/09/2024 Mitchell Win Morbid (severe) obesity due to excess calories E66.01 [facility] [place] [address]) [address] [place] [address] 03/01/2024 Mitchell Win Morbid (severe) obesity due to excess calories E66.01 [facility] [place] [address]) [address] [place] [address] 03/22/2024 Mitchell Win Morbid (severe) obesity due to excess calories E66.01 [facility] [place] [address]) [address] [place] [address] 03/22/2024 Mitchell Win [facility] [place] [address]) [address] [place] [address] 03/23/2024 Mitchell Win Morbid (severe) obesity due to excess calories E66.01 [facility] [place] [address]) [address] [place] [address] 04/13/2024 Mitchell Win Morbid (severe) obesity due to excess calories E66.01 [facility] [place] [address]) [address] [place] [address] 04/27/2024 Mitchell Win Morbid (severe) obesity due to excess calories E66.01 [facility] [place] ([address]) [address] [place] [address] 05/26/2024 Mitchell Win Morbid (severe) obesity due to excess calories E66.01 [facility] [place] ([address]) [address] [place] [address] 06/07/2024 Mitchell Win Morbid (severe) obesity due to excess calories E66.01 [facility] [place] ([address]) [address] [place] [address] 06/24/2024 Mitchell Win [facility] [place] [address]) [address] [place] [address] 06/24/2024 Mitchell Win Morbid (severe) obesity due to excess calories E66.01 [facility] [place] [address]) [address] [place] [address] 07/13/2024 Mitchell Win Morbid (severe) obesity due to excess calories E66.01 [facility] [place] [address]) [address] [place] [address] 12/29/2023 Mitchell Win Morbid (severe) obesity due to excess calories E66.01 [facility] [place] [address]) [address] [place] [address] 05/12/2024 Mitchell Win Morbid (severe) obesity due to excess calories E66.01 Assessments Encounter Date Diagnosis (ICD Code) Assessment Notes Treatment Notes Treatment Clinical Notes Section Notes 11/17/2023 Morbid (severe) obesity due to excess [...] Name Order Date -Glucose, Two-Hour Postprandial 01/23/20 -Immunofixation, Urine 01/22/2023 EMG (Electromyography) - 2 (two) Extremi ties 01/22/2023 Insurance Providers Payer Name Payer Address Payer Phone Subscriber Number Group Number Insured Name Patient Relationship to Insured Coverage Start Date Coverage End Date [employer] (Medicare) Attention Claims [address] [place] [address] [id number] Jesse Crook Self - patient is the insured [employer] [address] [address] [place] [address] [id number] Jesse Crook Self - patient is the insured Medical (General) History Medical History History ICD Code Depression Hypertension 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
--- OUTSIDE RECORDS SUMMARY | 2024-11-05 00:17 | XMS_ITS ---
Author Organization [facility] [place] ([address]) Address [address] [place] [address] Care Team Providers Care Adolescent Counselor Name Role Phone Jesse Humphries M.D. Primary Care Provider Dr. Jesse Klein Unavailable [phone] Mitchell Reyes Unavailable [phone] REASON FOR VISIT [facility], [...] day for 30 day(s) Active POTASSIUM CHLORIDE (ULY-KTEF-ELN M20) 20 MEQ 1 TAB(S) ORALLY 2 [...] Provider Diagnosis [facility] [place] ([address]) [address] [place] [address] 06/24/2024 Mitchell Reyes Morbid (severe) obesity due [...] * Jesse CROOK SrDOB:1949 (74 yo M)Acc No.[id number]:06/24/2024 Weight Loss Patient: Chu CHAVEZJesse CARRENO Sr Provider: Aruna Reyes MD :1950 A ge:74 Y S ex:Male Date:06/24/2024 Address:[address] [place], [place] [phone] Pcp:Jesse Humphries M.D. Subjective: * Chief Complaints: [...] times a day , Taking POTASSIUM CHLORIDE (GWM-CYKT-WFY M20) 20 MEQ TABLET, EXTENDED RELEASE 1 [...] Information: * Visit Code: * Procedure Codes: 86058 [facility] - Weekly (tirzepatide) Tier 2. * Electronic signature of Julissa Reyes MD, FAAAAI on 11/05/2024 at 12:16 AM CDT Sign off status: Pending * Provider: Aruna Reyes MD Date: 0 06/24/2024 Generated for Philly villatoro/Justin/Lynnitting on: 0 11/05/2024 12:16 AM CDT
--- OUTSIDE RECORDS SUMMARY | 2024-11-05 00:17 | XMS_ITS | CONTINUITY OF CARE DOCUMENT ---
Author Name helen cervantes Address Unknown Organization [facility] Address [address] [place] [address] Phone [phone] Care Team Providers Care Vet Tech Name Role Phone helen cervantes Unavailable Unavailable
--- OUTSIDE RECORDS SUMMARY | 2024-11-05 00:17 | XMS_ITS ---
Author Organization [facility] [employer] [place] [place] ([address]) Address [address] [place] [address] Care Team Providers Care Geographic Information System Analyst Name Role Phone Jesse Humphries M.D. Primary Care Provider Yazmin Dr. Jesse Bardales Unavailable [phone] Mitchell Reyes [phone] REASON FOR VISIT [facility], [...] 2 Encounters Encounter Location Date Provider Diagnosis [facility] [place] ([address]) [address] [place] [address] 08/10/2024 Mitchell Reyes Morbid (severe) obesity due [...] * Jesse CROOK SrDOB:1949 (74 yo M)Acc No.[id number]:08/10/2024 Weight Loss Patient: Jesse ORTIZ Sr Provider: Aruna Reyes MD :1950 A ge:74 Y S ex:Male Date:08/10/2024 Address:[address] [place], [place] [address] Pcp:Jesse Humphries M.D. Subjective: * Chief Complaints: [...] Information: * Visit Code: * Procedure Codes: 38479 [facility] - Weekly (tirzepatide) Tier 2. * Electronic signature of Julissa Reyes MD, FAAAAI on 11/05/2024 at 12:16 AM CDT Sign off status: Pending * Provider: Aruna Reyes MD Date: 0 08/10/2024 Generated for Printi ng/Faelizabetg/eTransmitting on: 0 11/05/2024 12:16 AM CDT
--- OUTSIDE RECORDS SUMMARY | 2024-11-05 00:17 | XMS_ITS | Clinical Summary ---
Author Organization [facility] Address [address] [place] [address] Care Team Providers Care Aircraft Structural Repairer Name Role Phone Jesse Humphries MD Primary Care Provider [phone] Kirby Pablo MD Unavailable Unavailable Source Comments [facility],non-owned Affiliates and Associated Physician Practices is amultiple site organization consisting of ambulatory clinics and hospital sitesin [place], [place], [place] and [place]. This disclosure is being madepursuant to the Care Everywhere program and may not contain all information available regarding this patient. Last updated 18.[facility] [employer] Allergies Active Allergy Reactions Criticality Noted Date [...] once daily. 30 Cap 1 12/11/2011 Active L-Ldmjooaiwghu-B 6-B12 (FOLTX) 1.13-25-2 MG TABS TAKE ONE [...] on file Legal Sex Male 12:50 PM UROLOGIST MD Gender Identity Not on file Sexual Orientation [...] to complete this topic Insurance MEDICARE AETNA CIGNA MEDICARE ANTH SELF PAY NO INSURANCE Member Subscriber Plan / Payer (Ef fective for All Dates) Name:Jesse Fischer Member ID:Not on file Relation to Subscriber:Not on file Name:JESSE FISCHER Subscriber ID:Not on file (Home) Address: [address] [place] [address] Payer ID:Not on file Group ID:Not on file Type:Self Pay Address: [place], [place] MEDICARE Care Teams Aircraft Structural Repairer Relationship Specialty Start Date End Date Jesse Humphries MD [address] [place] [address] PCP - General 11/28/11 Kirby Pablo MD [address] [place] [address] Cardiovascular Disease 12/09/11
[2024-11-05] MEDS: LACTATED RINGERS 1,000 ML 30 ML IV CONT ×3 (07:50→16:22)
[2024-11-05] MEDS: ACETAMINOPHEN 500 MG TABLET 1000 MG PO (07:50)
[2024-11-05] MEDS: KETOROLAC 15 MG/ML VIAL (*BKC) IV PUSH (08:18)
--- NOTE | 2024-11-05 08:53 | P.PNAN_ITS ---
Anes - Initial Pre Proc Eval Procedure: Operation Date: 11/05/24 09:30 Proposed Procedures p Robotic Assisted Laparoscopic Right Hemicolectomy, Possible Open - Hugo Mccauley MD Date/Time: 11/05/24 08:53 Surgeon: Hugo Mccauley MD Pre Op Diagnosis: right colon polyps with dysplasia Patient Data Age: 74 Gender: M Height: 1.88 m Weight: 106.4 kg Last Vital Signs Temp 36.4 C 11/05/24 07:22 Pulse 66 11/05/24 07:22 Resp 18 11/05/24 07:22 BP 122/66 11/05/24 07:22 Pulse Ox 100 11/05/24 07:22 O2 Del Method Room Air 11/05/24 07:22 Allergies Allergy/AdvReac Type Severity Reaction Status Date / Time atropine AdvReac Mild NAUSEA AND Verified 11/05/24 08:20 VOMITING diphenoxylate AdvReac Mild Fever & Verified 11/05/24 08:20 VOMITING meperidine AdvReac Mild SEVERE Verified 11/05/24 08:20 NAUSEA AND VOMITING Home Medications ?Medication ?Instructions ?Recorded ?Confirmed ?Type melatonin 10 mg capsule 10 mg PO QHS 02/06/22 11/05/24 History CPAP #1 ea 12/19/22 10/28/24 Rx CPAP #1 ea 10/15/23 10/28/24 Rx losartan 50 mg tablet 50 mg PO QAM #90 tabs 11/24/23 11/05/24 Rx sertraline 100 mg tablet See Rx Instructions .Route 08/23/24 11/05/24 Rx .COMPLEX #135 tabs cyanocobalamin (vitamin B-12) 1,000 mcg PO DAILY 08/25/24 11/05/24 History 1,000 mcg capsule budesonide 3 mg See Rx Instructions .Route 09/02/24 11/05/24 Rx capsule,delayed,extended release .COMPLEX #270 caps hydrocortisone 2.5 % topical cream 1 applic RECTAL BID PRN 09/07/24 10/28/24 Rx with perineal applicator hemorrhoids #30 grams (Anusol-HC) potassium chloride 20 mEq See Rx Instructions .Route 09/13/24 11/05/24 Rx tablet,extended release .COMPLEX #90 tabs diphenhydramine HCl 50 mg capsule 50 mg PO HS 10/28/24 11/05/24 History (Sleep Aid (diphenhydramine)) oxybutynin chloride 10 mg 10 mg PO QAM 10/28/24 11/05/24 History tablet,extended release 24 hr Patient hx anesthesia problems: none Family hx anesthesia problems: none Results Review: All pre-operative results and documents have been reviewed as part of the pre- operative evaluation. [facility]LY [facility] Past Medical History Medical History Colonic mass Anxiety Primary osteoarthritis of left knee Melanoma MARYANN (obstructive sleep apnea) Microscopic colitis Osteoarthritis of knees, bilateral Postoperative anemia Essential hypertension Burroughs palsy Many years ago History of colon polyps Mixed hyperlipidemia Prediabetes Obesity (BMI 30-39.9) Psychomotor agitation Dysesthesia Surgical History Surgical History H/O hemorrhoidectomy 07/16/24 Excisional hemorrhoidectomy x3 Banding of internal hemorrhoid x1 Transanal excisional distal rectal polypectomy. Dr. Mccauley History of total left knee replacement 2023 Gabe History of right knee joint replacement 2020- Dr Bernal History of bilateral mastectomy Benign History of cataract surgery History of cholecystectomy Family History Family History Father Hypertension Family history of cardiovascular disease Carcinoma of colon Mother Hypertension Family history of cardiovascular disease Carcinoma of colon Sibling Hypertension Family history of cardiovascular disease Social History Social History Social History: Patient does not drink, smoke or do drugs. 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 He would like to be a full code. His power of district attorney is his partner, Bryan. Smoking status: Never smoker Second hand tobacco smoke exposure: No Additional smoking assessment comments: DENIES ANY FORM OF TOBACCO USE Alcohol intake: never Substance use: never Substance use type: does not use Current Housing: Decline to Answer Concerned About Future Housing: Decline to Answer Difficulty Paying Gas/Electric Bills: Decline to Answer Difficulty Paying for Meds: Decline to Answer Currently Unemployed: Decline to Answer Education: Decline to Answer Difficulty w/ Childcare or Family Care: Decline to Answer Living arrangements: with family Additional living arrangements comments: partner Bryan Occupation/Education: retired Gender identity (if verbalized by the patient): Male Sexual Orientation (if Verbalized by the Patient): Lesbian, Singleton, or Homosexual Spiritual care concerns: No Anes - Eval Final PreProcedure Day of Procedure 11/05/24 08:53 Patient weight: obese Heart: regular rate and rhythm Lungs: clear to auscultation Airway: Mallampati scale class II Neurological: alert and oriented Last oral intake: >/= 8 hours ASA classification: III Emergent: no Anesthetic plan: proceed Anesthesia type and monitoring: general ETT and standard monitoring Results Review: All pre-operative results and documents have been reviewed as part of the pre- operative evaluation. Informed Consent: The patient's anesthetic plan and its attendant risks and benefits were discussed with the patient/family/POA. Questions were solicited and answers provided to the satisfaction of the patient/family/POA.
[2024-11-05] MEDS: ALVIMOPAN 12 MG CAPSULE PO (09:15)
--- NOTE | 2024-11-05 09:29 | WPDHPUPDATE1 ---
History and Physical Update Update Date/Time: 11/05/24 09:29 History and Physical has been reviewed, including an updated exam of the patient. There are NO changes in the patient's condition. Risks, benefits, and alternatives have been discussed and questions answered. Patient agrees to proceed with procedure.
[2024-11-05] MEDS: ceFAZolin 2 GM/D5W 50 ML 2 GM/50 ML BAG IVPB (09:37)
[2024-11-05] MEDS: metroNIDAZOLE 500 MG/ISO 100ML 500 MG/100 ML BAG 100 MG IVPB (09:37)
[2024-11-05] MEDS: INDOCYANINE GREEN 25 MG VIAL WITH DILUENT 3.75 MG IV PUSH (13:03)
[2024-11-05] MEDS: LIDO 1%/EPINEPHRINE 1:100,000 20 ML VIAL 30 ML INFILTRATE (14:17)
[2024-11-05] MEDS: BUPivacaine HCL 0.5% 10 ML AMP 30 ML INFILTRATE (14:17)
--- NOTE | 2024-11-05 14:32 | PM.OP ---
Procedure Note - Brief Procedure Note - Brief Date of procedure: 11/05/24 Cecal tubulovillous adenoma with high-grade dysplasia Post-op diagnosis: Same Procedure performed: Robotic assisted laparoscopic right hemicolectomy with stapled [id number] ileocolic anastomosis Surgeon: Hugo Mccauley MD Stair Builder: Philippe MADISON Anesthesia: GETA Findings: Patient had no evidence of masses in the liver or peritoneal disease. Large cecal polyp was noted. No enlarged lymph nodes were seen in the mesentery. Implants: None Estimated blood loss (mL): 50 Drains: No Packing: No Pathology: Yes (Right hemicolectomy specimen to pathology) Complications: No immediate complications Condition: Stable Disposition: PACU
[2024-11-05] MEDS: fentaNYL CITRATE INJ (*CRX) 100 MCG/2 ML VIAL 25 MCG IV PUSH ×6 (16:00→16:27)
--- NOTE | 2024-11-05 16:25 | ADMGEN ---
This patient, Jesse Crook, was admitted to [facility] Surg Room 327-01. Patient/family oriented to hospital policies and general routines including ID bracelet, bed and alarms, visiting hours, pain management, procedures, bathroom and other care routines, personal items, smoking policy, room service/diet, and visiting hours. Information on how to activate the Rapid Response Team has been discussed. Patient/Family are encouraged to report perceived risks to care and to ask questions if they do not understand what they are told or what they should do.
[2024-11-05] MEDS: ONDANSETRON INJ 4 MG/2 ML VIAL IV PUSH (17:03)
[2024-11-05] MEDS: IBUPROFEN IV 800 MG/200 ML 800 MG/200 ML BAG 400 MG IVPB (17:04)
[2024-11-05] MEDS: LACTATED RINGERS 1,000 ML 100 ML IV CONT (17:04)
[2024-11-05] MEDS: oxyCODONE HCL (*CRX) 5 MG TAB IR PO (17:50)
--- NOTE | 2024-11-05 19:11 | ECG_ITS ---
Test Date: 2024-11-05 19:27:20 Measurements Intervals [place] Rate: 67 P: 36 IA: 194 QRS: 4 QRSD: 118 T: 28 QT: 425 QTc: 450 Interpretive Statements SINUS RHYTHM MODERATE INTRAVENTRICULAR CONDUCTION DELAY [110+ ms QRS DURATION] Compared to ECG 10/28/2024 13:13:05 No significant changes Electronically Signed On 11-06-2024 17:08:47 CDT by Casey Weber M.D.
--- NOTE | 2024-11-05 19:55 | PC.NURSE ---
Addendum entered by Ofelia Leon RN 11/05/24 23:29: 2030 Spoke with suction dredge dumping supervisor MD and informed of EKG results. MD stated to have pt up out of bed and ambulating in room. Original Note: During report with dayshift nurse, I was informed that patient is c/o chest pain. He describes the pain as a L side sharp and shooting then stated it felt like pressure. A STAT EKG was obtained and I paged on-call MD at [phone] to report the patient's symptoms. Currently awaiting call back from .
[2024-11-05] MEDS: MELATONIN 5 MG TABLET 10 MG PO (20:35)
[2024-11-06] VITALS (7 sets, daily range): BP systolic 109–118; BP diastolic 66–85; PULSE 62–83; RESP 18–20; TEMP 36–36.8; O2SAT 94–100
[2024-11-06] MEDS: IBUPROFEN IV 800 MG/200 ML 800 MG/200 ML BAG 400 MG IVPB ×3 (00:06→16:17)
[2024-11-06] MEDS: ONDANSETRON INJ 4 MG/2 ML VIAL IV PUSH (01:57)
[2024-11-06] MEDS: LACTATED RINGERS 1,000 ML 100 ML IV CONT (03:56)
[2024-11-06] MEDS: ACETAMINOPHEN 500 MG TABLET 1000 MG PO (03:58)
[2024-11-06] MEDS: oxyCODONE HCL (*CRX) 5 MG TAB IR PO (04:57)
[2024-11-06 05:48] LABS: Basophils Percent Auto 0.2 % (0.2-1.2); Hematocrit 30.1 % (42.0-52.0); Hemoglobin 9.9 g/dL (14.0-18.0); Immature Granulocyte Absolute 0.02 K/mm3 (0.00-0.031); Immature Granulocyte Percent A 0.3 % (0-0.5); Lymphocytes Absolute Auto 1.18 K/mm3 (0.9-3.2); Lymphocytes Percent Auto 20.3 % (18.3-44.2); Mean Corpuscular HGB Conc 32.9 g/dl (32-36); Mean Corpuscular Hemoglobin 30.6 pg (26-34); Mean Corpuscular Volume 92.9 fl (80-100); Mean Platelet Volume 9.9 fl (7.4-10.4); Monocytes Absolute Auto 0.6 K/mm3 (0.1-0.6); Monocytes Percent Auto 10.1 % (2.6-8.5); Neutrophils Percent Auto 69.1 % (45.5-73.1); Platelet Count Result 118 k/mm3 (150-375); Red Blood Count 3.24 M/mm3 (4.6-6.20); White Blood Count 5.8 K/mm3 (4.5-10.0)
[2024-11-06 06:00] LABS: Alanine Aminotransferase 22 U/L (6-50); Albumin Level 3.4 g/dL (3.5-5.1); Alkaline Phosphatase 58 U/L (38-126); Anion Gap 7 mmol/L (4-12); Aspartate Amino Transferase 36 U/L (17-59); Bilirubin,Total 0.6 mg/dL (0.2-1.3); Blood Urea Nitrogen 14 mg/dL (9-20); Carbon Dioxide 25 mmol/L (22-30); Chloride 107 mmol/L (98-107); Estimated CRCL calculation 94 ml/min; Estimated Glomerular Filt Rate > 60; Glucose 139 mg/dL (65-110); Sodium 139 mmol/L (137-145)
[2024-11-06] MEDS: PANTOPRAZOLE 40 MG TABLET PO (08:28)
[2024-11-06] MEDS: ALVIMOPAN 12 MG CAPSULE PO ×2 (08:28→20:13)
[2024-11-06] MEDS: CYANOCOBALAMIN 1,000 MCG TABLET 1000 MCG PO (08:28)
[2024-11-06] MEDS: ENOXAPARIN 40 MG/0.4 ML SYRINGE SUB-Q (08:29)
[2024-11-06] MEDS: POTASSIUM CHLORIDE 20 MEQ ER TABLET 40 MEQ PO (11:07)
[2024-11-06] MEDS: oxyBUTYnin CHLORIDE XL 5 MG TAB.ER.24 10 MG PO (11:07)
--- NOTE | 2024-11-06 12:31 | PM.PNGS ---
Progress Note: A&P Assessment and Plan (1) Tubulovillous adenoma of colon: Code(s): D12.6 - Benign neoplasm of colon, unspecified Status: Acute Assessment and Plan: Advance to low-fiber diet for dinner today Increase activity Possibly home in the next 1-2 days if continuing to improve Final pathology pending (2) MARYANN (obstructive sleep apnea): Code(s): G47.33 - Obstructive sleep apnea (adult) (pediatric) Status: Acute (3) Essential hypertension: Code(s): I10 - Essential (primary) hypertension Status: Acute Subjective Subjective Date/Time Seen: 11/06/24 12:31 Interval history: Tolerating diet, bowels moving, pain controlled. Had 1 episode of nausea and vomiting last night but symptoms resolved. Up ambulating. Exam GI: Inspection: non-distended and incision (Intact with glue) GI Palp: Yes Soft to palpation, Yes Tenderness to palpation present (GI) (Incisional) and No Guarding due to palpation present (GI) Auscultation: normal bowel sounds Objective Data Vital Signs Vital Signs: Vital Signs - 24 hr 11/05/24 14:51 11/05/24 15:05 11/05/24 15:25 Temperature 97.9 F Pulse Rate 82 73 73 Respiratory Rate 16 13 12 Blood Pressure 121/70 120/68 115/66 Pulse Oximetry 98 97 96 Oxygen Delivery Simple Face Mask Simple Face Mask Nasal Cannula Oxygen Flow Rate 8 8 8 11/05/24 15:40 11/05/24 15:55 11/05/24 16:10 Temperature Pulse Rate 69 70 75 Respiratory Rate 12 14 16 Blood Pressure 112/72 112/72 115/62 Pulse Oximetry 93 94 96 Oxygen Delivery Nasal Cannula Room Air Nasal Cannula Oxygen Flow Rate 2 2 11/05/24 16:25 11/05/24 16:36 11/05/24 16:50 Temperature 96.7 F L Pulse Rate 72 73 74 Respiratory Rate 12 12 15 Blood Pressure 105/68 105/66 109/73 Pulse Oximetry 93 95 98 Oxygen Delivery Nasal Cannula Nasal Cannula Oxygen Flow Rate 2 2 11/05/24 17:05 11/05/24 17:30 11/05/24 18:12 Temperature 96.6 F L 96.6 F L Pulse Rate 72 69 Respiratory Rate 16 15 Blood Pressure 117/68 114/64 Pulse Oximetry 99 99 99 Oxygen Delivery Nasal Cannula Oxygen Flow Rate 1 11/05/24 18:30 11/05/24 20:00 11/05/24 20:00 Temperature 96.8 F L 97 F L Pulse Rate 69 68 Respiratory Rate 16 18 Blood Pressure 115/66 120/70 Pulse Oximetry 99 99 99 Oxygen Delivery Nasal Cannula Oxygen Flow Rate 2 11/05/24 22:40 11/06/24 00:30 11/06/24 05:00 Temperature 98.2 F 97.4 F L Pulse Rate 66 62 Respiratory Rate 20 20 Blood Pressure 118/75 109/85 Pulse Oximetry 99 100 Oxygen Delivery CPAP Oxygen Flow Rate 11/06/24 08:30 Temperature Pulse Rate Respiratory Rate Blood Pressure Pulse Oximetry 95 Oxygen Delivery Room Air Oxygen Flow Rate Intake/Output Intake/Output: Intake & Output 11/03/24 11/04/24 11/05/24 11/06/24 23:59 23:59 23:59 23:59 Intake Total 650 3746 Output Total 250 Balance 650 3496 Meds/Results Medications: Active Medications Generic Name Dose Route Start Last Admin Trade Name Freq PRN Reason Stop Dose Admin Acetaminophen 1,000 mg 11/05/24 16:39 11/06/24 03:58 Acetaminophen 500 Mg Tablet PO 1,000 mg Q6H PRN Administration Mild Pain (1-3) or Fever Hydrocodone Bitart/Acetaminophen 1 tab 11/05/24 16:39 Hydrocodone/Acetaminophen (*Crx) 5-325 Mg Tablet PO Q4H PRN Pain Rated 4-6 Alvimopan 12 mg 11/06/24 09:00 11/06/24 08:28 Alvimopan 12 Mg Capsule PO 11/07/24 09:01 12 mg Q12HR GINA Administration Cyanocobalamin 1,000 mcg 11/06/24 09:00 11/06/24 08:28 Cyanocobalamin 1,000 Mcg Tablet PO 1,000 mcg DAILY GINA Administration Enoxaparin Sodium 40 mg 11/06/24 09:00 11/06/24 08:29 Enoxaparin 40 Mg/0.4 Ml Syringe SUB-Q 40 mg DAILY GINA Administration Ibuprofen 800 mg in 200 mls @ 400 mls/hr 11/05/24 16:00 11/06/24 09:01 Caldolor 800 Mg/200 Ml IVPB Infused Q8H GINA Infusion Losartan Potassium 50 mg 11/06/24 09:00 11/06/24 08:30 Losartan Potassium 50 Mg Tablet PO Not Given QAM GINA Melatonin 10 mg 11/05/24 21:00 11/05/24 20:35 Melatonin 5 Mg Tablet PO 10 mg QHS GINA Administration Morphine Sulfate 4 mg 11/05/24 16:39 Morphine Sulfate (*Crx) 4 Mg/Ml Inj IV PUSH Q4H PRN Pain Rated 7-10 Ondansetron HCl 4 mg 11/05/24 16:39 11/06/24 01:57 Ondansetron Inj 4 Mg/2 Ml Vial IV PUSH 4 mg Q6H PRN Administration Nausea And Vomiting Oxybutynin Chloride 10 mg 11/06/24 09:00 11/06/24 11:07 Oxybutynin Chloride Xl 5 Mg Tab.Er.24 PO 10 mg QAM GINA Administration Oxycodone HCl 5 mg 11/05/24 16:39 11/06/24 04:57 Oxycodone Hcl (*Crx) 5 Mg Tab Ir PO 5 mg Q4H PRN Administration Pain Rated 7-10 Pantoprazole Sodium 40 mg 11/06/24 09:00 11/06/24 08:28 Pantoprazole 40 Mg Tablet PO 40 mg QAM GINA Administration Labs Labs: Laboratory Results - last 24 hr 11/06/24 11/06/24 05:24 05:25 WBC 5.8 RBC 3.24 L Hgb 9.9 L Hct 30.1 L MCV 92.9 MCH 30.6 MCHC 32.9 RDW 17.0 H Plt Count 118 L MPV 9.9 Immature Gran % (Auto) 0.3 Neut % (Auto) 69.1 Lymph % (Auto) 20.3 [place] % (Auto) 10.1 H Eos % (Auto) 0.0 Baso % (Auto) 0.2 Lymph # (Auto) 1.18 [place] # (Auto) 0.6 Eos # (Auto) 0.0 Baso # (Auto) 0.0 Abs Immat Gran (auto) 0.02 Absolute Neuts (auto) 4.0 Absolute Nucleated RBC 0.000 Nucleated RBC % 0.0 Sodium 139 Potassium 3.0 L Chloride 107 Carbon Dioxide 25 Anion Gap 7 BUN 14 D Creatinine 0.69 L Estim Creat Clear Calc 94 Estimated GFR > 60 Glucose 139 H Calcium 8.0 L Total Bilirubin 0.6 AST 36 ALT 22 Alkaline Phosphatase 58 Total Protein 5.0 L Albumin 3.4 L
[2024-11-06] MEDS: MELATONIN 5 MG TABLET 10 MG PO (20:13)
--- NOTE | 2024-11-06 20:37 | W.PM.PROC2 ---
Procedure Note - Detailed Date of Procedure 11/05/24 Pre-op Diagnosis Tubulovillous cecal polyp with high-grade dysplasia. Post-op Diagnosis Same Procedure Performed Robotic assisted laparoscopic right hemicolectomy with [id number] stapled ileo colic anastomosis Surgeon Hugo Mccauley MD Ground Operations Crew Member LOS Aguiar Anesthesia General Indications patient is a 74-year-old gentleman who underwent a colonoscopy which found multiple polyps in the right and transverse colon. 1 particular large polyp in the cecum was biopsied showing high-grade dysplasia. The remaining polyps were all removed and they were all benign. He now presents for a robotic assisted laparoscopic right hemicolectomy to remove the precancerous cecal polyp. Findings The patient had no significant adhesions within the abdomen. He had no masses seen in either lobe of the liver. There were no peritoneal masses to suggest any peritoneal disease. There did not appear to be any extension of the polyp through the serosa into the surrounding pericolic a pericecal tissues. No enlarged lymph nodes seen of the mesentery to the right colon or the ileocolic chain. Description of Procedure After informed consent was obtained patient was brought to the operating room he where he was placed in the supine position and general endotracheal anesthesia was administered. The abdomen was then prepped and draped in usual sterile fashion. A time-out was then performed correctly identifying the patient as well as the procedure to be performed. He was given perioperative IV antibiotics. I 1st started the procedure by entering the abdomen left upper quadrant utilizing a 5mm Optiview port. Once inside the abdomen insufflated to adequate pneumoperitoneum of 15mmHg CO2. Pre survey of the abdomen revealed no adhesions to obscure my view of the right side of the abdomen and then the epigastric region of the abdomen. I did not see any evidence of any masses in the liver or any peritoneal disease suggesting any malignancy. I then placed additional robotic trocar ports across the left side of the abdomen. Three additional 8mm trocar ports were placed and a 12mm robotic trocar port was placed. The [employer] robot was then brought to the patient's bedside and attached the robotic arms. We then targeted for the right upper quadrant of the abdomen and robotic instruments were then advanced into the abdomen under direct visualization. I then scrubbed out the procedure sent down at the robotic console to perform the dissection robotically. I 1st started by utilizing [employer] robotic graspers to gently flipped the omentum up over the transverse colon into the left upper quadrant of the abdomen. This allowed me to visualize the transverse colon and hepatic flexure of the colon. The small bowel in the central portion of the abdomen was moved over to the left side of the abdomen exposing the mesentery to the right colon and the cecum. I then proceeded to hold the cecum up with a grasper holding the mesentery on stretch and identified the ileocolic vascular pedicle. Utilizing combination of robotic scissor dissection and the robotic vessel sealer I then proceeded to circumferentially dissect out the ileocolic pedicle down near the aorta. After I had circumferentially dissected out the pedicle I then utilized the robotic stapler with a 60mm vascular load to divide the ileocolic pedicle. I then proceeded to dissect with the vessel sealer in the retroperitoneum cephalad towards the liver in the avascular plane identifying the 2nd and 3rd portions of the duodenum protecting these from injury during my dissection. Once I reached the transverse colon just distal to the hepatic flexure I then circumferentially dissected this portion of the colon free from surrounding tissues and the omentum. I then made a defect through the mesentery to the proximal transverse colon and utilized 60mm reload to the robotic stapler to divide the transverse colon just distal to the hepatic flexure. I then turned my attention towards dividing the terminal ileum. Terminal ileum was identified and traced directly to the cecum. Approximately 10cm proximal to the ileocecal valve I made a defect through the mesentery to the terminal ileum with the vessel sealer and then with a 60mm reload to the robotic stapler divided the terminal ileum. I then proceeded to mobilize the cecum with the attached appendix, right ascending colon, and hepatic flexure of the colon to the midline by dividing the lateral peritoneal attachments with the vessel sealer. The mesentery was dissected off the retroperitoneum taking great care to make sure there was no damage to the right kidney or ureter. I then once again identified the duodenum and protected this from any injury and then proceeded to divide the mesentery between these 2 resection points of the bowel. This is done with the vessel sealer. The right branch to the middle colic artery was divided. Once the mesentery was transected the specimen was completely freed and was then placed into the pelvis to be removed at the end the procedure. I then proceeded to perform a [id number] anti peristaltic ileocolic anastomosis. The end of the ileum was then brought alongside the transverse colon. A 3-0 Vicryl suture was used to approximate 2 ends of the terminal ileum and the transverse colon making sure that the small bowel was not twisted. Another 3-0 Vicryl stay suture was then placed with a good serosal bite approximately 10cm away from the ends of the bowel. Enterotomies were then made in the terminal ileum and the transverse colon utilizing energized robotic scissors. A 60mm reload to the robotic stapler was then used to create a stapled anastomosis and common channel between the 2 ends of the bowel. The resulting enterotomy over the common channel was then closed utilizing a running 3-0 absorbable V lock suture placed in 2 layers. The 1st layer approximated the mucosa and serosa in a running fashion closing the defect and then utilizing the same suture serosal bites imbricating the mucosa suture line was placed in a Lembert fashion. Prior to creating the anastomosis 3cc of ICG dye was given intravenously and on firefly the ends of the bowel appeared to be well perfused. I then made sure all the areas of dissection were hemostatic. I then pulled the omentum down over the anastomosis. I then used a conventional laparoscopic grasper the grasper to hold the terminal ileum in the resected specimen and then the [employer] robot was undocked from the patient's bedside. After all the robotic instruments were removed. I then scrubbed back into the procedure and proceed to make a small transverse Pfannenstiel incision in the midline with a scalpel and then dissecting down through the subcutaneous tissue electrocautery. Once I reached the fascial layer I then incised this in a vertical orientation I entered the abdomen. A wound protector was then placed in the abdomen and then the end of the terminal ileum on the specimen was delivered up into the wound protector with the ratcheted laparoscopic instrument holding the bowel. The specimen was then removed through the lower midline Pfannenstiel incision and it was sent to pathology for examination. The wound protector was then removed from the abdomen and then the small extraction site incision was then closed utilizing nonlooped 0 PDS suture started at each end incision then run toe the 2 sutures met. I then irrigated out the subcutaneous usual sterile saline solution hemostasis was good. I then irrigated out the port site incisions with sterile saline solution hemostasis was good as well. The 12mm robotic trocar port fascial defect was closed utilizing 0 Vicryl suture in the anterior fascial level. The low Pfannenstiel incision Was closed utilizing additional layers of interrupted 3-0 Vicryl sutures in subcutaneous tissues and then all the incisions were then closed at the skin level utilizing a running subcuticular 4-0 Monocryl suture. The incisions were then cleaned and skin glue was applied to all the incisions. The patient tolerated the procedure well no complications. All sponges, needles, and instrument counts were correct at the end procedure. EBL was _50__cc. The patient was awakened and taken to recovery in stable and satisfactory condition. At the end the procedure the orogastric tube and Marques catheter were both removed. Implants None Estimated Blood Loss 50 Urine Output 100 Drains No Packing No Pathology Yes ( right hemicolectomy specimen sent to pathology) Complications No immediate complications Condition Stable Disposition PACU [facility] Billing Surgery - Charge Forward: Surgery Billing
[2024-11-07] MEDS: IBUPROFEN IV 800 MG/200 ML 800 MG/200 ML BAG 400 MG IVPB ×2 (00:38→10:56)
[2024-11-07 02:50] VITALS: PULSE 66; O2SAT 96
[2024-11-07] MEDS: MORPHINE SULFATE (*CRX) 4 MG/ML INJ IV PUSH (03:45)
[2024-11-07 05:10] VITALS: BP 98/67; PULSE 66; RESP 16; TEMP 36.4; O2SAT 99
[2024-11-07 05:40] LABS: Hematocrit 29.7 % (42.0-52.0); Hemoglobin 9.6 g/dL (14.0-18.0); Mean Corpuscular HGB Conc 32.3 g/dl (32-36); Mean Corpuscular Volume 95.8 fl (80-100); Mean Platelet Volume 9.4 fl (7.4-10.4); Platelet Count Result 104 k/mm3 (150-375); Red Cell Distribution Width 17.3 % (11.5-14.5); White Blood Count 5.1 K/mm3 (4.5-10.0)
[2024-11-07 05:55] LABS: Anion Gap 4 mmol/L (4-12); Blood Urea Nitrogen 12 mg/dL (9-20); Calcium 7.9 mg/dL (8.4-10.2); Carbon Dioxide 27 mmol/L (22-30); Chloride 110 mmol/L (98-107); Estimated CRCL calculation 82 ml/min; Estimated Glomerular Filt Rate > 60; Glucose 95 mg/dL (65-110); Potassium 3.1 mmol/L (3.4-5.0); Sodium 141 mmol/L (137-145)
[2024-11-07] MEDS: PANTOPRAZOLE 40 MG TABLET PO (10:48)
[2024-11-07] MEDS: CYANOCOBALAMIN 1,000 MCG TABLET 1000 MCG PO (10:48)
[2024-11-07] MEDS: oxyBUTYnin CHLORIDE XL 5 MG TAB.ER.24 10 MG PO (10:48)
[2024-11-07 14:00] VITALS: BP 104/75; PULSE 69; RESP 18; TEMP 36.3; O2SAT 100
--- NOTE | 2024-11-07 14:48 | P.DS_ITS ---
DS: Admitting Diagnosis Discharge Date 11/07/2024 Admitting Diagnosis Tubulovillous adenoma of colon DS: Discharge Diagnosis Discharge Diagnosis (1) Tubulovillous adenoma of colon: Code(s): D12.6 - Benign neoplasm of colon, unspecified Status: Acute (2) Collagenous colitis: Code(s): K52.831 - Collagenous colitis Status: Acute (3) Essential hypertension: Code(s): I10 - Essential (primary) hypertension Status: Acute (4) MARYANN (obstructive sleep apnea): Code(s): G47.33 - Obstructive sleep apnea (adult) (pediatric) Status: Acute DS: Summary Hospital Course Reason for hospitalization: Tubulovillous adenoma of colon Hospital Course: This is a 74-year-old man who presented with a large tubulovillous adenoma of the cecum. He had undergone for colonoscopy on 10/04/2024 and the large polyp was identified and biopsied. He then presented on 11/05/2024 for robotic assisted laparoscopic right hemicolectomy with ileocolic anastomosis. He was then admitted to the surgical floor postoperatively. He was started on a clear liquid diet. Activity was slowly advanced as tolerated. He did have some nausea and 1 episode of vomiting the 1st night of the surgery but then that resolved. He was also having some chest pressure likely related to the pneumoperitoneum. On postop day 1 his nausea and chest pressure had resolved. He was able to be advanced to a full liquid diet and was tolerating this. He was passing flatus and having some liquid bowel movement. He was then advanced to a soft low-fiber diet. Pain was well controlled and he was getting up ambulating. He was having bowel movements and denied any nausea or bloating. He was discharged on 11/07/2024. Pathology was pending at the time of discharge. Status at Discharge Functional status at discharge: uses cane/walker Overall status at discharge: patient is progressing back to baseline Time Spent with Patient Time attestation: Total time spent providing and/or coordinating discharge services: Time spent: Less than 30 minutes Exam Const: General: comfortable and no acute distress Resp: Effort & Inspection: normal respiratory effort Auscultation: clear to auscultation bilaterally Cardio: Rate: regular rate Rhythm: regular rhythm GI: Inspection: abdominal wall ecchymosis (At left lower quadrant incision), non-distended and incision (Intact with glue) GI Palp: Yes Soft to palpation, Yes Tenderness to palpation present (GI) (Incisional), No Guarding due to palpation present (GI) and No Rebound tenderness present Auscultation: normal bowel sounds DS: Data Data Completed and Pending Pending studies at discharge: Pending at discharge 11/05/24 12:30 Surgical [PTH] Routine Labs on day of discharge: Labs from last 24 hours 11/07/24 05:29 WBC 5.1 RBC 3.10 L Hgb 9.6 L Hct 29.7 L MCV 95.8 MCH 31.0 MCHC 32.3 RDW 17.3 H Plt Count 104 L MPV 9.4 Sodium 141 Potassium 3.1 L Chloride 110 H Carbon Dioxide 27 Anion Gap 4 BUN 12 Creatinine 0.80 Estim Creat Clear Calc 82 Estimated GFR > 60 Glucose 95 Calcium 7.9 L Discharge Plan Discharge Attending physician on discharge: Hugo Mccauley Discharging Clinician: Scar Watson Patient Disposition: Home Activity: other - see discharge instructions Diet: low fiber Wound Care Instructions: other - see discharge instructions Discharge Instructions: * Okay to shower, no bathing or soaking underwater for 2 weeks * Okay to drive in 2-3 days if pain controlled without taking narcotic pain medications * No lifting greater than 10 lb for 6 weeks * Continue soft regular diet for 1 more week then may advance to regular diet as tolerated * Call office for increasing abdominal pain, fevers, problems with bowels moving, or other concerns with incisions Patient Instructions: Antibiotic Form Patient Language: Khmer Stand Alone Forms: General Discharge Information Follow-up/Referrals: Hugo Mccauley MD [Physician] - Keep Reg. Scheduled Appt. Discharge Medications: New hydrocodone-acetaminophen 5-325 mg tablet 1 tablet PO Q4H PRN (Reason: pain) Qty: 10 0RF Continued melatonin 10 mg capsule 10 mg PO QHS (DME) CPAP See Rx Instructions .Route .MEDSUPPLY Qty: 1 0RF Rx Instructions: As directed pressure 12 cm H2O. Needs new replacement machine. Tubing and connectors not needed. cyanocobalamin (vitamin B-12) 1,000 mcg capsule 1,000 mcg PO DAILY hydrocortisone [Anusol-HC] 2.5 % cream with perineal applicator 1 applic RECTAL BID PRN (Reason: hemorrhoids) Qty: 30 2RF oxybutynin chloride 10 mg tablet extended release 24hr 10 mg PO QAM diphenhydramine HCl [Sleep Aid (diphenhydramine)] 50 mg capsule 50 mg PO HS (DME) CPAP See Rx Instructions .Route .MEDSUPPLY Qty: 1 0RF Rx Instructions: AutoPap (4-12 ) cm H2O ,Tubing and connectors not needed. losartan 50 mg tablet 50 mg PO QAM Qty: 90 3RF sertraline 100 mg tablet See Rx Instructions .ROUTE .COMPLEX Qty: 135 1RF Dose Instruction: TAKE 1.5 TABLETS BY MOUTH EVERY DAY Patient Comments: qam Rx Instructions: TAKE 1.5 TABLETS BY MOUTH EVERY DAY budesonide 3 mg capsule,delayed,extend.release See Rx Instructions .ROUTE .COMPLEX Qty: 270 1RF Dose Instruction: TAKE 3 CAPSULES BY MOUTH EVERY DAY Patient Comments: qam Rx Instructions: TAKE 3 CAPSULES BY MOUTH EVERY DAY potassium chloride 20 mEq tablet extended release See Rx Instructions .ROUTE .COMPLEX Qty: 90 1RF Dose Instruction: TAKE 1 TABLET BY MOUTH EVERY MORNING Rx Instructions: TAKE 1 TABLET BY MOUTH EVERY MORNING Date of admission: 11/05/24 09:45 Primary Care Provider: Jesse Humphries Admitting Provider: Hugo Mccauley Attending physician on admission: Hugo Mccaluey Condition: Improved
== END 2024-11-07 15:39 | disposition home or self-care (01) | DRG 331 ==
LOC: ANH3MEDSUR 16:50
PROVIDERS: Admitting Provider Surgery; PCP Family Medicine; Visit Provider Surgery
PROC: 0DTF4ZZ Resection of Right Large Intestine, Percutaneous Endoscopic Approach (ICD-10-PCS; principal; 2024-11-05 09:30)
DX: D12.6 Benign neoplasm of colon, unspecified (principal); K52.839 Microscopic colitis, unspecified; I10 Essential (primary) hypertension; E78.2 Mixed hyperlipidemia; R73.03 Prediabetes; G47.33 Obstructive sleep apnea (adult) (pediatric); F41.9 Anxiety disorder, unspecified; Z96.653 Presence of artificial knee joint, bilateral
CPT/HCPCS: 36415; 80048; 80053; 85025; 85027; 88309; 93005; A9270; J0690; J1100; J1171; J1650; J1741; J1836; J1885; J2003; J2004; J2270; J2371; J2405; J2704; J3010; J7030; J7120

== ENCOUNTER 2024-12-07 17:15 | Inpatient (IN) | payer MEDICARE, SELFPAY ==
[2024-12-07] VITALS (11 sets, daily range): BP systolic 89–139; BP diastolic 64–86; PULSE 57–83; RESP 15–26; TEMP 36.4–36.7; O2SAT 97–100
--- NOTE | ~2024-12-07 | XR_ITS ---
Portable chest x-ray Comparison: 12/08/2024 Clinical History: Respiratory distress Findings: Endotracheal tube and NG tube are in satisfactory positions. There is bibasilar airspace d isease, left worse than right, similar to prior exam. Cardiomediastinal silhouette is stable. Bones and soft tissues are unremarkable. Impression: Bibasilar airspace disease, left worse than right, similar to prior exam. Correlate for bibasilar pul monary edema/atelectasis versus pneumonia. Support tubes, as above. Reviewed, dictated and finalized at [facility]. Impression: Bibasilar airspace disease, left worse than right, similar to prior exam. Corre late for bibasilar pulmonary edema/atelectasis versus pneumonia. Support tubes, as above.
--- NOTE | ~2024-12-07 | CT_ITS ---
CT soft tissue neck wo con Ordering provider: Sheyla Iqbal APRN History: 74 years Male with . Epiglottitis/ using remnant contrast from scan before . Personal history of epiglottitis intubated emergently at an outside institution and transferred for f urther care. Comparison: None. Technique: CT soft tissues neck was performed with contrast. . The dose-length product was 628.06 mGy -cm. Findings: LOWER HEAD: The visualized brain parenchyma, optic globes/orbits and mastoids are unremarkable. The visualized paranasal sinuses are well aerated. SALIVARY GLANDS: Unremarkable. THYROID: Heterogeneous, but normal size SUPRAHYOID DEEP SPACES: Unremarkable CAROTID ARTERIES: Unremarkable, but not densely opacified. JUGULAR VEINS: Unremarkable, without opacification. TONSILS: Not grossly enlarged. ORAL CAVITY: Partially obscured by dental amalgam but unremarkable as visualized. PHARYNX, LARYNX AND TRACHEA: Patent. No prevertebral soft tissue swelling. The epiglottis is of ranjeet l caliber. Asymmetric 12 mm soft tissue density within the supraglottic airway, to the right of midli ne (axial series, image 46) a finding of uncertain clinical implication. Endotracheal tube and orogastric tube in good position SUPERFICIAL SOFT TISSUES: Unremarkable. No morphologically suspicious or pathologically enlarged lymp h nodes within the soft tissues of the neck. SKELETAL: No significant degenerative disease. No acute fracture.. IMPRESSION: The epiglottis is of normal caliber. Asymmetric 12 mm soft tissue density within the supraglottic airway, to the right of midline, a findi ng of uncertain clinical implication. Examination is otherwise unremarkable, as detailed above. Reviewed, dictated and finalized at location A. IMPRESSION: The epiglottis is of normal caliber. Asymmetric 12 mm soft tissue density within the supraglottic airway, to the rig ht of midline, a finding of uncertain clinical implication. Examination is otherwise unremarkable, as detailed above.
--- NOTE | ~2024-12-07 | XR_ITS ---
CHEST RADIOGRAPH CLINICAL HISTORY: dyspnea . COMPARISON: 12/09/2024 at 5:16 AM TECHNIQUE: Single portable view of the chest. FINDINGS The cardiomediastinal silhouette is enlarged, unchanged. Nasogastric tube extends off the submitted image, presumably within the stomach. Increased interstitial markings are identified bilaterally, findings suggesting moderate pulmonary va scular congestion, an interval change from earlier examination. Blunting of the left costophrenic sulcus is noted suggesting a small left-sided pleural effusion. IMPRESSION: Interval development of moderate pulmonary vascular congestion and a small left-sided pleural effusio n when compared with examination performed approximately 15 hours earlier. Reviewed, dictated and finalized at location A. IMPRESSION: Interval development of moderate pulmonary vascular congestion and a small left -sided pleural effusion when compared with examination performed approximately 15 hours earlier.
--- NOTE | ~2024-12-07 | XR_ITS ---
Portable chest x-ray Comparison: None Clinical History: Respiratory distress Findings: There is hazy right basilar airspace disease and patchy left lower lobe airspace consolida tion. Endotracheal tube and NG tube are in place. Cardiomediastinal silhouette is stable. Bones and soft tissues are unremarkable. Impression: Left basilar consolidation with hazy right basilar airspace disease. Correlate for bibasilar pulmonar y edema/atelectasis versus pneumonia, especially at the left lung base. Support tubes, as above. Reviewed, dictated and finalized at location M. Impression: Left basilar consolidation with hazy right basilar airspace disease. Correlate for bibasilar pulmonary edema/atelectasis versus pneumonia, especially at the l eft lung base. Support tubes, as above.
--- NOTE | ~2024-12-07 | XR_ITS ---
Exam: Abdomen 1V HISTORY: og tube placement COMPARISON: None. TECHNIQUE: Supine images of the lower chest and upper abdomen FINDINGS: Orogastric tube extends into the left upper quadrant, presumably within the stomach. IMPRESSION: Orogastric tube in good position and ready for immediate use. Reviewed, dictated and finalized at location A.
--- NOTE | ~2024-12-07 | XR_ITS ---
CHEST RADIOGRAPH CLINICAL HISTORY: ett placement verification . COMPARISON: None available TECHNIQUE: Single portable view of the chest. FINDINGS Endotracheal tube is identified with its tip projecting approximately 4.4 cm above the base of the ca graciela. Orogastric tube identified with its tip extending below the left hemidiaphragm, presumably within the stomach. The remainder of the cardiomediastinal silhouette is otherwise unremarkable. Increased interstitial markings are identified bilaterally, findings suggesting mild pulmonary vascul ar congestion. The lungs are otherwise clear. IMPRESSION: Mild pulmonary vascular congestion. Supportive lines and tubes in good position. Reviewed, dictated and finalized at location A.
--- NOTE | ~2024-12-07 | XR_ITS ---
MODIFIED ESOPHAGRAM HISTORY: Recent intubation TECHNIQUE: Modified barium esophagram was performed on 12/10/2024. I administered fluoroscopy and perf ormed the exam with speech pathologist. Patient was seated for lateral fluoroscopic imaging for ashley stion of thin liquids, pudding, solids and quantified amounts, followed by thin liquids in uncontroll ed amounts. This was recorded on tape. A single fluoroscopic spot image was also recorded. The DAP fo r this procedure was 1.311 Gycm2. The amount of fluoroscopy time used during this procedure was 2.1 m inutes. FINDINGS: Oral stage: Adequate function. Pharyngeal stage: Reduced tongue base retraction. There is vallecular residue. Laryngeal penetration without aspiration. Cervical/esophageal stage: Adequate function. IMPRESSION: Mild pharyngeal dysphagia with laryngeal penetration without aspiration. Please correlat e with speech pathologist findings and specific feeding recommendations. Reviewed, dictated and finalized at location A. IMPRESSION: Mild pharyngeal dysphagia with laryngeal penetration without aspira tion. Please correlate with speech pathologist findings and specific feeding r ecommendations.
--- NOTE | ~2024-12-07 | CT_ITS ---
EXAMINATION: CTA chest PE abdomen pel DATE: 12/07/2024 23:13 CDT INDICATION: Elevated d-dimer TECHNIQUE: Computed tomographic angiography (CTA) of the chest was performed, along with multiple con tiguous axial images of the abdomen and pelvis with 100 mL Omnipaque-350 intravenous contrast. The do se-length product was 2329.77 mGy-cm. Maximum intensity projection 3D-reconstructions of the aorta an d other arteries were constructed by the technologist on a separate workstation. FINDINGS/OBSERVATIONS: PULMONARY ARTERIES: No filling defect is identified within the main or proximal pulmonary artery. The main pulmonary artery is not enlarged. THORACIC AORTA: No aneurysmal dilatation or dissection is present. The great vessels are intact LUNGS: Bibasilar pleural effusions with adjacent compressive atelectasis. The remainder of the lungs are clear. Redemonstration of a subpleural cyst within the left lung base, unchanged from prior. MEDIASTINUM: No morphologically suspicious or pathologically enlarged lymph nodes are identified with in the mediastinum or bilateral axilla. Orogastric tube and endotracheal tube in good position. BONES OF THE CHEST: No acute fracture. No significant degenerative disease. No lytic or blastic lesions. HEART: The heart is enlarged, without pericardial effusion. LIVER: Redemonstration of hepatomegaly, with the liver measuring 23 cm in longitudinal dimension. Within segments 2 and 8 are well circumscribed foci of decreased attenuation, unchanged from prior. GALLBLADDER AND BILIARY SYSTEM: The gallbladder is surgically absent.. PANCREAS: The pancreas enhances homogeneously without ductal dilatation. SPLEEN: Redemonstration of splenomegaly measuring 16 cm in longitudinal dimension. KIDNEYS: Innumerable well-circumscribed foci of fluid attenuation within the bilateral kidneys, uncha nged from prior, for which cysts are suspected. The remainder of the bilateral kidneys otherwise enhance symmetrically without hydronephrosis or mariana l calculi. ADRENAL GLANDS: Unremarkable. GASTROINTESTINAL TRACT: Enteric staple line within the colon of the right upper quadrant, consistent with patient's history o f right hemicolectomy on 11/05/2024. APPENDIX: Surgically absent. VASCULATURE: Unremarkable. No aneurysmal dilatation or significant stenosis. LYMPH NODES: No pathologically enlarged or morphologically suspicious lymph nodes within the retroperitoneum or at the root of the mesentery. PELVIC STRUCTURES: The bladder is decompressed with Marques catheter, limiting its evaluation. The prostate gland is not enlarged, but contains bulky calcifications. BODY WALL AND MUSCULOSKELETAL: Within the soft tissues of the lower pelvis, the left of midline, is a focus of fluid attenuation and air measuring 3.5 x 6.1 x 5.4 cm (anterior to posterior x medial to lateral x cranial to caudal dime nsion) likely perioperative in origin. IMPRESSION: No pulmonary embolus. No aortic dissection. Bilateral pleural effusions with adjacent compressive atelectasis. Hepatosplenomegaly, unchanged. Findings within the soft tissues of the lower pelvis, to the left midline, possibly representing a pe rioperative seroma, as detailed above. Reviewed, dictated and finalized at location A. IMPRESSION: No pulmonary embolus. No aortic dissection. Bilateral pleural effusions with adjacent compressive atelectasis. Hepatosplenomegaly, unchanged. Findings within the soft tissues of the lower pelvis, to the left midline, poss ibly representing a perioperative seroma, as detailed above.
--- NOTE | ~2024-12-07 | XR_ITS ---
HISTORY: dyspnea - Known mass in throat COMPARISON: Reference is made to a CT examination of the soft tissues of the neck performed TECHNIQUE: 2 views of the soft tissues of the neck were performed FINDINGS: Normal delineation of the pharynx, larynx and trachea. Paravertebral soft tissues demonstrate normal width. No evidence of radiopaque foreign bodies or gas within the soft tissues. Visualized cervical spine vertebral bodies have normal height and alignment. IMPRESSION: Unremarkable plain film evaluation of the soft tissues of the neck. The asymmetric 12 mm soft tissue density within the supraglottic airway will likely not be seen on pl ain film evaluation. Reviewed, dictated and finalized at location A. IMPRESSION: Unremarkable plain film evaluation of the soft tissues of the neck. The asymmetric 12 mm soft tissue density within the supraglottic airway will li mirnada not be seen on plain film evaluation.
--- NOTE | 2024-12-07 16:45 | ADMGEN ---
This patient, Jesse Crook, was admitted to Intensive Care Unit-3. Patient/family oriented to hospital policies and general routines including ID bracelet, bed and alarms, visiting hours, pain management, procedures, bathroom and other care routines, personal items, smoking policy, room service/diet, and visiting hours. Information on how to activate the Rapid Response Team has been discussed. Patient/Family are encouraged to report perceived risks to care and to ask questions if they do not understand what they are told or what they should do.
[2024-12-07] MEDS: PROPOFOL IV EMULSION 100 ML 33.12 MG IV CONT ×3 (17:15→22:58)
[2024-12-07] MEDS: FENTANYL 2,500MCG/NS250ML(*CRX 2,500 MCG/250 ML BAG 7.5 MCG IV CONT (17:40)
[2024-12-07] MEDS: PANTOPRAZOLE SODIUM IV 40 MG VIAL IV PUSH (17:43)
[2024-12-07 18:05] LABS: Basophils Percent Auto 0.2 % (0.2-1.2); Eosinophils Percent Auto 0.4 % (0-4.4); Hematocrit 33.8 % (42.0-52.0); Hemoglobin 10.9 g/dL (14.0-18.0); Immature Granulocyte Absolute 0.04 K/mm3 (0.00-0.031); Immature Granulocyte Percent A 0.7 % (0-0.5); Lymphocytes Absolute Auto 0.74 K/mm3 (0.9-3.2); Mean Corpuscular HGB Conc 32.2 g/dl (32-36); Mean Corpuscular Hemoglobin 29.6 pg (26-34); Mean Corpuscular Volume 91.8 fl (80-100); Mean Platelet Volume 9.9 fl (7.4-10.4); Monocytes Absolute Auto 0.1 K/mm3 (0.1-0.6); Monocytes Percent Auto 1.6 % (2.6-8.5); Neutrophils Absolute Auto 4.8 K/mm3 (1.3-6.7); Neutrophils Percent Auto 84.1 % (45.5-73.1); Platelet Count Result 139 k/mm3 (150-375); Red Blood Count 3.68 M/mm3 (4.6-6.20); Red Cell Distribution Width 16.6 % (11.5-14.5); White Blood Count 5.7 K/mm3 (4.5-10.0)
[2024-12-07 18:05] LABS: Alveolar/Arterial O2 Gradient 86.7 mmHg; Base Excess ABG -2.1 mEq/l (+/-2.0); Carboxyhemoglobin 0.4 % THb (0-2.0); Device VENTILATOR; Fractional Inspired Oxygen 40 %; HCO3 ABG 23.6 mEq/l (22.0-26.0); Methemoglobin ABG 0.1 %THb (0-1.5); Oxygen Content ABG 16.3 %vol (16.0-22.0); Oxygen Saturation ABG 98.8 % (95.0-100.0); Oxyhemoglobin 98.2 % THb (90.0-100.0); PCO2 ABG 43.9 mmHg (35.0-45.0); Reduced Hemoglobin 1.3 %THb (0-5.0); Site Drawn RIGHT RADIAL; Total Hemoglobin 11.6 g/dL (12.0-18.0); pH ABG 7.348 (7.350-7.450)
[2024-12-07 18:06] LABS: Arterial Blood Gas PEEP 5 cmH2O; Arterial Blood Gas Tidal Volume 470 ml; Arterial Blood Gas Vent Mode CMV; Arterial Blood Gas Ventilator rate 15 /MIN
[2024-12-07 18:18] LABS: Alanine Aminotransferase 17 U/L (6-50); Albumin Level 3.8 g/dL (3.5-5.1); Alkaline Phosphatase 71 U/L (38-126); Anion Gap 7 mmol/L (4-12); Aspartate Amino Transferase 26 U/L (17-59); Bilirubin,Total 0.5 mg/dL (0.2-1.3); Blood Urea Nitrogen 14 mg/dL (9-20); Calcium 8.7 mg/dL (8.4-10.2); Carbon Dioxide 24 mmol/L (22-30); Chloride 107 mmol/L (98-107); Estimated CRCL calculation 107 ml/min; Estimated Glomerular Filt Rate > 60; Glucose 130 mg/dL (65-110); Magnesium 1.9 mg/dL (1.6-2.3); Phosphorus 4.2 mg/dL (2.5-4.5); Potassium 4.3 mmol/L (3.4-5.0); Sodium 138 mmol/L (137-145); Total Protein 6.1 g/dL (6.3-8.2)
[2024-12-07 18:19] LABS: INR 1.1
[2024-12-07 18:20] LABS: Fibrinogen 374 mg/dl (215-510); Partial Thromboplastin Time 33.7 Seconds (22.3-36.8)
[2024-12-07 18:24] LABS: Lactic Acid Reflex 0.7 mmol/L (0.7-2.0)
--- NOTE | 2024-12-07 18:34 | PM.IMHP ---
H&P: HPI History of Present Illness Date/Time: 12/07/24 18:34 Chief Complaint: Difficulty Swallowing, SOB Narrative: 74 y/o M with PMH of sleep apnea on CPAP, hypertension, colorectal cancer s/p right hemicolectomy, melanoma s/p excision, depression, kidney stones, colitis (microscopic, chronic diarrhea), and neuropathy presents here with cough, sore throat, dysphagia, and shortness of breath. The patient presented to [facility] in [facility] on 12/07 for further evaluation of cough, sore throat, dysphagia, and shortness of breath. HPI obtained through the patient's partner as he is currently intubated. The patient's partner, Bryan, provided the following history. He reports the patient has been experiencing a cough for the past few months. Cough has been dry and irritating but not accompanied by any additional symptoms. Patient then developed dysphagia and sore throat yesterday. This morning he reported to his partner that he was having significantly more difficulty swallowing, choking sensation, and now developed shortness of breath. Patient underwent an EGD at [facility], significant epiglottitis noted and patient was emergently intubated. Prior to intubation, it was noted that the patient's throat and tongue appeared consistent with Tiffany. Patient was subsequently started on Diflucan and transferred here for intensive care. Partner reports majority of his providers are at [facility]. Of note, the patient had a recent hemicolectomy for colorectal cancer on 11/06/2024. Initial VS at presentation: 97.5? F, HR 74, R 15, 139/86, and 100% on mechanical ventilation, FiO2 at 40%. Lab workup on presentation, 12/07: No leukocytosis, hemoglobin 10.9 (9.6 on 11/07/2024), normal coags, normal fibrinogen, elevated D-dimer, initial ABG showed pH 7.348 and 02 148, no significant electrolyte derangements, creatinine 0.69 and glucose 130. CXR showed mild pulmonary vascular congestion and supportive lines/tubes in good position. Abdominal XR showed orogastric tube in good position and ready for immediate use. Review of Systems Review of Systems: All systems reviewed & are unremarkable except as noted in HPI and below PMFSH Past Medical History Medical History History of anesthesia reaction Slow to wake History of retinal detachment Left eye, s/p retinal surgery Arthritis Colitis Microscopic, chronic diarrhea Low immunoglobulin level Colonic mass Anxiety Primary osteoarthritis of left knee Melanoma MARYANN (obstructive sleep apnea) On CPAP Microscopic colitis Osteoarthritis of knees, bilateral Postoperative anemia Essential hypertension Burroughs palsy Many years ago History of colon polyps Mixed hyperlipidemia Prediabetes Obesity (BMI 30-39.9) Psychomotor agitation Dysesthesia Surgical History Surgical History History of vasectomy History of bladder surgery Cystoscopy with stone extraction History of cardiac catheterization (~2014) History of hemicolectomy 11/05/24 Robotic assisted laparoscopic right hemicolectomy with [id number] stapled ileo colic anastomosis Dr. Mccauley H/O hemorrhoidectomy 07/16/24 Excisional hemorrhoidectomy x3 Banding of internal hemorrhoid x1 Transanal excisional distal rectal polypectomy. Dr. Mccauley History of total left knee replacement 2023 Gabe History of right knee joint replacement 2020- Dr Bernal History of bilateral mastectomy Benign History of cataract surgery History of cholecystectomy Family History Family History Father Hypertension Family history of cardiovascular disease Carcinoma of colon Mother Hypertension Family history of cardiovascular disease Carcinoma of colon Sibling Hypertension Family history of cardiovascular disease Social History Social History Social History: Patient does not drink, smoke or do drugs. 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 He would like to be a full code. His power of finance attorney is his partner, Bryan. Smoking status: Never smoker Second hand tobacco smoke exposure: No Additional smoking assessment comments: DENIES ANY FORM OF TOBACCO USE Alcohol intake: never Substance use: never Substance use type: does not use Do You Feel Safe in your Home?: No Lack of Transportation: YES Lack of Food: Never True Current Housing: I Have Housing Concerned About Future Housing: No Difficulty Paying Gas/Electric Bills: Decline to Answer Difficulty Paying for Meds: Decline to Answer Currently Unemployed: Decline to Answer Education: Decline to Answer Difficulty w/ Childcare or Family Care: No Living arrangements: with family Additional living arrangements comments: partner Bryan Occupation/Education: retired Gender identity (if verbalized by the patient): Male Sexual Orientation (if Verbalized by the Patient): Lesbian, Singleton, or Homosexual Spiritual care concerns: No Meds Home Medications and Allergies Home Medications ?Medication ?Instructions ?Recorded ?Confirmed ?Type melatonin 10 mg capsule 10 mg PO QHS 02/06/22 12/07/24 History CPAP #1 ea 12/19/22 12/07/24 Rx CPAP #1 ea 10/15/23 12/07/24 Rx cyanocobalamin (vitamin B-12) 1,000 mcg PO DAILY 08/25/24 12/07/24 History 1,000 mcg capsule potassium chloride 20 mEq See Rx Instructions .Route 09/13/24 12/07/24 Rx tablet,extended release .COMPLEX #90 tabs diphenhydramine HCl 50 mg capsule 50 mg PO HS 10/28/24 12/07/24 History (Sleep Aid (diphenhydramine)) oxybutynin chloride 10 mg 10 mg PO QAM 10/28/24 12/07/24 History tablet,extended release 24 hr losartan 50 mg tablet 50 mg PO QAM #90 tabs 11/17/24 12/07/24 Rx budesonide 3 mg See Rx Instructions .Route 11/19/24 12/07/24 Rx capsule,delayed,extended release .COMPLEX #270 caps sertraline 100 mg tablet See Rx Instructions .Route 11/19/24 12/07/24 Rx .COMPLEX #135 tabs Allergies Allergy/AdvReac Type Severity Reaction Status Date / Time atropine AdvReac Mild NAUSEA AND Verified 12/07/24 19:08 VOMITING diphenoxylate AdvReac Mild Fever & Verified 12/07/24 19:08 VOMITING meperidine AdvReac Mild SEVERE Verified 12/07/24 19:08 NAUSEA AND VOMITING Vital Signs Vital Signs - 24 hr 12/07/24 16:55 12/07/24 17:00 12/07/24 17:15 Temperature 97.5 F L Pulse Rate 74 70 83 Respiratory Rate 15 Blood Pressure 139/86 139/86 Pulse Oximetry 100 100 100 Oxygen Delivery Mechanical Ventilation Fraction of Inspired Oxygen 40 12/07/24 17:15 12/07/24 17:15 12/07/24 17:15 Temperature Pulse Rate 70 70 Respiratory Rate 17 17 Blood Pressure Pulse Oximetry 99 Oxygen Delivery Mechanical Ventilation Fraction of Inspired Oxygen 40 40 12/07/24 17:40 12/07/24 18:00 12/07/24 18:00 Temperature Pulse Rate 63 61 61 Respiratory Rate 16 15 Blood Pressure Pulse Oximetry Oxygen Delivery Fraction of Inspired Oxygen 12/07/24 18:00 12/07/24 18:00 12/07/24 18:23 Temperature 98.0 F Pulse Rate 62 62 Respiratory Rate 15 15 Blood Pressure 91/65 L Pulse Oximetry 99 99 Oxygen Delivery Mechanical Ventilation Fraction of Inspired Oxygen 30 12/07/24 18:27 Temperature Pulse Rate Respiratory Rate Blood Pressure Pulse Oximetry Oxygen Delivery Fraction of Inspired Oxygen 30 Exam Const: General: comfortable and no acute distress Other: , male, ill-appearing, intubated/sedated, elderly HENMT: Mouth: Yes moist mucous membranes Other: Dried blood to right nare with NG in place -> bilious/dark red output. Difficult to exam throat as ET tube is in place. No revert pustules, patches, or thrush easily appreciated. Eyes: General: appearance normal, both eyes and all related structures Sclera: sclerae normal Pupils: Equal, round and reactive pupils present Resp: Effort & Inspection: normal respiratory effort Other: Bibasilar crackles. Cardio: Rate: regular rate Rhythm: regular rhythm Other: S1-S2 present without murmur, rub, ectopy GI: Other: well healed laparoscopic incisions to abdomen. incision to left panus with firm underlying region approx 4 x 4 cm. Normoactive bowel sounds in all quadrants. Nondistended, soft. Urinary Catheter: Urinary Catheter: patent and draining Skin: General skin exam: normal color Wounds: no wounds Other: Scattered ecchymosis to bilateral upper extremities, primarily forearms with no particular pattern. Neuro: Other: Intubated and sedated. Post CT briefly awakened and moving all extremities, able to maintain eye contact. Extrem: General: normal to inspection Psych: Other: Unable to assess H&P: Results Labs Labs: Short CBC 12/07/24 12/07/24 12/07/24 Range/Units 17:49 17:49 17:49 WBC 5.7 Cancelled (4.5-10.0) K/mm3 Hgb 10.9 L Cancelled (14.0-18.0) g/dL Hct 33.8 L (42.0-52.0) % Plt Count (150-375) k/mm3 12/07/24 12/07/24 Range/Units 17:49 17:49 WBC (4.5-10.0) K/mm3 Hgb (14.0-18.0) g/dL Hct Cancelled (42.0-52.0) % Plt Count 139 L Cancelled (150-375) k/mm3 BMP 12/07/24 17:49 Sodium 138 Potassium 4.3 Chloride 107 Carbon Dioxide 24 BUN 14 Creatinine 0.69 L Glucose 130 H Calcium 8.7 Liver Function 12/07/24 Range/Units 17:49 Total Bilirubin 0.5 (0.2-1.3) mg/dL AST 26 (17-59) U/L ALT 17 (6-50) U/L Alkaline Phosphatase 71 (38-126) U/L Albumin 3.8 (3.5-5.1) g/dL Assessment and Plan Assessment and plan (1) Epiglottitis: Code(s): J05.10 - Acute epiglottitis without obstruction Status: Acute Assessment and Plan: - EGD performed at [facility], no report provided. Reportedly showed epiglottitis and findings consistent with Tiffany. Patient emergently intubated on 12/07. Confirmed via XR here. - strep PCR and anaerobic/aerobic culture of throat - started on ceftriaxone, clindamycin, and micafungin on 12/07 - check CT soft tissue neck with/without con The epiglottis is of normal caliber. Asymmetric 12 mm soft tissue density within the supraglottic airway, to the right of midline, a finding of uncertain clinical implication. Examination is otherwise unremarkable, as detailed above. - consult ENT - admission to the ICU with photo equipment technician consulted -> requesting CT of the chest/abdomen/pelvis, ordered No pulmonary embolus. No aortic dissection. Bilateral pleural effusions with adjacent compressive atelectasis. Hepatosplenomegaly, unchanged. Findings within the soft tissues of the lower pelvis, to the left midline, possibly representing a perioperative seroma, as detailed above. - blood cultures, lactic 0.7 Patient noted to have bloody bile from and G-tube upon arrival. Patient's partner reports no history of drinking or substance abuse. Obtaining imaging and checking DIC panel. Started on PPI b.i.d.. (2) S/P right hemicolectomy: Code(s): Z90.49 - Acquired absence of other specified parts of digestive tract Status: Acute Assessment and Plan: - right hemicolectomy secondary to colorectal cancer on 11/06/2024. Incision site well healed, firm region measuring XX on exam. (3) Prediabetes: Code(s): R73.03 - Prediabetes Status: Acute Assessment and Plan: - glucose 130 upon arrival, history of prediabetes. Check A1c (4) Essential hypertension: Code(s): I10 - Essential (primary) hypertension Status: Acute Assessment and Plan: - chronic, currently 91/56 (on propofol) - hold all medications - monitor closely Plan Diet: NPO GI Prophylaxis: Ppi b.i.d. DVT Prophylaxis: SCDs IV fluids: NS at 100 mL/hour, monitor I&Os Lines/Tubes: Peripheral IVs, Marques Code Status: Full code, per partner Bryan Quality VTE Prophylaxis VTE prophylaxis: mechanical ordered Critical Care Time: I personally spent 55 minutes of direct patient care including (but not limited to) the physical examination, decision-making, bedside evaluation, review of medical records, review of labs and imaging, discussion with nursing staff and other providers for collaborative, critical care management of this patient. Hospitalist MIPS Medication Reconciliation I have utilized all available resources to obtain, update and review the patients current medications (includes all prescriptions, OTC, herbals, cannabis, and nutritional supplements).: Yes
[2024-12-07 18:42] LABS: D Dimer 0.61 ug/mL (<0.48)
[2024-12-07 19:35] LABS: Strep Group A RT-PCR NOT DETECTED (Negative)
[2024-12-07] MEDS: MINERAL OIL/WHITE PETROLATUM OINTMENT 1 APPLIC EACH EYE (20:01)
[2024-12-07] MEDS: SODIUM CHLORIDE 0.9% IV 1,000 ML 100 ML IV CONT (20:01)
[2024-12-07] MEDS: cefTRIAXone 2 GM/NS 100 ML 2 GM/100 ML BAG IVPB (20:05)
[2024-12-07 20:20] LABS: MRSA (PCR). NOT DETECTED (NOT DETECTE)
[2024-12-07] MEDS: CLINDAMYCIN 900 MG/D5W 50 ML 900 MG/50 ML PIGGYBACK 50 MG IVPB (21:00)
--- NOTE | 2024-12-07 22:59 | ECG_ITS ---
Test Date: 2024-12-07 23:09:34 Measurements Intervals [place] Rate: 66 P: 19 SD: 193 QRS: 5 QRSD: 106 T: 1 QT: 409 QTc: 430 Interpretive Statements SINUS RHYTHM LEFT VENTRICULAR HYPERTROPHY INFERIOR INFARCT, AGE INDETERMINATE BORDERLINE T WAVE ABNORMALITY- ANTERIOR LEADS ABNORMAL ECG Compared to ECG 11/05/2024 19:27:20 NO SIGNIFICANT CHANGE Electronically Signed On 12-08-2024 06:12:46 CDT by Pablo Brannon D.O.
[2024-12-07] MEDS: MIDAZOLAM HCL (*CRX) 2 MG/2 ML VIAL IV PUSH (23:01)
[2024-12-07 23:50] LABS: Gastric Negative Control Negative; Gastric Positive Control Positive; Occult Blood Gastric Fluid Positive
[2024-12-07 23:51] LABS: pH Gastric Fluid 4 (1-8)
[2024-12-08] VITALS (42 sets, daily range): BP systolic 89–107; BP diastolic 65–72; PULSE 50–355; RESP 12–24; TEMP 35.9–36.6; O2SAT 97–100; BMI 31.4
[2024-12-08] MEDS: PROPOFOL IV EMULSION 100 ML 29.81 MG IV CONT ×3 (01:42→22:59)
[2024-12-08 04:27] LABS: Alveolar/Arterial O2 Gradient 46.5 mmHg; Base Excess ABG -4.7 mEq/l (+/-2.0); Carboxyhemoglobin 0.1 % THb (0-2.0); Fractional Inspired Oxygen 30 %; Methemoglobin ABG 0.1 %THb (0-1.5); Oxygen Content ABG 13.1 %vol (16.0-22.0); Oxygen Saturation ABG 98.4 % (95.0-100.0); Oxyhemoglobin 98.1 % THb (90.0-100.0); PCO2 ABG 35.7 mmHg (35.0-45.0); PO2 ABG 125.5 mmHg (80.0-100.0); PO2 FiO2 Ratio Arterial Blood 4.18 %; Reduced Hemoglobin 1.7 %THb (0-5.0); Total Hemoglobin 9.3 g/dL (12.0-18.0); pH ABG 7.367 (7.350-7.450)
[2024-12-08 04:30] LABS: Arterial Blood Gas Ventilator rate 15 /MIN; Device VENTILATOR; Modified Allen's Test Pass; Site Drawn LEFT RADIAL
[2024-12-08 04:31] LABS: Arterial Blood Gas PEEP 5 cmH2O; Arterial Blood Gas Tidal Volume 470 ml; Arterial Blood Gas Vent Mode ASSIST CONTROL
[2024-12-08 04:35] LABS: Basophils Percent Auto 0.2 % (0.2-1.2); Hematocrit 32.4 % (42.0-52.0); Hemoglobin 10.4 g/dL (14.0-18.0); Immature Granulocyte Absolute 0.03 K/mm3 (0.00-0.031); Immature Granulocyte Percent A 0.5 % (0-0.5); Lymphocytes Absolute Auto 1.42 K/mm3 (0.9-3.2); Lymphocytes Percent Auto 23.3 % (18.3-44.2); Mean Corpuscular HGB Conc 32.1 g/dl (32-36); Mean Corpuscular Hemoglobin 29.8 pg (26-34); Mean Corpuscular Volume 92.8 fl (80-100); Mean Platelet Volume 9.7 fl (7.4-10.4); Monocytes Absolute Auto 0.3 K/mm3 (0.1-0.6); Monocytes Percent Auto 4.9 % (2.6-8.5); Neutrophils Absolute Auto 4.3 K/mm3 (1.3-6.7); Neutrophils Percent Auto 71.1 % (45.5-73.1); Platelet Count Result 137 k/mm3 (150-375); Red Blood Count 3.49 M/mm3 (4.6-6.20); Red Cell Distribution Width 16.5 % (11.5-14.5); White Blood Count 6.1 K/mm3 (4.5-10.0)
[2024-12-08 04:50] LABS: Hemoglobin A1C. 4.5 % (<5.7)
[2024-12-08] MEDS: PROPOFOL IV EMULSION 100 ML 26.5 MG IV CONT ×3 (05:10→15:43)
[2024-12-08 05:12] LABS: Alanine Aminotransferase 16 U/L (6-50); Albumin Level 3.6 g/dL (3.5-5.1); Alkaline Phosphatase 66 U/L (38-126); Anion Gap 8 mmol/L (4-12); Aspartate Amino Transferase 22 U/L (17-59); Bilirubin,Total 0.3 mg/dL (0.2-1.3); Blood Urea Nitrogen 13 mg/dL (9-20); Calcium 8.6 mg/dL (8.4-10.2); Carbon Dioxide 26 mmol/L (22-30); Chloride 104 mmol/L (98-107); Estimated CRCL calculation 98 ml/min; Estimated Glomerular Filt Rate > 60; Glucose 121 mg/dL (65-110); Magnesium 1.9 mg/dL (1.6-2.3); Phosphorus 5.1 mg/dL (2.5-4.5); Potassium 4.2 mmol/L (3.4-5.0); Sodium 138 mmol/L (137-145); Total Protein 5.8 g/dL (6.3-8.2)
[2024-12-08 05:40] LABS: HIV 1/2 Ab P24 Ag Result Negative (Negative)
[2024-12-08] MEDS: CLINDAMYCIN 900 MG/D5W 50 ML 900 MG/50 ML PIGGYBACK 50 MG IVPB ×3 (05:47→22:09)
[2024-12-08] MEDS: MINERAL OIL/WHITE PETROLATUM OINTMENT 1 APPLIC EACH EYE ×2 (08:13→20:37)
[2024-12-08] MEDS: PANTOPRAZOLE SODIUM IV 40 MG VIAL IV PUSH ×2 (08:13→20:37)
--- NOTE | 2024-12-08 08:52 | P.CONIN_ITS ---
Assessment and Plan Assessment and plan (1) On mechanically assisted ventilation: Code(s): Z99.11 - Dependence on respirator [ventilator] status Status: Acute Assessment and Plan: Patient was intubated and [facility] in [facility], this was done when they were doing the EGD and noted swelling of the vocal cords/epiglottitis -12/07: CT soft tissue of the neck are showed asymmetric 12 mm soft tissue density within the subglottic airway to the right of midline, the epiglottis is of normal caliber -ENT has been notified -patient remains intubated on CMV mode of ventilation, peep of 5 and 30% FiO2 with adequate O2 sat -once ENT evaluates and clears him, will place patient on SBT and evaluate for extubation -on propofol and fentanyl for sedation, maintain RASS of 0 to -2, daily SBT and SAT (2) Epiglottitis: Code(s): J05.10 - Acute epiglottitis without obstruction Status: Acute Assessment and Plan: Soft tissue density as noted above, at [facility] they had noted swelling of the vocal cords, patient did receive Decadron at the outside hospital -ENT consulted -will continue to follow -will hold additional steroids due to Tiffany esophagitis (3) Tiffany esophagitis: Code(s): B37.81 - Candidal esophagitis Status: Acute Assessment and Plan: Patient was started on micafungin for Tiffany esophagitis (4) Essential hypertension: Code(s): I10 - Essential (primary) hypertension Status: Acute Assessment and Plan: Blood pressures have been stable since patient is on sedation -hold antihypertensives for now, will restart once patient is extubated (5) Seroma after procedure: Status: Acute Assessment and Plan: Patient has seroma at the postoperative site as seen on CT scan as under -surgery has been consulted 12/07: CT chest abdomen and pelvis did not reveal any pulmonary embolism, no aortic dissection. Bilateral pleural effusion with adjacent compressive atelectasis, hepatic splenomegaly, unchanged. Findings within soft tissues of the lower pelvis to the left of midline, possibly representing a perioperative serum a 3.5 x 6.1 x 5.4 cm fluid attenuation with air. Plan DVT prophylaxis: SCDs Stress ulcer prophylaxis: Protonix IV q.12 hours Nutrition: NPO Code Status: Full code Critical Care Time Spent: 49 minutes Due to a high probability of clinically significant, life threatening deterioration, the patient required my highest level of preparedness to intervene emergently and I personally spent this critical care time directly and personally managing the patient. This critical care time included obtaining a history; examining the patient; pulse oximetry; ordering and review of studies; arranging urgent treatment with development of a management plan; evaluation of patient's response to treatment; frequent reassessment; and discussions with other providers. It was exclusive of separately billable procedures and treating other patients and teaching time. Please see Assessment and Plan section and the rest of the note for further information on patient assessment and treatment This dictation may have been done utilizing a voice recognition system. Attempts have been made to correct errors. However, there may be uncorrected grammatical, spelling, and recognitions errors present. Seat Cover Maker Consult Note Consult date: 12/08/24 Reason for consult: For mechanical ventilation for EGD , swelling of the vocal cords, esophageal candidiasis, perioperative seroma HPI: Jesse Crook is a 74 year old male with past medical history of sleep apnea on CPAP, colorectal cancers status post robotic assisted laparoscopic right hemicolectomy with [id number] stapled ileocolic anastomosis on 11/06/2024 at [facility] by Dr. 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 History was obtained from medical records. Patient has been experiencing a cough for the past few months, dry and irritating. No shortness of breath or other associated symptoms. Patient also developed dysphagia and sore throat 1 day prior to going to the hospital, he also had difficulty swallowing and choking sensation. Prior to EGD and was noted the patient to continue tongue appeared to have thrush. EGD was done at [facility], was found to have epiglottitis with swelling of the vocal cords, and was intubated. EGD did reveal Tiffany esophagitis and was started on Diflucan and transferred to the ICU here at [facility] for further management. Patient had a right hemicolectomy on 11/06/2024, CT chest abdomen and pelvis did not reveal any pulmonary embolism, no aortic dissection. Bilateral pleural effusion with adjacent compressive atelectasis, hepatic splenomegaly, unchanged. Findings within soft tissues of the lower pelvis to the left of midline, possibly representing a perioperative serum a 3.5 x 6.1 x 5.4 cm fluid attenuation with air. Wbc's were normal, hemoglobin 10.9, normal coags, normal fibrinogen, elevated D-dimer, initial ABGs, pH of 7.34, pCO2 43, PO2 148, HC03 23, O2 sats 98%, peep of 5 and 40% FiO2. CMP was within normal limits. Creatinine 0.69. Patient seen examined the ICU this morning, remains intubated on CMV mode of ventilation, peep of 5, 30% FiO2. Sedated with fentanyl and propofol infusion. Does not open his eyes follows simple commands urine output has been adequate, patient is afebrile, hemodynamically stable Review of Systems 2 Review of Systems: ROS unobtainable: Yes unobtainable due to endotracheal tube and unobtainable due to mental status PMFSH Past Medical History Medical History History of anesthesia reaction Slow to wake History of retinal detachment Left eye, s/p retinal surgery Arthritis Colitis Microscopic, chronic diarrhea Low immunoglobulin level Colonic mass Anxiety Primary osteoarthritis of left knee Melanoma MARYANN (obstructive sleep apnea) On CPAP Microscopic colitis Osteoarthritis of knees, bilateral Postoperative anemia Essential hypertension Burroughs palsy Many years ago History of colon polyps Mixed hyperlipidemia Prediabetes Obesity (BMI 30-39.9) Psychomotor agitation Dysesthesia Surgical History Surgical History History of vasectomy History of bladder surgery Cystoscopy with stone extraction History of cardiac catheterization (~2014) History of hemicolectomy 11/05/24 Robotic assisted laparoscopic right hemicolectomy with [id number] stapled ileo colic anastomosis Dr. Mccauley H/O hemorrhoidectomy 07/16/24 Excisional hemorrhoidectomy x3 Banding of internal hemorrhoid x1 Transanal excisional distal rectal polypectomy. Dr. Mccauley History of total left knee replacement 2023 Gabe History of right knee joint replacement 2020- Dr Bernal History of bilateral mastectomy Benign History of cataract surgery History of cholecystectomy Family History Family History Father Hypertension Family history of cardiovascular disease Carcinoma of colon Mother Hypertension Family history of cardiovascular disease Carcinoma of colon Sibling Hypertension Family history of cardiovascular disease Social History Social History Social History: Patient does not drink, smoke or do drugs. 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 He would like to be a full code. His power of united [place] attorney is his partner, Bryan. Smoking status: Never smoker Second hand tobacco smoke exposure: No Additional smoking assessment comments: DENIES ANY FORM OF TOBACCO USE Alcohol intake: never Substance use: never Substance use type: does not use Do You Feel Safe in your Home?: No Lack of Transportation: YES Lack of Food: Never True Current Housing: I Have Housing Concerned About Future Housing: No Difficulty Paying Gas/Electric Bills: Decline to Answer Difficulty Paying for Meds: Decline to Answer Currently Unemployed: Decline to Answer Education: Decline to Answer Difficulty w/ Childcare or Family Care: No Living arrangements: with family Additional living arrangements comments: partner Bryan Occupation/Education: retired Gender identity (if verbalized by the patient): Male Sexual Orientation (if Verbalized by the Patient): Lesbian, Singleton, or Homosexual Spiritual care concerns: No Meds Home Medications and Allergies Home Medications ?Medication ?Instructions ?Recorded ?Confirmed ?Type melatonin 10 mg capsule 10 mg PO QHS 02/06/22 12/07/24 History CPAP #1 ea 12/19/22 12/07/24 Rx CPAP #1 ea 10/15/23 12/07/24 Rx cyanocobalamin (vitamin B-12) 1,000 mcg PO DAILY 08/25/24 12/07/24 History 1,000 mcg capsule potassium chloride 20 mEq See Rx Instructions .Route 09/13/24 12/07/24 Rx tablet,extended release .COMPLEX #90 tabs diphenhydramine HCl 50 mg capsule 50 mg PO HS 10/28/24 12/07/24 History (Sleep Aid (diphenhydramine)) oxybutynin chloride 10 mg 10 mg PO QAM 10/28/24 12/07/24 History tablet,extended release 24 hr losartan 50 mg tablet 50 mg PO QAM #90 tabs 11/17/24 12/07/24 Rx budesonide 3 mg See Rx Instructions .Route 11/19/24 12/07/24 Rx capsule,delayed,extended release .COMPLEX #270 caps sertraline 100 mg tablet See Rx Instructions .Route 11/19/24 12/07/24 Rx .COMPLEX #135 tabs Allergies Allergy/AdvReac Type Severity Reaction Status Date / Time atropine AdvReac Mild NAUSEA AND Verified 12/07/24 19:08 VOMITING diphenoxylate AdvReac Mild Fever & Verified 12/07/24 19:08 VOMITING meperidine AdvReac Mild SEVERE Verified 12/07/24 19:08 NAUSEA AND VOMITING Vital Signs Vital Signs - 24 hr 12/07/24 16:55 12/07/24 17:00 12/07/24 17:15 Temperature 97.5 F L Pulse Rate 74 70 83 Respiratory Rate 15 Blood Pressure 139/86 139/86 Pulse Oximetry 100 100 100 Oxygen Delivery Mechanical Ventilation Fraction of Inspired Oxygen 40 12/07/24 17:15 12/07/24 17:15 12/07/24 17:15 Temperature Pulse Rate 70 70 Respiratory Rate 17 17 Blood Pressure Pulse Oximetry 99 Oxygen Delivery Mechanical Ventilation Fraction of Inspired Oxygen 40 40 12/07/24 17:40 12/07/24 18:00 12/07/24 18:00 Temperature Pulse Rate 63 61 61 Respiratory Rate 16 15 Blood Pressure Pulse Oximetry Oxygen Delivery Fraction of Inspired Oxygen 12/07/24 18:00 12/07/24 18:00 12/07/24 18:23 Temperature 98.0 F Pulse Rate 62 62 Respiratory Rate 15 15 Blood Pressure 91/65 L Pulse Oximetry 99 99 Oxygen Delivery Mechanical Ventilation Fraction of Inspired Oxygen 30 12/07/24 18:27 12/07/24 19:21 12/07/24 19:21 Temperature Pulse Rate 58 L 58 L Respiratory Rate 15 15 Blood Pressure Pulse Oximetry Oxygen Delivery Fraction of Inspired Oxygen 30 12/07/24 19:48 12/07/24 20:00 12/07/24 20:00 Temperature 97.6 F Pulse Rate 58 L 59 L Respiratory Rate 24 H Blood Pressure 90/66 L Pulse Oximetry 98 99 Oxygen Delivery Mechanical Ventilation Fraction of Inspired Oxygen 30 30 12/07/24 20:00 12/07/24 20:00 12/07/24 20:00 Temperature Pulse Rate 59 L 59 L Respiratory Rate 15 15 Blood Pressure Pulse Oximetry Oxygen Delivery Mechanical Ventilation Fraction of Inspired Oxygen 30 12/07/24 20:00 12/07/24 22:00 12/07/24 22:00 Temperature 97.5 F L Pulse Rate 59 L 57 L 58 L Respiratory Rate 26 H Blood Pressure 89/64 L Pulse Oximetry 97 97 Oxygen Delivery Mechanical Ventilation Fraction of Inspired Oxygen 30 12/07/24 22:00 12/07/24 22:00 12/07/24 22:58 Temperature Pulse Rate 58 L 58 L 63 Respiratory Rate 15 18 Blood Pressure Pulse Oximetry Oxygen Delivery Fraction of Inspired Oxygen 12/07/24 22:58 12/08/24 00:00 12/08/24 00:00 Temperature 97.6 F Pulse Rate 63 57 L 57 L Respiratory Rate 18 24 H 15 Blood Pressure 89/65 L Pulse Oximetry 98 Oxygen Delivery Fraction of Inspired Oxygen 12/08/24 00:00 12/08/24 00:00 12/08/24 00:00 Temperature Pulse Rate 57 L Respiratory Rate 15 Blood Pressure Pulse Oximetry Oxygen Delivery Mechanical Ventilation Fraction of Inspired Oxygen 30 30 12/08/24 00:00 12/08/24 01:14 12/08/24 01:42 Temperature Pulse Rate 58 L 54 L 51 L Respiratory Rate 17 Blood Pressure Pulse Oximetry 97 Oxygen Delivery Mechanical Ventilation Fraction of Inspired Oxygen 30 12/08/24 01:42 12/08/24 02:00 12/08/24 02:00 Temperature Pulse Rate 51 L 51 L 51 L Respiratory Rate 17 17 17 Blood Pressure Pulse Oximetry Oxygen Delivery Fraction of Inspired Oxygen 12/08/24 02:00 12/08/24 02:00 12/08/24 04:00 Temperature 96.7 F L Pulse Rate 51 L 50 L 54 L Respiratory Rate 24 H 17 Blood Pressure 89/65 L Pulse Oximetry 98 Oxygen Delivery Fraction of Inspired Oxygen 12/08/24 04:00 12/08/24 04:00 12/08/24 04:00 Temperature Pulse Rate 54 L 53 L Respiratory Rate 17 Blood Pressure Pulse Oximetry Oxygen Delivery Mechanical Ventilation Fraction of Inspired Oxygen 30 12/08/24 04:00 12/08/24 04:00 12/08/24 04:32 Temperature 96.7 F L Pulse Rate 53 L 53 L Respiratory Rate 20 Blood Pressure 90/66 L Pulse Oximetry 98 98 Oxygen Delivery Mechanical Ventilation Fraction of Inspired Oxygen 30 30 12/08/24 04:46 12/08/24 05:10 12/08/24 05:10 Temperature Pulse Rate 57 L 54 L 54 L Respiratory Rate 17 16 16 Blood Pressure Pulse Oximetry Oxygen Delivery Fraction of Inspired Oxygen 12/08/24 06:00 12/08/24 06:00 12/08/24 08:00 Temperature 97.0 F L Pulse Rate 54 L 54 L 55 L Respiratory Rate 24 H 15 Blood Pressure 92/66 L 101/68 Pulse Oximetry 98 99 Oxygen Delivery Fraction of Inspired Oxygen 12/08/24 08:00 12/08/24 08:00 12/08/24 08:00 Temperature Pulse Rate 355 H 55 L Respiratory Rate 15 15 Blood Pressure Pulse Oximetry Oxygen Delivery Fraction of Inspired Oxygen 30 12/08/24 08:00 12/08/24 08:07 Temperature Pulse Rate 54 L 54 L Respiratory Rate 15 Blood Pressure Pulse Oximetry 98 98 Oxygen Delivery Mechanical Ventilation Mechanical Ventilation Fraction of Inspired Oxygen 30 30 Exam 2 Narrative: General: Patient intubated sedated no acute distress HEENT:? Pupils are equal and reactive, sclera is clear, ETT in place Neck:? Supple Respiratory:? Clear to auscultation bilateral, with decreased air entry at bases, no wheezing Cardiac:? S1-S2 normal, regular rate and rhythm Abdomen:? Soft, nontender, nondistended, recent surgical scar noted on the left of midline in the lower region, and in duration noted, 3 x 4 cm Extremities:? Trace edema, palpable pedal pulses Neuro:? Patient is intubated, sedated, does not open his eyes or follow simple commands, withdraws to pain in all extremities Skin:? No lesions noted Psych:? Unable to assess at this time Results Labs 12/08/24 04:25 12/08/24 04:25 Labs: Short CBC 12/07/24 12/07/24 12/07/24 Range/Units 17:49 17:49 17:49 WBC 5.7 Cancelled (4.5-10.0) K/mm3 Hgb 10.9 L Cancelled (14.0-18.0) g/dL Hct 33.8 L (42.0-52.0) % Plt Count (150-375) k/mm3 12/07/24 12/07/24 12/08/24 Range/Units 17:49 17:49 04:25 WBC 6.1 (4.5-10.0) K/mm3 Hgb 10.4 L (14.0-18.0) g/dL Hct Cancelled 32.4 L (42.0-52.0) % Plt Count 139 L Cancelled 137 L (150-375) k/mm3 BMP 12/07/24 12/08/24 17:49 04:25 Sodium 138 138 Potassium 4.3 4.2 Chloride 107 104 Carbon Dioxide 24 26 BUN 14 13 Creatinine 0.69 L 0.76 Glucose 130 H 121 H Calcium 8.7 8.6 Liver Function 12/07/24 12/08/24 Range/Units 17:49 04:25 Total Bilirubin 0.5 0.3 (0.2-1.3) mg/dL AST 26 22 (17-59) U/L ALT 17 16 (6-50) U/L Alkaline Phosphatase 71 66 (38-126) U/L Albumin 3.8 3.6 (3.5-5.1) g/dL
[2024-12-08] MEDS: PROPOFOL IV EMULSION 100 ML 23.18 MG IV CONT (09:02)
[2024-12-08] MEDS: MICAFUNGIN SODIUM IVPB (09:02)
[2024-12-08] MEDS: SODIUM CHLORIDE 0.9% IVPB (09:02)
--- NOTE | 2024-12-08 09:49 | P.CONGS_ITS ---
Assessment and Plan Assessment and plan (1) Epiglottitis: Code(s): J05.10 - Acute epiglottitis without obstruction Status: Acute Assessment and Plan: Continue management per national service officer and ENT recommendations. (2) Essential hypertension: Code(s): I10 - Essential (primary) hypertension Status: Acute (3) Tiffany esophagitis: Code(s): B37.81 - Candidal esophagitis Status: Acute (4) On mechanically assisted ventilation: Code(s): Z99.11 - Dependence on respirator [ventilator] status Status: Acute (5) Seroma after procedure: Status: Acute Assessment and Plan: Seroma to the left lower quadrant was noted at last postop visit on 12/01. At this time, no redness, draining, or any other signs of infection were noted. Upon visit today, there is an overlying area of redness to the skin atop the seroma. There is also small opening with no tracking or drainage to the medial side of the Pfannenstiel incision. This is likely from the seroma attempting to drain on its own. Will discuss with provider on-call and continue to monitor overlying skin and incision. No immediate surgical intervention necessary at this time. 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 Mccauley. We have been asked to see him in surgical consultation for seroma. The seroma was noted in a postop office visit on 12/01 and he was instructed to return to the office in 6 weeks for recheck. Of note he was also prescribed nystatin powder to apply twice a day for fungal rash in his lower abdominal incision. Patient presented to [facility] in [place] yesterday with complaints of dysphagia, sore throat, cough, and shortness of breath. Patient underwent EGD which demonstrated significant epiglottitis. Patient was intubated at [facility] and transferred to [facility]. He was also started on Diflucan, as his throat and tongue appeared consistent with Tiffany. Since ICU admission a CT soft tissue of the neck was performed and demonstrated asymmetric 12 mm soft tissue density with subglottic airway to the right midline. ENT was consulted to evaluate and clear him for possible SBT and extubation. A CTA of the chest/abdomen/pelvis was also performed and demonstrated a fluid and air collection measuring 3.5 x 6.1 x 5.4 within the soft tissues of the lower pelvis to the left of the midline. Patient's partner, Bryan, notes that at home the wound looked better than it did today, as he was applying powder and keeping the area dry and clean. He did not note any dehiscence or drainage from the Pfannenstiel incision. He noted the seroma but no surrounding redness or other changes to the area. PENDING SALE TO [facility] Past Medical History Medical History History of anesthesia reaction Slow to wake History of retinal detachment Left eye, s/p retinal surgery Arthritis Colitis Microscopic, chronic diarrhea Low immunoglobulin level Colonic mass Anxiety Primary osteoarthritis of left knee Melanoma MARYANN (obstructive sleep apnea) On CPAP Microscopic colitis Osteoarthritis of knees, bilateral Postoperative anemia Essential hypertension Burroughs palsy Many years ago History of colon polyps Mixed hyperlipidemia Prediabetes Obesity (BMI 30-39.9) Psychomotor agitation Dysesthesia Surgical History Surgical History History of vasectomy History of bladder surgery Cystoscopy with stone extraction History of cardiac catheterization (~2014) History of hemicolectomy 11/05/24 Robotic assisted laparoscopic right hemicolectomy with [id number] stapled ileo colic anastomosis Dr. Mccauley H/O hemorrhoidectomy 07/16/24 Excisional hemorrhoidectomy x3 Banding of internal hemorrhoid x1 Transanal excisional distal rectal polypectomy. Dr. Mccauley History of total left knee replacement 2023 Gabe History of right knee joint replacement 2020- Dr Bernal History of bilateral mastectomy Benign History of cataract surgery History of cholecystectomy Family History Family History Father Hypertension Family history of cardiovascular disease Carcinoma of colon Mother Hypertension Family history of cardiovascular disease Carcinoma of colon Sibling Hypertension Family history of cardiovascular disease Social History Social History Social History: Patient does not drink, smoke or do drugs. 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 He would like to be a full code. His power of tax attorney is his partner, Bryan. Smoking status: Never smoker Second hand tobacco smoke exposure: No Additional smoking assessment comments: DENIES ANY FORM OF TOBACCO USE Alcohol intake: never Substance use: never Substance use type: does not use Do You Feel Safe in your Home?: No Lack of Transportation: YES Lack of Food: Never True Current Housing: I Have Housing Concerned About Future Housing: No Difficulty Paying Gas/Electric Bills: Decline to Answer Difficulty Paying for Meds: Decline to Answer Currently Unemployed: Decline to Answer Education: Decline to Answer Difficulty w/ Childcare or Family Care: No Living arrangements: with family Additional living arrangements comments: partner Bryan Occupation/Education: retired Gender identity (if verbalized by the patient): Male Sexual Orientation (if Verbalized by the Patient): Lesbian, Singleton, or Homosexual Spiritual care concerns: No Meds Home Medications and Allergies Home Medications ?Medication ?Instructions ?Recorded ?Confirmed ?Type melatonin 10 mg capsule 10 mg PO QHS 02/06/22 12/07/24 History CPAP #1 ea 12/19/22 12/07/24 Rx CPAP #1 ea 10/15/23 12/07/24 Rx cyanocobalamin (vitamin B-12) 1,000 mcg PO DAILY 08/25/24 12/07/24 History 1,000 mcg capsule potassium chloride 20 mEq See Rx Instructions .Route 09/13/24 12/07/24 Rx tablet,extended release .COMPLEX #90 tabs diphenhydramine HCl 50 mg capsule 50 mg PO HS 10/28/24 12/07/24 History (Sleep Aid (diphenhydramine)) oxybutynin chloride 10 mg 10 mg PO QAM 10/28/24 12/07/24 History tablet,extended release 24 hr losartan 50 mg tablet 50 mg PO QAM #90 tabs 11/17/24 12/07/24 Rx budesonide 3 mg See Rx Instructions .Route 11/19/24 12/07/24 Rx capsule,delayed,extended release .COMPLEX #270 caps sertraline 100 mg tablet See Rx Instructions .Route 11/19/24 12/07/24 Rx .COMPLEX #135 tabs Allergies Allergy/AdvReac Type Severity Reaction Status Date / Time atropine AdvReac Mild NAUSEA AND Verified 12/07/24 19:08 VOMITING diphenoxylate AdvReac Mild Fever & Verified 12/07/24 19:08 VOMITING meperidine AdvReac Mild SEVERE Verified 12/07/24 19:08 NAUSEA AND VOMITING Vital Signs Vital Signs - 24 hr 12/07/24 16:55 12/07/24 17:00 12/07/24 17:15 Temperature 97.5 F L Pulse Rate 74 70 83 Respiratory Rate 15 Blood Pressure 139/86 139/86 Pulse Oximetry 100 100 100 Oxygen Delivery Mechanical Ventilation Fraction of Inspired Oxygen 40 12/07/24 17:15 12/07/24 17:15 12/07/24 17:15 Temperature Pulse Rate 70 70 Respiratory Rate 17 17 Blood Pressure Pulse Oximetry 99 Oxygen Delivery Mechanical Ventilation Fraction of Inspired Oxygen 40 40 12/07/24 17:40 12/07/24 18:00 12/07/24 18:00 Temperature Pulse Rate 63 61 61 Respiratory Rate 16 15 Blood Pressure Pulse Oximetry Oxygen Delivery Fraction of Inspired Oxygen 12/07/24 18:00 12/07/24 18:00 12/07/24 18:23 Temperature 98.0 F Pulse Rate 62 62 Respiratory Rate 15 15 Blood Pressure 91/65 L Pulse Oximetry 99 99 Oxygen Delivery Mechanical Ventilation Fraction of Inspired Oxygen 30 12/07/24 18:27 12/07/24 19:21 12/07/24 19:21 Temperature Pulse Rate 58 L 58 L Respiratory Rate 15 15 Blood Pressure Pulse Oximetry Oxygen Delivery Fraction of Inspired Oxygen 30 12/07/24 19:48 12/07/24 20:00 12/07/24 20:00 Temperature 97.6 F Pulse Rate 58 L 59 L Respiratory Rate 24 H Blood Pressure 90/66 L Pulse Oximetry 98 99 Oxygen Delivery Mechanical Ventilation Fraction of Inspired Oxygen 30 30 12/07/24 20:00 12/07/24 20:00 12/07/24 20:00 Temperature Pulse Rate 59 L 59 L Respiratory Rate 15 15 Blood Pressure Pulse Oximetry Oxygen Delivery Mechanical Ventilation Fraction of Inspired Oxygen 30 12/07/24 20:00 12/07/24 22:00 12/07/24 22:00 Temperature 97.5 F L Pulse Rate 59 L 57 L 58 L Respiratory Rate 26 H Blood Pressure 89/64 L Pulse Oximetry 97 97 Oxygen Delivery Mechanical Ventilation Fraction of Inspired Oxygen 30 12/07/24 22:00 12/07/24 22:00 12/07/24 22:58 Temperature Pulse Rate 58 L 58 L 63 Respiratory Rate 15 18 Blood Pressure Pulse Oximetry Oxygen Delivery Fraction of Inspired Oxygen 12/07/24 22:58 12/08/24 00:00 12/08/24 00:00 Temperature 97.6 F Pulse Rate 63 57 L 57 L Respiratory Rate 18 24 H 15 Blood Pressure 89/65 L Pulse Oximetry 98 Oxygen Delivery Fraction of Inspired Oxygen 12/08/24 00:00 12/08/24 00:00 12/08/24 00:00 Temperature Pulse Rate 57 L Respiratory Rate 15 Blood Pressure Pulse Oximetry Oxygen Delivery Mechanical Ventilation Fraction of Inspired Oxygen 30 30 12/08/24 00:00 12/08/24 01:14 12/08/24 01:42 Temperature Pulse Rate 58 L 54 L 51 L Respiratory Rate 17 Blood Pressure Pulse Oximetry 97 Oxygen Delivery Mechanical Ventilation Fraction of Inspired Oxygen 30 12/08/24 01:42 12/08/24 02:00 12/08/24 02:00 Temperature Pulse Rate 51 L 51 L 51 L Respiratory Rate 17 17 17 Blood Pressure Pulse Oximetry Oxygen Delivery Fraction of Inspired Oxygen 12/08/24 02:00 12/08/24 02:00 12/08/24 04:00 Temperature 96.7 F L Pulse Rate 51 L 50 L 54 L Respiratory Rate 24 H 17 Blood Pressure 89/65 L Pulse Oximetry 98 Oxygen Delivery Fraction of Inspired Oxygen 12/08/24 04:00 12/08/24 04:00 12/08/24 04:00 Temperature Pulse Rate 54 L 53 L Respiratory Rate 17 Blood Pressure Pulse Oximetry Oxygen Delivery Mechanical Ventilation Fraction of Inspired Oxygen 30 12/08/24 04:00 12/08/24 04:00 12/08/24 04:32 Temperature 96.7 F L Pulse Rate 53 L 53 L Respiratory Rate 20 Blood Pressure 90/66 L Pulse Oximetry 98 98 Oxygen Delivery Mechanical Ventilation Fraction of Inspired Oxygen 30 30 12/08/24 04:46 12/08/24 05:10 12/08/24 05:10 Temperature Pulse Rate 57 L 54 L 54 L Respiratory Rate 17 16 16 Blood Pressure Pulse Oximetry Oxygen Delivery Fraction of Inspired Oxygen 12/08/24 06:00 12/08/24 06:00 12/08/24 08:00 Temperature 97.0 F L Pulse Rate 54 L 54 L 55 L Respiratory Rate 24 H 15 Blood Pressure 92/66 L 101/68 Pulse Oximetry 98 99 Oxygen Delivery Fraction of Inspired Oxygen 12/08/24 08:00 12/08/24 08:00 12/08/24 08:00 Temperature Pulse Rate 355 H 55 L Respiratory Rate 15 15 Blood Pressure Pulse Oximetry Oxygen Delivery Fraction of Inspired Oxygen 30 12/08/24 08:00 12/08/24 08:00 12/08/24 08:07 Temperature Pulse Rate 54 L 56 L 54 L Respiratory Rate 15 Blood Pressure Pulse Oximetry 98 98 Oxygen Delivery Mechanical Ventilation Mechanical Ventilation Fraction of Inspired Oxygen 30 30 12/08/24 09:02 12/08/24 09:02 12/08/24 09:15 Temperature Pulse Rate 58 L 58 L 65 Respiratory Rate 17 17 18 Blood Pressure Pulse Oximetry Oxygen Delivery Fraction of Inspired Oxygen Exam 2 Const: Other: Intubated. Eyes: General: appearance normal, both eyes and all related structures Neck: Neck: supple Resp: Other: Intubated. GI: GI Palp: Yes Soft to palpation Other: Small laparoscopic incisions clean and dry. Pfannenstiel incision with small area of surrounding redness, likely candidal infection that was being treated with nystatin powder. Small area to medial aspect of this incision with opening. Opening was probed and was not found to be tracking anywhere. Seroma present to left lower quadrant with some induration. Area of overlying redness to skin present and marked with marking pen today. : General: Yes bladder normal to palpation Skin: General skin exam: normal color Extrem: General: normal to inspection Psych: Other: Unable to assess as patient is intubated. Results Labs 12/08/24 04:25 12/08/24 04:25 Labs: Abnormal lab results 12/07/24 12/07/24 12/07/24 Range/Units 17:49 17:59 23:19 RBC 3.68 L (4.6-6.20) M/mm3 Hgb 10.9 L (14.0-18.0) g/dL Hct 33.8 L (42.0-52.0) % RDW 16.6 H (11.5-14.5) % Plt Count 139 L (150-375) k/mm3 Immature Gran % (Auto) 0.7 H (0-0.5) % Neut % (Auto) 84.1 H (45.5-73.1) % Lymph % (Auto) 13.0 L (18.3-44.2) % [place] % (Auto) 1.6 L (2.6-8.5) % Lymph # (Auto) 0.74 L (0.9-3.2) K/mm3 Abs Immat Gran (auto) 0.04 H (0.00-0.031) K/mm3 D-Dimer 0.61 H (<0.48) ug/mL ABG pH 7.348 L (7.350-7.450) ABG pO2 148.0 H (80.0-100.0) mmHg ABG HCO3 (22.0-26.0) mEq/l ABG O2 Content (16.0-22.0) %vol Total Hemoglobin 11.6 L (12.0-18.0) g/dL Creatinine 0.69 L (0.7-1.3) mg/dL Glucose 130 H (65-110) mg/dL Phosphorus (2.5-4.5) mg/dL Total Protein 6.1 L (6.3-8.2) g/dL Gastric Occult Blood Positive H 12/08/24 12/08/24 Range/Units 04:05 04:25 RBC 3.49 L (4.6-6.20) M/mm3 Hgb 10.4 L (14.0-18.0) g/dL Hct 32.4 L (42.0-52.0) % RDW 16.5 H (11.5-14.5) % Plt Count 137 L (150-375) k/mm3 Immature Gran % (Auto) (0-0.5) % Neut % (Auto) (45.5-73.1) % Lymph % (Auto) (18.3-44.2) % [place] % (Auto) (2.6-8.5) % Lymph # (Auto) (0.9-3.2) K/mm3 Abs Immat Gran (auto) (0.00-0.031) K/mm3 D-Dimer (<0.48) ug/mL ABG pH (7.350-7.450) ABG pO2 125.5 H (80.0-100.0) mmHg ABG HCO3 20.0 L (22.0-26.0) mEq/l ABG O2 Content 13.1 L (16.0-22.0) %vol Total Hemoglobin 9.3 L (12.0-18.0) g/dL Creatinine (0.7-1.3) mg/dL Glucose 121 H (65-110) mg/dL Phosphorus 5.1 H (2.5-4.5) mg/dL Total Protein 5.8 L (6.3-8.2) g/dL Gastric Occult Blood Diabetes panel 12/07/24 12/08/24 Range/Units 17:49 04:25 Sodium 138 138 (137-145) mmol/L Potassium 4.3 4.2 (3.4-5.0) mmol/L Chloride 107 104 (98-107) mmol/L Carbon Dioxide 24 26 (22-30) mmol/L BUN 14 13 (9-20) mg/dL Creatinine 0.69 L 0.76 (0.7-1.3) mg/dL Glucose 130 H 121 H (65-110) mg/dL Hemoglobin A1c 4.5 (<5.7) % Calcium 8.7 8.6 (8.4-10.2) mg/dL AST 26 22 (17-59) U/L ALT 17 16 (6-50) U/L Alkaline Phosphatase 71 66 (38-126) U/L Total Protein 6.1 L 5.8 L (6.3-8.2) g/dL Albumin 3.8 3.6 (3.5-5.1) g/dL Calcium panel 12/07/24 12/08/24 Range/Units 17:49 04:25 Calcium 8.7 8.6 (8.4-10.2) mg/dL Phosphorus 4.2 5.1 H (2.5-4.5) mg/dL Albumin 3.8 3.6 (3.5-5.1) g/dL Pituitary panel 12/07/24 12/08/24 Range/Units 17:49 04:25 Sodium 138 138 (137-145) mmol/L Potassium 4.3 4.2 (3.4-5.0) mmol/L Chloride 107 104 (98-107) mmol/L Carbon Dioxide 24 26 (22-30) mmol/L BUN 14 13 (9-20) mg/dL Creatinine 0.69 L 0.76 (0.7-1.3) mg/dL Glucose 130 H 121 H (65-110) mg/dL Calcium 8.7 8.6 (8.4-10.2) mg/dL Adrenal panel 12/07/24 12/08/24 Range/Units 17:49 04:25 Sodium 138 138 (137-145) mmol/L Potassium 4.3 4.2 (3.4-5.0) mmol/L Chloride 107 104 (98-107) mmol/L Carbon Dioxide 24 26 (22-30) mmol/L BUN 14 13 (9-20) mg/dL Creatinine 0.69 L 0.76 (0.7-1.3) mg/dL Glucose 130 H 121 H (65-110) mg/dL Calcium 8.7 8.6 (8.4-10.2) mg/dL Total Bilirubin 0.5 0.3 (0.2-1.3) mg/dL AST 26 22 (17-59) U/L ALT 17 16 (6-50) U/L Alkaline Phosphatase 71 66 (38-126) U/L Total Protein 6.1 L 5.8 L (6.3-8.2) g/dL Albumin 3.8 3.6 (3.5-5.1) g/dL All other labs normal.
[2024-12-08] MEDS: SODIUM CHLORIDE 0.9% IV 1,000 ML 75 ML IV CONT (10:40)
--- NOTE | 2024-12-08 17:31 | WPDPROCEDUR ---
Procedures Other Procedures Procedure 1: Other Procedure: Flexible laryngoscopy nose anesthetized topical Afrin and lidocaine scope passed. Very very difficult view given that the patient was intubated. Patient also a nasogastric tube limiting my passage to his narrow were nasal passage. There are no masses noted no lesions noted no ulcerations noted no swelling noted. I was not able to directly view the glottis as the epiglottis was slightly retroflexed over it. Patient tolerated the procedure well. Very limited view.
--- NOTE | 2024-12-08 17:37 | WPDCN ---
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 Per imaging review it does not appear obstructive. On endoscopy the epiglottis appeared retroflexed yet normal nonobstructive. I have no evidence of any airway obstruction on my endoscopy. This no way implies that the airway is safe, just that I do not see any obstruction. Thank you for this consult. HPI Data of Consult Date/Time: 12/08/24 17:37 Requesting Physician: Shavon Barker MD Primary Care Provider: Jesse Humphries MD Consult Narrative Narrative: Jesse Crook is a 74 year old male, per nursing report was having an EGD for dysphagia and vocal cord swelling was noted. Patient transferred intubated via helicopter. CT reviewed per radiology read per my personal read there appears to be of pharyngeal soft tissue mass measuring about 1 cm diameter, not supraglottic per se or obstructive. This is cm above the glottic inlet Review of Systems Review of Systems: All systems reviewed & are unremarkable except as noted in HPI and below PMFSH Past Medical History Medical History History of anesthesia reaction Slow to wake History of retinal detachment Left eye, s/p retinal surgery Arthritis Colitis Microscopic, chronic diarrhea Low immunoglobulin level Colonic mass Anxiety Primary osteoarthritis of left knee Melanoma MARYANN (obstructive sleep apnea) On CPAP Microscopic colitis Osteoarthritis of knees, bilateral Postoperative anemia Essential hypertension Burroughs palsy Many years ago History of colon polyps Mixed hyperlipidemia Prediabetes Obesity (BMI 30-39.9) Psychomotor agitation Dysesthesia Surgical History Surgical History History of vasectomy History of bladder surgery Cystoscopy with stone extraction History of cardiac catheterization (~2014) History of hemicolectomy 11/05/24 Robotic assisted laparoscopic right hemicolectomy with [id number] stapled ileo colic anastomosis Dr. Mccauley H/O hemorrhoidectomy 07/16/24 Excisional hemorrhoidectomy x3 Banding of internal hemorrhoid x1 Transanal excisional distal rectal polypectomy. Dr. Mccauley History of total left knee replacement 2023 Gabe History of right knee joint replacement 2020- Dr Bernal History of bilateral mastectomy Benign History of cataract surgery History of cholecystectomy Family History Family History Father Hypertension Family history of cardiovascular disease Carcinoma of colon Mother Hypertension Family history of cardiovascular disease Carcinoma of colon Sibling Hypertension Family history of cardiovascular disease Social History Social History Social History: Patient does not drink, smoke or do drugs. 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 He would like to be a full code. His power of managing attorney is his partner, Bryan. Smoking status: Never smoker Second hand tobacco smoke exposure: No Additional smoking assessment comments: DENIES ANY FORM OF TOBACCO USE Alcohol intake: never Substance use: never Substance use type: does not use Do You Feel Safe in your Home?: No Lack of Transportation: YES Lack of Food: Never True Current Housing: I Have Housing Concerned About Future Housing: No Difficulty Paying Gas/Electric Bills: Decline to Answer Difficulty Paying for Meds: Decline to Answer Currently Unemployed: Decline to Answer Education: Decline to Answer Difficulty w/ Childcare or Family Care: No Living arrangements: with family Additional living arrangements comments: partner Bryan Occupation/Education: retired Gender identity (if verbalized by the patient): Male Sexual Orientation (if Verbalized by the Patient): Lesbian, Singleton, or Homosexual Spiritual care concerns: No Meds Home Medications and Allergies Home Medications ?Medication ?Instructions ?Recorded ?Confirmed ?Type melatonin 10 mg capsule 10 mg PO QHS 02/06/22 12/07/24 History CPAP #1 ea 12/19/22 12/07/24 Rx CPAP #1 ea 10/15/23 12/07/24 Rx cyanocobalamin (vitamin B-12) 1,000 mcg PO DAILY 08/25/24 12/07/24 History 1,000 mcg capsule potassium chloride 20 mEq See Rx Instructions .Route 09/13/24 12/07/24 Rx tablet,extended release .COMPLEX #90 tabs diphenhydramine HCl 50 mg capsule 50 mg PO HS 10/28/24 12/07/24 History (Sleep Aid (diphenhydramine)) oxybutynin chloride 10 mg 10 mg PO QAM 10/28/24 12/07/24 History tablet,extended release 24 hr losartan 50 mg tablet 50 mg PO QAM #90 tabs 11/17/24 12/07/24 Rx budesonide 3 mg See Rx Instructions .Route 11/19/24 12/07/24 Rx capsule,delayed,extended release .COMPLEX #270 caps sertraline 100 mg tablet See Rx Instructions .Route 11/19/24 12/07/24 Rx .COMPLEX #135 tabs Allergies Allergy/AdvReac Type Severity Reaction Status Date / Time atropine AdvReac Mild NAUSEA AND Verified 12/07/24 19:08 VOMITING diphenoxylate AdvReac Mild Fever & Verified 12/07/24 19:08 VOMITING meperidine AdvReac Mild SEVERE Verified 12/07/24 19:08 NAUSEA AND VOMITING Vital Signs Vital Signs - 24 hr 12/07/24 17:40 12/07/24 18:00 12/07/24 18:00 Temperature Pulse Rate 63 61 61 Respiratory Rate 16 15 Blood Pressure Pulse Oximetry Oxygen Delivery Fraction of Inspired Oxygen 12/07/24 18:00 12/07/24 18:00 12/07/24 18:23 Temperature 36.7 C Pulse Rate 62 62 Respiratory Rate 15 15 Blood Pressure 91/65 L Pulse Oximetry 99 99 Oxygen Delivery Mechanical Ventilation Fraction of Inspired Oxygen 30 12/07/24 18:27 12/07/24 19:21 12/07/24 19:21 Temperature Pulse Rate 58 L 58 L Respiratory Rate 15 15 Blood Pressure Pulse Oximetry Oxygen Delivery Fraction of Inspired Oxygen 30 12/07/24 19:48 12/07/24 20:00 12/07/24 20:00 Temperature 36.4 C Pulse Rate 58 L 59 L Respiratory Rate 24 H Blood Pressure 90/66 L Pulse Oximetry 98 99 Oxygen Delivery Mechanical Ventilation Fraction of Inspired Oxygen 30 30 12/07/24 20:00 12/07/24 20:00 12/07/24 20:00 Temperature Pulse Rate 59 L 59 L Respiratory Rate 15 15 Blood Pressure Pulse Oximetry Oxygen Delivery Mechanical Ventilation Fraction of Inspired Oxygen 30 12/07/24 20:00 12/07/24 22:00 12/07/24 22:00 Temperature 36.4 C L Pulse Rate 59 L 57 L 58 L Respiratory Rate 26 H Blood Pressure 89/64 L Pulse Oximetry 97 97 Oxygen Delivery Mechanical Ventilation Fraction of Inspired Oxygen 30 12/07/24 22:00 12/07/24 22:00 12/07/24 22:58 Temperature Pulse Rate 58 L 58 L 63 Respiratory Rate 15 18 Blood Pressure Pulse Oximetry Oxygen Delivery Fraction of Inspired Oxygen 12/07/24 22:58 12/08/24 00:00 12/08/24 00:00 Temperature 36.4 C Pulse Rate 63 57 L 57 L Respiratory Rate 18 24 H 15 Blood Pressure 89/65 L Pulse Oximetry 98 Oxygen Delivery Fraction of Inspired Oxygen 12/08/24 00:00 12/08/24 00:00 12/08/24 00:00 Temperature Pulse Rate 57 L Respiratory Rate 15 Blood Pressure Pulse Oximetry Oxygen Delivery Mechanical Ventilation Fraction of Inspired Oxygen 30 30 12/08/24 00:00 12/08/24 01:14 12/08/24 01:42 Temperature Pulse Rate 58 L 54 L 51 L Respiratory Rate 17 Blood Pressure Pulse Oximetry 97 Oxygen Delivery Mechanical Ventilation Fraction of Inspired Oxygen 30 12/08/24 01:42 12/08/24 02:00 12/08/24 02:00 Temperature Pulse Rate 51 L 51 L 51 L Respiratory Rate 17 17 17 Blood Pressure Pulse Oximetry Oxygen Delivery Fraction of Inspired Oxygen 12/08/24 02:00 12/08/24 02:00 12/08/24 04:00 Temperature 35.9 C L Pulse Rate 51 L 50 L 54 L Respiratory Rate 24 H 17 Blood Pressure 89/65 L Pulse Oximetry 98 Oxygen Delivery Fraction of Inspired Oxygen 12/08/24 04:00 12/08/24 04:00 12/08/24 04:00 Temperature Pulse Rate 54 L 53 L Respiratory Rate 17 Blood Pressure Pulse Oximetry Oxygen Delivery Mechanical Ventilation Fraction of Inspired Oxygen 30 12/08/24 04:00 12/08/24 04:00 12/08/24 04:32 Temperature 35.9 C L Pulse Rate 53 L 53 L Respiratory Rate 20 Blood Pressure 90/66 L Pulse Oximetry 98 98 Oxygen Delivery Mechanical Ventilation Fraction of Inspired Oxygen 30 30 12/08/24 04:46 12/08/24 05:10 12/08/24 05:10 Temperature Pulse Rate 57 L 54 L 54 L Respiratory Rate 17 16 16 Blood Pressure Pulse Oximetry Oxygen Delivery Fraction of Inspired Oxygen 12/08/24 06:00 12/08/24 06:00 12/08/24 08:00 Temperature 36.1 C L Pulse Rate 54 L 54 L 55 L Respiratory Rate 24 H 15 Blood Pressure 92/66 L 101/68 Pulse Oximetry 98 99 Oxygen Delivery Fraction of Inspired Oxygen 12/08/24 08:00 12/08/24 08:00 12/08/24 08:00 Temperature Pulse Rate 355 H 55 L Respiratory Rate 15 15 Blood Pressure Pulse Oximetry Oxygen Delivery Fraction of Inspired Oxygen 30 12/08/24 08:00 12/08/24 08:00 12/08/24 08:07 Temperature Pulse Rate 54 L 56 L 54 L Respiratory Rate 15 Blood Pressure Pulse Oximetry 98 98 Oxygen Delivery Mechanical Ventilation Mechanical Ventilation Fraction of Inspired Oxygen 30 30 12/08/24 09:02 12/08/24 09:02 12/08/24 09:15 Temperature Pulse Rate 58 L 58 L 65 Respiratory Rate 17 17 18 Blood Pressure Pulse Oximetry Oxygen Delivery Fraction of Inspired Oxygen 12/08/24 10:00 12/08/24 10:00 12/08/24 10:00 Temperature 36.3 C L Pulse Rate 56 L 55 L 55 L Respiratory Rate 15 17 17 Blood Pressure 94/68 L Pulse Oximetry 97 Oxygen Delivery Fraction of Inspired Oxygen 12/08/24 10:00 12/08/24 11:03 12/08/24 12:00 Temperature 36.2 C L Pulse Rate 55 L 55 L 56 L Respiratory Rate 13 Blood Pressure 99/71 L Pulse Oximetry 97 98 Oxygen Delivery Mechanical Ventilation Fraction of Inspired Oxygen 30 12/08/24 12:00 12/08/24 12:00 12/08/24 12:00 Temperature Pulse Rate 56 L 53 L Respiratory Rate 13 14 Blood Pressure Pulse Oximetry 98 Oxygen Delivery Mechanical Ventilation Fraction of Inspired Oxygen 30 30 12/08/24 12:00 12/08/24 12:00 12/08/24 12:51 Temperature Pulse Rate 55 L 54 L 63 Respiratory Rate 14 15 Blood Pressure Pulse Oximetry Oxygen Delivery Fraction of Inspired Oxygen 12/08/24 12:53 12/08/24 13:50 12/08/24 14:00 Temperature Pulse Rate 63 54 L 54 L Respiratory Rate 15 15 Blood Pressure Pulse Oximetry 98 Oxygen Delivery Mechanical Ventilation Fraction of Inspired Oxygen 30 12/08/24 14:00 12/08/24 14:00 12/08/24 14:04 Temperature 36.2 C L Pulse Rate 55 L 56 L 55 L Respiratory Rate 12 15 Blood Pressure 94/65 L Pulse Oximetry 98 Oxygen Delivery Fraction of Inspired Oxygen 12/08/24 15:41 12/08/24 15:43 12/08/24 15:43 Temperature Pulse Rate 58 L 57 L 57 L Respiratory Rate 15 15 15 Blood Pressure Pulse Oximetry 99 Oxygen Delivery Mechanical Ventilation Fraction of Inspired Oxygen 30 12/08/24 16:00 12/08/24 17:32 Temperature 36.1 C L Pulse Rate 55 L 59 L Respiratory Rate 12 15 Blood Pressure 94/66 L Pulse Oximetry 98 Oxygen Delivery Fraction of Inspired Oxygen Exam Narrative: ED patient intubated see procedure Results Labs 12/08/24 04:25 12/08/24 04:25 Labs: Short CBC 12/07/24 12/07/24 12/07/24 Range/Units 17:49 17:49 17:49 WBC 5.7 Cancelled (4.5-10.0) K/mm3 Hgb 10.9 L Cancelled (14.0-18.0) g/dL Hct 33.8 L (42.0-52.0) % Plt Count (150-375) k/mm3 12/07/24 12/07/24 12/08/24 Range/Units 17:49 17:49 04:25 WBC 6.1 (4.5-10.0) K/mm3 Hgb 10.4 L (14.0-18.0) g/dL Hct Cancelled 32.4 L (42.0-52.0) % Plt Count 139 L Cancelled 137 L (150-375) k/mm3 BMP 12/07/24 12/08/24 17:49 04:25 Sodium 138 138 Potassium 4.3 4.2 Chloride 107 104 Carbon Dioxide 24 26 BUN 14 13 Creatinine 0.69 L 0.76 Glucose 130 H 121 H Calcium 8.7 8.6 Liver Function 12/07/24 12/08/24 Range/Units 17:49 04:25 Total Bilirubin 0.5 0.3 (0.2-1.3) mg/dL AST 26 22 (17-59) U/L ALT 17 16 (6-50) U/L Alkaline Phosphatase 71 66 (38-126) U/L Albumin 3.8 3.6 (3.5-5.1) g/dL
[2024-12-08] MEDS: cefTRIAXone 2 GM/NS 100 ML 2 GM/100 ML BAG IVPB (20:37)
[2024-12-08] MEDS: FENTANYL 2,500MCG/NS250ML(*CRX 2,500 MCG/250 ML BAG 12.5 MCG IV CONT (22:06)
[2024-12-09] VITALS (34 sets, daily range): BP systolic 90–130; BP diastolic 64–75; PULSE 58–86; RESP 13–30; TEMP 36.4–37.8; O2SAT 95–100
[2024-12-09] MEDS: SODIUM CHLORIDE 0.9% IV 1,000 ML 75 ML IV CONT ×2 (00:36→15:32)
[2024-12-09] MEDS: PROPOFOL IV EMULSION 100 ML 29.81 MG IV CONT ×2 (02:05→07:56)
[2024-12-09 04:47] LABS: Basophils Percent Auto 0.3 % (0.2-1.2); Eosinophils Absolute Auto 0.1 K/mm3 (0-0.3); Eosinophils Percent Auto 1.7 % (0-4.4); Hematocrit 35.4 % (42.0-52.0); Hemoglobin 10.9 g/dL (14.0-18.0); Immature Granulocyte Absolute 0.03 K/mm3 (0.00-0.031); Immature Granulocyte Percent A 0.4 % (0-0.5); Lymphocytes Percent Auto 34.9 % (18.3-44.2); Mean Corpuscular HGB Conc 30.8 g/dl (32-36); Mean Corpuscular Hemoglobin 29.4 pg (26-34); Mean Corpuscular Volume 95.4 fl (80-100); Mean Platelet Volume 10.4 fl (7.4-10.4); Monocytes Absolute Auto 0.6 K/mm3 (0.1-0.6); Monocytes Percent Auto 7.6 % (2.6-8.5); Neutrophils Absolute Auto 4.1 K/mm3 (1.3-6.7); Neutrophils Percent Auto 55.1 % (45.5-73.1); Platelet Count Result 144 k/mm3 (150-375); Red Blood Count 3.71 M/mm3 (4.6-6.20); White Blood Count 7.5 K/mm3 (4.5-10.0)
[2024-12-09 05:00] LABS: Alanine Aminotransferase 14 U/L (6-50); Albumin Level 3.6 g/dL (3.5-5.1); Alkaline Phosphatase 66 U/L (38-126); Anion Gap 8 mmol/L (4-12); Aspartate Amino Transferase 24 U/L (17-59); Bilirubin,Total 0.3 mg/dL (0.2-1.3); Blood Urea Nitrogen 15 mg/dL (9-20); Calcium 8.2 mg/dL (8.4-10.2); Carbon Dioxide 26 mmol/L (22-30); Chloride 105 mmol/L (98-107); Estimated CRCL calculation 85 ml/min; Estimated Glomerular Filt Rate > 60; Glucose 81 mg/dL (65-110); Magnesium 1.8 mg/dL (1.6-2.3); Phosphorus 4.2 mg/dL (2.5-4.5); Potassium 3.8 mmol/L (3.4-5.0); Sodium 139 mmol/L (137-145); Total Protein 5.8 g/dL (6.3-8.2); Triglycerides 209 mg/dL (<150)
[2024-12-09] MEDS: PROPOFOL IV EMULSION 100 ML 23.18 MG IV CONT (05:00)
[2024-12-09 05:01] LABS: Alveolar/Arterial O2 Gradient 54.1 mmHg; Base Excess ABG 2.3 mEq/l (+/-2.0); Carboxyhemoglobin 0.5 % THb (0-2.0); Fractional Inspired Oxygen 30 %; HCO3 ABG 28.7 mEq/l (22.0-26.0); Methemoglobin ABG 0.1 %THb (0-1.5); Oxygen Content ABG 16.3 %vol (16.0-22.0); Oxyhemoglobin 96.6 % THb (90.0-100.0); PCO2 ABG 52.9 mmHg (35.0-45.0); PO2 ABG 97.6 mmHg (80.0-100.0); PO2 FiO2 Ratio Arterial Blood 3.25 %; Reduced Hemoglobin 2.8 %THb (0-5.0); Total Hemoglobin 11.9 g/dL (12.0-18.0); pH ABG 7.353 (7.350-7.450)
[2024-12-09 05:10] LABS: Arterial Blood Gas PEEP 5 cmH2O; Arterial Blood Gas Vent Mode CMV; Arterial Blood Gas Ventilator rate 15 /MIN; Device VENTILATOR; Site Drawn RIGHT RADIAL
[2024-12-09 05:11] LABS: Arterial Blood Gas Tidal Volume 470 ml
[2024-12-09] MEDS: CLINDAMYCIN 900 MG/D5W 50 ML 900 MG/50 ML PIGGYBACK 50 MG IVPB (05:30)
[2024-12-09 08:12] LABS: Glucose Point of Care 81 mg/dl (65-105)
[2024-12-09] MEDS: dexmedeTOMIDine 400 MCG/100 ML 400 MCG/100 ML BAG 5.59 MCG IV CONT (08:29)
[2024-12-09] MEDS: MINERAL OIL/WHITE PETROLATUM OINTMENT 1 APPLIC EACH EYE (08:36)
[2024-12-09] MEDS: PANTOPRAZOLE SODIUM IV 40 MG VIAL IV PUSH ×2 (08:36→20:48)
[2024-12-09] MEDS: SODIUM CHLORIDE 0.9% IVPB (09:00)
[2024-12-09] MEDS: MICAFUNGIN SODIUM IVPB (09:00)
--- NOTE | 2024-12-09 10:45 | PCFNICU ---
ICU Rounding Note: Pt current nutrition is NPO. Nutrition recommendation: Diet per MD. Will follow Last recorded weight is 111.7 kg. Bowel Motility: No BMs are charted Labs Reviewed: Hgb 10.4, Hct 35.4, TRIG 209 Meds Noted: Fentanyl, versed, protonix Skin: No skin issues Additional Notes: Sedation is weaning and tube feeding turned off in preparation for breathing trial. Possible extubation today. Monitoring Following daily in ICU rounds. Monitoring orders, plan of care, weights, labs, output Follow up in 3 days. Daily rounds.
--- NOTE | 2024-12-09 11:01 | P.PNINT_ITS ---
Progress Note: A&P Assessment and Plan (1) On mechanically assisted ventilation: Code(s): Z99.11 - Dependence on respirator [ventilator] status Status: Acute Assessment and Plan: Patient was intubated and [facility] hospital in [facility], this was done when they were doing the EGD and noted swelling of the vocal cords/epiglottitis -12/07: CT soft tissue of the neck are showed asymmetric 12 mm soft tissue density within the subglottic airway to the right of midline, the epiglottis is of normal caliber -ENT has been notified -patient remains intubated on CMV mode of ventilation, peep of 5 and 30% FiO2 with adequate O2 sat -appreciate ENT evaluation, flexible ureteroscopy did not show any masses or lesions or ulcerations or swelling as per the note. -have asked the bedside RN to start weaning sedation, placed on Precedex as patient is very anxious -will place patient on SBT and evaluate for extubation today (2) Epiglottitis: Code(s): J05.10 - Acute epiglottitis without obstruction Status: Acute Assessment and Plan: Soft tissue density as noted above, at [facility] they had noted swelling of the vocal cords, patient did receive Decadron at the outside hospital -ENT consulted -will continue to follow -will hold additional steroids due to Tiffany esophagitis (3) Tiffany esophagitis: Code(s): B37.81 - Candidal esophagitis Status: Acute Assessment and Plan: Continue micafungin for Tiffany esophagitis (4) Essential hypertension: Code(s): I10 - Essential (primary) hypertension Status: Acute Assessment and Plan: Blood pressures have been stable since patient is on sedation -hold antihypertensives for now, will restart once patient is extubated (5) Seroma after procedure: Status: Acute Assessment and Plan: Patient has seroma at the postoperative site as seen on CT scan as under -discussed with surgery, possibility of draining seroma, will let me know later today 12/07: CT chest abdomen and pelvis did not reveal any pulmonary embolism, no aortic dissection. Bilateral pleural effusion with adjacent compressive atelectasis, hepatic splenomegaly, unchanged. Findings within soft tissues of the lower pelvis to the left of midline, possibly representing a perioperative serum a 3.5 x 6.1 x 5.4 cm fluid attenuation with air. Plan DVT prophylaxis: SCDs Stress ulcer prophylaxis: Protonix IV q.12 hours Nutrition: Patient was tolerating tube feeds, currently on hold Code Status: Full code Critical Care Time Spent: 32 minutes Discussed with patient's partner and updated with patient's condition and plan of care. He is aware that patient will be getting extubated sometime today Due to a high probability of clinically significant, life threatening deterioration, the patient required my highest level of preparedness to intervene emergently and I personally spent this critical care time directly and personally managing the patient. This critical care time included obtaining a history; examining the patient; pulse oximetry; ordering and review of studies; arranging urgent treatment with development of a management plan; evaluation of patient's response to treatment; frequent reassessment; and discussions with other providers. It was exclusive of separately billable procedures and treating other patients and teaching time. Please see Assessment and Plan section and the rest of the note for further information on patient assessment and treatment This dictation may have been done utilizing a voice recognition system. Attempts have been made to correct errors. However, there may be uncorrected grammatical, spelling, and recognitions errors present. Subjective Date/time seen: 12/09/24 11:01 Interval history: Reason for consult: Mechanical ventilation for EGD at outside hospital, swelling of the vocal cords, esophageal candidiasis, perioperative seroma 11/08/2024: Patient seen examined the ICU. Remains intubated on CMV mode of ventilation, peep of 5, 30% FiO2. Sedated with propofol, fentanyl and Versed infusion. Patient awake, opens his eyes, follows simple commands in all extrem ities and nods to questions. Hemodynamically stable, adequate urine output. Afebrile Review of Systems Review of Systems: ROS unobtainable: Yes unobtainable due to endotracheal tube and unobtainable due to mental status Exam Narrative: General: Patient intubated sedated no acute distress HEENT:? Pupils are equal and reactive, sclera is clear, ETT in place Neck:? Supple Respiratory:? Clear to auscultation bilateral, with decreased air entry at bases, no wheezing Cardiac:? S1-S2 normal, regular rate and rhythm Abdomen:? Soft, nontender, nondistended, recent surgical scar noted on the left of midline in the lower region, and in duration noted, 3 x 4 cm Extremities:? Trace edema, palpable pedal pulses Neuro:? Patient is intubated, sedated, opens eyes, follows simple commands in all extremities, nods to question Skin:? No lesions noted Psych:? Unable to assess at this time Objective Data Vital Signs Vital Signs: Vital Signs - 24 hr 12/08/24 11:03 12/08/24 12:00 12/08/24 12:00 Temperature 97.1 F L Pulse Rate 55 L 56 L 56 L Respiratory Rate 13 13 Blood Pressure 99/71 L Pulse Oximetry 97 98 98 Oxygen Delivery Mechanical Ventilation Mechanical Ventilation Fraction of Inspired Oxygen 30 30 12/08/24 12:00 12/08/24 12:00 12/08/24 12:00 Temperature Pulse Rate 53 L 55 L Respiratory Rate 14 14 Blood Pressure Pulse Oximetry Oxygen Delivery Fraction of Inspired Oxygen 30 12/08/24 12:00 12/08/24 12:51 12/08/24 12:53 Temperature Pulse Rate 54 L 63 63 Respiratory Rate 15 15 Blood Pressure Pulse Oximetry Oxygen Delivery Fraction of Inspired Oxygen 12/08/24 13:50 12/08/24 14:00 12/08/24 14:00 Temperature Pulse Rate 54 L 54 L 55 L Respiratory Rate 15 Blood Pressure Pulse Oximetry 98 Oxygen Delivery Mechanical Ventilation Fraction of Inspired Oxygen 30 12/08/24 14:00 12/08/24 14:04 12/08/24 15:41 Temperature 97.2 F L Pulse Rate 56 L 55 L 58 L Respiratory Rate 12 15 15 Blood Pressure 94/65 L Pulse Oximetry 98 99 Oxygen Delivery Mechanical Ventilation Fraction of Inspired Oxygen 30 12/08/24 15:43 12/08/24 15:43 12/08/24 16:00 Temperature 97.0 F L Pulse Rate 57 L 57 L 55 L Respiratory Rate 15 15 12 Blood Pressure 94/66 L Pulse Oximetry 98 Oxygen Delivery Fraction of Inspired Oxygen 12/08/24 16:00 12/08/24 16:00 12/08/24 16:00 Temperature Pulse Rate 54 L 55 L 55 L Respiratory Rate 12 15 Blood Pressure Pulse Oximetry Oxygen Delivery Fraction of Inspired Oxygen 12/08/24 16:00 12/08/24 17:32 12/08/24 17:33 Temperature Pulse Rate 59 L 64 Respiratory Rate 15 Blood Pressure Pulse Oximetry 100 Oxygen Delivery Mechanical Ventilation Fraction of Inspired Oxygen 30 30 12/08/24 18:00 12/08/24 18:00 12/08/24 18:00 Temperature 97.3 F L Pulse Rate 58 L 57 L 57 L Respiratory Rate 13 15 Blood Pressure 107/69 Pulse Oximetry 99 Oxygen Delivery Fraction of Inspired Oxygen 12/08/24 18:00 12/08/24 18:43 12/08/24 19:21 Temperature Pulse Rate 57 L 56 L 63 Respiratory Rate 15 15 16 Blood Pressure Pulse Oximetry Oxygen Delivery Fraction of Inspired Oxygen 12/08/24 19:23 12/08/24 19:25 12/08/24 19:40 Temperature Pulse Rate 66 67 67 Respiratory Rate 18 17 18 Blood Pressure Pulse Oximetry 100 Oxygen Delivery Mechanical Ventilation Fraction of Inspired Oxygen 30 12/08/24 19:41 12/08/24 20:00 12/08/24 20:00 Temperature Pulse Rate 70 61 61 Respiratory Rate 19 15 15 Blood Pressure Pulse Oximetry Oxygen Delivery Fraction of Inspired Oxygen 12/08/24 20:00 12/08/24 20:00 12/08/24 20:08 Temperature 97.3 F L Pulse Rate 61 57 L Respiratory Rate 15 Blood Pressure 103/72 Pulse Oximetry 99 Oxygen Delivery Fraction of Inspired Oxygen 30 12/08/24 20:45 12/08/24 20:49 12/08/24 22:00 Temperature Pulse Rate 74 61 59 L Respiratory Rate 15 Blood Pressure Pulse Oximetry 100 Oxygen Delivery Mechanical Ventilation Fraction of Inspired Oxygen 30 12/08/24 22:00 12/08/24 22:00 12/08/24 22:00 Temperature 97.6 F Pulse Rate 59 L 59 L 59 L Respiratory Rate 15 15 15 Blood Pressure 95/68 L Pulse Oximetry 99 Oxygen Delivery Fraction of Inspired Oxygen 12/08/24 22:06 12/08/24 22:06 12/08/24 22:43 Temperature Pulse Rate 61 62 61 Respiratory Rate 15 15 17 Blood Pressure Pulse Oximetry Oxygen Delivery Fraction of Inspired Oxygen 12/08/24 22:59 12/08/24 22:59 12/08/24 23:00 Temperature Pulse Rate 65 65 59 L Respiratory Rate 17 17 Blood Pressure Pulse Oximetry 100 Oxygen Delivery Mechanical Ventilation Fraction of Inspired Oxygen 30 12/09/24 00:00 12/09/24 00:00 12/09/24 00:00 Temperature Pulse Rate 58 L 58 L 59 L Respiratory Rate 15 15 15 Blood Pressure Pulse Oximetry 99 Oxygen Delivery Mechanical Ventilation Fraction of Inspired Oxygen 30 12/09/24 00:00 12/09/24 00:00 12/09/24 00:04 Temperature 97.6 F Pulse Rate 58 L 59 L Respiratory Rate 15 Blood Pressure 98/68 L Pulse Oximetry 99 Oxygen Delivery Fraction of Inspired Oxygen 30 12/09/24 02:00 12/09/24 02:00 12/09/24 02:00 Temperature 97.5 F L Pulse Rate 60 60 60 Respiratory Rate 15 15 Blood Pressure 97/67 L Pulse Oximetry 99 Oxygen Delivery Fraction of Inspired Oxygen 12/09/24 02:05 12/09/24 02:05 12/09/24 02:05 Temperature Pulse Rate 61 60 62 Respiratory Rate 15 15 Blood Pressure Pulse Oximetry 100 Oxygen Delivery Mechanical Ventilation Fraction of Inspired Oxygen 30 12/09/24 04:00 12/09/24 04:00 12/09/24 04:00 Temperature Pulse Rate 61 60 60 Respiratory Rate 15 15 Blood Pressure Pulse Oximetry Oxygen Delivery Fraction of Inspired Oxygen 12/09/24 04:10 12/09/24 04:11 12/09/24 04:14 Temperature 97.6 F Pulse Rate 61 61 Respiratory Rate 15 15 Blood Pressure 103/67 Pulse Oximetry 97 97 Oxygen Delivery Mechanical Ventilation Fraction of Inspired Oxygen 30 30 12/09/24 04:19 12/09/24 04:42 12/09/24 05:00 Temperature Pulse Rate 59 L 66 62 Respiratory Rate 15 15 Blood Pressure Pulse Oximetry 96 Oxygen Delivery Mechanical Ventilation Fraction of Inspired Oxygen 30 12/09/24 05:00 12/09/24 05:15 12/09/24 06:00 Temperature Pulse Rate 61 75 60 Respiratory Rate 15 20 Blood Pressure Pulse Oximetry Oxygen Delivery Fraction of Inspired Oxygen 12/09/24 06:00 12/09/24 06:00 12/09/24 06:00 Temperature 98 F Pulse Rate 60 60 61 Respiratory Rate 15 15 15 Blood Pressure 102/72 Pulse Oximetry 98 Oxygen Delivery Fraction of Inspired Oxygen 12/09/24 07:35 12/09/24 07:56 12/09/24 07:56 Temperature Pulse Rate 65 71 71 Respiratory Rate 15 15 Blood Pressure Pulse Oximetry 98 Oxygen Delivery Mechanical Ventilation Fraction of Inspired Oxygen 30 12/09/24 08:00 12/09/24 08:00 12/09/24 08:00 Temperature Pulse Rate 68 67 67 Respiratory Rate 15 15 15 Blood Pressure Pulse Oximetry 96 Oxygen Delivery Mechanical Ventilation Fraction of Inspired Oxygen 30 12/09/24 08:00 12/09/24 08:00 12/09/24 08:00 Temperature 98.5 F Pulse Rate 70 69 Respiratory Rate 15 Blood Pressure 114/75 Pulse Oximetry 98 Oxygen Delivery Fraction of Inspired Oxygen 30 12/09/24 08:28 12/09/24 08:29 12/09/24 09:00 Temperature Pulse Rate 68 70 66 Respiratory Rate 15 16 15 Blood Pressure Pulse Oximetry Oxygen Delivery Fraction of Inspired Oxygen 12/09/24 10:00 12/09/24 10:00 12/09/24 10:20 Temperature 99.3 F Pulse Rate 78 65 66 Respiratory Rate 15 15 Blood Pressure 92/65 L Pulse Oximetry 97 Oxygen Delivery Fraction of Inspired Oxygen 12/09/24 10:20 12/09/24 10:21 12/09/24 10:32 Temperature Pulse Rate 66 65 80 Respiratory Rate 15 15 Blood Pressure Pulse Oximetry 98 Oxygen Delivery Mechanical Ventilation Fraction of Inspired Oxygen 30 12/09/24 10:51 Temperature Pulse Rate 78 Respiratory Rate 20 Blood Pressure Pulse Oximetry Oxygen Delivery Fraction of Inspired Oxygen Intake/Output Intake/Output: Intake & Output 12/06/24 12/07/24 12/08/24 12/09/24 23:59 23:59 23:59 23:59 Intake Total 400.4 2172.7 1951.2 Output Total 740 2300 2550 Balance -339.6 -127.3 -598.8 Meds/Results Medications: Active Medications Generic Name Dose Route Start Last Admin Trade Name Freq PRN Reason Stop Dose Admin Acetaminophen 650 mg 12/07/24 18:39 Acetaminophen 650 Mg Suppository RECTAL Q6H PRN Mild Pain (1-3) or Fever Dextrose 12.5 gm 12/09/24 10:15 Dextrose 50% 25 Gm/50 Ml Syringe IV PUSH PRN PRN Hypoglycemia Protocol Glucagon 1 mg 12/09/24 10:15 Glucagon For Inj 1 Mg Vial IM PRN PRN Hypoglycemia Protocol Glucose 15 gm 12/09/24 10:15 Glucose Oral Gel 15 Gm Of Glucse In 37.5 Gm Tube PO PRN PRN Hypoglycemia Protocol Fentanyl Citrate 2,500 mcg in 250 mls @ 0 mls/hr 12/07/24 17:30 12/09/24 10:20 Fentanyl 2,500 Mcg/Ns 250 Ml IV CONT 0 mcg/hr .Q0M GINA 0 mls/hr Titration Protocol 0 MCG/HR Propofol 100 mls @ 0 mls/hr 12/07/24 17:15 12/09/24 10:20 Diprivan IV CONT 0 mcg/kg/min .Q0M GINA 0 mls/hr Titration Protocol 0 MCG/KG/MIN Ceftriaxone Sodium 2 gm in 100 mls @ 200 mls/hr 12/07/24 20:00 12/08/24 21:07 Rocephin 2 Gm/Ns 100 Ml IVPB Infused Q24H GINA Infusion Micafungin Sodium 150 mg/ 100 mls @ 100 mls/hr 12/08/24 09:00 12/09/24 09:00 Sodium Chloride IVPB 100 mls/hr DAILY GINA Administration Sodium Chloride 1,000 mls @ 75 mls/hr 12/07/24 19:45 12/09/24 00:36 Normal Saline Iv IV CONT 75 mls/hr .[id number] GINA Administration Dexmedetomidine HCl 400 mcg in 100 mls @ 19.548 mls/hr 12/09/24 08:20 12/09/24 10:51 Precedex 400 Mcg/100 Ml IV CONT 0.7 mcg/kg/hr .Q5H7M GINA 19.55 mls/hr Titration Protocol 0.7 MCG/KG/HR Dextrose 1,000 mls @ 100 mls/hr 12/09/24 10:15 Dextrose 5% 1,000 Ml IVPB PRN PRN Hypoglycemia Protocol Insulin Aspart 2 - 5 units 12/09/24 12:00 Insulin Aspart (*Bkc) 100 Units/Ml SUB-Q Q6HR GINA Protocol Midazolam HCl 2 mg 12/07/24 18:48 12/07/24 23:01 Midazolam Hcl (*Crx) 2 Mg/2 Ml Vial IV PUSH 2 mg Q2H PRN Administration Ventilator Asynchrony Multi-Ingred Cream/Lotion/Oil/Oint 1 applic 12/07/24 21:00 12/09/24 08:36 Mineral Oil/White Petrolatum Ointment EACH EYE 1 applic Q12HR GINA Administration Ondansetron HCl 4 mg 12/07/24 18:39 Ondansetron Inj 4 Mg/2 Ml Vial IV PUSH Q6H PRN Nausea And Vomiting Pantoprazole Sodium 40 mg 12/07/24 21:00 12/09/24 08:36 Pantoprazole Sodium Iv 40 Mg Vial IV PUSH 40 mg Q12HR GINA Administration Radiology Results: ITS Impressions Abdomen X-Ray 12/07/24 17:16 IMPRESSION: Orogastric tube in good position and ready for immediate use. Soft Tissue Neck CT 12/07/24 22:59 IMPRESSION: The epiglottis is of normal caliber. Asymmetric 12 mm soft tissue density within the supraglottic airway, to the right of midline, a finding of uncertain clinical implication. Examination is otherwise unremarkable, as detailed above. Chest/Abdomen/Pelvis CTA 12/07/24 23:13 IMPRESSION: No pulmonary embolus. No aortic dissection. Bilateral pleural effusions with adjacent compressive atelectasis. Hepatosplenomegaly, unchanged. Findings within the soft tissues of the lower pelvis, to the left midline, possibly representing a perioperative seroma, as detailed above. Chest X-Ray 12/09/24 05:35 Impression: Bibasilar airspace disease, left worse than right, similar to prior exam. Correlate for bibasilar pulmonary edema/atelectasis versus pneumonia. Support tubes, as above. Labs Labs: Laboratory Results - last 24 hr 12/09/24 12/09/24 12/09/24 04:23 04:42 08:02 WBC 7.5 RBC 3.71 L Hgb 10.9 L Hct 35.4 L MCV 95.4 MCH 29.4 MCHC 30.8 L RDW 17.0 H Plt Count 144 L MPV 10.4 Immature Gran % (Auto) 0.4 Neut % (Auto) 55.1 Lymph % (Auto) 34.9 [place] % (Auto) 7.6 Eos % (Auto) 1.7 Baso % (Auto) 0.3 Lymph # (Auto) 2.60 [place] # (Auto) 0.6 Eos # (Auto) 0.1 Baso # (Auto) 0.0 Abs Immat Gran (auto) 0.03 Absolute Neuts (auto) 4.1 Absolute Nucleated RBC 0.000 Nucleated RBC % 0.0 Puncture Site Right radial ABG pH 7.353 ABG pCO2 52.9 H ABG pO2 97.6 ABG PO2/FiO2 Ratio 3.25 ABG HCO3 28.7 H ABG O2 Saturation 97.0 ABG O2 Content 16.3 ABG Base Excess 2.3 A-a Gradient 54.1 Oxyhemoglobin 96.6 Carboxyhemoglobin 0.5 Methemoglobin 0.1 Reduced Hemoglobin 2.8 Total Hemoglobin 11.9 L O2 Delivery Device Ventilator O2 Liters/Min Not Reportable Minute Volume Not Reportable Vent Rate 15 Vent Mode Cmv FiO2 30 Tidal Volume 470 PEEP 5 Peak Inspir Pressure Not Reportable Pressure Support Not Reportable Sodium 139 Potassium 3.8 Chloride 105 Carbon Dioxide 26 Anion Gap 8 BUN 15 Creatinine 0.89 Estim Creat Clear Calc 85 Estimated GFR > 60 Glucose 81 POC Capillary Glucose 81 Calcium 8.2 L Phosphorus 4.2 Magnesium 1.8 Total Bilirubin 0.3 AST 24 ALT 14 Alkaline Phosphatase 66 Total Protein 5.8 L Albumin 3.6 Triglycerides 209 H Quality VTE Prophylaxis VTE prophylaxis: mechanical ordered
[2024-12-09 11:33] LABS: Alveolar/Arterial O2 Gradient 81.4 mmHg; Fractional Inspired Oxygen 30 %; HCO3 ABG 27.6 mEq/l (22.0-26.0); Oxygen Content ABG 15.7 %vol (16.0-22.0); Oxygen Saturation ABG 95.1 % (95.0-100.0); Oxyhemoglobin 94.4 % THb (90.0-100.0); PCO2 ABG 47.4 mmHg (35.0-45.0); PO2 ABG 76.8 mmHg (80.0-100.0); PO2 FiO2 Ratio Arterial Blood 2.56 %; Total Hemoglobin 11.8 g/dL (12.0-18.0); pH ABG 7.383 (7.350-7.450)
[2024-12-09 11:53] LABS: Glucose Point of Care 92 mg/dl (65-105)
[2024-12-09] MEDS: ONDANSETRON INJ 4 MG/2 ML VIAL IV PUSH ×2 (12:05→17:35)
--- NOTE | 2024-12-09 12:09 | P.PNGS_ITS ---
Progress Note: A&P Assessment and Plan (1) Seroma after procedure: Status: Acute Assessment and Plan: * Postoperative seroma has spontaneously drained overnight through the suprapubic incision. There is no longer any redness in the LLQ. No need for any surgical intervention at this time. We will sign off and plan to have the patient keep his follow-up appointment with Dr. Mccauley in our office in 1 month. Please call if there are any future surgical concerns. (2) Epiglottitis: Code(s): J05.10 - Acute epiglottitis without obstruction Status: Acute (3) Essential hypertension: Code(s): I10 - Essential (primary) hypertension Status: Acute (4) Tiffany esophagitis: Code(s): B37.81 - Candidal esophagitis Status: Acute (5) On mechanically assisted ventilation: Code(s): Z99.11 - Dependence on respirator [ventilator] status Status: Acute Plan I have discussed the patient's case and plan of care with Dr. Mccauley. Subjective Subjective Date/Time Seen: 12/09/24 12:09 Interval history: Patient seen in ICU and was extubated this morning. His partner is at the bedside. His suprapubic incision was draining copious amounts last night. Exam Const: General: comfortable and no acute distress GI: Inspection: non-distended GI Palp: Yes Soft to palpation, No Tenderness to palpation present (GI) and No Guarding due to palpation present (GI) Other: Incisions healing well. Suprapubic incision has a small opening to the medial aspect of the incision that is currently dry but appears to be where it was draining. The redness noted yesterday has completely resolved and there is still a small palpable seroma just above the incision but much smaller, nontender. Objective Data Vital Signs Vital Signs: Vital Signs - 24 hr 12/08/24 12:51 12/08/24 12:53 12/08/24 13:50 Temperature Pulse Rate 63 63 54 L Respiratory Rate 15 15 Blood Pressure Pulse Oximetry 98 Oxygen Delivery Mechanical Ventilation Fraction of Inspired Oxygen 30 12/08/24 14:00 12/08/24 14:00 12/08/24 14:00 Temperature 97.2 F L Pulse Rate 54 L 55 L 56 L Respiratory Rate 15 12 Blood Pressure 94/65 L Pulse Oximetry 98 Oxygen Delivery Fraction of Inspired Oxygen 12/08/24 14:04 12/08/24 15:41 12/08/24 15:43 Temperature Pulse Rate 55 L 58 L 57 L Respiratory Rate 15 15 15 Blood Pressure Pulse Oximetry 99 Oxygen Delivery Mechanical Ventilation Fraction of Inspired Oxygen 30 12/08/24 15:43 12/08/24 16:00 12/08/24 16:00 Temperature 97.0 F L Pulse Rate 57 L 55 L 54 L Respiratory Rate 15 12 Blood Pressure 94/66 L Pulse Oximetry 98 Oxygen Delivery Fraction of Inspired Oxygen 12/08/24 16:00 12/08/24 16:00 12/08/24 16:00 Temperature Pulse Rate 55 L 55 L Respiratory Rate 12 15 Blood Pressure Pulse Oximetry Oxygen Delivery Fraction of Inspired Oxygen 30 12/08/24 17:32 12/08/24 17:33 12/08/24 18:00 Temperature 97.3 F L Pulse Rate 59 L 64 58 L Respiratory Rate 15 13 Blood Pressure 107/69 Pulse Oximetry 100 99 Oxygen Delivery Mechanical Ventilation Fraction of Inspired Oxygen 30 12/08/24 18:00 12/08/24 18:00 12/08/24 18:00 Temperature Pulse Rate 57 L 57 L 57 L Respiratory Rate 15 15 Blood Pressure Pulse Oximetry Oxygen Delivery Fraction of Inspired Oxygen 12/08/24 18:43 12/08/24 19:21 12/08/24 19:23 Temperature Pulse Rate 56 L 63 66 Respiratory Rate 15 16 18 Blood Pressure Pulse Oximetry Oxygen Delivery Fraction of Inspired Oxygen 12/08/24 19:25 12/08/24 19:40 12/08/24 19:41 Temperature Pulse Rate 67 67 70 Respiratory Rate 17 18 19 Blood Pressure Pulse Oximetry 100 Oxygen Delivery Mechanical Ventilation Fraction of Inspired Oxygen 30 12/08/24 20:00 12/08/24 20:00 12/08/24 20:00 Temperature 97.3 F L Pulse Rate 61 61 61 Respiratory Rate 15 15 15 Blood Pressure 103/72 Pulse Oximetry 99 Oxygen Delivery Fraction of Inspired Oxygen 12/08/24 20:00 12/08/24 20:08 12/08/24 20:45 Temperature Pulse Rate 57 L 74 Respiratory Rate 15 Blood Pressure Pulse Oximetry Oxygen Delivery Fraction of Inspired Oxygen 30 12/08/24 20:49 12/08/24 22:00 12/08/24 22:00 Temperature 97.6 F Pulse Rate 61 59 L 59 L Respiratory Rate 15 Blood Pressure 95/68 L Pulse Oximetry 100 99 Oxygen Delivery Mechanical Ventilation Fraction of Inspired Oxygen 30 12/08/24 22:00 12/08/24 22:00 12/08/24 22:06 Temperature Pulse Rate 59 L 59 L 61 Respiratory Rate 15 15 15 Blood Pressure Pulse Oximetry Oxygen Delivery Fraction of Inspired Oxygen 12/08/24 22:06 12/08/24 22:43 12/08/24 22:59 Temperature Pulse Rate 62 61 65 Respiratory Rate 15 17 17 Blood Pressure Pulse Oximetry Oxygen Delivery Fraction of Inspired Oxygen 12/08/24 22:59 12/08/24 23:00 12/09/24 00:00 Temperature Pulse Rate 65 59 L 58 L Respiratory Rate 17 15 Blood Pressure Pulse Oximetry 100 99 Oxygen Delivery Mechanical Ventilation Mechanical Ventilation Fraction of Inspired Oxygen 30 30 12/09/24 00:00 12/09/24 00:00 12/09/24 00:00 Temperature 97.6 F Pulse Rate 58 L 59 L 58 L Respiratory Rate 15 15 15 Blood Pressure 98/68 L Pulse Oximetry 99 Oxygen Delivery Fraction of Inspired Oxygen 12/09/24 00:00 12/09/24 00:04 12/09/24 02:00 Temperature Pulse Rate 59 L 60 Respiratory Rate Blood Pressure Pulse Oximetry Oxygen Delivery Fraction of Inspired Oxygen 30 12/09/24 02:00 12/09/24 02:00 12/09/24 02:05 Temperature 97.5 F L Pulse Rate 60 60 61 Respiratory Rate 15 15 15 Blood Pressure 97/67 L Pulse Oximetry 99 Oxygen Delivery Fraction of Inspired Oxygen 12/09/24 02:05 12/09/24 02:05 12/09/24 04:00 Temperature Pulse Rate 60 62 61 Respiratory Rate 15 15 Blood Pressure Pulse Oximetry 100 Oxygen Delivery Mechanical Ventilation Fraction of Inspired Oxygen 30 12/09/24 04:00 12/09/24 04:00 12/09/24 04:10 Temperature 97.6 F Pulse Rate 60 60 61 Respiratory Rate 15 15 Blood Pressure 103/67 Pulse Oximetry 97 Oxygen Delivery Fraction of Inspired Oxygen 12/09/24 04:11 12/09/24 04:14 12/09/24 04:19 Temperature Pulse Rate 61 59 L Respiratory Rate 15 15 Blood Pressure Pulse Oximetry 97 Oxygen Delivery Mechanical Ventilation Fraction of Inspired Oxygen 30 30 12/09/24 04:42 12/09/24 05:00 12/09/24 05:00 Temperature Pulse Rate 66 62 61 Respiratory Rate 15 15 Blood Pressure Pulse Oximetry 96 Oxygen Delivery Mechanical Ventilation Fraction of Inspired Oxygen 30 12/09/24 05:15 12/09/24 06:00 12/09/24 06:00 Temperature 98 F Pulse Rate 75 60 60 Respiratory Rate 20 15 Blood Pressure 102/72 Pulse Oximetry 98 Oxygen Delivery Fraction of Inspired Oxygen 12/09/24 06:00 12/09/24 06:00 12/09/24 07:35 Temperature Pulse Rate 60 61 65 Respiratory Rate 15 15 Blood Pressure Pulse Oximetry 98 Oxygen Delivery Mechanical Ventilation Fraction of Inspired Oxygen 30 12/09/24 07:56 12/09/24 07:56 12/09/24 08:00 Temperature Pulse Rate 71 71 68 Respiratory Rate 15 15 15 Blood Pressure Pulse Oximetry Oxygen Delivery Fraction of Inspired Oxygen 12/09/24 08:00 12/09/24 08:00 12/09/24 08:00 Temperature Pulse Rate 67 67 Respiratory Rate 15 15 Blood Pressure Pulse Oximetry 96 Oxygen Delivery Mechanical Ventilation Fraction of Inspired Oxygen 30 30 12/09/24 08:00 12/09/24 08:00 12/09/24 08:28 Temperature 98.5 F Pulse Rate 70 69 68 Respiratory Rate 15 15 Blood Pressure 114/75 Pulse Oximetry 98 Oxygen Delivery Fraction of Inspired Oxygen 12/09/24 08:29 12/09/24 09:00 12/09/24 10:00 Temperature Pulse Rate 70 66 78 Respiratory Rate 16 15 Blood Pressure Pulse Oximetry Oxygen Delivery Fraction of Inspired Oxygen 12/09/24 10:00 12/09/24 10:20 12/09/24 10:20 Temperature 99.3 F Pulse Rate 65 66 66 Respiratory Rate 15 15 15 Blood Pressure 92/65 L Pulse Oximetry 97 Oxygen Delivery Fraction of Inspired Oxygen 12/09/24 10:21 12/09/24 10:32 12/09/24 10:40 Temperature Pulse Rate 65 80 79 Respiratory Rate 15 Blood Pressure Pulse Oximetry 98 97 Oxygen Delivery Mechanical Ventilation Mechanical Ventilation Fraction of Inspired Oxygen 30 30 12/09/24 10:51 Temperature Pulse Rate 78 Respiratory Rate 20 Blood Pressure Pulse Oximetry Oxygen Delivery Fraction of Inspired Oxygen Intake/Output Intake/Output: Intake & Output 12/06/24 12/07/24 12/08/24 12/09/24 23:59 23:59 23:59 23:59 Intake Total 400.4 2172.7 1951.2 Output Total 740 2300 2550 Balance -339.6 -127.3 -598.8 Meds/Results Medications: Active Medications Generic Name Dose Route Start Last Admin Trade Name Freq PRN Reason Stop Dose Admin Acetaminophen 650 mg 12/07/24 18:39 Acetaminophen 650 Mg Suppository RECTAL Q6H PRN Mild Pain (1-3) or Fever Dextrose 12.5 gm 12/09/24 10:15 Dextrose 50% 25 Gm/50 Ml Syringe IV PUSH PRN PRN Hypoglycemia Protocol Glucagon 1 mg 12/09/24 10:15 Glucagon For Inj 1 Mg Vial IM PRN PRN Hypoglycemia Protocol Glucose 15 gm 12/09/24 10:15 Glucose Oral Gel 15 Gm Of Glucse In 37.5 Gm Tube PO PRN PRN Hypoglycemia Protocol Fentanyl Citrate 2,500 mcg in 250 mls @ 0 mls/hr 12/07/24 17:30 12/09/24 10:20 Fentanyl 2,500 Mcg/Ns 250 Ml IV CONT 0 mcg/hr .Q0M GINA 0 mls/hr Titration Protocol 0 MCG/HR Propofol 100 mls @ 0 mls/hr 12/07/24 17:15 12/09/24 10:20 Diprivan IV CONT 0 mcg/kg/min .Q0M GINA 0 mls/hr Titration Protocol 0 MCG/KG/MIN Ceftriaxone Sodium 2 gm in 100 mls @ 200 mls/hr 12/07/24 20:00 12/08/24 21:07 Rocephin 2 Gm/Ns 100 Ml IVPB Infused Q24H GINA Infusion Micafungin Sodium 150 mg/ 100 mls @ 100 mls/hr 12/08/24 09:00 12/09/24 09:00 Sodium Chloride IVPB 100 mls/hr DAILY GINA Administration Sodium Chloride 1,000 mls @ 75 mls/hr 12/07/24 19:45 12/09/24 00:36 Normal Saline Iv IV CONT 75 mls/hr .[id number] GINA Administration Dexmedetomidine HCl 400 mcg in 100 mls @ 19.548 mls/hr 12/09/24 08:20 12/09/24 10:51 Precedex 400 Mcg/100 Ml IV CONT 0.7 mcg/kg/hr .Q5H7M GINA 19.55 mls/hr Titration Protocol 0.7 MCG/KG/HR Dextrose 1,000 mls @ 100 mls/hr 12/09/24 10:15 Dextrose 5% 1,000 Ml IVPB PRN PRN Hypoglycemia Protocol Insulin Aspart 2 - 5 units 12/09/24 12:00 Insulin Aspart (*Bkc) 100 Units/Ml SUB-Q Q6HR GINA Protocol Midazolam HCl 2 mg 12/07/24 18:48 12/07/24 23:01 Midazolam Hcl (*Crx) 2 Mg/2 Ml Vial IV PUSH 2 mg Q2H PRN Administration Ventilator Asynchrony Multi-Ingred Cream/Lotion/Oil/Oint 1 applic 12/07/24 21:00 12/09/24 08:36 Mineral Oil/White Petrolatum Ointment EACH EYE 1 applic Q12HR GINA Administration Ondansetron HCl 4 mg 12/07/24 18:39 12/09/24 12:05 Ondansetron Inj 4 Mg/2 Ml Vial IV PUSH 4 mg Q6H PRN Administration Nausea And Vomiting Pantoprazole Sodium 40 mg 12/07/24 21:00 12/09/24 08:36 Pantoprazole Sodium Iv 40 Mg Vial IV PUSH 40 mg Q12HR GINA Administration Radiology Results: ITS Impressions Abdomen X-Ray 12/07/24 17:16 IMPRESSION: Orogastric tube in good position and ready for immediate use. Soft Tissue Neck CT 12/07/24 22:59 IMPRESSION: The epiglottis is of normal caliber. Asymmetric 12 mm soft tissue density within the supraglottic airway, to the right of midline, a finding of uncertain clinical implication. Examination is otherwise unremarkable, as detailed above. Chest/Abdomen/Pelvis CTA 12/07/24 23:13 IMPRESSION: No pulmonary embolus. No aortic dissection. Bilateral pleural effusions with adjacent compressive atelectasis. Hepatosplenomegaly, unchanged. Findings within the soft tissues of the lower pelvis, to the left midline, possibly representing a perioperative seroma, as detailed above. Chest X-Ray 12/09/24 05:35 Impression: Bibasilar airspace disease, left worse than right, similar to prior exam. Correlate for bibasilar pulmonary edema/atelectasis versus pneumonia. Support tubes, as above. Labs Labs: Laboratory Results - last 24 hr 12/09/24 12/09/24 12/09/24 04:23 04:42 08:02 WBC 7.5 RBC 3.71 L Hgb 10.9 L Hct 35.4 L MCV 95.4 MCH 29.4 MCHC 30.8 L RDW 17.0 H Plt Count 144 L MPV 10.4 Immature Gran % (Auto) 0.4 Neut % (Auto) 55.1 Lymph % (Auto) 34.9 [place] % (Auto) 7.6 Eos % (Auto) 1.7 Baso % (Auto) 0.3 Lymph # (Auto) 2.60 [place] # (Auto) 0.6 Eos # (Auto) 0.1 Baso # (Auto) 0.0 Abs Immat Gran (auto) 0.03 Absolute Neuts (auto) 4.1 Absolute Nucleated RBC 0.000 Nucleated RBC % 0.0 Puncture Site Right radial ABG pH 7.353 ABG pCO2 52.9 H ABG pO2 97.6 ABG PO2/FiO2 Ratio 3.25 ABG HCO3 28.7 H ABG O2 Saturation 97.0 ABG O2 Content 16.3 ABG Base Excess 2.3 A-a Gradient 54.1 Oxyhemoglobin 96.6 Carboxyhemoglobin 0.5 Methemoglobin 0.1 Reduced Hemoglobin 2.8 Total Hemoglobin 11.9 L O2 Delivery Device Ventilator O2 Liters/Min Not Reportable Minute Volume Not Reportable Vent Rate 15 Vent Mode Cmv FiO2 30 Tidal Volume 470 PEEP 5 Peak Inspir Pressure Not Reportable Pressure Support Not Reportable Sodium 139 Potassium 3.8 Chloride 105 Carbon Dioxide 26 Anion Gap 8 BUN 15 Creatinine 0.89 Estim Creat Clear Calc 85 Estimated GFR > 60 Glucose 81 POC Capillary Glucose 81 Calcium 8.2 L Phosphorus 4.2 Magnesium 1.8 Total Bilirubin 0.3 AST 24 ALT 14 Alkaline Phosphatase 66 Total Protein 5.8 L Albumin 3.6 Triglycerides 209 H 12/09/24 11:51 WBC RBC Hgb Hct MCV MCH MCHC RDW Plt Count MPV Immature Gran % (Auto) Neut % (Auto) Lymph % (Auto) [place] % (Auto) Eos % (Auto) Baso % (Auto) Lymph # (Auto) [place] # (Auto) Eos # (Auto) Baso # (Auto) Abs Immat Gran (auto) Absolute Neuts (auto) Absolute Nucleated RBC Nucleated RBC % Puncture Site ABG pH ABG pCO2 ABG pO2 ABG PO2/FiO2 Ratio ABG HCO3 ABG O2 Saturation ABG O2 Content ABG Base Excess A-a Gradient Oxyhemoglobin Carboxyhemoglobin Methemoglobin Reduced Hemoglobin Total Hemoglobin O2 Delivery Device O2 Liters/Min Minute Volume Vent Rate Vent Mode FiO2 Tidal Volume PEEP Peak Inspir Pressure Pressure Support Sodium Potassium Chloride Carbon Dioxide Anion Gap BUN Creatinine Estim Creat Clear Calc Estimated GFR Glucose POC Capillary Glucose 92 Calcium Phosphorus Magnesium Total Bilirubin AST ALT Alkaline Phosphatase Total Protein Albumin Triglycerides
[2024-12-09 14:19] LABS: Device VENTILATOR; Modified Allen's Test Pass; Site Drawn RIGHT RADIAL
[2024-12-09 14:20] LABS: Arterial Blood Gas PEEP 5 cmH2O; Arterial Blood Gas Pressure Support 5 cmH2O; Arterial Blood Gas Vent Mode SPONTANEOUS
[2024-12-09] MEDS: METOCLOPRAMIDE HCL INJ 10 MG/2 ML VIAL IV PUSH ×3 (14:51→23:30)
--- NOTE | 2024-12-09 17:48 | PC.NURSE ---
Notified Dr Coates of patients continued N/V. Possible vagal response while dry heaving, HR dropped to 40's. Started PT on ILWS to NG tube. 250 of green bile out. PT N/V slightly improved, zofran and reglan administered per orders. Received order to continue ILWS overnight. Order read back and verified.
[2024-12-09 19:18] LABS: Glucose Point of Care 117 mg/dl (65-105)
--- NOTE | 2024-12-09 20:05 | ECG_ITS ---
Test Date: 2024-12-09 20:10:42 Measurements Intervals [place] Rate: 78 P: 6 WV: 182 QRS: -16 QRSD: 116 T: -12 QT: 390 QTc: 445 Interpretive Statements SINUS RHYTHM WITH OCCASIONAL VENTRICULAR PREMATURE COMPLEXES LEFT VENTRICULAR HYPERTROPHY INFERIOR INFARCT, AGE INDETERMINATE BASELINE ARTIFACT- I, II, AVR, AVL ABNORMAL ECG Compared to ECG 12/07/2024 23:09:34 Ventricular premature complex(es) now present Electronically Signed On 12-09-2024 20:42:54 CDT by Pablo Brannon D.O.
[2024-12-09] MEDS: NITROGLYCERIN SL 0.4 MG TABLET SUBLINGUAL ×3 (20:11→20:23)
[2024-12-09] MEDS: PROCHLORPERAZINE EDISYLATE 10 MG/2 ML VIAL IV PUSH (20:28)
[2024-12-09] MEDS: cefTRIAXone 2 GM/NS 100 ML 2 GM/100 ML BAG IVPB (20:47)
[2024-12-09 21:18] LABS: Anion Gap 9 mmol/L (4-12); Blood Urea Nitrogen 16 mg/dL (9-20); Calcium 8.5 mg/dL (8.4-10.2); Carbon Dioxide 28 mmol/L (22-30); Chloride 100 mmol/L (98-107); Estimated CRCL calculation 96 ml/min; Estimated Glomerular Filt Rate > 60; Glucose 113 mg/dL (65-110); Potassium 3.2 mmol/L (3.4-5.0); Sodium 137 mmol/L (137-145)
[2024-12-09 21:31] LABS: Troponin I < 0.012 ng/mL (0.000-0.034)
[2024-12-09] MEDS: TRIMETHOBENZAMIDE HCL 200 MG/2 ML VIAL IM (22:41)
--- NOTE | 2024-12-09 22:52 | P.PNCROSS_ITS ---
Event Note Event Note Event Note: I am called to check on this patient at the bedside today for complaints s hortness of breath. Patient was recently extubated today. Patient is being treated for acute epiglottitis and candidal esophagitis and has a known 12 mm soft tissue density in that subglottic airway to the right of midline. Patient continues to have NG tube to low intermittent suction and has been maintaining normal oxygen saturations on room air throughout today. Patient does have a lot of vomiting in this evening began complaining of feeling short of breath. RN tells me that he placed him on 2L NC as a precaution with noted sats after of 10%, but also states his sats were in the high 90s prior to his complaining of dyspnea. Brief Physical Exam General: Ill appearing, elderly male pt lying supine at this time. He does not appear to be in acute respiratory distress. HEENT: Pt with NG tube present and nasal canula. Swallowing secretions Neck: Fullness anteriorly without crepitus. Cardiac: RRR, no M,R,G,H Respiratory: Coarse crackles audible in the LLL. No other adventitious sounds. No tachypnea, unlabored and even Neurological: Alert and oriented x4 Psychiatric: Anxious mood. Vital signs reviewed as follows: Blood pressure 113/71, pulse 71, respirations 18, temperature 98.9? and oxygen saturation 100% on 2L and 97% on room air. Plan: Stat 1-view CXR ordered and Stat XR Soft tissue neck ordered. As pt has already had Reglan and Zofran and continued to complain of nausea w/vomiting, he is ordered Tigan 200 mg IM Q6 hrs prn nausea in an effort to better control nausea so as to decrease risk of aspiration. Physical exam with Crackles in LLL, consistent with previous reading of CXR this AM. Pt remains on Rocephin for coverage. No obvious s/s of acute respiratory decompensation as his VS are no rmal with normal Oxygen saturations, no tachypnea or tachycardia and no physical exam findings consistent with hypoxia. Suspect pt has a degree of anxiety. Would consider an anxiolytic iif negative imaging, or if continued complaints of dyspnea with abnormal VS or physical exam would consider further evaluation with ABG's.
[2024-12-09] MEDS: FUROSEMIDE INJ 40 MG/4 ML VIAL IV PUSH (23:30)
[2024-12-09 23:36] LABS: Glucose Point of Care 118 mg/dl (65-105)
[2024-12-10] VITALS (20 sets, daily range): BP systolic 98–134; BP diastolic 54–71; PULSE 60–82; RESP 17–191; TEMP 36.4–37.2; O2SAT 96–100
[2024-12-10] MEDS: SODIUM CHLORIDE 0.9% IV 1,000 ML 75 ML IV CONT ×2 (00:59→14:50)
[2024-12-10] MEDS: ONDANSETRON INJ 4 MG/2 ML VIAL IV PUSH (00:59)
[2024-12-10] MEDS: dexmedeTOMIDine 400 MCG/100 ML 400 MCG/100 ML BAG 5.59 MCG IV CONT (02:12)
[2024-12-10 04:43] LABS: Eosinophils Percent Auto 0.5 % (0-4.4); Hematocrit 33.3 % (42.0-52.0); Immature Granulocyte Absolute 0.04 K/mm3 (0.00-0.031); Immature Granulocyte Percent A 0.6 % (0-0.5); Lymphocytes Absolute Auto 1.13 K/mm3 (0.9-3.2); Lymphocytes Percent Auto 17.9 % (18.3-44.2); Mean Corpuscular Hemoglobin 29.6 pg (26-34); Mean Corpuscular Volume 89.5 fl (80-100); Mean Platelet Volume 9.7 fl (7.4-10.4); Monocytes Absolute Auto 0.6 K/mm3 (0.1-0.6); Neutrophils Absolute Auto 4.6 K/mm3 (1.3-6.7); Platelet Count Result 128 k/mm3 (150-375); Red Blood Count 3.72 M/mm3 (4.6-6.20); Red Cell Distribution Width 15.9 % (11.5-14.5); White Blood Count 6.3 K/mm3 (4.5-10.0)
[2024-12-10] MEDS: METOCLOPRAMIDE HCL INJ 10 MG/2 ML VIAL IV PUSH (05:08)
[2024-12-10 05:14] LABS: Alanine Aminotransferase 16 U/L (6-50); Albumin Level 3.8 g/dL (3.5-5.1); Alkaline Phosphatase 69 U/L (38-126); Anion Gap 9 mmol/L (4-12); Aspartate Amino Transferase 33 U/L (17-59); Bilirubin,Total 0.6 mg/dL (0.2-1.3); Blood Urea Nitrogen 14 mg/dL (9-20); Calcium 8.8 mg/dL (8.4-10.2); Carbon Dioxide 31 mmol/L (22-30); Chloride 99 mmol/L (98-107); Estimated CRCL calculation 85 ml/min; Estimated Glomerular Filt Rate > 60; Glucose 114 mg/dL (65-110); Magnesium 1.6 mg/dL (1.6-2.3); Phosphorus 3.2 mg/dL (2.5-4.5); Potassium 3.1 mmol/L (3.4-5.0); Sodium 139 mmol/L (137-145); Total Protein 6.1 g/dL (6.3-8.2)
[2024-12-10] MEDS: dexmedeTOMIDine 400 MCG/100 ML 400 MCG/100 ML BAG 27.93 MCG IV CONT (05:57)
[2024-12-10] MEDS: MAGNESIUM SULF 2 GM/WATER 50ML 2 GM/50 ML BAG IVPB (07:59)
[2024-12-10] MEDS: PANTOPRAZOLE SODIUM IV 40 MG VIAL IV PUSH ×2 (08:00→20:31)
[2024-12-10] MEDS: POTASSIUM CHLORIDE INJ 40 MEQ in SODIUM CHLORIDE 0.9% IV 500 ML 130 MEQ IVPB (09:52)
[2024-12-10] MEDS: SODIUM CHLORIDE 0.9% IVPB (09:52)
[2024-12-10] MEDS: MICAFUNGIN SODIUM IVPB (09:52)
[2024-12-10] MEDS: SERTRALINE HCL 50 MG TABLET 150 MG FEED TUBE (09:53)
--- NOTE | 2024-12-10 10:54 | PCFNICU ---
ICU Rounding Note: Pt current nutrition is NPO. Nutrition recommendation: Diet recommendations per speech. If not able to take PO, Recommend Jevity 1.5 @ 60 ml/h to meet EER Last recorded weight is 106.8 kg. Bowel Motility:No BMs are recorded Labs Reviewed: Hgb 11, Hct 33.3, K+ 3.1, Glu 114 Meds Noted: Protonix, sertaline Skin: WNL Additional Notes: Pt was extubated but not able to swallow becaue of epiglottitis. MBS is ordered, monitoring results and will recommend as needed. Jevity 1,5 @ 60 ml/h to provide 1980 kcal, 84 g protein, 1003 ml free water if needed. Following daily in ICU rounds. Monitoring orders, plan of care, weights, labs, output Follow up in 3 days. Daily rounds.
--- NOTE | 2024-12-10 11:31 | P.PNINT_ITS ---
Progress Note: A&P Assessment and Plan (1) On mechanically assisted ventilation: Code(s): Z99.11 - Dependence on respirator [ventilator] status Status: Acute Assessment and Plan: Patient was intubated and [facility] hospital in [facility], this was done when they were doing the EGD and noted swelling of the vocal cords/epiglottitis -12/07: CT soft tissue of the neck are showed asymmetric 12 mm soft tissue density within the subglottic airway to the right of midline, the epiglottis is of normal caliber -12/09 extubated -appreciate ENT evaluation, flexible ureteroscopy did not show any masses or lesions or ulcerations or swelling as per the note. -currently on room air with adequate O2 sats -PT/OT will be ordered -patient failed a swallow evaluation at bedside by speech therapy, they r ecommended modified barium swallow -modified barium swallow test today (2) Epiglottitis: Code(s): J05.10 - Acute epiglottitis without obstruction Status: Acute Assessment and Plan: Soft tissue density as noted above, at [facility] they had noted swelling of the vocal cords, patient did receive Decadron at the outside hospital -will continue to follow -will hold additional steroids due to Tiffany esophagitis -12/10: discussed with Dr. Blackmon, he is unavailable today, if patient remains in the hospital Friday, 12/13, he will perform a flexible bronchoscopy to evaluate the soft tissue density as mentioned above (3) Tiffany esophagitis: Code(s): B37.81 - Candidal esophagitis Status: Acute Assessment and Plan: Continue micafungin for Tiffany esophagitis (4) Essential hypertension: Code(s): I10 - Essential (primary) hypertension Status: Acute Assessment and Plan: Blood pressures have been stable -blood pressures have been stable, hold antihypertensive. Will introduce blood pressures are higher (5) Seroma after procedure: Status: Acute Assessment and Plan: Patient has seroma at the postoperative site as seen on CT scan as under -discussed with surgery, seroma draining on its own, no intervention per surgeon 12/07: CT chest abdomen and pelvis did not reveal any pulmonary embolism, no aortic dissection. Bilateral pleural effusion with adjacent compressive atelectasis, hepatic splenomegaly, unchanged. Findings within soft tissues of the lower pelvis to the left of midline, possibly representing a perioperative serum a 3.5 x 6.1 x 5.4 cm fluid attenuation with air. Plan DVT prophylaxis: SCDs Stress ulcer prophylaxis: Protonix IV q.12 hours Nutrition: Patient was tolerating tube feeds, failed bedside swallow test, sp eech therapy recommended modified barium swallow. Code Status: Full code Critical Care Time Spent: 31 minutes Discussed with patient's partner and updated with patient's condition and plan of care. Updated him regarding failing swallow test and that patient will get a modified barium swallow. I also notified the patient's partner regarding discussion with Dr. Blackmon the ENT specialist. Due to a high probability of clinically significant, life threatening deterioration, the patient required my highest level of preparedness to intervene emergently and I personally spent this critical care time directly and personally managing the patient. This critical care time included obtaining a history; examining the patient; pulse oximetry; ordering and review of studies; arranging urgent treatment with development of a management plan; evaluation of patient's response to treatment; frequent reassessment; and discussions with other providers. It was exclusive of separately billable procedures and treating other patients and teaching time. Please see Assessment and Plan section and the rest of the note for further information on patient assessment and treatment This dictation may have been done utilizing a voice recognition system. Attempts have been made to correct errors. However, there may be uncorrected grammatical, spelling, and recognitions errors present. Subjective Date/time seen: 12/10/24 11:31 Interval history: Reason for consult: Mechanical ventilation for EGD at outside hospital, swelling of the vocal cords, esophageal candidiasis, perioperative seroma -12/09: extubated 12/10/2024: Patient seen examined the ICU. Remains extubated, on room air. Off Precedex infusion. Patient was started on Precedex overnight due to anxiety, nausea. Patient also complained of some chest pain, EKG and troponins were negative. Denies any chest pain, nausea, vomiting at this time, complains of dry mouth. Hemodynamically stable, urine output has been adequate, afebrile. Denies any trouble breathing, abdominal pain Review of Systems Review of Systems: All systems reviewed & are unremarkable except as noted in HPI and below Exam Narrative: General: Patient is awake, anxious HEENT:? Pupils are equal and reactive, sclera is clear, Neck:? Supple Respiratory:? Clear to auscultation bilateral, with decreased air entry at bases, no wheezing Cardiac:? S1-S2 normal, regular rate and rhythm Abdomen:? Soft, nontender, nondistended, recent surgical scar noted on the left of midline in the lower region, and in duration noted, 3 x 4 cm Extremities:? Trace edema, palpable pedal pulses Neuro:? Patient is awake, alert, answers to questions and follows simple commands appropriate Skin:? No lesions noted Psych:? Normal mentation, anxious Objective Data Vital Signs Vital Signs: Vital Signs - 24 hr 12/09/24 11:45 12/09/24 12:00 12/09/24 12:00 Temperature 100.1 F H Pulse Rate 72 Respiratory Rate 13 Blood Pressure 104/69 Pulse Oximetry 98 95 97 Oxygen Delivery Nasal Cannula Nasal Cannula Oxygen Flow Rate 2 2 Fraction of Inspired Oxygen 28 12/09/24 12:00 12/09/24 12:00 12/09/24 14:00 Temperature Pulse Rate 78 75 76 Respiratory Rate 16 Blood Pressure Pulse Oximetry Oxygen Delivery Oxygen Flow Rate Fraction of Inspired Oxygen 12/09/24 14:00 12/09/24 16:00 12/09/24 16:00 Temperature 99.6 F 99.2 F Pulse Rate 76 74 Respiratory Rate 13 Blood Pressure 90/64 L 130/72 Pulse Oximetry 95 100 100 Oxygen Delivery Nasal Cannula Oxygen Flow Rate 2 Fraction of Inspired Oxygen 12/09/24 16:00 12/09/24 17:34 12/09/24 18:00 Temperature Pulse Rate 78 75 Respiratory Rate Blood Pressure Pulse Oximetry Oxygen Delivery Autopap Oxygen Flow Rate Fraction of Inspired Oxygen 12/09/24 18:00 12/09/24 18:00 12/09/24 20:00 Temperature 98.8 F 99.1 F Pulse Rate 75 86 Respiratory Rate 15 30 H Blood Pressure 118/69 110/69 Pulse Oximetry 98 98 96 Oxygen Delivery Room Air Oxygen Flow Rate Fraction of Inspired Oxygen 12/09/24 20:00 12/09/24 20:18 12/09/24 20:30 Temperature 99.1 F 99.1 F Pulse Rate 79 86 79 Respiratory Rate 26 H 13 Blood Pressure 111/64 116/71 Pulse Oximetry 96 97 Oxygen Delivery Oxygen Flow Rate Fraction of Inspired Oxygen 12/09/24 20:33 12/09/24 20:34 12/09/24 22:00 Temperature Pulse Rate 79 70 Respiratory Rate 13 Blood Pressure Pulse Oximetry 97 Oxygen Delivery CPAP Room Air Oxygen Flow Rate Fraction of Inspired Oxygen 12/09/24 22:00 12/09/24 23:52 12/10/24 00:00 Temperature 98.9 F Pulse Rate 71 72 77 Respiratory Rate 18 16 Blood Pressure 113/71 Pulse Oximetry 100 100 Oxygen Delivery Nasal Cannula Oxygen Flow Rate 2 Fraction of Inspired Oxygen 12/10/24 00:00 12/10/24 02:00 12/10/24 02:00 Temperature 98.7 F 99 F Pulse Rate 77 76 77 Respiratory Rate 22 H 20 Blood Pressure 114/64 98/58 L Pulse Oximetry 98 97 Oxygen Delivery Oxygen Flow Rate Fraction of Inspired Oxygen 12/10/24 02:12 12/10/24 02:42 12/10/24 03:13 Temperature Pulse Rate 82 81 75 Respiratory Rate 21 H 19 20 Blood Pressure Pulse Oximetry Oxygen Delivery Oxygen Flow Rate Fraction of Inspired Oxygen 12/10/24 03:35 12/10/24 04:00 12/10/24 04:00 Temperature 98.8 F Pulse Rate 74 68 68 Respiratory Rate 22 H 18 Blood Pressure 108/68 Pulse Oximetry 97 Oxygen Delivery Oxygen Flow Rate Fraction of Inspired Oxygen 12/10/24 04:05 12/10/24 04:46 12/10/24 05:57 Temperature Pulse Rate 76 62 63 Respiratory Rate 21 H 20 19 Blood Pressure Pulse Oximetry 98 Oxygen Delivery Nasal Cannula Oxygen Flow Rate 2 Fraction of Inspired Oxygen 28 12/10/24 05:57 12/10/24 06:00 12/10/24 06:00 Temperature 98.1 F Pulse Rate 63 60 60 Respiratory Rate 191 H 18 Blood Pressure 107/63 Pulse Oximetry 97 Oxygen Delivery Oxygen Flow Rate Fraction of Inspired Oxygen 12/10/24 08:00 12/10/24 08:00 12/10/24 08:00 Temperature 97.5 F L Pulse Rate 61 65 63 Respiratory Rate 18 18 Blood Pressure 115/69 Pulse Oximetry 99 Oxygen Delivery Oxygen Flow Rate Fraction of Inspired Oxygen 12/10/24 08:30 12/10/24 09:00 12/10/24 09:30 Temperature Pulse Rate 60 62 64 Respiratory Rate 17 20 17 Blood Pressure Pulse Oximetry Oxygen Delivery Oxygen Flow Rate Fraction of Inspired Oxygen 12/10/24 10:00 12/10/24 10:00 12/10/24 10:00 Temperature 97.5 F L Pulse Rate 68 63 69 Respiratory Rate 19 19 Blood Pressure 108/66 Pulse Oximetry 98 Oxygen Delivery Oxygen Flow Rate Fraction of Inspired Oxygen 12/10/24 10:12 Temperature Pulse Rate 65 Respiratory Rate 20 Blood Pressure Pulse Oximetry Oxygen Delivery Oxygen Flow Rate Fraction of Inspired Oxygen Intake/Output Intake/Output: Intake & Output 12/07/24 12/08/24 12/09/24 12/10/24 23:59 23:59 23:59 23:59 Intake Total 400.4 2172.7 3173.7 972.1 Output Total 740 2300 4000 2950 Balance -339.6 -127.3 -826.3 -1977.9 Meds/Results Medications: Active Medications Generic Name Dose Route Start Last Admin Trade Name Freq PRN Reason Stop Dose Admin Acetaminophen 650 mg 12/07/24 18:39 Acetaminophen 650 Mg Suppository RECTAL Q6H PRN Mild Pain (1-3) or Fever Dextrose 12.5 gm 12/09/24 10:15 Dextrose 50% 25 Gm/50 Ml Syringe IV PUSH PRN PRN Hypoglycemia Protocol Glucagon 1 mg 12/09/24 10:15 Glucagon For Inj 1 Mg Vial IM PRN PRN Hypoglycemia Protocol Glucose 15 gm 12/09/24 10:15 Glucose Oral Gel 15 Gm Of Glucse In 37.5 Gm Tube PO PRN PRN Hypoglycemia Protocol Ceftriaxone Sodium 2 gm in 100 mls @ 200 mls/hr 12/07/24 20:00 12/09/24 21:17 Rocephin 2 Gm/Ns 100 Ml IVPB Infused Q24H GINA Infusion Micafungin Sodium 150 mg/ 100 mls @ 100 mls/hr 12/08/24 09:00 12/10/24 10:59 Sodium Chloride IVPB Infused DAILY GINA Infusion Sodium Chloride 1,000 mls @ 75 mls/hr 12/07/24 19:45 12/10/24 00:59 Normal Saline Iv IV CONT 75 mls/hr .[id number] GINA Administration Dextrose 1,000 mls @ 100 mls/hr 12/09/24 10:15 Dextrose 5% 1,000 Ml IVPB PRN PRN Hypoglycemia Protocol Potassium Chloride 40 meq/ 520 mls @ 130 mls/hr 12/10/24 07:44 12/10/24 09:52 Sodium Chloride IVPB 12/10/24 11:43 130 mls/hr ONCE ONE Administration Insulin Aspart 2 - 5 units 12/09/24 12:00 12/10/24 07:51 Insulin Aspart (*Bkc) 100 Units/Ml SUB-Q Not Given Q6HR [facility] Protocol Metoclopramide HCl 10 mg 12/10/24 12:00 Metoclopramide Hcl Inj 10 Mg/2 Ml Vial IV PUSH Q6HR PRN Nausea And Vomiting Nitroglycerin 0.4 mg 12/09/24 20:14 12/09/24 20:23 Nitroglycerin Sl 0.4 Mg Tablet SUBLINGUAL 0.4 mg Q5MIN PRN Administration Chest Pain Ondansetron HCl 4 mg 12/07/24 18:39 12/10/24 00:59 Ondansetron Inj 4 Mg/2 Ml Vial IV PUSH 4 mg Q6H PRN Administration Nausea And Vomiting Pantoprazole Sodium 40 mg 12/07/24 21:00 12/10/24 08:00 Pantoprazole Sodium Iv 40 Mg Vial IV PUSH 40 mg Q12HR GINA Administration Sertraline HCl 150 mg 12/10/24 09:05 12/10/24 09:53 Sertraline Hcl 50 Mg Tablet FEED TUBE 150 mg QAM GINA Administration Trimethobenzamide HCl 200 mg 12/09/24 22:32 12/09/24 22:41 Trimethobenzamide Hcl 200 Mg/2 Ml Vial IM 200 mg Q6H PRN Administration Nausea And Vomiting Radiology Results: ITS Impressions Abdomen X-Ray 12/07/24 17:16 IMPRESSION: Orogastric tube in good position and ready for immediate use. Soft Tissue Neck CT 12/07/24 22:59 IMPRESSION: The epiglottis is of normal caliber. Asymmetric 12 mm soft tissue density within the supraglottic airway, to the right of midline, a finding of uncertain clinical implication. Examination is otherwise unremarkable, as detailed above. Chest/Abdomen/Pelvis CTA 12/07/24 23:13 IMPRESSION: No pulmonary embolus. No aortic dissection. Bilateral pleural effusions with adjacent compressive atelectasis. Hepatosplenomegaly, unchanged. Findings within the soft tissues of the lower pelvis, to the left midline, possibly representing a perioperative seroma, as detailed above. Chest X-Ray 12/09/24 22:54 IMPRESSION: Interval development of moderate pulmonary vascular congestion and a small left- sided pleural effusion when compared with examination performed approximately 15 hours earlier. Soft Tissue Neck X-Ray 12/09/24 22:57 IMPRESSION: Unremarkable plain film evaluation of the soft tissues of the neck. The asymmetric 12 mm soft tissue density within the supraglottic airway will likely not be seen on plain film evaluation. Labs Labs: Laboratory Results - last 24 hr 12/09/24 12/09/24 12/09/24 11:28 11:51 17:17 WBC RBC Hgb Hct MCV MCH MCHC RDW Plt Count MPV Immature Gran % (Auto) Neut % (Auto) Lymph % (Auto) [place] % (Auto) Eos % (Auto) Baso % (Auto) Lymph # (Auto) [place] # (Auto) Eos # (Auto) Baso # (Auto) Abs Immat Gran (auto) Absolute Neuts (auto) Absolute Nucleated RBC Nucleated RBC % Puncture Site Right radial ABG pH 7.383 ABG pCO2 47.4 H ABG pO2 76.8 L ABG PO2/FiO2 Ratio 2.56 ABG HCO3 27.6 H ABG O2 Saturation 95.1 ABG O2 Content 15.7 L ABG Base Excess 2.0 A-a Gradient 81.4 Oxyhemoglobin 94.4 Total Hemoglobin 11.8 L O2 Delivery Device Ventilator O2 Liters/Min Not Reportable Minute Volume Not Reportable Vent Rate Not Reportable Vent Mode Spontaneous FiO2 30 Tidal Volume Not Reportable PEEP 5 Peak Inspir Pressure Not Reportable Pressure Support 5 Sodium Potassium Chloride Carbon Dioxide Anion Gap BUN Creatinine Estim Creat Clear Calc Estimated GFR Glucose POC Capillary Glucose 92 117 H Calcium Phosphorus Magnesium Total Bilirubin AST ALT Alkaline Phosphatase Troponin I Total Protein Albumin 12/09/24 12/09/24 12/10/24 21:04 23:29 04:18 WBC 6.3 RBC 3.72 L Hgb 11.0 L Hct 33.3 L MCV 89.5 D MCH 29.6 MCHC 33.0 RDW 15.9 H Plt Count 128 L MPV 9.7 Immature Gran % (Auto) 0.6 H Neut % (Auto) 72.0 Lymph % (Auto) 17.9 L [place] % (Auto) 9.0 H Eos % (Auto) 0.5 Baso % (Auto) 0.0 L Lymph # (Auto) 1.13 [place] # (Auto) 0.6 Eos # (Auto) 0.0 Baso # (Auto) 0.0 Abs Immat Gran (auto) 0.04 H Absolute Neuts (auto) 4.6 Absolute Nucleated RBC 0.000 Nucleated RBC % 0.0 Puncture Site ABG pH ABG pCO2 ABG pO2 ABG PO2/FiO2 Ratio ABG HCO3 ABG O2 Saturation ABG O2 Content ABG Base Excess A-a Gradient Oxyhemoglobin Total Hemoglobin O2 Delivery Device O2 Liters/Min Minute Volume Vent Rate Vent Mode FiO2 Tidal Volume PEEP Peak Inspir Pressure Pressure Support Sodium 137 139 Potassium 3.2 L 3.1 L Chloride 100 99 Carbon Dioxide 28 31 H Anion Gap 9 9 BUN 16 14 Creatinine 0.78 0.77 Estim Creat Clear Calc 96 85 Estimated GFR > 60 > 60 Glucose 113 H 114 H POC Capillary Glucose 118 H Calcium 8.5 8.8 Phosphorus 3.2 Magnesium 1.6 Total Bilirubin 0.6 AST 33 ALT 16 Alkaline Phosphatase 69 Troponin I < 0.012 Total Protein 6.1 L Albumin 3.8 Quality VTE Prophylaxis VTE prophylaxis: mechanical ordered
[2024-12-10 12:17] LABS: Glucose Point of Care 107 mg/dl (65-105)
--- NOTE | 2024-12-10 12:57 | PCSTNOTE ---
Please refer to the Modified Barium Swallow Evaluation in the EMR. Pt was seen for an MBS due to overt s/s of aspiration exhibited during the bedside swallow evaluation. The pt was admitted with a sore throat, swollen vocal cords, epiglottitis and was intubated x2 days. Pt has h/o colorectal cancer. Pt was extubated yesterday 12/09/24. NG tube in place for MBS Pt was seated for a lateral view; vocal quality soft but clear; good dentition. Pt was presented with 5 ml thin liquids via a spoon, pudding consistency barium via a spoon, cracker coated with barium pudding via a spoon and uncontrolled trials of thin liquid via a cup and a straw. The oral stages were WFL. No leakage, pocketing, or residue occurred. During the pharyngeal stage the following was exhibited: mildly reduced tongue base retraction as evidenced by minimal vallecular residue (which cleared with use of the chin tuck); reduced laryngeal elevation as evidenced by (trace) laryngeal penetration during the swallow of thin liquids. With the chin tuck posture during cup drinking, the laryngeal penetration was eliminated, but laryngeal penetration continued to occur with straw drinking even with the use of the chin tuck. Impression and recommendations: level 7 regular with level 0 thin liquids; NO STRAWS; make sure pt uses the chin tuck with all consistencies as it protects the airway with thin liquids and assists in the clearance of puree and solids. ST for dysphagia therapy. MEALTIME PROCEDURES: Frequent Observation to ensure the chin tuck Sit upright at 90 degrees, for all meals and for 30-60 minutes after eating. Take small bites and sips, limit to the size of 1 teaspoon. Take an extra swallow between bites. No drinking from straws. Utilize a chin tuck for every swallow.
--- NOTE | 2024-12-10 15:13 | PC.NURSE ---
This patient, Jesse Crook, was transferred to [[id number] ] on 12/10/24 at 1500. Personal belongings sent with patient. Report given to [ PEYTON Bowie]. Appropriate documentation sent with patient.
[2024-12-10] MEDS: ACETAMINOPHEN 325 MG TABLET 650 MG PO (17:24)
[2024-12-10 18:54] LABS: Glucose Point of Care 129 mg/dl (65-105)
[2024-12-10] MEDS: cefTRIAXone 2 GM/NS 100 ML 2 GM/100 ML BAG IVPB (20:28)
[2024-12-10 23:51] LABS: Glucose Point of Care 87 mg/dl (65-105)
[2024-12-11] MEDS: ACETAMINOPHEN 325 MG TABLET 650 MG PO (03:47)
[2024-12-11] MEDS: SODIUM CHLORIDE 0.9% IV 1,000 ML 75 ML IV CONT ×2 (03:49→15:41)
[2024-12-11 05:44] LABS: Basophils Percent Auto 0.4 % (0.2-1.2); Eosinophils Absolute Auto 0.1 K/mm3 (0-0.3); Eosinophils Percent Auto 2.1 % (0-4.4); Hematocrit 34.6 % (42.0-52.0); Immature Granulocyte Absolute 0.04 K/mm3 (0.00-0.031); Immature Granulocyte Percent A 0.7 % (0-0.5); Lymphocytes Absolute Auto 1.45 K/mm3 (0.9-3.2); Lymphocytes Percent Auto 27.2 % (18.3-44.2); Mean Corpuscular HGB Conc 31.8 g/dl (32-36); Mean Corpuscular Volume 91.3 fl (80-100); Mean Platelet Volume 9.3 fl (7.4-10.4); Monocytes Absolute Auto 0.5 K/mm3 (0.1-0.6); Monocytes Percent Auto 8.6 % (2.6-8.5); Neutrophils Absolute Auto 3.3 K/mm3 (1.3-6.7); Platelet Count Result 133 k/mm3 (150-375); Red Blood Count 3.79 M/mm3 (4.6-6.20); Red Cell Distribution Width 15.9 % (11.5-14.5); White Blood Count 5.3 K/mm3 (4.5-10.0)
[2024-12-11 05:54] LABS: Anion Gap 8 mmol/L (4-12); Blood Urea Nitrogen 14 mg/dL (9-20); Calcium 8.6 mg/dL (8.4-10.2); Carbon Dioxide 30 mmol/L (22-30); Chloride 100 mmol/L (98-107); Estimated CRCL calculation 90 ml/min; Estimated Glomerular Filt Rate > 60; Glucose 93 mg/dL (65-110); Phosphorus 2.5 mg/dL (2.5-4.5); Potassium 3.2 mmol/L (3.4-5.0); Sodium 138 mmol/L (137-145)
[2024-12-11 06:03] LABS: Glucose Point of Care 81 mg/dl (65-105)
[2024-12-11 06:07] VITALS: BP 110/49; PULSE 63; RESP 20; TEMP 36.4; O2SAT 98
[2024-12-11 08:01] LABS: Glucose Point of Care 81 mg/dl (65-105)
[2024-12-11] MEDS: SERTRALINE HCL 50 MG TABLET 150 MG FEED TUBE (08:49)
[2024-12-11] MEDS: PANTOPRAZOLE SODIUM IV 40 MG VIAL IV PUSH ×2 (08:50→21:25)
[2024-12-11] MEDS: SODIUM CHLORIDE 0.9% IVPB (09:57)
[2024-12-11] MEDS: MICAFUNGIN SODIUM IVPB (09:57)
--- NOTE | 2024-12-11 10:52 | PM.IMPN ---
Progress Note: A&P Assessment and Plan (1) On mechanically assisted ventilation: Code(s): Z99.11 - Dependence on respirator [ventilator] status Status: Acute Assessment and Plan: Patient was intubated and [facility] hospital in [facility], this was done when they were doing the EGD and noted swelling of the vocal cords/epiglottitis -12/07: CT soft tissue of the neck are showed asymmetric 12 mm soft tissue density within the subglottic airway to the right of midline, the epiglottis is of normal caliber -12/09 extubated -appreciate ENT evaluation, flexible ureteroscopy did not show any masses or lesions or ulcerations or swelling as per the note. -currently on room air with adequate O2 sats - now on room air awaiting ENT re-eval tomorrow (2) Epiglottitis: Code(s): J05.10 - Acute epiglottitis without obstruction Status: Acute Assessment and Plan: Soft tissue density as noted above, at [facility] they had noted swelling of the vocal cords, patient did receive Decadron at the outside hospital -will continue to follow -will hold additional steroids due to Tiffany esophagitis -12/10: discussed with Dr. Blackmon, he is unavailable today, if patient remains in the hospital Friday, 12/13, he will perform a flexible bronchoscopy to evaluate the soft tissue density as mentioned above Continue Rocephin and Micafungin Awaiting ENT re-eval on Friday (3) Tiffany esophagitis: Code(s): B37.81 - Candidal esophagitis Status: Acute Assessment and Plan: Continue micafungin for Tiffany esophagitis (4) Essential hypertension: Code(s): I10 - Essential (primary) hypertension Status: Acute Assessment and Plan: Blood pressures have been stable -blood pressures have been stable, hold antihypertensive. Will introduce blood pressures are higher (5) Seroma after procedure: Status: Acute Assessment and Plan: 12/07: CT chest abdomen and pelvis did not reveal any pulmonary embolism, no aortic dissection. Bilateral pleural effusion with adjacent compressive atelectasis, hepatic splenomegaly, unchanged. Findings within soft tissues of the lower pelvis to the left of midline, possibly representing a perioperative serum a 3.5 x 6.1 x 5.4 cm fluid attenuation with air. Patient has seroma at the postoperative site as seen on CT scan as under - seroma draining on its own, no intervention per surgeon Gen surgery following Plan DVT prophylaxis: Sq lovenox Code Status: Full code Subjective Date/time seen: 12/11/24 10:52 Interval history: Comfortable at bedside patient continue current treatment while waiting on ENT eval on Friday Review of Systems Review of Systems: All systems reviewed & are unremarkable except as noted in HPI and below ROS unobtainable: Yes unobtainable due to endotracheal tube and unobtainable due to mental status Exam Narrative: General: Patient is awake, anxious HEENT:? Pupils are equal and reactive, sclera is clear, Neck:? Supple Respiratory:? Clear to auscultation bilateral, with decreased air entry at bases, no wheezing Cardiac:? S1-S2 normal, regular rate and rhythm Abdomen:? Soft, nontender, nondistended, recent surgical scar noted on the left of midline in the lower region, and in duration noted, 3 x 4 cm Extremities:? Trace edema, palpable pedal pulses Neuro:? Patient is awake, alert, answers to questions and follows simple commands appropriate Skin:? No lesions noted Psych:? Normal mentation, anxious Const: General: comfortable and no acute distress Other: , male, ill-appearing, intubated/sedated, elderly HENMT: Mouth: Yes moist mucous membranes Other: Dried blood to right nare with NG in place -> bilious/dark red output. Difficult to exam throat as ET tube is in place. No revert pustules, patches, or thrush easily appreciated. Eyes: General: appearance normal, both eyes and all related structures Sclera: sclerae normal Pupils: Equal, round and reactive pupils present Resp: Effort & Inspection: normal respiratory effort Other: Bibasilar crackles. Cardio: Rate: regular rate Rhythm: regular rhythm Other: S1-S2 present without murmur, rub, ectopy GI: Other: well healed laparoscopic incisions to abdomen. incision to left panus with firm underlying region approx 4 x 4 cm. Normoactive bowel sounds in all quadrants. Nondistended, soft. Urinary Catheter: Urinary Catheter: patent and draining Skin: General skin exam: normal color Wounds: no wounds Other: Scattered ecchymosis to bilateral upper extremities, primarily forearms with no particular pattern. Neuro: Cranial nerves: Yes Equal, round and reactive pupils present Other: Intubated and sedated. Post CT briefly awakened and moving all extremities, able to maintain eye contact. Extrem: General: normal to inspection Psych: Other: Unable to assess Objective Data Vital Signs Vital Signs: Vital Signs - 24 hr 12/10/24 10:53 12/10/24 15:27 12/10/24 20:14 Temperature 98.7 F Pulse Rate 77 70 Respiratory Rate 20 Blood Pressure 129/58 L 120/54 L Pulse Oximetry 100 96 Oxygen Delivery Room Air Fraction of Inspired Oxygen 12/10/24 23:41 12/11/24 06:07 12/11/24 07:50 Temperature 97.9 F 97.6 F Pulse Rate 67 63 Respiratory Rate 20 20 Blood Pressure 134/71 110/49 L Pulse Oximetry 100 98 Oxygen Delivery Room Air Fraction of Inspired Oxygen 28 Intake/Output Intake/Output: Intake & Output 12/08/24 12/09/24 12/10/24 12/11/24 23:59 23:59 23:59 23:59 Intake Total 2172.7 3173.7 2322.1 1600 Output Total 2300 4000 3350 1100 Balance -127.3 -826.3 -1027.9 500 Meds/Results Medications: Active Medications Generic Name Dose Route Start Last Admin Trade Name Freq PRN Reason Stop Dose Admin Acetaminophen 650 mg 12/10/24 17:17 12/11/24 03:47 Acetaminophen 325 Mg Tablet PO 650 mg Q6H PRN Administration Mild Pain (1-3) or Fever Alprazolam 0.5 mg 12/10/24 14:42 Alprazolam (*Crx) 0.5 Mg Tablet PO Q8H PRN Anxiety Dextrose 12.5 gm 12/09/24 10:15 Dextrose 50% 25 Gm/50 Ml Syringe IV PUSH PRN PRN Hypoglycemia Protocol Glucagon 1 mg 12/09/24 10:15 Glucagon For Inj 1 Mg Vial IM PRN PRN Hypoglycemia Protocol Glucose 15 gm 12/09/24 10:15 Glucose Oral Gel 15 Gm Of Glucse In 37.5 Gm Tube PO PRN PRN Hypoglycemia Protocol Ceftriaxone Sodium 2 gm in 100 mls @ 200 mls/hr 12/07/24 20:00 12/10/24 21:00 Rocephin 2 Gm/Ns 100 Ml IVPB Infused Q24H GINA Infusion Micafungin Sodium 150 mg/ 100 mls @ 100 mls/hr 12/08/24 09:00 12/11/24 09:57 Sodium Chloride IVPB 100 mls/hr DAILY GINA Administration Sodium Chloride 1,000 mls @ 75 mls/hr 12/07/24 19:45 12/11/24 03:49 Normal Saline Iv IV CONT 75 mls/hr .[id number] GINA Administration Dextrose 1,000 mls @ 100 mls/hr 12/09/24 10:15 Dextrose 5% 1,000 Ml IVPB PRN PRN Hypoglycemia Protocol Insulin Aspart 2 - 5 units 12/09/24 12:00 12/11/24 05:56 Insulin Aspart (*Bkc) 100 Units/Ml SUB-Q Not Given Q6HR [facility] Protocol Metoclopramide HCl 10 mg 12/10/24 12:00 Metoclopramide Hcl Inj 10 Mg/2 Ml Vial IV PUSH Q6HR PRN Nausea And Vomiting Nitroglycerin 0.4 mg 12/09/24 20:14 12/09/24 20:23 Nitroglycerin Sl 0.4 Mg Tablet SUBLINGUAL 0.4 mg Q5MIN PRN Administration Chest Pain Ondansetron HCl 4 mg 12/07/24 18:39 12/10/24 00:59 Ondansetron Inj 4 Mg/2 Ml Vial IV PUSH 4 mg Q6H PRN Administration Nausea And Vomiting Pantoprazole Sodium 40 mg 12/07/24 21:00 12/11/24 08:50 Pantoprazole Sodium Iv 40 Mg Vial IV PUSH 40 mg Q12HR GINA Administration Sertraline HCl 150 mg 12/10/24 09:05 12/11/24 08:49 Sertraline Hcl 50 Mg Tablet FEED TUBE 150 mg QAM GINA Administration Trimethobenzamide HCl 200 mg 12/09/24 22:32 12/09/24 22:41 Trimethobenzamide Hcl 200 Mg/2 Ml Vial IM 200 mg Q6H PRN Administration Nausea And Vomiting Radiology Results: ITS Impressions Abdomen X-Ray 12/07/24 17:16 IMPRESSION: Orogastric tube in good position and ready for immediate use. Soft Tissue Neck CT 12/07/24 22:59 IMPRESSION: The epiglottis is of normal caliber. Asymmetric 12 mm soft tissue density within the supraglottic airway, to the right of midline, a finding of uncertain clinical implication. Examination is otherwise unremarkable, as detailed above. Chest/Abdomen/Pelvis CTA 12/07/24 23:13 IMPRESSION: No pulmonary embolus. No aortic dissection. Bilateral pleural effusions with adjacent compressive atelectasis. Hepatosplenomegaly, unchanged. Findings within the soft tissues of the lower pelvis, to the left midline, possibly representing a perioperative seroma, as detailed above. Chest X-Ray 12/09/24 22:54 IMPRESSION: Interval development of moderate pulmonary vascular congestion and a small left-sided pleural effusion when compared with examination performed approximately 15 hours earlier. Soft Tissue Neck X-Ray 12/09/24 22:57 IMPRESSION: Unremarkable plain film evaluation of the soft tissues of the neck. The asymmetric 12 mm soft tissue density within the supraglottic airway will likely not be seen on plain film evaluation. Modified Barium Swallow 12/10/24 13:26 IMPRESSION: Mild pharyngeal dysphagia with laryngeal penetration without aspiration. Please correlate with speech pathologist findings and specific feeding recommendations. Labs Labs: Laboratory Results - last 24 hr 12/10/24 12/10/24 12/10/24 12:04 18:52 23:40 WBC RBC Hgb Hct MCV MCH MCHC RDW Plt Count MPV Immature Gran % (Auto) Neut % (Auto) Lymph % (Auto) [place]roy[place] % (Auto) Eos % (Auto) Baso % (Auto) Lymph # (Auto) [place] # (Auto) Eos # (Auto) Baso # (Auto) Abs Immat Gran (auto) Absolute Neuts (auto) Absolute Nucleated RBC Nucleated RBC % Sodium Potassium Chloride Carbon Dioxide Anion Gap BUN Creatinine Estim Creat Clear Calc Estimated GFR Glucose POC Capillary Glucose 107 H 129 H 87 Calcium Phosphorus Magnesium 12/11/24 12/11/24 12/11/24 05:32 05:54 07:46 WBC 5.3 RBC 3.79 L Hgb 11.0 L Hct 34.6 L MCV 91.3 MCH 29.0 MCHC 31.8 L RDW 15.9 H Plt Count 133 L MPV 9.3 Immature Gran % (Auto) 0.7 H Neut % (Auto) 61.0 Lymph % (Auto) 27.2 Arroyo % (Auto) 8.6 H Eos % (Auto) 2.1 Baso % (Auto) 0.4 Lymph # (Auto) 1.45 [place]royo # (Auto) 0.5 Eos # (Auto) 0.1 Baso # (Auto) 0.0 Abs Immat Gran (auto) 0.04 H Absolute Neuts (auto) 3.3 Absolute Nucleated RBC 0.000 Nucleated RBC % 0.0 Sodium 138 Potassium 3.2 L Chloride 100 Carbon Dioxide 30 Anion Gap 8 BUN 14 Creatinine 0.72 Estim Creat Clear Calc 90 Estimated GFR > 60 Glucose 93 POC Capillary Glucose 81 81 Calcium 8.6 Phosphorus 2.5 Magnesium 2.0 Quality VTE Prophylaxis VTE prophylaxis: mechanical ordered
[2024-12-11 15:25] VITALS: BP 107/54; PULSE 81; RESP 20; TEMP 37.2; O2SAT 100
[2024-12-11] MEDS: ENOXAPARIN 40 MG/0.4 ML SYRINGE SUB-Q (15:40)
[2024-12-11 20:00] VITALS: O2SAT 100
[2024-12-11] MEDS: cefTRIAXone 2 GM/NS 100 ML 2 GM/100 ML BAG IVPB (21:24)
[2024-12-11 21:55] VITALS: O2SAT 100
[2024-12-11 21:57] VITALS: PULSE 72; O2SAT 100
[2024-12-11 23:25] VITALS: BP 114/63; PULSE 73; RESP 16; TEMP 36.3; O2SAT 100
[2024-12-12] MEDS: ACETAMINOPHEN 325 MG TABLET 650 MG PO ×3 (00:01→18:57)
[2024-12-12] MEDS: ALPRAZolam (*CRX) 0.5 MG TABLET PO ×2 (00:01→21:23)
[2024-12-12 05:38] VITALS: BP 108/55; PULSE 60; RESP 16; TEMP 36.3; O2SAT 100
[2024-12-12 05:40] LABS: Basophils Percent Auto 0.4 % (0.2-1.2); Eosinophils Absolute Auto 0.1 K/mm3 (0-0.3); Eosinophils Percent Auto 2.4 % (0-4.4); Hematocrit 33.6 % (42.0-52.0); Hemoglobin 10.9 g/dL (14.0-18.0); Immature Granulocyte Absolute 0.03 K/mm3 (0.00-0.031); Immature Granulocyte Percent A 0.6 % (0-0.5); Lymphocytes Absolute Auto 1.44 K/mm3 (0.9-3.2); Mean Corpuscular HGB Conc 32.4 g/dl (32-36); Mean Corpuscular Hemoglobin 29.2 pg (26-34); Mean Corpuscular Volume 90.1 fl (80-100); Mean Platelet Volume 10.1 fl (7.4-10.4); Monocytes Absolute Auto 0.5 K/mm3 (0.1-0.6); Monocytes Percent Auto 9.7 % (2.6-8.5); Neutrophils Absolute Auto 2.9 K/mm3 (1.3-6.7); Neutrophils Percent Auto 57.9 % (45.5-73.1); Platelet Count Result 153 k/mm3 (150-375); Red Blood Count 3.73 M/mm3 (4.6-6.20); Red Cell Distribution Width 15.8 % (11.5-14.5)
[2024-12-12 05:58] LABS: Alanine Aminotransferase 16 U/L (6-50); Albumin Level 3.4 g/dL (3.5-5.1); Alkaline Phosphatase 60 U/L (38-126); Anion Gap 7 mmol/L (4-12); Aspartate Amino Transferase 29 U/L (17-59); Bilirubin,Total 0.5 mg/dL (0.2-1.3); Blood Urea Nitrogen 13 mg/dL (9-20); Calcium 8.6 mg/dL (8.4-10.2); Carbon Dioxide 28 mmol/L (22-30); Chloride 104 mmol/L (98-107); Estimated CRCL calculation 98 ml/min; Estimated Glomerular Filt Rate > 60; Glucose 106 mg/dL (65-110); Magnesium 1.7 mg/dL (1.6-2.3); Potassium 2.8 mmol/L (3.4-5.0); Sodium 139 mmol/L (137-145); Total Protein 5.6 g/dL (6.3-8.2)
[2024-12-12] MEDS: POTASSIUM CHLORIDE 20 MEQ PACKET (FOR LIQUID) 40 MEQ PO (06:48)
[2024-12-12] MEDS: POTASSIUM CHLORIDE INJ 40 MEQ in SODIUM CHLORIDE 0.9% IV 500 ML 130 MEQ IVPB (06:48)
[2024-12-12] MEDS: SERTRALINE HCL 50 MG TABLET 150 MG FEED TUBE (10:00)
[2024-12-12] MEDS: PANTOPRAZOLE SODIUM IV 40 MG VIAL IV PUSH ×2 (10:00→20:18)
[2024-12-12] MEDS: ENOXAPARIN 40 MG/0.4 ML SYRINGE SUB-Q (10:02)
[2024-12-12] MEDS: MICAFUNGIN SODIUM IVPB (10:02)
[2024-12-12] MEDS: SODIUM CHLORIDE 0.9% IVPB (10:02)
[2024-12-12] MEDS: SODIUM CHLORIDE 0.9% IV 1,000 ML 75 ML IV CONT (10:11)
--- NOTE | 2024-12-12 10:15 | P.PNIM_ITS ---
Progress Note: A&P Assessment and Plan (1) On mechanically assisted ventilation: Code(s): Z99.11 - Dependence on respirator [ventilator] status Status: Acute Assessment and Plan: Patient was intubated and [facility] hospital in [facility], this was done when they were doing the EGD and noted swelling of the vocal cords/epiglottitis -12/07: CT soft tissue of the neck are showed asymmetric 12 mm soft tissue density within the subglottic airway to the right of midline, the epiglottis is of normal caliber -12/09 extubated -appreciate ENT evaluation, flexible ureteroscopy did not show any masses or lesions or ulcerations or swelling as per the note. -currently on room air with adequate O2 sats - now on room air awaiting ENT re-eval tomorrow (2) Epiglottitis: Code(s): J05.10 - Acute epiglottitis without obstruction Status: Acute Assessment and Plan: Soft tissue density as noted above, at [facility] they had noted swelling of the vocal cords, patient did receive Decadron at the outside hospital -will continue to follow -will hold additional steroids due to Tiffany esophagitis -12/10: discussed with Dr. Blackmon, he is unavailable today, if patient remains in the hospital Friday, 12/13, he will perform a flexible bronchoscopy to evaluate the soft tissue density as mentioned above Continue Rocephin and Micafungin Awaiting ENT re-eval on Friday (3) Tiffany esophagitis: Code(s): B37.81 - Candidal esophagitis Status: Acute Assessment and Plan: Continue micafungin for Tiffany esophagitis (4) Essential hypertension: Code(s): I10 - Essential (primary) hypertension Status: Acute Assessment and Plan: Blood pressures have been stable -blood pressures have been stable, hold antihypertensive. Will introduce blood pressures are higher (5) Seroma after procedure: Status: Acute Assessment and Plan: 12/07: CT chest abdomen and pelvis did not reveal any pulmonary embolism, no aortic dissection. Bilateral pleural effusion with adjacent compressive atelectasis, hepatic splenomegaly, unchanged. Findings within soft tissues of the lower pelvis to the left of midline, possibly representing a perioperative serum a 3.5 x 6.1 x 5.4 cm fluid attenuation with air. Patient has seroma at the postoperative site as seen on CT scan as under - seroma draining on its own, no intervention per surgeon Gen surgery following Plan DVT prophylaxis: Sq lovenox Code Status: Full code Subjective Date/time seen: 12/12/24 10:15 Interval history: Comfortable at bedside Awaiting ENT re=eval tomorrow Review of Systems Review of Systems: All systems reviewed & are unremarkable except as noted in HPI and below ROS unobtainable: Yes unobtainable due to endotracheal tube and unobtainable due to mental status Exam Narrative: General: Patient is awake, anxious HEENT:? Pupils are equal and reactive, sclera is clear, Neck:? Supple Respiratory:? Clear to auscultation bilateral, with decreased air entry at bases, no wheezing Cardiac:? S1-S2 normal, regular rate and rhythm Abdomen:? Soft, nontender, nondistended, recent surgical scar noted on the left of midline in the lower region, and in duration noted, 3 x 4 cm Extremities:? Trace edema, palpable pedal pulses Neuro:? Patient is awake, alert, answers to questions and follows simple commands appropriate Skin:? No lesions noted Psych:? Normal mentation, anxious Const: General: comfortable and no acute distress Other: , male, ill-appearing, intubated/sedated, elderly HENMT: Mouth: Yes moist mucous membranes Other: Dried blood to right nare with NG in place -> bilious/dark red output. Difficult to exam throat as ET tube is in place. No revert pustules, patches, or thrush easily appreciated. Eyes: General: appearance normal, both eyes and all related structures Sclera: sclerae normal Pupils: Equal, round and reactive pupils present Resp: Effort & Inspection: normal respiratory effort Other: Bibasilar crackles. Cardio: Rate: regular rate Rhythm: regular rhythm Other: S1-S2 present without murmur, rub, ectopy GI: Other: well healed laparoscopic incisions to abdomen. incision to left panus with firm underlying region approx 4 x 4 cm. Normoactive bowel sounds in all quadrants. Nondistended, soft. Urinary Catheter: Urinary Catheter: patent and draining Skin: General skin exam: normal color Wounds: no wounds Other: Scattered ecchymosis to bilateral upper extremities, primarily forearms with no particular pattern. Neuro: Cranial nerves: Yes Equal, round and reactive pupils present Other: Intubated and sedated. Post CT briefly awakened and moving all extremities, able to maintain eye contact. Extrem: General: normal to inspection Psych: Other: Unable to assess Objective Data Vital Signs Vital Signs: Vital Signs - 24 hr 12/11/24 15:25 12/11/24 20:00 12/11/24 21:55 Temperature 98.9 F Pulse Rate 81 Respiratory Rate 20 Blood Pressure 107/54 L Pulse Oximetry 100 100 100 Oxygen Delivery Room Air Room Air 12/11/24 21:57 12/11/24 23:25 12/12/24 05:38 Temperature 97.4 F L 97.3 F L Pulse Rate 72 73 60 Respiratory Rate 16 16 Blood Pressure 114/63 108/55 L Pulse Oximetry 100 100 100 Oxygen Delivery Autopap Intake/Output Intake/Output: Intake & Output 12/09/24 12/10/24 12/11/24 12/12/24 23:59 23:59 23:59 23:59 Intake Total 3173.7 2322.1 3740 1300 Output Total 4000 3350 1300 350 Balance -826.3 -1027.9 2440 950 Meds/Results Medications: Active Medications Generic Name Dose Route Start Last Admin Trade Name Freq PRN Reason Stop Dose Admin Acetaminophen 650 mg 12/10/24 17:17 12/12/24 10:05 Acetaminophen 325 Mg Tablet PO 650 mg Q6H PRN Administration Mild Pain (1-3) or Fever Alprazolam 0.5 mg 12/10/24 14:42 12/12/24 00:01 Alprazolam (*Crx) 0.5 Mg Tablet PO 0.5 mg Q8H PRN Administration Anxiety Dextrose 12.5 gm 12/09/24 10:15 Dextrose 50% 25 Gm/50 Ml Syringe IV PUSH PRN PRN Hypoglycemia Protocol Enoxaparin Sodium 40 mg 12/11/24 09:00 12/12/24 10:02 Enoxaparin 40 Mg/0.4 Ml Syringe SUB-Q 40 mg DAILY GINA Administration Glucagon 1 mg 12/09/24 10:15 Glucagon For Inj 1 Mg Vial IM PRN PRN Hypoglycemia Protocol Glucose 15 gm 12/09/24 10:15 Glucose Oral Gel 15 Gm Of Glucse In 37.5 Gm Tube PO PRN PRN Hypoglycemia Protocol Ceftriaxone Sodium 2 gm in 100 mls @ 200 mls/hr 12/07/24 20:00 12/11/24 21:24 Rocephin 2 Gm/Ns 100 Ml IVPB 200 mls/hr Q24H GINA Administration Micafungin Sodium 150 mg/ 100 mls @ 100 mls/hr 12/08/24 09:00 12/12/24 10:02 Sodium Chloride IVPB 100 mls/hr DAILY GINA Administration Sodium Chloride 1,000 mls @ 75 mls/hr 12/07/24 19:45 12/12/24 10:11 Normal Saline Iv IV CONT 75 mls/hr .[id number] GINA Administration Dextrose 1,000 mls @ 100 mls/hr 12/09/24 10:15 Dextrose 5% 1,000 Ml IVPB PRN PRN Hypoglycemia Protocol Potassium Chloride 40 meq/ 520 mls @ 130 mls/hr 12/12/24 06:17 12/12/24 06:48 Sodium Chloride IVPB 12/12/24 10:16 130 mls/hr ONCE ONE Administration Metoclopramide HCl 10 mg 12/10/24 12:00 Metoclopramide Hcl Inj 10 Mg/2 Ml Vial IV PUSH Q6HR PRN Nausea And Vomiting Nitroglycerin 0.4 mg 12/09/24 20:14 12/09/24 20:23 Nitroglycerin Sl 0.4 Mg Tablet SUBLINGUAL 0.4 mg Q5MIN PRN Administration Chest Pain Ondansetron HCl 4 mg 12/07/24 18:39 12/10/24 00:59 Ondansetron Inj 4 Mg/2 Ml Vial IV PUSH 4 mg Q6H PRN Administration Nausea And Vomiting Pantoprazole Sodium 40 mg 12/07/24 21:00 12/12/24 10:00 Pantoprazole Sodium Iv 40 Mg Vial IV PUSH 40 mg Q12HR GINA Administration Sertraline HCl 150 mg 12/10/24 09:05 12/12/24 10:00 Sertraline Hcl 50 Mg Tablet FEED TUBE 150 mg QAM GINA Administration Trimethobenzamide HCl 200 mg 12/09/24 22:32 12/09/24 22:41 Trimethobenzamide Hcl 200 Mg/2 Ml Vial IM 200 mg Q6H PRN Administration Nausea And Vomiting Radiology Results: ITS Impressions Abdomen X-Ray 12/07/24 17:16 IMPRESSION: Orogastric tube in good position and ready for immediate use. Soft Tissue Neck CT 12/07/24 22:59 IMPRESSION: The epiglottis is of normal caliber. Asymmetric 12 mm soft tissue density within the supraglottic airway, to the right of midline, a finding of uncertain clinical implication. Examination is otherwise unremarkable, as detailed above. Chest/Abdomen/Pelvis CTA 12/07/24 23:13 IMPRESSION: No pulmonary embolus. No aortic dissection. Bilateral pleural effusions with adjacent compressive atelectasis. Hepatosplenomegaly, unchanged. Findings within the soft tissues of the lower pelvis, to the left midline, possibly representing a perioperative seroma, as detailed above. Chest X-Ray 12/09/24 22:54 IMPRESSION: Interval development of moderate pulmonary vascular congestion and a small left- sided pleural effusion when compared with examination performed approximately 15 hours earlier. Soft Tissue Neck X-Ray 12/09/24 22:57 IMPRESSION: Unremarkable plain film evaluation of the soft tissues of the neck. The asymmetric 12 mm soft tissue density within the supraglottic airway will likely not be seen on plain film evaluation. Modified Barium Swallow 12/10/24 13:26 IMPRESSION: Mild pharyngeal dysphagia with laryngeal penetration without aspiration. Please correlate with speech pathologist findings and specific feeding recommendations. Labs Labs: Laboratory Results - last 24 hr 12/12/24 05:24 WBC 5.0 RBC 3.73 L Hgb 10.9 L Hct 33.6 L MCV 90.1 MCH 29.2 MCHC 32.4 RDW 15.8 H Plt Count 153 MPV 10.1 Immature Gran % (Auto) 0.6 H Neut % (Auto) 57.9 Lymph % (Auto) 29.0 [place] % (Auto) 9.7 H Eos % (Auto) 2.4 Baso % (Auto) 0.4 Lymph # (Auto) 1.44 [place] # (Auto) 0.5 Eos # (Auto) 0.1 Baso # (Auto) 0.0 Abs Immat Gran (auto) 0.03 Absolute Neuts (auto) 2.9 Absolute Nucleated RBC 0.000 Nucleated RBC % 0.0 Sodium 139 Potassium 2.8 L* Chloride 104 Carbon Dioxide 28 Anion Gap 7 BUN 13 Creatinine 0.66 L Estim Creat Clear Calc 98 Estimated GFR > 60 Glucose 106 Calcium 8.6 Magnesium 1.7 Total Bilirubin 0.5 AST 29 ALT 16 Alkaline Phosphatase 60 Total Protein 5.6 L Albumin 3.4 L Quality VTE Prophylaxis VTE prophylaxis: mechanical ordered
[2024-12-12] MEDS: MAGNESIUM SULF 2 GM/WATER 50ML 2 GM/50 ML BAG IVPB (12:36)
[2024-12-12 12:42] VITALS: BP 124/67; PULSE 73; RESP 16; TEMP 36.4; O2SAT 100
[2024-12-12 13:45] LABS: Potassium 3.4 mmol/L (3.4-5.0)
[2024-12-12 20:00] VITALS: PULSE 73; RESP 16; O2SAT 100
[2024-12-12] MEDS: cefTRIAXone 2 GM/NS 100 ML 2 GM/100 ML BAG IVPB (20:18)
[2024-12-12 20:54] VITALS: PULSE 70; O2SAT 98
[2024-12-12 21:29] VITALS: BP 115/50; PULSE 75; RESP 20; TEMP 37.1; O2SAT 99
[2024-12-12 22:41] VITALS: PULSE 76; O2SAT 99
[2024-12-13 02:21] VITALS: PULSE 76; O2SAT 99
[2024-12-13] MEDS: ACETAMINOPHEN 325 MG TABLET 650 MG PO ×2 (05:10→14:42)
[2024-12-13 05:15] LABS: Basophils Percent Auto 0.4 % (0.2-1.2); Eosinophils Absolute Auto 0.1 K/mm3 (0-0.3); Eosinophils Percent Auto 2.4 % (0-4.4); Hematocrit 32.9 % (42.0-52.0); Hemoglobin 10.7 g/dL (14.0-18.0); Immature Granulocyte Absolute 0.02 K/mm3 (0.00-0.031); Immature Granulocyte Percent A 0.4 % (0-0.5); Lymphocytes Absolute Auto 1.81 K/mm3 (0.9-3.2); Lymphocytes Percent Auto 32.9 % (18.3-44.2); Mean Corpuscular HGB Conc 32.5 g/dl (32-36); Mean Corpuscular Hemoglobin 29.2 pg (26-34); Mean Corpuscular Volume 89.6 fl (80-100); Mean Platelet Volume 9.8 fl (7.4-10.4); Monocytes Absolute Auto 0.5 K/mm3 (0.1-0.6); Monocytes Percent Auto 8.4 % (2.6-8.5); Neutrophils Absolute Auto 3.1 K/mm3 (1.3-6.7); Neutrophils Percent Auto 55.5 % (45.5-73.1); Platelet Count Result 164 k/mm3 (150-375); Red Blood Count 3.67 M/mm3 (4.6-6.20); Red Cell Distribution Width 15.8 % (11.5-14.5); White Blood Count 5.5 K/mm3 (4.5-10.0)
[2024-12-13 05:34] LABS: Alanine Aminotransferase 15 U/L (6-50); Albumin Level 3.5 g/dL (3.5-5.1); Alkaline Phosphatase 58 U/L (38-126); Anion Gap 6 mmol/L (4-12); Aspartate Amino Transferase 27 U/L (17-59); Bilirubin,Total 0.5 mg/dL (0.2-1.3); Blood Urea Nitrogen 9 mg/dL (9-20); Calcium 8.9 mg/dL (8.4-10.2); Carbon Dioxide 26 mmol/L (22-30); Chloride 105 mmol/L (98-107); Estimated CRCL calculation 98 ml/min; Estimated Glomerular Filt Rate > 60; Glucose 99 mg/dL (65-110); Magnesium 1.6 mg/dL (1.6-2.3); Sodium 137 mmol/L (137-145); Total Protein 5.8 g/dL (6.3-8.2)
[2024-12-13 06:24] VITALS: BP 133/80; PULSE 80; RESP 16; TEMP 37.3; O2SAT 98
[2024-12-13 09:36] VITALS: BMI 30.2
[2024-12-13] MEDS: SERTRALINE HCL 50 MG TABLET 150 MG FEED TUBE (10:11)
[2024-12-13] MEDS: PANTOPRAZOLE SODIUM IV 40 MG VIAL IV PUSH (10:11)
[2024-12-13] MEDS: ENOXAPARIN 40 MG/0.4 ML SYRINGE SUB-Q (10:11)
[2024-12-13] MEDS: MICAFUNGIN SODIUM IVPB (10:27)
[2024-12-13] MEDS: SODIUM CHLORIDE 0.9% IVPB (10:27)
--- NOTE | 2024-12-13 12:34 | PM.IMPN ---
Progress Note: A&P Assessment and Plan (1) On mechanically assisted ventilation: Code(s): Z99.11 - Dependence on respirator [ventilator] status Status: Acute Assessment and Plan: Patient was intubated and [facility] in [facility], this was done when they were doing the EGD and noted swelling of the vocal cords/epiglottitis -12/07: CT soft tissue of the neck are showed asymmetric 12 mm soft tissue density within the subglottic airway to the right of midline, the epiglottis is of normal caliber -12/09 extubated -appreciate ENT evaluation, flexible ureteroscopy did not show any masses or lesions or ulcerations or swelling as per the note. -currently on room air with adequate O2 sats - now on room air awaiting ENT re-eval today (2) Epiglottitis: Code(s): J05.10 - Acute epiglottitis without obstruction Status: Acute Assessment and Plan: Soft tissue density as noted above, at [facility] they had noted swelling of the vocal cords, patient did receive Decadron at the outside hospital -will continue to follow -will hold additional steroids due to Tiffany esophagitis -12/10: discussed with Dr. Blackmon, he is unavailable today, if patient remains in the hospital Friday, 12/13, he will perform a flexible bronchoscopy to evaluate the soft tissue density as mentioned above Completed 7 days of Rocephin, and now on Fluconazole day 6 of 14 of antifungal Awaiting ENT re-eval on Friday (3) Tiffany esophagitis: Code(s): B37.81 - Candidal esophagitis Status: Acute Assessment and Plan: Continue Fluconazole for Tiffany esophagitis as above (4) Essential hypertension: Code(s): I10 - Essential (primary) hypertension Status: Acute Assessment and Plan: Blood pressures have been stable -blood pressures have been stable, hold antihypertensive. Will introduce blood pressures are higher (5) Seroma after procedure: Status: Acute Assessment and Plan: 12/07: CT chest abdomen and pelvis did not reveal any pulmonary embolism, no aortic dissection. Bilateral pleural effusion with adjacent compressive atelectasis, hepatic splenomegaly, unchanged. Findings within soft tissues of the lower pelvis to the left of midline, possibly representing a perioperative serum a 3.5 x 6.1 x 5.4 cm fluid attenuation with air. Patient has seroma at the postoperative site as seen on CT scan as under - seroma draining on its own, no intervention per surgeon Gen surgery following Plan DVT prophylaxis: Sq lovenox Code Status: Full code Awaiting ENT re-eval Subjective Date/time seen: 12/13/24 12:34 Interval history: Comfortable at bedside Awaiting ENT re-eval today, disposition pending ENT eval Review of Systems Review of Systems: All systems reviewed & are unremarkable except as noted in HPI and below ROS unobtainable: Yes unobtainable due to endotracheal tube and unobtainable due to mental status Exam Narrative: General: Patient is awake, anxious HEENT:? Pupils are equal and reactive, sclera is clear, Neck:? Supple Respiratory:? Clear to auscultation bilateral, with decreased air entry at bases, no wheezing Cardiac:? S1-S2 normal, regular rate and rhythm Abdomen:? Soft, nontender, nondistended, recent surgical scar noted on the left of midline in the lower region, and in duration noted, 3 x 4 cm Extremities:? Trace edema, palpable pedal pulses Neuro:? Patient is awake, alert, answers to questions and follows simple commands appropriate Skin:? No lesions noted Psych:? Normal mentation, anxious Const: General: comfortable and no acute distress Other: , male, ill-appearing, intubated/sedated, elderly HENMT: Mouth: Yes moist mucous membranes Other: Dried blood to right nare with NG in place -> bilious/dark red output. Difficult to exam throat as ET tube is in place. No revert pustules, patches, or thrush easily appreciated. Eyes: General: appearance normal, both eyes and all related structures Sclera: sclerae normal Pupils: Equal, round and reactive pupils present Resp: Effort & Inspection: normal respiratory effort Other: Bibasilar crackles. Cardio: Rate: regular rate Rhythm: regular rhythm Other: S1-S2 present without murmur, rub, ectopy GI: Other: well healed laparoscopic incisions to abdomen. incision to left panus with firm underlying region approx 4 x 4 cm. Normoactive bowel sounds in all quadrants. Nondistended, soft. Urinary Catheter: Urinary Catheter: patent and draining Skin: General skin exam: normal color Wounds: no wounds Other: Scattered ecchymosis to bilateral upper extremities, primarily forearms with no particular pattern. Neuro: Cranial nerves: Yes Equal, round and reactive pupils present Other: Intubated and sedated. Post CT briefly awakened and moving all extremities, able to maintain eye contact. Extrem: General: normal to inspection Psych: Other: Unable to assess Objective Data Vital Signs Vital Signs: Vital Signs - 24 hr 12/12/24 12:42 12/12/24 20:00 12/12/24 20:54 Temperature 97.6 F Pulse Rate 73 73 70 Respiratory Rate 16 16 Blood Pressure 124/67 Pulse Oximetry 100 100 98 Oxygen Delivery Room Air Autopap Fraction of Inspired Oxygen 28 12/12/24 21:29 12/12/24 22:41 12/13/24 02:21 Temperature 98.7 F Pulse Rate 75 76 76 Respiratory Rate 20 Blood Pressure 115/50 L Pulse Oximetry 99 99 99 Oxygen Delivery Autopap Autopap Fraction of Inspired Oxygen 12/13/24 06:24 12/13/24 08:00 Temperature 99.1 F Pulse Rate 80 Respiratory Rate 16 Blood Pressure 133/80 Pulse Oximetry 98 Oxygen Delivery Room Air Fraction of Inspired Oxygen Intake/Output Intake/Output: Intake & Output 12/10/24 12/11/24 12/12/24 12/13/24 23:59 23:59 23:59 23:59 Intake Total 2322.1 3840 2740 1090 Output Total 3350 1300 350 600 Balance -1027.9 2540 2390 490 Meds/Results Medications: Active Medications Generic Name Dose Route Start Last Admin Trade Name Freq PRN Reason Stop Dose Admin Acetaminophen 650 mg 12/10/24 17:17 12/13/24 05:10 Acetaminophen 325 Mg Tablet PO 650 mg Q6H PRN Administration Mild Pain (1-3) or Fever Alprazolam 0.5 mg 12/10/24 14:42 12/12/24 21:23 Alprazolam (*Crx) 0.5 Mg Tablet PO 0.5 mg Q8H PRN Administration Anxiety Dextrose 12.5 gm 12/09/24 10:15 Dextrose 50% 25 Gm/50 Ml Syringe IV PUSH PRN PRN Hypoglycemia Protocol Enoxaparin Sodium 40 mg 12/11/24 09:00 12/13/24 10:11 Enoxaparin 40 Mg/0.4 Ml Syringe SUB-Q 40 mg DAILY GINA Administration Glucagon 1 mg 12/09/24 10:15 Glucagon For Inj 1 Mg Vial IM PRN PRN Hypoglycemia Protocol Glucose 15 gm 12/09/24 10:15 Glucose Oral Gel 15 Gm Of Glucse In 37.5 Gm Tube PO PRN PRN Hypoglycemia Protocol Ceftriaxone Sodium 2 gm in 100 mls @ 200 mls/hr 12/07/24 20:00 12/12/24 21:00 Rocephin 2 Gm/Ns 100 Ml IVPB Infused Q24H GINA Infusion Micafungin Sodium 150 mg/ 100 mls @ 100 mls/hr 12/08/24 09:00 12/13/24 10:27 Sodium Chloride IVPB 100 mls/hr DAILY GINA Administration Dextrose 1,000 mls @ 100 mls/hr 12/09/24 10:15 Dextrose 5% 1,000 Ml IVPB PRN PRN Hypoglycemia Protocol Metoclopramide HCl 10 mg 12/10/24 12:00 Metoclopramide Hcl Inj 10 Mg/2 Ml Vial IV PUSH Q6HR PRN Nausea And Vomiting Nitroglycerin 0.4 mg 12/09/24 20:14 12/09/24 20:23 Nitroglycerin Sl 0.4 Mg Tablet SUBLINGUAL 0.4 mg Q5MIN PRN Administration Chest Pain Ondansetron HCl 4 mg 12/07/24 18:39 12/10/24 00:59 Ondansetron Inj 4 Mg/2 Ml Vial IV PUSH 4 mg Q6H PRN Administration Nausea And Vomiting Pantoprazole Sodium 40 mg 12/07/24 21:00 12/13/24 10:11 Pantoprazole Sodium Iv 40 Mg Vial IV PUSH 40 mg Q12HR GINA Administration Sertraline HCl 150 mg 12/10/24 09:05 12/13/24 10:11 Sertraline Hcl 50 Mg Tablet FEED TUBE 150 mg QAM GINA Administration Trimethobenzamide HCl 200 mg 12/09/24 22:32 12/09/24 22:41 Trimethobenzamide Hcl 200 Mg/2 Ml Vial IM 200 mg Q6H PRN Administration Nausea And Vomiting Radiology Results: ITS Impressions Abdomen X-Ray 12/07/24 17:16 IMPRESSION: Orogastric tube in good position and ready for immediate use. Soft Tissue Neck CT 12/07/24 22:59 IMPRESSION: The epiglottis is of normal caliber. Asymmetric 12 mm soft tissue density within the supraglottic airway, to the right of midline, a finding of uncertain clinical implication. Examination is otherwise unremarkable, as detailed above. Chest/Abdomen/Pelvis CTA 12/07/24 23:13 IMPRESSION: No pulmonary embolus. No aortic dissection. Bilateral pleural effusions with adjacent compressive atelectasis. Hepatosplenomegaly, unchanged. Findings within the soft tissues of the lower pelvis, to the left midline, possibly representing a perioperative seroma, as detailed above. Chest X-Ray 12/09/24 22:54 IMPRESSION: Interval development of moderate pulmonary vascular congestion and a small left-sided pleural effusion when compared with examination performed approximately 15 hours earlier. Soft Tissue Neck X-Ray 12/09/24 22:57 IMPRESSION: Unremarkable plain film evaluation of the soft tissues of the neck. The asymmetric 12 mm soft tissue density within the supraglottic airway will likely not be seen on plain film evaluation. Modified Barium Swallow 12/10/24 13:26 IMPRESSION: Mild pharyngeal dysphagia with laryngeal penetration without aspiration. Please correlate with speech pathologist findings and specific feeding recommendations. Labs Labs: Laboratory Results - last 24 hr 12/12/24 12/13/24 13:30 04:23 WBC 5.5 RBC 3.67 L Hgb 10.7 L Hct 32.9 L MCV 89.6 MCH 29.2 MCHC 32.5 RDW 15.8 H Plt Count 164 MPV 9.8 Immature Gran % (Auto) 0.4 Neut % (Auto) 55.5 Lymph % (Auto) 32.9 [place] % (Auto) 8.4 Eos % (Auto) 2.4 Baso % (Auto) 0.4 Lymph # (Auto) 1.81 [place] # (Auto) 0.5 Eos # (Auto) 0.1 Baso # (Auto) 0.0 Abs Immat Gran (auto) 0.02 Absolute Neuts (auto) 3.1 Absolute Nucleated RBC 0.000 Nucleated RBC % 0.0 Sodium 137 Potassium 3.4 3.0 L Chloride 105 Carbon Dioxide 26 Anion Gap 6 BUN 9 Creatinine 0.66 L Estim Creat Clear Calc 98 Estimated GFR > 60 Glucose 99 Calcium 8.9 Magnesium 1.6 Total Bilirubin 0.5 AST 27 ALT 15 Alkaline Phosphatase 58 Total Protein 5.8 L Albumin 3.5 Quality VTE Prophylaxis VTE prophylaxis: mechanical ordered
[2024-12-13 14:14] VITALS: BP 125/74; PULSE 76; RESP 18; TEMP 36.6; O2SAT 100
--- NOTE | 2024-12-13 16:53 | PM.DS ---
DS: Admitting Diagnosis Discharge Date 12/13/2024 Admitting Diagnosis Difficulty Swallowing, SOB DS: Discharge Diagnosis Discharge Diagnosis (1) Epiglottitis: Code(s): J05.10 - Acute epiglottitis without obstruction Status: Acute (2) Pharyngeal mass: Code(s): J39.2 - Other diseases of pharynx Status: Acute (3) Tiffany esophagitis: Code(s): B37.81 - Candidal esophagitis Status: Acute DS: Summary Hospital Course Hospital Course: 74 y/o M with PMH of sleep apnea on CPAP, hypertension, colorectal cancer s/p right hemicolectomy, melanoma s/p excision, depression, kidney stones, colitis (microscopic, chronic diarrhea), and neuropathy presents here with cough, sore throat, dysphagia, and shortness of breath. The patient presented to [facility] in [facility] on 12/07 for further evaluation of cough, sore throat, dysphagia, and shortness of breath. HPI obtained through the patient's partner as he is currently intubated. The patient's partner, Bryan, provided the following history. He reports the patient has been experiencing a cough for the past few months. Cough has been dry and irritating but not accompanied by any additional symptoms. Patient then developed dysphagia and sore throat yesterday. This morning he reported to his partner that he was having significantly more difficulty swallowing, choking sensation, and now developed shortness of breath. Patient underwent an EGD at [facility], significant epiglottitis noted and patient was emergently intubated. Prior to intubation, it was noted that the patient's throat and tongue appeared consistent with Tiffany. Patient was subsequently started on Diflucan and transferred here for intensive care. Partner reports majority of his providers are at [facility]. Of note, the patient had a recent hemicolectomy for colorectal cancer on 11/06/2024. Initial VS at presentation: 97.5? F, HR 74, R 15, 139/86, and 100% on mechanical ventilation, FiO2 at 40%. Lab workup on presentation, 12/07: No leukocytosis, hemoglobin 10.9 (9.6 on 11/07/2024), normal coags, normal fibrinogen, elevated D-dimer, initial ABG showed pH 7.348 and 02 148, no significant electrolyte derangements, creatinine 0.69 and glucose 130. CXR showed mild pulmonary vascular congestion and supportive lines/tubes in good position. Abdominal XR showed orogastric tube in good position and ready for immediate use. Patient was managed in the ICU for Epiglottis with possible mass, and esophageal candidiasis. Started on Rocephin, And Micafungin, for Epiglottitis and Esophageal candidiasis. ENT did Laryngoscopy and did not see any epiglottis mass, however patient was able to be extubated, and is currently on room air. Completed 7 days of Rocephin. Now on day 6 of Micafungin, started on Fluconazole. To complete 8 days of Fluconazole. ENT re-evaluated today and noted he will follow up outpatient. Patient discharged to Swing Bed today. F/u with PCP in 3-5 days F/u with ENT as instructed Time Spent with Patient Time attestation: Total time spent providing and/or coordinating discharge services: DS: Data Data Completed and Pending Labs on day of discharge: Labs from last 24 hours 12/13/24 04:23 WBC 5.5 RBC 3.67 L Hgb 10.7 L Hct 32.9 L MCV 89.6 MCH 29.2 MCHC 32.5 RDW 15.8 H Plt Count 164 MPV 9.8 Immature Gran % (Auto) 0.4 Neut % (Auto) 55.5 Lymph % (Auto) 32.9 [place] % (Auto) 8.4 Eos % (Auto) 2.4 Baso % (Auto) 0.4 Lymph # (Auto) 1.81 [place] # (Auto) 0.5 Eos # (Auto) 0.1 Baso # (Auto) 0.0 Abs Immat Gran (auto) 0.02 Absolute Neuts (auto) 3.1 Absolute Nucleated RBC 0.000 Nucleated RBC % 0.0 Sodium 137 Potassium 3.0 L Chloride 105 Carbon Dioxide 26 Anion Gap 6 BUN 9 Creatinine 0.66 L Estim Creat Clear Calc 98 Estimated GFR > 60 Glucose 99 Calcium 8.9 Magnesium 1.6 Total Bilirubin 0.5 AST 27 ALT 15 Alkaline Phosphatase 58 Total Protein 5.8 L Albumin 3.5 Discharge Plan Discharge Attending physician on discharge: Prachi Garza Consulting providers: Wang Coates; Cruzito Blackmon; Hugo Mccauley Discharging Clinician: Prachi Garza Anticipated Discharge Date/Time: 12/13/24 16:49 Patient Disposition: Hospital Swing Bed Activity: as tolerated Diet: as tolerated and diabetic Patient Instructions: Antibiotic Form Patient Language: Hungarian Stand Alone Forms: General Discharge Information Follow-up/Referrals: Cruzito Blackmon MD [Physician] - 1 Week Discharge Medications: New fluconazole [Diflucan] 100 mg Tablet 200 mg PO QAM 8 Days Qty: 16 0RF potassium chloride [K-Tab] 20 mEq tablet extended release 40 meq PO DAILY 5 Days Qty: 10 0RF Continued melatonin 10 mg capsule 10 mg PO QHS (DME) CPAP See Rx Instructions .Route .MEDSUPPLY Qty: 1 0RF Rx Instructions: As directed pressure 12 cm H2O. Needs new replacement machine. Tubing and connectors not needed. cyanocobalamin (vitamin B-12) 1,000 mcg capsule 1,000 mcg PO DAILY oxybutynin chloride 10 mg tablet extended release 24hr 10 mg PO QAM diphenhydramine HCl [Sleep Aid (diphenhydramine)] 50 mg capsule 50 mg PO HS (DME) CPAP See Rx Instructions .Route .MEDSUPPLY Qty: 1 0RF Rx Instructions: AutoPap (4-12 ) cm H2O ,Tubing and connectors not needed. potassium chloride 20 mEq tablet extended release See Rx Instructions .ROUTE .COMPLEX Qty: 90 1RF Dose Instruction: TAKE 1 TABLET BY MOUTH EVERY MORNING Rx Instructions: TAKE 1 TABLET BY MOUTH EVERY MORNING losartan 50 mg tablet 50 mg PO QAM Qty: 90 1RF sertraline 100 mg tablet See Rx Instructions .ROUTE .COMPLEX Qty: 135 1RF Dose Instruction: TAKE 1.5 TABLETS BY MOUTH EVERY DAY Patient Comments: qam Rx Instructions: TAKE 1.5 TABLETS BY MOUTH EVERY DAY budesonide 3 mg capsule,delayed,extend.release See Rx Instructions .ROUTE .COMPLEX Qty: 270 1RF Dose Instruction: TAKE 3 CAPSULES BY MOUTH EVERY DAY Rx Instructions: TAKE 3 CAPSULES BY MOUTH EVERY DAY Date of admission: 12/07/24 17:15 Primary Care Provider: Jesse Humphries Admitting Provider: Shavon Barker Attending physician on admission: Shavon Barker Condition: Improved
== END 2024-12-13 18:25 | disposition swing bed (61) | DRG 153 ==
LOC: ANHICU 12-10 09:11 → ANH2MED 12-10 15:01
PROVIDERS: Internal Medicine; Physician Assistant; Student in an Organized Health Care Education/Training Program; Admitting Provider Internal Medicine; PCP Family Medicine; Visit Provider Internal Medicine
DX: J05.10 Acute epiglottitis without obstruction (principal); Z99.11 Dependence on respirator [ventilator] status; B37.81 Candidal esophagitis; L76.34 Postprocedural seroma of skin and subcutaneous tissue following other procedure; Y83.8 Other surgical procedures as the cause of abnormal reaction of the patient, or of later complication, without mention of misadventure at the time of the procedure; J39.2 Other diseases of pharynx; R73.03 Prediabetes; E78.2 Mixed hyperlipidemia; I10 Essential (primary) hypertension; G47.30 Sleep apnea, unspecified; F32.A Depression, unspecified; K52.9 Noninfective gastroenteritis and colitis, unspecified; Z96.653 Presence of artificial knee joint, bilateral; Z79.899 Other long term (current) drug therapy; Z85.038 Personal history of other malignant neoplasm of large intestine; Z85.820 Personal history of malignant melanoma of skin; Z87.442 Personal history of urinary calculi; Z88.8 Allergy status to other drugs, medicaments and biological substances; Z90.13 Acquired absence of bilateral breasts and nipples; Z90.49 Acquired absence of other specified parts of digestive tract; Z98.52 Vasectomy status; Z99.89 Dependence on other enabling machines and devices
CPT/HCPCS: 36415; 36600; 70360; 70490; 71045; 71275; 74177; 74230; 80048; 80053; 82271; 82375; 82805; 82948; 83036; 83050; 83605; 83735; 83986; 84100; 84132; 84478; 84484; 85018; 85025; 85380; 85384; 85610; 85730; 86703; 87040; 87070; 87075; 87205; 87641; 87651; 92526; 92610; 92611; 93005; 94002; 94003; 97110; 97116; 97162; 97165; 97530; 97535; A9270; G0432; J0696; J0780; J1650; J1938; J2248; J2250; J2405; J2470; J2704; J2765; J3010; J3250; J3475; J3480; J7030; J7040; Q9967